=== PATIENT | female | born 1995 | race Caucasian/White ===

== ENCOUNTER 2016-07-03 19:04 | Outpatient (CLI) | payer MEDICAID | END 2016-07-03 21:30 | disposition home or self-care (01) | DX: O99.89 Other specified diseases and conditions complicating pregnancy, childbirth and the puerperium (principal); R32 Unspecified urinary incontinence; Z3A.24 24 weeks gestation of pregnancy ==

== ENCOUNTER 2020-01-29 13:35 | Emergency (ER) | payer MEDICAID ==
--- NOTE | 2020-01-29 13:58 | ED Physician Documentation ---
History of Present Illness - Stated complaint Stated Complaint: VOMITING,DIARRHEA,WEAKNESS - Chief complaint Chief Complaint: Abd Pain - History obtained from History obtained from: Patient - History of Present Illness Timing: How many days ago (5) Pain level max: 6 Pain level now: 4 - Additonal information Additional information: 24 year old female states that she has been sick for the past 5 days. Started with nasal congestion, sore throat, and body aches. Yesterday felt better. Today had nausea, vomiting and diarrhea, now feels weak and dehydrated. No fevers. No covid exposure. No recent travel. No recent antibiotics. She is not , breast-feeding or trying to become . Review of Systems Ten Systems: 10 systems reviewed and negative Constitutional: reports: Myalgias. denies: Fever, Chills Ears: denies: Ear pain Nose: reports: Rhinorrhea / runny nose, Congestion Throat: reports: Sore throat Cardiac: denies: Chest pain / pressure Respiratory: denies: Cough GI: reports: Abdominal Pain (Crampy, diffuse), Nausea, Vomiting, Diarrhea Skin: denies: Rash Musculoskeletal: denies: Neck pain, Back pain Neurologic: denies: Headache PD PAST MEDICAL HISTORY - Past Medical History Past Medical History: Yes GI: Other (IBS) Psych: Depression, Anxiety - Past Surgical History Past Surgical History: No - Present Medications Home Medications: Ambulatory Orders Medication Instructions Recorded Confirmed Omeprazole Magnesium 20 mg PO DAILY 01/29/20 01/29/20 Ondansetron Odt [Zofran] 4 mg TL Q6H PRN #10 tablet 01/29/20 Sertraline HCl 100 mg PO DAILY 01/29/20 01/29/20 - Allergies Allergies/Adverse Reactions: Allergies Allergy/AdvReac Type Severity Reaction Status Date / Time No Known Drug Allergies Allergy Verified 01/29/20 13:44 - Social History Does the pt smoke?: No Smoking Status: Never smoker Does the pt drink ETOH?: No - Immunizations Immunizations are current?: Yes PD ED PE NORMAL - Vitals Vital signs reviewed: Yes - General General: Alert and oriented X 3, No acute distress - HEENT HEENT: Ears normal, Moist mucous membranes, Pharynx benign - Neck Neck: Supple, no meningeal sign, No adenopathy - Cardiac Cardiac: RRR, Strong equal pulses - Respiratory Respiratory: No respiratory distress, Clear bilaterally - Abdomen Abdomen: Normal bowel sounds, Soft, Non tender, Non distended - Back Back: No CVA TTP - Derm Derm: Warm and dry - Extremities Extremities: No edema - Neuro Neuro: Alert and oriented X 3 - Psych Psych: Normal mood, Normal affect Results - Vitals Vitals: Vital Signs - 24 hr 01/29/20 01/29/20 01/29/20 13:41 14:16 15:54 Temperature 37.0 C 37.1 C 37.1 C Heart Rate 100 96 89 Respiratory 16 18 16 Rate Blood Pressure 145/85 H 129/74 141/84 H O2 Saturation 100 100 97 Oxygen O2 Source Room air - Labs Labs: Laboratory Tests 01/29/20 01/29/20 01/29/20 14:10 14:10 15:04 WBC 13.8 H RBC 5.07 Hgb 14.3 Hct 42.9 MCV 84.6 MCH 28.2 MCHC 33.3 RDW 12.7 Plt Count 326 MPV 10.6 Neut # (Auto) 10.9 H Lymph # (Auto) 2.2 [place] # (Auto) 0.6 Eos # (Auto) 0.0 Baso # (Auto) 0.1 Absolute Nucleated RBC 0.00 Nucleated RBC % 0.0 Sodium 138 Potassium 4.1 Chloride 102 Carbon Dioxide 26 Anion Gap 10.0 BUN 9 Creatinine 0.7 Estimated GFR (MDRD) 104 Glucose 106 H Calcium 9.2 Total Bilirubin 0.6 AST 17 ALT 20 Alkaline Phosphatase 73 Total Protein 7.7 Albumin 3.9 Globulin 3.8 Albumin/Globulin Ratio 1.0 Lipase 21 L Urine Color YELLOW Urine Clarity CLEAR Urine pH 6.0 Ur Specific [place] 1.020 Urine Protein NEGATIVE Urine Glucose (UA) NEGATIVE Urine Ketones NEGATIVE Urine Occult Blood NEGATIVE Urine Nitrite NEGATIVE Urine Bilirubin NEGATIVE Urine Urobilinogen 0.2 (NORMAL) Ur Leukocyte Esterase SMALL H Urine RBC 0-5 Urine WBC 4-5 Ur Squamous Epith Cells MOD Squamous H Urine Bacteria None Seen Ur Microscopic Review INDICATED Urine Culture Comments NOT INDICATED Urine HCG, Qual NEGATIVE PD MEDICAL DECISION MAKING - ED course Complexity details: reviewed results, re-evaluated patient, considered differential, d/w patient ED course: Patient is well-appearing, nontoxic. Afebrile. No significant lab abnormalities. Urinalysis appears contaminated and she does not have UTI symptoms. Tolerating p.o. without difficulty. Feels better after IV fluids. We will continue supportive care. Abdomen is soft, nontender nondistended on serial exam. Patient counseled regarding signs and symptoms for which I believe and urgent re-evaluation would be necessary. Patient with good understanding of and agreement to plan and is comfortable going home at this time This document was made in part using voice recognition software. While efforts are made to proofread this document, sound alike and grammatical errors may occur. Departure - Departure Disposition: 01 Home, Self Care Clinical Impression: Viral syndrome Condition: Good Instructions: ED Viral Syndrome Follow-Up: your,doctor in 1 week [Other] Prescriptions: Ondansetron Odt [Zofran] 4 mg TL Q6H PRN #10 tablet PRN Reason: Nausea / Vomiting Comments: Drink plenty of fluids. Return if you worsen. Discharge Date/Time: 01/29/20 15:54
[2020-01-29] MEDS: SODIUM CHLORIDE 0.9% 1,000 ML IV STA (14:13)
[2020-01-29] MEDS: ONDANSETRON 4 MG/2 ML VIAL IVP STA (14:14)
[2020-01-29 14:29] LABS: BASOPHILS # (AUTO) 0.1 10^3/uL (0.0-0.1); BASOPHILS % (AUTO) 0.4 %; EOSINOPHILS % (AUTO) 0.3 %; HGB - HEMOGLOBIN 14.3 g/dL (12.0-16.0); LYMPHOCYTES # (AUTO) 2.2 10^3/uL (1.5-3.5); LYMPHOCYTES % (AUTO) 15.9 %; MEAN CORPUSCULAR HEMOGLOBIN 28.2 pg (27.0-31.0); MEAN CORPUSCULAR HGB CONC 33.3 g/dL (32.0-36.0); MEAN CORPUSCULAR VOLUME 84.6 fL (81.0-99.0); MEAN PLATELET VOLUME 10.6 fL (7.9-10.8); MONOCYTES # (AUTO) 0.6 10^3/uL (0.0-1.0); MONOCYTES % (AUTO) 4.3 %; NEUTROPHILS # (AUTO) 10.9 10^3/uL (1.5-6.6); NEUTROPHILS % (AUTO) 78.4 %; PLT - PLATELET COUNT 326 10^3/uL (130-450); RED BLOOD COUNT 5.07 10^6/uL (4.20-5.40); RED CELL DISTRIBUTION WIDTH 12.7 % (12.0-15.0); WHITE BLOOD COUNT 13.8 x10^3/uL (4.8-10.8)
[2020-01-29 14:39] LABS: ALBUMIN 3.9 g/dL (3.2-5.5); BILIRUBIN,TOTAL 0.6 mg/dL (0.2-1.0); CALCIUM 9.2 mg/dL (8.5-10.3); CREATININE 0.7 mg/dL (0.4-1.0); TOTAL PROTEIN 7.7 g/dL (6.7-8.2)
[2020-01-29 15:21] LABS: BILIRUBIN,URINE NEGATIVE (NEGATIVE); GLUCOSE, URINE (UA) NEGATIVE (NEGATIVE); KETONES,URINE (UA) NEGATIVE (NEGATIVE); LEUKOCYTE ESTERASE, URINE SMALL (NEGATIVE); NITRITE,URINE NEGATIVE (NEGATIVE); OCCULT BLOOD,URINE NEGATIVE (NEGATIVE); PROTEIN,URINE NEGATIVE (NEGATIVE); UROBILINOGEN,URINE 0.2 (NORMAL) E.U./dL (NORMAL)
[2020-01-29 15:25] LABS: CLARITY,URINE CLEAR (CLEAR); HCG UR QUAL NEGATIVE
[2020-01-29 15:36] LABS: BACTERIA,URINE None Seen /HPF (None Seen); RBC,URINE 0-5 /HPF (0-5); SQUAMOUS EPITHELIAL CELL,UR MOD Squamous (<= Few)
[2020-01-29 15:55] VITALS: BP 141/84
== END 2020-01-29 15:54 | disposition home or self-care (01) ==
LOC: ED 13:35
DX: B34.9 Viral infection, unspecified (principal); Z20.828 Contact with and (suspected) exposure to other viral communicable diseases
CPT/HCPCS: 36415; 80053; 81001; 81003; 81025; 83690; 85025; 87086; 96361; 96374; 99283

== ENCOUNTER 2020-11-26 14:07 | Outpatient (CLI) | payer MEDICAID | END 2020-11-26 14:08 | disposition home or self-care (01) | LOC: COV 14:07 | PROVIDERS: ATTEND Family Medicine | DX: U07.1 COVID-19 (principal) ==

== ENCOUNTER 2021-02-19 16:56 | Outpatient (CLI) | payer MEDICAID | END 2021-02-19 16:57 | disposition critical access hospital (66) | LOC: EMS 16:56 | DX: Z04.3 Encounter for examination and observation following other accident (principal); M53.3 Sacrococcygeal disorders, not elsewhere classified | CPT/HCPCS: A0425; A0427; A0999 ==

== ENCOUNTER 2021-02-19 17:18 | Emergency (ER) | payer MEDICAID ==
--- NOTE | 2021-02-19 19:04 | XRAY Report ---
PROCEDURE: Sacrum/Coccyx INDICATIONS: fall buttocks pain TECHNIQUE: 3 views of the sacrum and coccyx acquired. COMPARISON: None. FINDINGS: Bones: No fractures or dislocations. No suspicious bony lesions. Soft tissues: Visualized bowel gas pattern is normal. No suspicious soft tissue densities. IMPRESSION: No fractures. If clinical symptoms persist, a follow-up examination in 7-10 days or advanced imaging such as CT or MRI is suggested. Reviewed by: Zacarias Chappell MD on 02/19/2021 7:03 PM PST Approved by: Zacarias Chappell MD on 02/19/2021 7:03 PM PST Station ID: [id number]
--- NOTE | 2021-02-19 19:20 | ED Physician Documentation ---
PD HPI BACK PAIN - Stated complaint Stated Complaint: GLF - Chief complaint Chief Complaint: Trauma Ch/Bk - History obtained from History obtained from: Patient, EMS - History of Present Illness Timing - onset: Enter time (16:00), Today Timing - details: Abrupt onset Pain level max: 10 (with movement) Pain level now: 8 Location: Lower Quality: Pain, Spasm Associated symptoms: No: Weakness, Numbness, Incontinent of urine, Unable to urinate, Hematuria, Incontinent of stool Improves with: Rest Worsened by: Movement Recently seen: Not recently seen - Additional information Additional information: BIBA. Patient c/o midline coccygeal pain sudden onset when she slipped on stairs at home and fell, landed on my tailbone (per patient). She fell at approximately 4 PM today. Pain has steadily worsened although remains limited to the coccygeal area. Pain is sharply exacerbated with movement involving lower back. Denies weakness, denies numbness. She did not sustain any other injury and denies head injury/LOC Review of Systems GI: reports: Reviewed and negative : denies: Unable to Void, Incontinent Musculoskeletal: reports: Back pain (limited to coccygeal area). 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: section HEENT: Tonsil/Adenoidectomy - Present Medications Home Medications: Ambulatory Orders Medication Instructions Recorded Confirmed Omeprazole Magnesium 20 mg PO DAILY 01/29/20 01/29/20 Ondansetron Odt [Zofran] 4 mg TL Q6H PRN #10 tablet 01/29/20 Sertraline HCl 100 mg PO DAILY 01/29/20 01/29/20 Cyclobenzaprine [Flexeril] 10 mg PO TID PRN #20 tablet 02/19/21 Oxycodone HCl/Acetaminophen 1 - 2 each PO Q6H PRN #14 tablet 02/19/21 [Percocet 5-325 mg Tablet] - Allergies Allergies/Adverse Reactions: Allergies Allergy/AdvReac Type Severity Reaction Status Date / Time No Known Drug Allergies Allergy Verified 02/19/21 17:23 - Social History Does the pt smoke?: No Smoking Status: Never smoker Does the pt drink ETOH?: No Does the pt have substance abuse?: Yes - Immunizations Immunizations are current?: Yes - POLST Patient has POLST: No PD ED PE NORMAL - Vitals Vital signs reviewed: Yes - General General: Alert and oriented X 3, No acute distress (at rest but obvious painful distress with movement involving lower back (including simply turning to either side)) - HEENT HEENT: Atraumatic - Neck Neck: No bony TTP - Abdomen Abdomen: Soft, Non tender - Back Back: No spinal TTP - Extremities Extremities: No tenderness to palpate - Neuro Neuro: Alert and oriented X 3, No motor deficit (5/5 bilateral dorsi/plantarflexion), No sensory deficit (LTS intact BLE) Results - Vitals Vitals: Oxygen O2 Source Room air - Rads (name of study) sacrum/coccyx xrays Radiology: Prelim report reviewed, See rad report PD MEDICAL DECISION MAKING - ED course Complexity details: reviewed results, re-evaluated patient, considered differential, d/w patient ED course: presents after fall at home, pain c/o is isolated to coccygeal area which is tender to palpation on exam but otherwise no concerning findings on exam (nontender C/T/L spine, and tenderness of sacrum is limited to coccygeal area; NVI BLE), and xrays of sacrum/coccyx do not demonstrate evidence of acute injury (no fractures). She reports adequate relief of pain with oxycodone and flexeril. Results of xrays d/w patient, return precautions discussed (emphasizing return for worsening pain, pain uncontrolled with prescribed medications, development of weakness or numbness, development of bowel or bladder incontinence), follow up with primary care provider for reevaluation encouraged. Departure - Departure Disposition: 01 Home, Self Care Clinical Impression: Coccyx contusion Condition: Good Instructions: ED Contusion Sacrum Coccyx Follow-Up: Mani Mustafa ARNP [Primary Care Provider] - (3-4 days ) Prescriptions: Cyclobenzaprine [Flexeril] 10 mg PO TID PRN #20 tablet PRN Reason: Spasms Oxycodone HCl/Acetaminophen [Percocet 5-325 mg Tablet] 1 - 2 each PO Q6H PRN #14 tablet PRN Reason: pain Comments: Prescriptions for cyclobenzaprine (muscle relaxant) and oxycodone/acetaminophen (strong pain medication) have been electronically submitted to [facility] pharmacy in [place] I am prescribing a short course of narcotic pain medication for you. These are potentially dangerous and addictive medications that should be used carefully. These medications may constipate you. Take an lsnz-sxu-tewhapp stool softener (docusate) twice daily with plenty of water while taking these medications. If you go 24 hours without a bowel movement, take [id number] miralax, per package instructions. Do not drink or drive while taking these medications. If you received narcotic or sedating medications while in the emergency department, do not drive for 24 hours. Store this medication in a safe, secure place and out of reach of children. It is a violation of federal law to give or sell this medication to another person or to use in a manner other than prescribed. The ED will not refill narcotic prescriptions, including prescriptions lost or stolen. To dispose of unwanted medications: 1. [facility] at [address] in [place] has a medication drop box. They accept prescription medications (in pill form) Thursday through Thursday 9:00 a.m. to 5:00 p.m. 2. The [facility] [employer] accepts prescription medications (in pill form only) for disposal year round. Call for more information. 3. Contact the [facility] for the next [facility] sponsored prescription drug collection event. , [phone], or [phone]; Discharge Date/Time: 02/19/21 20:25
[2021-02-19] MEDS: oxyCODONE 5 MG TABLET PO STA (19:44)
[2021-02-19] MEDS: CYCLOBENZAPRINE 10 MG TABLET PO STA (19:44)
[2021-02-19] MEDS: oxyCODONE/ACET 5/325 Prepack 4 PO STA (19:45)
[2021-02-19] MEDS: CYCLOBENZAPRINE 10 MG Prepack 2 PO STA (19:46)
[2021-02-19 20:26] VITALS: BP 138/84
== END 2021-02-19 20:25 | disposition home or self-care (01) ==
LOC: ED 17:18
DX: S30.0XXA Contusion of lower back and pelvis, initial encounter (principal); W10.9XXA Fall (on) (from) unspecified stairs and steps, initial encounter; Y92.009 Unspecified place in unspecified non-institutional (private) residence as the place of occurrence of the external cause
CPT/HCPCS: 72220; 99283; A9270

== ENCOUNTER 2021-05-02 11:38 | Emergency (ER) | payer MEDICAID ==
[2021-05-02 11:55] VITALS: BP 151/100
--- NOTE | 2021-05-02 15:10 | ED Physician Documentation ---
PD HPI URI - Stated complaint Stated Complaint: SWOLLEN EYES, SORE THROATM CHEST PX - Chief complaint Chief Complaint: Heent - History obtained from History obtained from: Patient - History of Present Illness Timing - onset: How many weeks ago (1) Timing duration: Weeks (1) Timing details: Gradual onset, Still present Associated symptoms: Rhinorrhea, Sinus pain, Sore throat, Dry cough, Dyspnea. 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 HEENT: None Psych: Depression, Anxiety Musculoskeletal: None Derm: None - Past Surgical History Past Surgical History: No /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 HEENT: Tonsil/Adenoidectomy - Present Medications Home Medications: Ambulatory Orders Medication Instructions Recorded Confirmed Omeprazole Magnesium 20 mg PO DAILY 01/29/20 01/29/20 Ondansetron Odt [Zofran] 4 mg TL Q6H PRN #10 tablet 01/29/20 Sertraline HCl 100 mg PO DAILY 01/29/20 01/29/20 Cyclobenzaprine [Flexeril] 10 mg PO TID PRN #20 tablet 02/19/21 Oxycodone HCl/Acetaminophen 1 each PO Q6H PRN #14 tablet 02/21/21 [Percocet 5-325 mg Tablet] Benzonatate [Tessalon] 100 mg PO TID PRN #20 cap 05/02/21 Cetirizine [ZyrTEC] 10 mg PO BID #15 tablet 05/02/21 Doxycycline Hyclate 100 mg PO BID 7 Days #14 cap 05/02/21 Polymyxin B/Trimeth Ophth Drop 2 drops EACHEYE QID 5 Days #10 ml 05/02/21 [Polytrim Ophth Drops] dexAMETHasone [Decadron] 4 mg PO DAILY #5 tablet 05/02/21 - Allergies Allergies/Adverse Reactions: Allergies Allergy/AdvReac Type Severity Reaction Status Date / Time No Known Drug Allergies Allergy Verified 05/02/21 11:54 - Social History Does the pt smoke?: No Smoking Status: Never smoker Does the pt drink ETOH?: No Does the pt have substance abuse?: Yes - Immunizations Immunizations are current?: Yes - POLST Patient has POLST: No PD ED PE NORMAL - Vitals Vital signs reviewed: Yes - General General: Alert and oriented X 3, No acute distress, Well developed/nourished - HEENT HEENT: Ears normal, Pharynx benign - Neck Neck: Supple, no meningeal sign, No adenopathy - Cardiac Cardiac: RRR, No murmur - Respiratory Respiratory: No: Clear bilaterally (scattered wheezing and frequent cough) - Abdomen Abdomen: Soft, Non tender - Derm Derm: Normal color, Warm and dry - Extremities Extremities: Normal ROM s pain, No edema, No calf tenderness / cord - Neuro Neuro: Alert and oriented X 3, No motor deficit, Normal speech Results - Vitals Vitals: Vital Signs - 24 hr 05/02/21 05/02/21 11:48 16:00 Temperature 36.6 C Heart Rate 98 78 Respiratory 18 20 Rate Blood Pressure 151/100 H O2 Saturation 99 Oxygen O2 Source Room air - Labs Labs: Laboratory Tests 05/02/21 15:10 Coronavirus (PCR) NEGATIVE PD MEDICAL DECISION MAKING - ED course Complexity details: considered differential, d/w patient Departure - Departure Disposition: 01 Home, Self Care Clinical Impression: Sinusitis Qualifiers: Sinusitis location: unspecified location Chronicity: acute Recurrence: non- recurrent Qualified Code(s): J01.90 - Acute sinusitis, unspecified URI (upper respiratory infection) Qualifiers: URI type: unspecified URI Qualified Code(s): J06.9 - Acute upper respiratory infection, unspecified Exacerbation of asthma Qualifiers: Asthma severity: mild Asthma persistence: intermittent Qualified Code(s): J45.21 - Mild intermittent asthma with (acute) exacerbation Condition: Stable Record reviewed to determine appropriate education?: Yes Prescriptions: dexAMETHasone [Decadron] 4 mg PO DAILY #5 tablet Doxycycline Hyclate 100 mg PO BID 7 Days #14 cap Polymyxin B/Trimeth Ophth Drop [Polytrim Ophth Drops] 2 drops EACHEYE QID 5 Days #10 ml Benzonatate [Tessalon] 100 mg PO TID PRN #20 cap PRN Reason: Cough Cetirizine [ZyrTEC] 10 mg PO BID #15 tablet Comments: Stay well-hydrated. You can use moisturizing eyedrops for both eyes for discomfort and crustiness. Add polymyxin antibiotic eyedrops to both eyes for possibility of bacterial coinfection. Your general symptoms sound likely to have originated is viral. Whether there can be a bacterial component in the sinuses for example at this point is possible. We can treat it with antihistamine cetirizine twice daily for a week as well as Decadron steroid daily for 5 more days. Add doxycycline antibiotic as well for possible bacterial component. Use your albuterol inhaler with the spacer provided 2 to 3 puffs 4 times a day regularly for the next several days to week and extra times as needed. Add Tessalon if needed for cough and bronchial irritation. I would anticipate improvement over the next 2 to 3 days and hopefully resolved by 3 to 5 days. Recheck if worsening. I transmitted your prescriptions to [facility] pharmacy. Discharge Date/Time: 05/02/21 16:37
[2021-05-02] MEDS ORDERED: ALBUTEROL 1 PUFF INH STA (15:41)
[2021-05-02] MEDS ORDERED: CHERRY SYRUP 10 ML UDC PO ONE (15:42)
[2021-05-02] MEDS ORDERED: DOXYCYCLINE 100 MG TABLET PO STA (15:42)
[2021-05-02] MEDS ORDERED: CETIRIZINE 10 MG TABLET PO STA (15:42)
[2021-05-02] MEDS ORDERED: DEXAMETHASONE 10 MG/ML VIAL PO STA (15:42)
--- NOTE | 2021-05-02 16:04 | XRAY Report ---
PROCEDURE: Chest 1 View X-Ray INDICATIONS: cough/dyspnea TECHNIQUE: One view of the chest was acquired. COMPARISON: None. FINDINGS: Surgical changes and devices: None. Lungs and pleura: No pleural effusions or pneumothorax. Lungs are clear. Mediastinum: Mediastinal contours appear normal. Heart size is normal. Bones and chest wall: No suspicious bony lesions. Overlying soft tissues appear unremarkable. IMPRESSION: No acute cardiopulmonary abnormality. Reviewed by: Gene Lane MD on 05/02/2021 4:03 PM [facility] Approved by: Gene Lane MD on 05/02/2021 4:03 PM [facility] Station ID: [id number]
== END 2021-05-02 16:37 | disposition home or self-care (01) ==
LOC: ED 11:38
DX: J01.90 Acute sinusitis, unspecified (principal); J06.9 Acute upper respiratory infection, unspecified; J45.21 Mild intermittent asthma with (acute) exacerbation; Z20.822 Contact with and (suspected) exposure to COVID-19
CPT/HCPCS: 71045; 87635; 94640; 94664; 99284; A9270

== ENCOUNTER 2022-02-11 20:56 | Emergency (ER) | payer MEDICAID ==
[2022-02-11 21:08] VITALS: BP 165/110
--- NOTE | 2022-02-11 23:29 | ED Physician Documentation ---
History of Present Illness - Stated complaint Stated Complaint: BLOOD IN EARS, MIGRAINE - Chief complaint Chief Complaint: General - History obtained from History obtained from: Patient - History of Present Illness Timing: Other (multiple concerns over various time frames (see narrative below)) Pain level now: 7 (headache) - Additonal information Additional information: patient says she was diagnosed with "double ear infection" (per patient) a few weeks ago, prescribed amoxicillin and completed course of this antibiotic. (prescribed 01/21, completed one week course). Presents at this time with multiple concerns. She feels fullness of left ear and he friend used an "ear camera" and patient thinks this showed blood in her left ear. She also c/o generalized headache which she says is consistent with her migraine headaches although they invariably respond to rizatryptan (and this headache is not). Patient also noted painless "lump" behind her right ear few days ago. She has an appointment with ENT soon to discuss some of these issues. Review of Systems Constitutional: denies: Fever, Chills, Sweats Ears: reports: Drainage/discharge (possible blood in left ear canal). 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: section HEENT: Tonsil/Adenoidectomy - Present Medications Home Medications: Ambulatory Orders Medication Instructions Recorded Confirmed Omeprazole Magnesium 20 mg PO DAILY 01/29/20 01/29/20 Ondansetron Odt [Zofran] 4 mg TL Q6H PRN #10 tablet 01/29/20 Sertraline HCl 100 mg PO DAILY 01/29/20 01/29/20 Cyclobenzaprine [Flexeril] 10 mg PO TID PRN #20 tablet 02/19/21 Oxycodone HCl/Acetaminophen 1 each PO Q6H PRN #14 tablet 02/21/21 [Percocet 5-325 mg Tablet] Benzonatate [Tessalon] 100 mg PO TID PRN #20 cap 02/24/22 Cetirizine [ZyrTEC] 10 mg PO BID #15 tablet 05/02/21 Doxycycline Hyclate 100 mg PO BID 7 Days #14 cap 05/02/21 Polymyxin B/Trimeth Ophth Drop 2 drops EACHEYE QID 5 Days #10 ml 05/02/21 [Polytrim Ophth Drops] dexAMETHasone [Decadron] 4 mg PO DAILY #5 tablet 05/02/21 - Allergies Allergies/Adverse Reactions: Allergies Allergy/AdvReac Type Severity Reaction Status Date / Time No Known Drug Allergies Allergy Verified 02/11/22 21:08 - Social History Does the pt smoke?: No Smoking Status: Never smoker Does the pt drink ETOH?: No Does the pt have substance abuse?: Yes - Immunizations Immunizations are current?: Yes - POLST Patient has POLST: No PD ED PE NORMAL - Vitals Vital signs reviewed: Yes - General General: Alert and oriented X 3, No acute distress, Well developed/nourished - Neck Neck: Supple, no meningeal sign - Neuro Neuro: Alert and oriented X 3, 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 right post-auricular solitary minimally enlarge lymphnode without erythema, TTP, abnormal warmth to touch) Results - Vitals Vitals: Oxygen O2 Source Room air PD MEDICAL DECISION MAKING - ED course Complexity details: considered differential, d/w patient ED course: patient shows me the video of her left ext aud canal on her phone, and it clearly correlates with what is certainly dark cerumen and not blood. I explained this to her and she is relieved by this. I offered to remove some of the cerumen to show her, as it is easy for me to access (using otoscopy and plastic curette), but she declines this. The TMs are normal bilaterally. She has a minimally enlarged lymph node postauricular on right without evidence of lymphangitis (such as erythema, TTP, hot to touch). She declines medication for her headache. Departure - Departure Disposition: 01 Home, Self Care Clinical Impression: Cerumen in auditory canal on examination Headache Qualifiers: Headache type: unspecified Headache chronicity pattern: unspecified pattern Intractability: not intractable Qualified Code(s): R51.9 - Headache, unspecified Condition: Good Instructions: ED Cephalgia Unspecified, ED Hypertension Poss Comments: Both ears are normal in appearance on exam. There is a small amount of cerumen (ear wax) in both ears; it is neither an excessive/abnormal amount, and the earwax is not blocking the canal (which would lead to decreased hearing and possibly cause pain and infection). The left ear canal has dark ear wax which is what you were mistaking for blood. I see no evidence of any discharge or pus from either ear. The eardrums are both clear and intact. Your blood pressure was high today. As we discussed, you should follow up with your primary care provider for reevaluation of the high blood pressure. At some point you might need to be prescribed a medication to control the blood pressure. Discharge Date/Time: 02/12/22 00:04
== END 2022-02-12 00:04 | disposition home or self-care (01) ==
LOC: ED 20:56
DX: R51.9 Headache, unspecified (principal)
CPT/HCPCS: 99281; 99282

== ENCOUNTER 2022-07-20 17:02 | Emergency (ER) | payer MEDICAID ==
[2022-07-20 17:11] VITALS: BP 164/106
--- OUTSIDE RECORDS SUMMARY | 2022-07-20 17:22 | EXTERNAL MEDICAL SUMMARY RPT | Continuity of Care Document ---
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 Name Role Phone Unavailable Unavailable Unavailable Mani Mustafa Unavailable Unavailable Allergies and Intolerances date description facility type (no date) No Known Drug Allergies [facility] ( unknown) Medications date description facility 2022-04-25 00:00 Ondansetron [facility] 2022-04-22 00:00 Ondansetron [facility] 2022-04-23 00:00 Clindamycin [facility] 2022-06-04 00:00 Pantoprazole [facility] 2022-06-23 00:00 Promethazine [facility] Problems date description facility 2022-04-22 00:00 Morbid obesity [facility] 2022-04-22 00[facility]01 Nausea with vomiting, [facility] 2022-04-22 16:01 Encounter for screening for mariam betes mellitus [facility] 2022-04-22 16:01 Encounter for screening for lip oid disorders [facility] 2022-04-28 09:17 [facility]00 Steatosis [facility] liver [facility] 2022-05-23 09:44 [facility], [facility] 11:29 Upper abdominal pain, [facility] 2022-06-20 10:21 Right upper quadrant pain [facility] 2022-06-20 10:21 Epigastric pain [facility] 2022-06-20 10:21 Nausea with vomiting, [facility] 2022-06-20 10:21 Adverse effect of an tifungal antibiotics, systemically used, [facility] 2022-06-20 13:52 Right upper quadrant pain [facility] 2022-06-20 13:52 Epigastric pain [facility] 2022-06-20 13:52 Nausea with vomiting, unspecifi ed [facility] 2022-06-20 13:52 Adverse effect of an tifungal antibiotics, systemically used, [facility] 2022-06-23 00:00 Abdominal pain [facility] 2022-07-13 15:27 Acute pharyngitis, unspecified [facility] 2022-07-13 23:50 Acute pharyngitis, unspecified [facility] Procedures date description facility 2022-04-22 00:00 [facility] 2022-04-23 00:00 [facility] 2022-05-06 00:00 [facility] 2022-05-23 00:00 NM scan hepatobiliar y ducts including gallbladder w [facility] 2022-06-20 00:00 CT abdomen pelvis w [facility] 2022-04-28 00:00 [facility] 2022-06-23 00:00 US Abdomen [facility] Results/Labs test date author facility value unit interpretation Result panel 1 (unknown) (no date) (unknown) [facility] (no value) (units unknown) (unknown) Result panel 2 (unknown) (no date) (unknown) [facility] (no value) (units unknown) (unknown) Result panel 3 (unknown) (no date) (unknown) [facility] (no value) (units unknown) (unknown) Result panel 4 (unknown) (no date) (unknown) [facility] (no value) (units unknown) (unknown) Result panel 5 (unknown) (no date) (unknown) [facility] (no value) (units unknown) (unknown) Result panel 6 (unknown) (no date) (unknown) [facility] (no value) (units unknown) (unknown) Result panel 7 (unknown) (no date) (unknown) [facility] (no value) (units unknown) (unknown) Result panel 8 (unknown) (no date) (unknown) [facility] (no value) (units unknown) (unknown) Result panel 9 (unknown) (no date) (unknown) [facility] (no value) (units unknown) (unknown) Result panel 10 (unknown) (no date) (unknown) [facility] (no value) (units unknown) (unknown) Result panel 11 (unknown) (no date) (unknown) [facility] (no value) (units unknown) (unknown) Result panel 12 (unknown) (no date) (unknown) [facility] (no value) (units unknown) (unknown) Result panel 13 (unknown) (no date) (unknown) [facility] (no value) (units unknown) (unknown) Result panel 14 (unknown) (no date) (unknown) [facility] (no value) (units unknown) (unknown) Result panel 15 (unknown) (no date) (unknown) [facility] (no value) (units unknown) (unknown) Result panel 16 (unknown) (no date) (unknown) [facility] (no value) (units unknown) (unknown) Result panel 17 (unknown) (no date) (unknown) [facility] (no value) (units unknown) (unknown) Result panel 18 (unknown) (no date) (unknown) [facility] (no value) (units unknown) (unknown) Result panel 19 (unknown) (no date) (unknown) [facility] (no value) (units unknown) (unknown) Result panel 20 (unknown) (no date) (unknown) [facility] (no value) (units unknown) (unknown) Result panel 21 (unknown) (no date) (unknown) [facility] (no value) (units unknown) (unknown) Result panel 22 (unknown) (no date) (unknown) [facility] (no value) (units unknown) (unknown) Result panel 23 (unknown) (no date) (unknown) [facility] (no value) (units unknown) (unknown) Result panel 24 (unknown) (no date) (unknown) [facility] (no value) (units unknown) (unknown) Result panel 25 (unknown) (no date) (unknown) [facility] (no value) (units unknown) (unknown) Result panel 26 (unknown) (no date) (unknown) [facility] (no value) (units unknown) (unknown) Result panel 27 (unknown) (no date) (unknown) [facility] (no value) (units unknown) (unknown) Result panel 28 (unknown) (no date) (unknown) [facility] (no value) (units unknown) (unknown) Result panel 29 (unknown) (no date) (unknown) [facility] (no value) (units unknown) (unknown) Result panel 30 (unknown) (no date) (unknown) [facility] (no value) (units unknown) (unknown) Result panel 31 (unknown) (no date) (unknown) [facility] (no value) (units unknown) (unknown) Result panel 32 (unknown) (no date) (unknown) [facility] (no value) (units unknown) (unknown) Result panel 33 (unknown) (no date) (unknown) [facility] (no value) (units unknown) (unknown) Result panel 34 (unknown) (no date) (unknown) [facility] (no value) (units unknown) (unknown) Result panel 35 (unknown) (no date) (unknown) [facility] (no value) (units unknown) (unknown) Result panel 36 (unknown) (no date) (unknown) [facility] (no value) (units unknown) (unknown) Result panel 37 (unknown) (no date) (unknown) [facility] (no value) (units unknown) (unknown) Result panel 38 (unknown) (no date) (unknown) [facility] (no value) (units unknown) (unknown) Result panel 39 (unknown) (no date) (unknown) [facility] (no value) (units unknown) (unknown) Result panel 40 (unknown) (no date) (unknown) [facility] (no value) (units unknown) (unknown) Result panel 41 (unknown) (no date) (unknown) [facility] (no value) (units unknown) (unknown) Result panel 42 (unknown) (no date) (unknown) [facility] (no value) (units unknown) (unknown) Result panel 43 (unknown) (no date) (unknown) [facility] (no value) (units unknown) (unknown) Result panel 44 (unknown) (no date) (unknown) [facility] (no value) (units unknown) (unknown) Result panel 45 (unknown) (no date) (unknown) [facility] (no value) (units unknown) (unknown) Result panel 46 (unknown) (no date) (unknown) [facility] (no value) (units unknown) (unknown) Result panel 47 (unknown) (no date) (unknown) [facility] (no value) (units unknown) (unknown) Result panel 48 (unknown) (no date) (unknown) [facility] (no value) (units unknown) (unknown) Result panel 49 (unknown) (no date) (unknown) [facility] (no value) (units unknown) (unknown) Result panel 50 (unknown) (no date) (unknown) [facility]units unknown) (unknown) Result panel 51 (unknown) (no date) (unknown) [facility] ([facility] value[facility] (units unknown) (unknown) Result panel 52 (unknown) (no date) (unknown) [facility] (no value) (units unknown) (unknown) Result panel 53 (unknown) (no date) (unknown) [facility] (no value) (units unknown) (unknown) Result panel 54 (unknown) (no date) (unknown) [facility] (no value) (units unknown) (unknown) Result panel 55 (unknown) (no date) (unknown) [facility] (no value) (units unknown) (unknown) Result panel 56 (unknown) (no date) (unknown) [facility] (no value) (units unknown) (unknown) Result panel 57 (unknown) (no date) (unknown) [facility] (no value) (units unknown) (unknown) Result panel 58 (unknown) (no date) (unknown) [facility] (no value) (units unknown) (unknown) Result panel 59 (unknown) (no date) (unknown) [facility] (no value) (units unknown) (unknown) Result panel 60 (unknown) (no date) (unknown) [facility] (no value) (units unknown) (unknown) Result panel 61 (unknown) (no date) (unknown) [facility] (no value) (units unknown) (unknown) Result panel 62 (unknown) (no date) (unknown) [facility] (no value) (units unknown) (unknown) Result panel 63 (unknown) (no date) (unknown) [facility] (no value) (units unknown) (unknown) Result panel 64 (unknown) (no date) (unknown) [facility] (no value) (units unknown) (unknown) Result panel 65 (unknown) (no date) (unknown) [facility] (no value) (units unknown) (unknown) Result panel 66 (unknown) (no date) (unknown) [facility] (no value) (units unknown) (unknown) Result panel 67 (unknown) (no date) (unknown) [facility] (no value) (units unknown) (unknown) Result panel 68 (unknown) (no date) (unknown) [facility] (no value) (units unknown) (unknown) Result panel 69 (unknown) (no date) (unknown) [facility] (no value) (units unknown) (unknown) Result panel 70 (unknown) (no date) (unknown) [facility] (no value) (units unknown) (unknown) Result panel 71 (unknown) (no date) (unknown) [facility] (no value) (units unknown) (unknown) Result panel 72 (unknown) (no date) (unknown) [facility] (no value) (units unknown) (unknown) Result panel 73 (unknown) (no date) (unknown) [facility] (no value) (units unknown) (unknown) Result panel 74 (unknown) (no date) (unknown) [facility] (no value) (units unknown) (unknown) Result panel 75 (unknown) (no date) (unknown) [facility] (no value) (units unknown) (unknown) Result panel 76 (unknown) (no date) (unknown) [facility] (no value) (units unknown) (unknown) Result panel 77 (unknown) (no date) (unknown) [facility] (no value) (units unknown) (unknown) Result panel 78 (unknown) (no date) (unknown) [facility] (no value) (units unknown) (unknown) Result panel 79 (unknown) (no date) (unknown) [facility] (no value) (units unknown) (unknown) Result panel 80 (unknown) (no date) (unknown) [facility] (no value) (units unknown) (unknown) Result panel 81 (unknown) (no date) (unknown) [facility] (no value) (units unknown) (unknown) Result panel 82 (unknown) (no date) (unknown) [facility] (no value) (units unknown) (unknown) Result panel 83 (unknown) (no date) (unknown) [facility] (no value) (units unknown) (unknown) Result panel 84 (unknown) (no date) (unknown) [facility] (no value) (units unknown) (unknown) Result panel 85 (unknown) (no date) (unknown) [facility] (no value) (units unknown) (unknown) Result panel 86 (unknown) (no date) (unknown) [facility] (no value) (units unknown) (unknown) Result panel 87 (unknown) (no date) (unknown) [facility] (no value) (units unknown) (unknown) Result panel 88 (unknown) (no date) (unknown) [facility] (no value) (units unknown) (unknown) Result panel 89 (unknown) (no date) (unknown) [facility] (no value) (units unknown) (unknown) Result panel 90 (unknown) (no date) (unknown) [facility] (no value) (units unknown) (unknown) Result panel 91 (unknown) (no date) (unknown) [facility] (no value) (units unknown) (unknown) Result panel 92 (unknown) (no date) (unknown) [facility] (no value) (units unknown) (unknown) Result panel 93 (unknown) (no date) (unknown) [facility] (no value) (units unknown) (unknown) Result panel 94 (unknown) (no date) (unknown) [facility] (no value) (units unknown) (unknown) Result panel 95 (unknown) (no date) (unknown) [facility] (no value) (units unknown) (unknown) Result panel 96 (unknown) (no date) (unknown) [facility] (no value) (units unknown) (unknown) Result panel 97 (unknown) (no date) (unknown) [facility] (no value) (units unknown) (unknown) Result panel 98 (unknown) (no date) (unknown) [facility] (no value) (units unknown) (unknown) Result panel 99 (unknown) (no date) (unknown) [facility] (no value) (units unknown) (unknown) Result panel 100 (unknown) (no date) (unknown) [facility] (no value) (units unknown) (unknown) Result panel 101 (unknown) (no date) (unknown) [facility] (no value) (units unknown) (unknown) Result panel 102 (unknown) (no date) (unknown) [facility] (no value) (units unknown) (unknown) Result panel 103 (unknown) (no date) (unknown) [facility] (no value) (units unknown) (unknown) Result panel 104 (unknown) (no date) (unknown) [facility] (no value) (units unknown) (unknown) Result panel 105 (unknown) (no date) (unknown) [facility] (no value) (units unknown) (unknown) Result panel 106 (unknown) (no date) (unknown) [facility] (no value) (units unknown) (unknown) Result panel 107 (unknown) (no date) (unknown) [facility] (no value) (units unknown) (unknown) Result panel 108 (unknown) (no date) (unknown) [facility] (no value) (units unknown) (unknown) Result panel 109 (unknown) (no date) (unknown) [facility] (no value) (units unknown) (unknown) Result panel 110 (unknown) (no date) (unknown) [facility] (no value) (units unknown) (unknown) Result panel 111 (unknown) (no date) (unknown) [facility] (no value) (units unknown) (unknown) Result panel 112 (unknown) (no date) (unknown) [facility] (no value) (units unknown) (unknown) Result panel 113 (unknown) (no date) (unknown) [facility] (no value) (units unknown) (unknown) Result panel 114 (unknown) (no date) (unknown) [facility] (no value) (units unknown) (unknown) Result panel 115 (unknown) (no date) (unknown) [facility] (no value) (units unknown) (unknown) Result panel 116 (unknown) (no date) (unknown) [facility] (no value) (units unknown) (unknown) Result panel 117 (unknown) (no date) (unknown) [facility] (no value) (units unknown) (unknown) Result panel 118 (unknown) (no date) (unknown) [facility] (no value) (units unknown) (unknown) Result panel 119 (unknown) (no date) (unknown) [facility] (no value) (units unknown) (unknown) Result panel 120 (unknown) (no date) (unknown) [facility] (no value) (units unknown) (unknown) Result panel 121 (unknown) (no date) (unknown) [facility] (no value) (units unknown) (unknown) Result panel 122 (unknown) (no date) (unknown) [facility] (no value) (units unknown) (unknown) Result panel 123 (unknown) (no date) (unknown) [facility] (no value) (units unknown) (unknown) Result panel 124 (unknown) (no date) (unknown) [facility] (no value) (units unknown) (unknown) Result panel 125 (unknown) (no date) (unknown) [facility] (no value) (units unknown) (unknown) Result panel 126 (unknown) (no date) (unknown) [facility] (no value) (units unknown) (unknown) Result panel 127 (unknown) (no date) (unknown) [facility] (no value) (units unknown) (unknown) Result panel 128 (unknown) (no date) (unknown) [facility] (no value) (units unknown) (unknown) Result panel 129 (unknown) (no date) (unknown) [facility] (no value) (units unknown) (unknown) Result panel 130 (unknown) (no date) (unknown) [facility] (no value) (units unknown) (unknown) Result panel 131 (unknown) (no date) (unknown) [facility] (no value) (units unknown) (unknown) Result panel 132 (unknown) (no date) (unknown) [facility] (no value) (units unknown) (unknown) Result panel 133 (unknown) (no date) (unknown) [facility] (no value) (units unknown) (unknown) Result panel 134 (unknown) (no date) (unknown) [facility] (no value) (units unknown) (unknown) Result panel 135 (unknown) (no date) (unknown) [facility] (no value) (units unknown) (unknown) Result panel 136 (unknown) (no date) (unknown) [facility] (no value) (units unknown) (unknown) Result panel 137 (unknown) (no date) (unknown) [facility] (no value) (units unknown) (unknown) Result panel 138 (unknown) (no date) (unknown) [facility] (no value) (units unknown) (unknown) Result panel 139 (unknown) (no date) (unknown) [facility] (no value) (units unknown) (unknown) Result panel 140 (unknown) (no date) (unknown) [facility] (no value) (units unknown) (unknown) Result panel 141 (unknown) (no date) (unknown) [facility] (no value) (units unknown) (unknown) Result panel 142 (unknown) (no date) (unknown) [facility] (no value) (units unknown) (unknown) Result panel 143 (unknown) (no date) (unknown) [facility] (no value) (units unknown) (unknown) Result panel 144 (unknown) (no date) (unknown) [facility] (no value) (units unknown) (unknown) Result panel 145 (unknown) (no date) (unknown) [facility] (no value) (units unknown) (unknown) Result panel 146 (unknown) (no date) (unknown) [facility] (no value) (units unknown) (unknown) Result panel 147 (unknown) (no date) (unknown) [facility] (no value) (units unknown) (unknown) Result panel 148 (unknown) (no date) (unknown) [facility] (no value) (units unknown) (unknown) Result panel 149 (unknown) (no date) (unknown) [facility] (no value) (units unknown) (unknown) Result panel 150 (unknown) (no date) (unknown) [facility] (no value) (units unknown) (unknown) Result panel 151 (unknown) (no date) (unknown) [facility] (no value) (units unknown) (unknown) Result panel 152 (unknown) (no date) (unknown) [facility] (no value) (units unknown) (unknown) Result panel 153 (unknown) (no date) (unknown) [facility] (no value) (units unknown) (unknown) Result panel 154 (unknown) (no date) (unknown) [facility] (no value) (units unknown) (unknown) Result panel 155 (unknown) (no date) (unknown) [facility] (no value) (units unknown) (unknown) Result panel 156 (unknown) (no date) (unknown) [facility] (no value) (units unknown) (unknown) Result panel 157 (unknown) (no date) (unknown) [facility] (no value) (units unknown) (unknown) Result panel 158 (unknown) (no date) (unknown) [facility] (no value) (units unknown) (unknown) Result panel 159 (unknown) (no date) (unknown) [facility] (no value) (units unknown) (unknown) Result panel 160 (unknown) (no date) (unknown) [facility] (no value) (units unknown) (unknown) Result panel 161 (unknown) (no date) (unknown) [facility] (no value) (units unknown) (unknown) Result panel 162 (unknown) (no date) (unknown) [facility] (no value) (units unknown) (unknown) Result panel 163 (unknown) (no date) (unknown) [facility] (no value) (units unknown) (unknown) Result panel 164 (unknown) (no date) (unknown) [facility] (no value) (units unknown) (unknown) Result panel 165 (unknown) (no date) (unknown) [facility] (no value) (units unknown) (unknown) Result panel 166 (unknown) (no date) (unknown) [facility] (no value) (units unknown) (unknown) Result panel 167 (unknown) (no date) (unknown) [facility] (no value) (units unknown) (unknown) Result panel 168 (unknown) (no date) (unknown) [facility] (no value) (units unknown) (unknown) Result panel 169 (unknown) (no date) (unknown) [facility] (no value) (units unknown) (unknown) Result panel 170 (unknown) (no date) (unknown) [facility] (no value) (units unknown) (unknown) Result panel 171 (unknown) (no date) (unknown) [facility] (no value) (units unknown) (unknown) Result panel 172 (unknown) (no date) (unknown) [facility] (no value) (units unknown) (unknown) Result panel 173 (unknown) (no date) (unknown) [facility] (no value) (units unknown) (unknown) Result panel 174 (unknown) (no date) (unknown) [facility] (no value) (units unknown) (unknown) Result panel 175 (unknown) (no date) (unknown) [facility] (no value) (units unknown) (unknown) Result panel 176 (unknown) (no date) (unknown) [facility] (no value) (units unknown) (unknown) Result panel 177 (unknown) (no date) (unknown) [facility] (no value) (units unknown) (unknown) Result panel 178 (unknown) (no date) (unknown) [facility] (no value) (units unknown) (unknown) Result panel 179 (unknown) (no date) (unknown) [facility] (no value) (units unknown) (unknown) Result panel 180 (unknown) (no date) (unknown) [facility] (no value) (units unknown) (unknown) Result panel 181 (unknown) (no date) (unknown) [facility] (no value) (units unknown) (unknown) Result panel 182 (unknown) (no date) (unknown) [facility] (no value) (units unknown) (unknown) Result panel 183 (unknown) (no date) (unknown) [facility] (no value) (units unknown) (unknown) Result panel 184 (unknown) (no date) (unknown) [facility] (no value) (units unknown) (unknown) Result panel 185 (unknown) (no date) (unknown) [facility] (no value) (units unknown) (unknown) Result panel 186 (unknown) (no date) (unknown) [facility] (no value) (units unknown) (unknown) Result panel 187 (unknown) (no date) (unknown) [facility] (no value) (units unknown) (unknown) Result panel 188 (unknown) (no date) (unknown) [facility] (no value) (units unknown) (unknown) Result panel 189 (unknown) (no date) (unknown) [facility] (no value) (units unknown) (unknown) Result panel 190 (unknown) (no date) (unknown) [facility] (no value) (units unknown) (unknown) Result panel 191 (unknown) (no date) (unknown) [facility] (no value) (units unknown) (unknown) Result panel 192 (unknown) (no date) (unknown) [facility] (no value) (units unknown) (unknown) Result panel 193 (unknown) (no date) (unknown) [facility] (no value) (units unknown) (unknown) Result panel 194 (unknown) (no date) (unknown) [facility] (no value) (units unknown) (unknown) Result panel 195 (unknown) (no date) (unknown) [facility] (no value) (units unknown) (unknown) Result panel 196 (unknown) (no date) (unknown) [facility] (no value) (units unknown) (unknown) Result panel 197 (unknown) (no date) (unknown) [facility] (no value) (units unknown) (unknown) Result panel 198 (unknown) (no date) (unknown) [facility] (no value) (units unknown) (unknown) Result panel 199 (unknown) (no date) (unknown) [facility] (no value) (units unknown) (unknown) Result panel 200 (unknown) (no date) (unknown) [facility] (no value) (units unknown) (unknown) Result panel 201 (unknown) (no date) (unknown) [facility] (no value) (units unknown) (unknown) Result panel 202 (unknown) (no date) (unknown) [facility] (no value) (units unknown) (unknown) Result panel 203 (unknown) (no date) (unknown) [facility] (no value) (units unknown) (unknown) Result panel 204 (unknown) (no date) (unknown) [facility] (no value) (units unknown) (unknown) Result panel 205 (unknown) (no date) (unknown) [facility] (no value) (units unknown) (unknown) Result panel 206 (unknown) (no date) (unknown) [facility] (no value) (units unknown) (unknown) Result panel 207 (unknown) (no date) (unknown) [facility] (no value) (units unknown) (unknown) Result panel 208 (unknown) (no date) (unknown) [facility] [facility] (units unknown) (unknown) Result panel 209 (unknown) (no date) (unknown) [facility] (no value) (units unknown) (unknown) Result panel 210 (unknown) (no date) (unknown) [facility] (no value) (units unknown) (unknown) Result panel 211 (unknown) (no date) (unknown) [facility] (no value) (units unknown) (unknown) Result panel 212 (unknown) (no date) (unknown) [facility] (no value) (units unknown) (unknown) Result panel 213 (unknown) (no date) (unknown) [facility] (no value) (units unknown) (unknown) Result panel 214 (unknown) (no date) (unknown) [facility] (no value) (units unknown) (unknown) Result panel 215 (unknown) (no date) (unknown) [facility] (no value) (units unknown) (unknown) Result panel 216 (unknown) (no date) (unknown) [facility] (no value) (units unknown) (unknown) Result panel 217 (unknown) (no date) (unknown) [facility] (no value) (units unknown) (unknown) Result panel 218 (unknown) (no date) (unknown) [facility] (no value) (units unknown) (unknown) Result panel 219 (unknown) (no date) (unknown) [facility] (no value) (units unknown) (unknown) Result panel 220 (unknown) (no date) (unknown) [facility] (no value) (units unknown) (unknown) Result panel 221 (unknown) (no date) (unknown) [facility] (no value) (units unknown) (unknown) Result panel 222 (unknown) (no date) (unknown) [facility] (no value) (units unknown) (unknown) Result panel 223 (unknown) (no date) (unknown) [facility] (no value) (units unknown) (unknown) Result panel 224 (unknown) (no date) (unknown) [facility] (no value) (units unknown) (unknown) Result panel 225 (unknown) (no date) (unknown) [facility] (no value) (units unknown) (unknown) Result panel 226 (unknown) (no date) (unknown) [facility] (no value) (units unknown) (unknown) Result panel 227 (unknown) (no date) (unknown) [facility] (no value) (units unknown) (unknown) Result panel 228 (unknown) (no date) (unknown) [facility] (no value) (units unknown) (unknown) Result panel 229 (unknown) (no date) (unknown) [facility] (no value) (units unknown) (unknown) Result panel 230 (unknown) (no date) (unknown) [facility] (no value) (units unknown) (unknown) Result panel 231 (unknown) (no date) (unknown) [facility] (no value) (units unknown) (unknown) Result panel 232 (unknown) (no date) (unknown) [facility] (no value) (units unknown) (unknown) Result panel 233 (unknown) (no date) (unknown) [facility] (no value) (units unknown) (unknown) Result panel 234 (unknown) (no date) (unknown) [facility] (no value) (units unknown) (unknown) Result panel 235 (unknown) (no date) (unknown) [facility] (no value) (units unknown) (unknown) Result panel 236 (unknown) (no date) (unknown) [facility] (no value) (units unknown) (unknown) Result panel 237 (unknown) (no date) (unknown) [facility] (no value) (units unknown) (unknown) Result panel 238 (unknown) (no date) (unknown) [facility] (no value) (units unknown) (unknown) Result panel 239 (unknown) (no date) (unknown) [facility] (no value) (units unknown) (unknown) Result panel 240 (unknown) (no date) (unknown) [facility] (no value) (units unknown) (unknown) Result panel 241 (unknown) (no date) (unknown) [facility] (no value) (units unknown) (unknown) Result panel 242 (unknown) (no date) (unknown) [facility] (no value) (units unknown) (unknown) Result panel 243 (unknown) (no date) (unknown) [facility] (no value) (units unknown) (unknown) Result panel 244 (unknown) (no date) (unknown) [facility] (no value) (units unknown) (unknown) Result panel 245 (unknown) (no date) (unknown) [facility] (no value) (units unknown) (unknown) Result panel 246 (unknown) (no date) (unknown) [facility] (no value) (units unknown) (unknown) Result panel 247 (unknown) (no date) (unknown) [facility] (no value) (units unknown) (unknown) Result panel 248 (unknown) (no date) (unknown) [facility] (no value) (units unknown) (unknown) Result panel 249 (unknown) (no date) (unknown) [facility] (no value) (units unknown) (unknown) Result panel 250 (unknown) (no date) (unknown) [facility] (no value) (units unknown) (unknown) Result panel 251 (unknown) (no date) (unknown) [facility] (no value) (units unknown) (unknown) Result panel 252 (unknown) (no date) (unknown) [facility] (no value) (units unknown) (unknown) Result panel 253 (unknown) (no date) (unknown) [facility] (no value) (units unknown) (unknown) Result panel 254 (unknown) (no date) (unknown) [facility] (no value) (units unknown) (unknown) Result panel 255 (unknown) (no date) (unknown) [facility] (no value) (units unknown) (unknown) Result panel 256 (unknown) (no date) (unknown) [facility] (no value) (units unknown) (unknown) Result panel 257 (unknown) (no date) (unknown) [facility] (no value) (units unknown) (unknown) Result panel 258 (unknown) (no date) (unknown) [facility] (no value) (units unknown) (unknown) Result panel 259 (unknown) (no date) (unknown) [facility] (no value) (units unknown) (unknown) Result panel 260 (unknown) (no date) (unknown) [facility] (no value) (units unknown) (unknown) Result panel 261 (unknown) (no date) (unknown) [facility] (no value) (units unknown) (unknown) Result panel 262 (unknown) (no date) (unknown) [facility] (no value) (units unknown) (unknown) Result panel 263 (unknown) (no date) (unknown) [facility] (no value) (units unknown) (unknown) Result panel 264 (unknown) (no date) (unknown) [facility] (no value) (units unknown) (unknown) Result panel 265 (unknown) (no date) (unknown) [facility] (no value) (units unknown) (unknown) Result panel 266 (unknown) (no date) (unknown) [facility] (no value) (units unknown) (unknown) Result panel 267 (unknown) (no date) (unknown) [facility] (no value) (units unknown) (unknown) Result panel 268 (unknown) (no date) (unknown) [facility] (no value) (units unknown) (unknown) Result panel 269 (unknown) (no date) (unknown) [facility] (no value) (units unknown) (unknown) Result panel 270 (unknown) (no date) (unknown) [facility] (no value) (units unknown) (unknown) Result panel 271 (unknown) (no date) (unknown) [facility] (no value) (units unknown) (unknown) Result panel 272 (unknown) (no date) (unknown) [facility] (no value) (units unknown) (unknown) Result panel 273 (unknown) (no date) (unknown) [facility] (no value) (units unknown) (unknown) Result panel 274 (unknown) (no date) (unknown) [facility] (no value) (units unknown) (unknown) Result panel 275 (unknown) (no date) (unknown) [facility] (no value) (units unknown) (unknown) Result panel 276 (unknown) (no date) (unknown) [facility] (no value) (units unknown) (unknown) Result panel 277 (unknown) (no date) (unknown) [facility] (no value) (units unknown) (unknown) Result panel 278 (unknown) (no date) (unknown) [facility] (no value) (units unknown) (unknown) Result panel 279 (unknown) (no date) (unknown) [facility] (no value) (units unknown) (unknown) Result panel 280 (unknown) (no date) (unknown) [facility] (no value) (units unknown) (unknown) Result panel 281 (unknown) (no date) (unknown) [facility] (no value) (units unknown) (unknown) Result panel 282 (unknown) (no date) (unknown) [facility] (no value) (units unknown) (unknown) Result panel 283 (unknown) (no date) (unknown) [facility] (no value) (units unknown) (unknown) Result panel 284 (unknown) (no date) (unknown) [facility] (no value) (units unknown) (unknown) Result panel 285 (unknown) (no date) (unknown) [facility] (no value) (units unknown) (unknown) Result panel 286 (unknown) (no date) (unknown) [facility] (no value) (units unknown) (unknown) Result panel 287 (unknown) (no date) (unknown) [facility] (no value) (units unknown) (unknown) Result panel 288 (unknown) (no date) (unknown) [facility] (no value) (units unknown) (unknown) Result panel 289 (unknown) (no date) (unknown) [facility] (no value) (units unknown) (unknown) Result panel 290 (unknown) (no date) (unknown) [facility] (no value) (units unknown) (unknown) Result panel 291 (unknown) (no date) (unknown) [facility] (no value) (units unknown) (unknown) Result panel 292 (unknown) (no date) (unknown) [facility] (no value) (units unknown) (unknown) Result panel 293 (unknown) (no date) (unknown) [facility] (no value) (units unknown) (unknown) Result panel 294 (unknown) (no date) (unknown) [facility] (no value) (units unknown) (unknown) Result panel 295 (unknown) (no date) (unknown) [facility] (no value) (units unknown) (unknown) Result panel 296 (unknown) (no date) (unknown) [facility] (no value) (units unknown) (unknown) Result panel 297 (unknown) (no date) (unknown) [facility] (no value) (units unknown) (unknown) Result panel 298 (unknown) (no date) (unknown) [facility] (no value) (units unknown) (unknown) Result panel 299 (unknown) (no date) (unknown) [facility] (no value) (units unknown) (unknown) Result panel 300 (unknown) (no date) (unknown) [facility] (no value) (units unknown) (unknown) Result panel 301 (unknown) (no date) (unknown) [facility] (no value) (units unknown) (unknown) Result panel 302 (unknown) (no date) (unknown) [facility] (no value) (units unknown) (unknown) Result panel 303 (unknown) (no date) (unknown) [facility] (no value) (units unknown) (unknown) Result panel 304 (unknown) (no date) (unknown) [facility] (no value) (units unknown) (unknown) Result panel 305 (unknown) (no date) (unknown) [facility] (no value) (units unknown) (unknown) Result panel 306 (unknown) (no date) (unknown) [facility] (no value) (units unknown) (unknown) Result panel 307 (unknown) (no date) (unknown) [facility] (no value) (units unknown) (unknown) Result panel 308 (unknown) (no date) (unknown) [facility] (no value) (units unknown) (unknown) Result panel 309 (unknown) (no date) (unknown) [facility] (no value) (units unknown) (unknown) Result panel 310 (unknown) (no date) (unknown) [facility] (no value) (units unknown) (unknown) Result panel 311 (unknown) (no date) (unknown) [facility] (no value) (units unknown) (unknown) Result panel 312 (unknown) (no date) (unknown) [facility] (no value) (units unknown) (unknown) Result panel 313 (unknown) (no date) (unknown) [facility] (no value) (units unknown) (unknown) Result panel 314 (unknown) (no date) (unknown) [facility] (no value) (units unknown) (unknown) Result panel 315 (unknown) (no date) (unknown) [facility] (no value) (units unknown) (unknown) Result panel 316 (unknown) (no date) (unknown) [facility] (no value) (units unknown) (unknown) Result panel 317 (unknown) (no date) (unknown) [facility] (no value) (units unknown) (unknown) Result panel 318 (unknown) (no date) (unknown) [facility] (no value) (units unknown) (unknown) Result panel 319 (unknown) (no date) (unknown) [facility] (no value) (units unknown) (unknown) Result panel 320 (unknown) (no date) (unknown) [facility] (no value) (units unknown) (unknown) Result panel 321 (unknown) (no date) (unknown) [facility] (no value) (units unknown) (unknown) Result panel 322 (unknown) (no date) (unknown) [facility] (no value) (units unknown) (unknown) Result panel 323 (unknown) (no date) (unknown) [facility] (no value) (units unknown) (unknown) Result panel 324 (unknown) (no date) (unknown) [facility] (no value) (units unknown) (unknown) Result panel 325 (unknown) (no date) (unknown) [facility] (no value) (units unknown) (unknown) Result panel 326 (unknown) (no date) (unknown) [facility] (no value) (units unknown) (unknown) Result panel 327 (unknown) (no date) (unknown) [facility] (no value) (units unknown) (unknown) Result panel 328 (unknown) (no date) (unknown) [facility] (no value) (units unknown) (unknown) Result panel 329 (unknown) (no date) (unknown) [facility] (no value) (units unknown) (unknown) Result panel 330 (unknown) (no date) (unknown) [facility] (no value) (units unknown) (unknown) Result panel 331 (unknown) (no date) (unknown) [facility] (no value) (units unknown) (unknown) Result panel 332 (unknown) (no date) (unknown) [facility] (no value) (units unknown) (unknown) Result panel 333 (unknown) (no date) (unknown) [facility] (no value) (units unknown) (unknown) Result panel 334 (unknown) (no date) (unknown) [facility] (no value) (units unknown) (unknown) Result panel 335 (unknown) (no date) (unknown) [facility] (no value) (units unknown) (unknown) Result panel 336 (unknown) (no date) (unknown) [facility] (no value) (units unknown) (unknown) Result panel 337 (unknown) (no date) (unknown) [facility] (no value) (units unknown) (unknown) Result panel 338 (unknown) (no date) (unknown) [facility] (no value) (units unknown) (unknown) Result panel 339 (unknown) (no date) (unknown) [facility] (no value) (units unknown) (unknown) Result panel 340 (unknown) (no date) (unknown) [facility] (no value) (units unknown) (unknown) Result panel 341 (unknown) (no date) (unknown) [facility] (no value) (units unknown) (unknown) Result panel 342 (unknown) (no date) (unknown) [facility] (no value) (units unknown) (unknown) Result panel 343 (unknown) (no date) (unknown) [facility] (no value) (units unknown) (unknown) Result panel 344 (unknown) (no date) (unknown) [facility] (no value) (units unknown) (unknown) Result panel 345 (unknown) (no date) (unknown) [facility] (no value) (units unknown) (unknown) Result panel 346 (unknown) (no date) (unknown) [facility] (no value) (units unknown) (unknown) Result panel 347 (unknown) (no date) (unknown) [facility] (no value) (units unknown) (unknown) Result panel 348 (unknown) (no date) (unknown) [facility] (no value) (units unknown) (unknown) Result panel 349 (unknown) (no date) (unknown) [facility] (no value) (units unknown) (unknown) Result panel 350 (unknown) (no date) (unknown) [facility] (no value) (units unknown) (unknown) Result panel 351 (unknown) (no date) (unknown) [facility] (no value) (units unknown) (unknown) Result panel 352 (unknown) (no date) (unknown) [facility] (no value) (units unknown) (unknown) Result panel 353 (unknown) (no date) (unknown) [facility] (no value) (units unknown) (unknown) Result panel 354 (unknown) (no date) (unknown) [facility] (no value) (units unknown) (unknown) Result panel 355 (unknown) (no date) (unknown) [facility] (no value) (units unknown) (unknown) Result panel 356 (unknown) (no date) (unknown) [facility] (no value) (units unknown) (unknown) Result panel 357 (unknown) (no date) (unknown) [facility] (no value) (units unknown) (unknown) Result panel 358 (unknown) (no date) (unknown) [facility] (no value) (units unknown) (unknown) Result panel 359 (unknown) (no date) (unknown) [facility] (no value) (units unknown) (unknown) Result panel 360 (unknown) (no date) (unknown) [facility] (no value) (units unknown) (unknown) Result panel 361 (unknown) (no date) (unknown) [facility] (no value) (units unknown) (unknown) Result panel 362 (unknown) (no date) (unknown) [facility] (no value) (units unknown) (unknown) Result panel 363 (unknown) (no date) (unknown) [facility] (no value) (units unknown) (unknown) Result panel 364 (unknown) (no date) (unknown) [facility] (no value) (units unknown) (unknown) Result panel 365 (unknown) (no date) (unknown) [facility] (no value) (units unknown) (unknown) Result panel 366 (unknown) (no date) (unknown) [facility] (no value) (units unknown) (unknown) Result panel 367 (unknown) (no date) (unknown) [facility] (no value) (units unknown) (unknown) Result panel 368 (unknown) (no date) (unknown) [facility] (no value) (units unknown) (unknown) Result panel 369 (unknown) (no date) (unknown) [facility] (no value) (units unknown) (unknown) Result panel 370 (unknown) (no date) (unknown) [facility] (no value) (units unknown) (unknown) Result panel 371 (unknown) (no date) (unknown) [facility] (no value) (units unknown) (unknown) Result panel 372 (unknown) (no date) (unknown) [facility] (no value) (units unknown) (unknown) Result panel 373 (unknown) (no date) (unknown) [facility] (no value) (units unknown) (unknown) Result panel 374 (unknown) (no date) (unknown) [facility] (no value) (units unknown) (unknown) Result panel 375 (unknown) (no date) (unknown) [facility] (no value) (units unknown) (unknown) Result panel 376 (unknown) (no date) (unknown) [facility] (no value) (units unknown) (unknown) Result panel 377 (unknown) (no date) (unknown) [facility] (no value) (units unknown) (unknown) Result panel 378 (unknown) (no date) (unknown) [facility] (no value) (units unknown) (unknown) Result panel 379 (unknown) (no date) (unknown) [facility] (no value) (units unknown) (unknown) Result panel 380 (unknown) (no date) (unknown) [facility] (no value) (units unknown) (unknown) Result panel 381 (unknown) (no date) (unknown) [facility] (no value) (units unknown) (unknown) Result panel 382 (unknown) (no date) (unknown) [facility] (no value) (units unknown) (unknown) Result panel 383 (unknown) (no date) (unknown) [facility] (no value) (units unknown) (unknown) Result panel 384 (unknown) (no date) (unknown) [facility] (no value) (units unknown) (unknown) Result panel 385 (unknown) (no date) (unknown) [facility] (no value) (units unknown) (unknown) Result panel 386 (unknown) (no date) (unknown) [facility] (no value) (units unknown) (unknown) Result panel 387 (unknown) (no date) (unknown) [facility] (no value) (units unknown) (unknown) Result panel 388 (unknown) (no date) (unknown) [facility] (no value) (units unknown) (unknown) Result panel 389 (unknown) (no date) (unknown) [facility] (no value) (units unknown) (unknown) Result panel 390 (unknown) (no date) (unknown) [facility] (no value) (units unknown) (unknown) Result panel 391 (unknown) (no date) (unknown) [facility] (no value) (units unknown) (unknown) Result panel 392 (unknown) (no date) (unknown) [facility] (no value) (units unknown) (unknown) Result panel 393 (unknown) (no date) (unknown) [facility] (no value) (units unknown) (unknown) Result panel 394 (unknown) (no date) (unknown) [facility] (no value) (units unknown) (unknown) Result panel 395 (unknown) (no date) (unknown) [facility] (no value) (units unknown) (unknown) Result panel 396 (unknown) (no date) (unknown) [facility] (no value) (units unknown) (unknown) Result panel 397 (unknown) (no date) (unknown) [facility] (no value) (units unknown) (unknown) Result panel 398 (unknown) (no date) (unknown) [facility] (no value) (units unknown) (unknown) Result panel 399 (unknown) (no date) (unknown) [facility] (no value) (units unknown) (unknown) Result panel 400 (unknown) (no date) (unknown) [facility] (no value) (units unknown) (unknown) Result panel 401 (unknown) (no date) (unknown) [facility] (no value) (units unknown) (unknown) Result panel 402 (unknown) (no date) (unknown) [facility] (no value) (units unknown) (unknown) Result panel 403 (unknown) (no date) (unknown) [facility] (no value) (units unknown) (unknown) Result panel 404 (unknown) (no date) (unknown) [facility] (no value) (units unknown) (unknown) Result panel 405 (unknown) (no date) (unknown) [facility] (no value) (units unknown) (unknown) Result panel 406 (unknown) (no date) (unknown) [facility] (no value) (units unknown) (unknown) Result panel 407 (unknown) (no date) (unknown) [facility] (no value) (units unknown) (unknown) Result panel 408 (unknown) (no date) (unknown) [facility] (no value) (units unknown) (unknown) Result panel 409 (unknown) (no date) (unknown) [facility] (no value) (units unknown) (unknown) Result panel 410 (unknown) (no date) (unknown) [facility] (no value) (units unknown) (unknown) Result panel 411 (unknown) (no date) (unknown) [facility] (no value) (units unknown) (unknown) Result panel 412 (unknown) (no date) (unknown) [facility] (no value) (units unknown) (unknown) Result panel 413 (unknown) (no date) (unknown) [facility] (no value) (units unknown) (unknown) Result panel 414 (unknown) (no date) (unknown) [facility] (no value) (units unknown) (unknown) Result panel 415 (unknown) (no date) (unknown) [facility] (no value) (units unknown) (unknown) Result panel 416 (unknown) (no date) (unknown) [facility] (no value) (units unknown) (unknown) Result panel 417 (unknown) (no date) (unknown) [facility] (no value) (units unknown) (unknown) Result panel 418 (unknown) (no date) (unknown) [facility] (no value) (units unknown) (unknown) Result panel 419 (unknown) (no date) (unknown) [facility] (no value) (units unknown) (unknown) Result panel 420 (unknown) (no date) (unknown) [facility] (no value) (units unknown) (unknown) Result panel 421 (unknown) (no date) (unknown) [facility] (no value) (units unknown) (unknown) Result panel 422 (unknown) (no date) (unknown) [facility] (no value) (units unknown) (unknown) Result panel 423 (unknown) (no date) (unknown) [facility] (no value) (units unknown) (unknown) Result panel 424 (unknown) (no date) (unknown) [facility] (no value) (units unknown) (unknown) Result panel 425 (unknown) (no date) (unknown) [facility] (no value) (units unknown) (unknown) Result panel 426 (unknown) (no date) (unknown) [facility] (no value) (units unknown) (unknown) Result panel 427 (unknown) (no date) (unknown) [facility] (no value) (units unknown) (unknown) Result panel 428 (unknown) (no date) (unknown) [facility] (no value) (units unknown) (unknown) Result panel 429 (unknown) (no date) (unknown) [facility] (no value) (units unknown) (unknown) Result panel 430 (unknown) (no date) (unknown) [facility] (no value) (units unknown) (unknown) Result panel 431 (unknown) (no date) (unknown) [facility] (no value) (units unknown) (unknown) Result panel 432 (unknown) (no date) (unknown) [facility] (no value) (units unknown) (unknown) Result panel 433 (unknown) (no date) (unknown) [facility] (no value) (units unknown) (unknown) Result panel 434 (unknown) (no date) (unknown) [facility] (no value) (units unknown) (unknown) Result panel 435 (unknown) (no date) (unknown) [facility] (no value) (units unknown) (unknown) Result panel 436 (unknown) (no date) (unknown) [facility] (no value) (units unknown) (unknown) Result panel 437 (unknown) (no date) (unknown) [facility] (no value) (units unknown) (unknown) Result panel 438 (unknown) (no date) (unknown) [facility] (no value) (units unknown) (unknown) Result panel 439 (unknown) (no date) (unknown) [facility] (no value) (units unknown) (unknown) Result panel 440 (unknown) (no date) (unknown) [facility] (no value) (units unknown) (unknown) Result panel 441 (unknown) (no date) (unknown) [facility] (no value) (units unknown) (unknown) Result panel 442 (unknown) (no date) (unknown) [facility] (no value) (units unknown) (unknown) Result panel 443 (unknown) (no date) (unknown) [facility] (no value) (units unknown) (unknown) Result panel 444 (unknown) (no date) (unknown) [facility] (no value) (units unknown) (unknown) Result panel 445 (unknown) (no date) (unknown) [facility] (no value) (units unknown) (unknown) Result panel 446 (unknown) (no date) (unknown) [facility] (no value) (units unknown) (unknown) Result panel 447 (unknown) (no date) (unknown) [facility] (no value) (units unknown) (unknown) Result panel 448 (unknown) (no date) (unknown) [facility] (no value) (units unknown) (unknown) Result panel 449 (unknown) (no date) (unknown) [facility] (no value) (units unknown) (unknown) Result panel 450 (unknown) (no date) (unknown) [facility] (no value) (units unknown) (unknown) Result panel 451 (unknown) (no date) (unknown) [facility] (no value) (units unknown) (unknown) Result panel 452 (unknown) (no date) (unknown) [facility] (no value) (units unknown) (unknown) Result panel 453 (unknown) (no date) (unknown) [facility] (no value) (units unknown) (unknown) Result panel 454 (unknown) (no date) (unknown) [facility] (no value) (units unknown) (unknown) Result panel 455 (unknown) (no date) (unknown) [facility] (no value) (units unknown) (unknown) Result panel 456 (unknown) (no date) (unknown) [facility] (no value) (units unknown) (unknown) Result panel 457 (unknown) (no date) (unknown) [facility] (no value) (units unknown) (unknown) Result panel 458 (unknown) (no date) (unknown) [facility] (no value) (units unknown) (unknown) Result panel 459 (unknown) (no date) (unknown) [facility] (no value) (units unknown) (unknown) Result panel 460 (unknown) (no date) (unknown) [facility] (no value) (units unknown) (unknown) Result panel 461 (unknown) (no date) (unknown) [facility] (no value) (units unknown) (unknown) Result panel 462 (unknown) (no date) (unknown) [facility] (no value) (units unknown) (unknown) Result panel 463 (unknown) (no date) (unknown) [facility] (no value) (units unknown) (unknown) Result panel 464 (unknown) (no date) (unknown) [facility] (no value) (units unknown) (unknown) Result panel 465 (unknown) (no date) (unknown) [facility] (no value) (units unknown) (unknown) Result panel 466 (unknown) (no date) (unknown) [facility] (no value) (units unknown) (unknown) Result panel 467 (unknown) (no date) (unknown) [facility] (no value) (units unknown) (unknown) Result panel 468 (unknown) (no date) (unknown) [facility] (no value) (units unknown) (unknown) Result panel 469 (unknown) (no date) (unknown) [facility] (no value) (units unknown) (unknown) Result panel 470 (unknown) (no date) (unknown) [facility] (no value) (units unknown) (unknown) Result panel 471 (unknown) (no date) (unknown) [facility] (no value) (units unknown) (unknown) Result panel 472 (unknown) (no date) (unknown) [facility] (no value) (units unknown) (unknown) Result panel 473 (unknown) (no date) (unknown) [facility] (no value) (units unknown) (unknown) Result panel 474 (unknown) (no date) (unknown) [facility] (no value) (units unknown) (unknown) Result panel 475 (unknown) (no date) (unknown) [facility] (no value) (units unknown) (unknown) Result panel 476 (unknown) (no date) (unknown) [facility] (no value) (units unknown) (unknown) Result panel 477 (unknown) (no date) (unknown) [facility] (no value) (units unknown) (unknown) Result panel 478 (unknown) (no date) (unknown) [facility] (no value) (units unknown) (unknown) Result panel 479 (unknown) (no date) (unknown) [facility] (no value) (units unknown) (unknown) Result panel 480 (unknown) (no date) (unknown) [facility] (no value) (units unknown) (unknown) Result panel 481 (unknown) (no date) (unknown) [facility] (no value) (units unknown) (unknown) Result panel 482 (unknown) (no date) (unknown) [facility] (no value) (units unknown) (unknown) Result panel 483 (unknown) (no date) (unknown) [facility] (no value) (units unknown) (unknown) Result panel 484 (unknown) (no date) (unknown) [facility] (no value) (units unknown) (unknown) Result panel 485 (unknown) (no date) (unknown) [facility] (no value) (units unknown) (unknown) Result panel 486 (unknown) (no date) (unknown) [facility] (no value) (units unknown) (unknown) Result panel 487 (unknown) (no date) (unknown) [facility] (no value) (units unknown) (unknown) Result panel 488 (unknown) (no date) (unknown) [facility] (no value) (units unknown) (unknown) Result panel 489 (unknown) (no date) (unknown) [facility] (no value) (units unknown) (unknown) Result panel 490 (unknown) (no date) (unknown) [facility] (no value) (units unknown) (unknown) Result panel 491 (unknown) (no date) (unknown) [facility] (no value) (units unknown) (unknown) Result panel 492 (unknown) (no date) (unknown) [facility] (no value) (units unknown) (unknown) Result panel 493 (unknown) (no date) (unknown) [facility] (no value) (units unknown) (unknown) Result panel 494 (unknown) (no date) (unknown) [facility] (no value) (units unknown) (unknown) Result panel 495 (unknown) (no date) (unknown) [facility] (no value) (units unknown) (unknown) Result panel 496 (unknown) (no date) (unknown) [facility] (no value) (units unknown) (unknown) Result panel 497 (unknown) (no date) (unknown) [facility] (no value) (units unknown) (unknown) Result panel 498 (unknown) (no date) (unknown) [facility] (no value) (units unknown) (unknown) Result panel 499 (unknown) (no date) (unknown) [facility] (no value) (units unknown) (unknown) Result panel 500 (unknown) (no date) (unknown) [facility] (no value) (units unknown) (unknown) Result panel 501 (unknown) (no date) (unknown) [facility] (no value) (units unknown) (unknown) Result panel 502 (unknown) (no date) (unknown) [facility] (no value) (units unknown) (unknown) Result panel 503 (unknown) (no date) (unknown) [facility] (no value) (units unknown) (unknown) Result panel 504 (unknown) (no date) (unknown) [facility] (no value) (units unknown) (unknown) Result panel 505 (unknown) (no date) (unknown) [facility] (no value) (units unknown) (unknown) Result panel 506 (unknown) (no date) (unknown) [facility] (no value) (units unknown) (unknown) Result panel 507 (unknown) (no date) (unknown) [facility] (no value) (units unknown) (unknown) Result panel 508 (unknown) (no date) (unknown) [facility] (no value) (units unknown) (unknown) Result panel 509 (unknown) (no date) (unknown) [facility] (no value) (units unknown) (unknown) Result panel 510 (unknown) (no date) (unknown) [facility] (no value) (units unknown) (unknown) Result panel 511 (unknown) (no date) (unknown) [facility] (no value) (units unknown) (unknown) Result panel 512 (unknown) (no date) (unknown) [facility] (no value) (units unknown) (unknown) Result panel 513 (unknown) (no date) (unknown) [facility] (no value) (units unknown) (unknown) Result panel 514 (unknown) (no date) (unknown) [facility] (no value) (units unknown) (unknown) Result panel 515 (unknown) (no date) (unknown) [facility] (no value) (units unknown) (unknown) Result panel 516 (unknown) (no date) (unknown) [facility] (no value) (units unknown) (unknown) Result panel 517 (unknown) (no date) (unknown) [facility] (no value) (units unknown) (unknown) Result panel 518 (unknown) (no date) (unknown) [facility] (no value) (units unknown) (unknown) Result panel 519 (unknown) (no date) (unknown) [facility] (no value) (units unknown) (unknown) Result panel 520 (unknown) (no date) (unknown) [facility] (no value) (units unknown) (unknown) Result panel 521 (unknown) (no date) (unknown) [facility] (no value) (units unknown) (unknown) Result panel 522 (unknown) (no date) (unknown) [facility] (no value) (units unknown) (unknown) Result panel 523 (unknown) (no date) (unknown) [facility] (no value) (units unknown) (unknown) Result panel 524 (unknown) (no date) (unknown) [facility] (no value) (units unknown) (unknown) Result panel 525 (unknown) (no date) (unknown) [facility] (no value) (units unknown) (unknown) Result panel 526 (unknown) (no date) (unknown) [facility] (no value) (units unknown) (unknown) Result panel 527 (unknown) (no date) (unknown) [facility] (no value) (units unknown) (unknown) Result panel 528 (unknown) (no date) (unknown) [facility] (no value) (units unknown) (unknown) Result panel 529 (unknown) (no date) (unknown) [facility] (no value) (units unknown) (unknown) Result panel 530 (unknown) (no date) (unknown) [facility] (no value) (units unknown) (unknown) Result panel 531 (unknown) (no date) (unknown) [facility] (no value) (units unknown) (unknown) Result panel 532 (unknown) (no date) (unknown) [facility] (no value) (units unknown) (unknown) Result panel 533 (unknown) (no date) (unknown) [facility] (no value) (units unknown) (unknown) Result panel 534 (unknown) (no date) (unknown) [facility] (no value) (units unknown) (unknown) Result panel 535 (unknown) (no date) (unknown) [facility] (no value) (units unknown) (unknown) Result panel 536 (unknown) (no date) (unknown) [facility] (no value) (units unknown) (unknown) Result panel 537 (unknown) (no date) (unknown) [facility] (no value) (units unknown) (unknown) Result panel 538 (unknown) (no date) (unknown) [facility] (no value) (units unknown) (unknown) Result panel 539 (unknown) (no date) (unknown) [facility] (no value) (units unknown) (unknown) Result panel 540 (unknown) (no date) (unknown) [facility] (no value) (units unknown) (unknown) Result panel 541 (unknown) (no date) (unknown) [facility] (no value) (units unknown) (unknown) Result panel 542 (unknown) (no date) (unknown) [facility] (no value) (units unknown) (unknown) Result panel 543 (unknown) (no date) (unknown) [facility] (no value) (units unknown) (unknown) Result panel 544 (unknown) (no date) (unknown) [facility] (no value) (units unknown) (unknown) Result panel 545 (unknown) (no date) (unknown) [facility] (no value) (units unknown) (unknown) Result panel 546 (unknown) (no date) (unknown) [facility] (no value) (units unknown) (unknown) Result panel 547 (unknown) (no date) (unknown) [facility] (no value) (units unknown) (unknown) Result panel 548 (unknown) (no date) (unknown) [facility] (no value) (units unknown) (unknown) Result panel 549 (unknown) (no date) (unknown) [facility] (no value) (units unknown) (unknown) Result panel 550 (unknown) (no date) (unknown) [facility] (no value) (units unknown) (unknown) Result panel 551 (unknown) (no date) (unknown) [facility] (no value) (units unknown) (unknown) Result panel 552 (unknown) (no date) (unknown) [facility] (no value) (units unknown) (unknown) Result panel 553 (unknown) (no date) (unknown) [facility] (no value) (units unknown) (unknown) Result panel 554 (unknown) (no date) (unknown) [facility] (no value) (units unknown) (unknown) Result panel 555 (unknown) (no date) (unknown) [facility] (no value) (units unknown) (unknown) Result panel 556 (unknown) (no date) (unknown) [facility] (no value) (units unknown) (unknown) Result panel 557 (unknown) (no date) (unknown) [facility] (no value) (units unknown) (unknown) Result panel 558 (unknown) (no date) (unknown) [facility] (no value) (units unknown) (unknown) Result panel 559 (unknown) (no date) (unknown) [facility] (no value) (units unknown) (unknown) Result panel 560 (unknown) (no date) (unknown) [facility] (no value) (units unknown) (unknown) Result panel 561 (unknown) (no date) (unknown) [facility] (no value) (units unknown) (unknown) Result panel 562 (unknown) (no date) (unknown) [facility] (no value) (units unknown) (unknown) Result panel 563 (unknown) (no date) (unknown) [facility] (no value) (units unknown) (unknown) Result panel 564 (unknown) (no date) (unknown) [facility] (no value) (units unknown) (unknown) Result panel 565 (unknown) (no date) (unknown) [facility] (no value) (units unknown) (unknown) Result panel 566 (unknown) (no date) (unknown) [facility] (no value) (units unknown) (unknown) Result panel 567 (unknown) (no date) (unknown) [facility] (no value) (units unknown) (unknown) Result panel 568 (unknown) (no date) (unknown) [facility] (no value) (units unknown) (unknown) Result panel 569 (unknown) (no date) (unknown) [facility] (no value) (units unknown) (unknown) Result panel 570 (unknown) (no date) (unknown) [facility] (no value) (units unknown) (unknown) Result panel 571 (unknown) (no date) (unknown) [facility] (no value) (units unknown) (unknown) Result panel 572 (unknown) (no date) (unknown) [facility] (no value) (units unknown) (unknown) Result panel 573 (unknown) (no date) (unknown) [facility] (no value) (units unknown) (unknown) Result panel 574 (unknown) (no date) (unknown) [facility] (no value) (units unknown) (unknown) Result panel 575 (unknown) (no date) (unknown) [facility] (no value) (units unknown) (unknown) Result panel 576 (unknown) (no date) (unknown) [facility] (no value) (units unknown) (unknown) Result panel 577 (unknown) (no date) (unknown) [facility] (no value) (units unknown) (unknown) Result panel 578 (unknown) (no date) (unknown) [facility] (no value) (units unknown) (unknown) Result panel 579 (unknown) (no date) (unknown) [facility] (no value) (units unknown) (unknown) Result panel 580 (unknown) (no date) (unknown) [facility] (no value) (units unknown) (unknown) Result panel 581 (unknown) (no date) (unknown) [facility] (no value) (units unknown) (unknown) Result panel 582 (unknown) (no date) (unknown) [facility] (no value) (units unknown) (unknown) Result panel 583 (unknown) (no date) (unknown) [facility] (no value) (units unknown) (unknown) Result panel 584 (unknown) (no date) (unknown) [facility] (no value) (units unknown) (unknown) Result panel 585 (unknown) (no date) (unknown) [facility] (no value) (units unknown) (unknown) Result panel 586 (unknown) (no date) (unknown) [facility] (no value) (units unknown) (unknown) Result panel 587 (unknown) (no date) (unknown) [facility] (no value) (units unknown) (unknown) Result panel 588 (unknown) (no date) (unknown) [facility] (no value) (units unknown) (unknown) Result panel 589 (unknown) (no date) (unknown) [facility] (no value) (units unknown) (unknown) Result panel 590 (unknown) (no date) (unknown) [facility] (no value) (units unknown) (unknown) Result panel 591 (unknown) (no date) (unknown) [facility] (no value) (units unknown) (unknown) Result panel 592 (unknown) (no date) (unknown) [facility] (no value) (units unknown) (unknown) Result panel 593 (unknown) (no date) (unknown) [facility] (no value) (units unknown) (unknown) Result panel 594 (unknown) (no date) (unknown) [facility] (no value) (units unknown) (unknown) Result panel 595 (unknown) (no date) (unknown) [facility] (no value) (units unknown) (unknown) Result panel 596 (unknown) (no date) (unknown) [facility] (no value) (units unknown) (unknown) Result panel 597 (unknown) (no date) (unknown) [facility] (no value) (units unknown) (unknown) Result panel 598 (unknown) (no date) (unknown) [facility] (no value) (units unknown) (unknown) Result panel 599 (unknown) (no date) (unknown) [facility] (no value) (units unknown) (unknown) Result panel 600 (unknown) (no date) (unknown) [facility] (no value) (units unknown) (unknown) Result panel 601 (unknown) (no date) (unknown) [facility] (no value) (units unknown) (unknown) Result panel 602 (unknown) (no date) (unknown) [facility] (no value) (units unknown) (unknown) Result panel 603 (unknown) (no date) (unknown) [facility] (no value) (units unknown) (unknown) Result panel 604 (unknown) (no date) (unknown) [facility] (no value) (units unknown) (unknown) Result panel 605 (unknown) (no date) (unknown) [facility] (no value) (units unknown) (unknown) Result panel 606 (unknown) (no date) (unknown) [facility] (no value) (units unknown) (unknown) Result panel 607 (unknown) (no date) (unknown) [facility] (no value) (units unknown) (unknown) Result panel 608 (unknown) (no date) (unknown) [facility] (no value) (units unknown) (unknown) Result panel 609 (unknown) (no date) (unknown) [facility] (no value) (units unknown) (unknown) Result panel 610 (unknown) (no date) (unknown) [facility] (no value) (units unknown) (unknown) Result panel 611 (unknown) (no date) (unknown) [facility] (no value) (units unknown) (unknown) Result panel 612 (unknown) (no date) (unknown) [facility] (no value) (units unknown) (unknown) Result panel 613 (unknown) (no date) (unknown) [facility] (no value) (units unknown) (unknown) Result panel 614 (unknown) (no date) (unknown) [facility] (no value) (units unknown) (unknown) Result panel 615 (unknown) (no date) (unknown) [facility] (no value) (units unknown) (unknown) Result panel 616 (unknown) (no date) (unknown) [facility] (no value) (units unknown) (unknown) Result panel 617 (unknown) (no date) (unknown) [facility] (no value) (units unknown) (unknown) Result panel 618 (unknown) (no date) (unknown) [facility] (no value) (units unknown) (unknown) Result panel 619 (unknown) (no date) (unknown) [facility] (no value) (units unknown) (unknown) Result panel 620 (unknown) (no date) (unknown) [facility] (no value) (units unknown) (unknown) Result panel 621 (unknown) (no date) (unknown) [facility] (no value) (units unknown) (unknown) Result panel 622 (unknown) (no date) (unknown) [facility] (no value) (units unknown) (unknown) Result panel 623 (unknown) (no date) (unknown) [facility] (no value) (units unknown) (unknown) Result panel 624 (unknown) (no date) (unknown) [facility] (no value) (units unknown) (unknown) Result panel 625 (unknown) (no date) (unknown) [facility] (no value) (units unknown) (unknown) Result panel 626 (unknown) (no date) (unknown) [facility] (no value) (units unknown) (unknown) Result panel 627 (unknown) (no date) (unknown) [facility] (no value) (units unknown) (unknown) Result panel 628 (unknown) (no date) (unknown) [facility] (no value) (units unknown) (unknown) Result panel 629 (unknown) (no date) (unknown) [facility] (no value) (units unknown) (unknown) Result panel 630 (unknown) (no date) (unknown) [facility] (no value) (units unknown) (unknown) Result panel 631 (unknown) (no date) (unknown) [facility] (no value) (units unknown) (unknown) Result panel 632 (unknown) (no date) (unknown) [facility] (no value) (units unknown) (unknown) Result panel 633 (unknown) (no date) (unknown) [facility] (no value) (units unknown) (unknown) Result panel 634 (unknown) (no date) (unknown) [facility] (no value) (units unknown) (unknown) Result panel 635 (unknown) (no date) (unknown) [facility] (no value) (units unknown) (unknown) Result panel 636 (unknown) (no date) (unknown) [facility] (no value) (units unknown) (unknown) Result panel 637 (unknown) (no date) (unknown) [facility] (no value) (units unknown) (unknown) Result panel 638 (unknown) (no date) (unknown) [facility] (no value) (units unknown) (unknown) Result panel 639 (unknown) (no date) (unknown) [facility] (no value) (units unknown) (unknown) Result panel 640 (unknown) (no date) (unknown) [facility] (no value) (units unknown) (unknown) Result panel 641 (unknown) (no date) (unknown) [facility] (no value) (units unknown) (unknown) Result panel 642 (unknown) (no date) (unknown) [facility] (no value) (units unknown) (unknown) Result panel 643 (unknown) (no date) (unknown) [facility] (no value) (units unknown) (unknown) Result panel 644 (unknown) (no date) (unknown) [facility] (no value) (units unknown) (unknown) Result panel 645 (unknown) (no date) (unknown) [facility] (no value) (units unknown) (unknown) Result panel 646 (unknown) (no date) (unknown) [facility] (no value) (units unknown) (unknown) Result panel 647 (unknown) (no date) (unknown) [facility] (no value) (units unknown) (unknown) Result panel 648 (unknown) (no date) (unknown) [facility] (no value) (units unknown) (unknown) Result panel 649 (unknown) (no date) (unknown) [facility] (no value) (units unknown) (unknown) Result panel 650 (unknown) (no date) (unknown) [facility] (no value) (units unknown) (unknown) Result panel 651 (unknown) (no date) (unknown) [facility] (no value) (units unknown) (unknown) Result panel 652 (unknown) (no date) (unknown) [facility] (no value) (units unknown) (unknown) Result panel 653 (unknown) (no date) (unknown) [facility] (no value) (units unknown) (unknown) Result panel 654 (unknown) (no date) (unknown) [facility] (no value) (units unknown) (unknown) Result panel 655 (unknown) (no date) (unknown) [facility] (no value) (units unknown) (unknown) Result panel 656 (unknown) (no date) (unknown) [facility] (no value) (units unknown) (unknown) Result panel 657 (unknown) (no date) (unknown) [facility] (no value) (units unknown) (unknown) Result panel 658 (unknown) (no date) (unknown) [facility] (no value) (units unknown) (unknown) Result panel 659 (unknown) (no date) (unknown) [facility] (no value) (units unknown) (unknown) Result panel 660 (unknown) (no date) (unknown) [facility] (no value) (units unknown) (unknown) Result panel 661 (unknown) (no date) (unknown) [facility] (no value) (units unknown) (unknown) Result panel 662 (unknown) (no date) (unknown) [facility] (no value) (units unknown) (unknown) Result panel 663 (unknown) (no date) (unknown) [facility] (no value) (units unknown) (unknown) Result panel 664 (unknown) (no date) (unknown) [facility] (no value) (units unknown) (unknown) Result panel 665 (unknown) (no date) (unknown) [facility] (no value) (units unknown) (unknown) Result panel 666 (unknown) (no date) (unknown) [facility] (no value) (units unknown) (unknown) Result panel 667 (unknown) (no date) (unknown) [facility] (no value) (units unknown) (unknown) Result panel 668 (unknown) (no date) (unknown) [facility] (no value) (units unknown) (unknown) Result panel 669 (unknown) (no date) (unknown) [facility] (no value) (units unknown) (unknown) Result panel 670 (unknown) (no date) (unknown) [facility] (no value) (units unknown) (unknown) Result panel 671 (unknown) (no date) (unknown) [facility] (no value) (units unknown) (unknown) Result panel 672 (unknown) (no date) (unknown) [facility] (no value) (units unknown) (unknown) Result panel 673 (unknown) (no date) (unknown) [facility] (no value) (units unknown) (unknown) Result panel 674 (unknown) (no date) (unknown) [facility] (no value) (units unknown) (unknown) Result panel 675 (unknown) (no date) (unknown) [facility] (no value) (units unknown) (unknown) Result panel 676 (unknown) (no date) (unknown) [facility] (no value) (units unknown) (unknown) Result panel 677 (unknown) (no date) (unknown) [facility] (no value) (units unknown) (unknown) Result panel 678 (unknown) (no date) (unknown) [facility] (no value) (units unknown) (unknown) Result panel 679 (unknown) (no date) (unknown) [facility] (no value) (units unknown) (unknown) Result panel 680 (unknown) (no date) (unknown) [facility] (no value) (units unknown) (unknown) Result panel 681 (unknown) (no date) (unknown) [facility] (no value) (units unknown) (unknown) Result panel 682 (unknown) (no date) (unknown) [facility] (no value) (units unknown) (unknown) Result panel 683 (unknown) (no date) (unknown) [facility] (no value) (units unknown) (unknown) Result panel 684 (unknown) (no date) (unknown) [facility] (no value) (units unknown) (unknown) Result panel 685 (unknown) (no date) (unknown) [facility] (no value) (units unknown) (unknown) Result panel 686 (unknown) (no date) (unknown) [facility] (no value) (units unknown) (unknown) Result panel 687 (unknown) (no date) (unknown) [facility] (no value) (units unknown) (unknown) Result panel 688 (unknown) (no date) (unknown) [facility] (no value) (units unknown) (unknown) Result panel 689 (unknown) (no date) (unknown) [facility] (no value) (units unknown) (unknown) Result panel 690 (unknown) (no date) (unknown) [facility] (no value) (units unknown) (unknown) Result panel 691 (unknown) (no date) (unknown) [facility] (no value) (units unknown) (unknown) Result panel 692 (unknown) (no date) (unknown) [facility] (no value) (units unknown) (unknown) Result panel 693 (unknown) (no date) (unknown) [facility] (no value) (units unknown) (unknown) Result panel 694 (unknown) (no date) (unknown) [facility] (no value) (units unknown) (unknown) Result panel 695 (unknown) (no date) (unknown) [facility] (no value) (units unknown) (unknown) Result panel 696 (unknown) (no date) (unknown) [facility] (no value) (units unknown) (unknown) Result panel 697 (unknown) (no date) (unknown) [facility] (no value) (units unknown) (unknown) Result panel 698 (unknown) (no date) (unknown) [facility] (no value) (units unknown) (unknown) Result panel 699 (unknown) (no date) (unknown) [facility] (no value) (units unknown) (unknown) Result panel 700 (unknown) (no date) (unknown) [facility] (no value) (units unknown) (unknown) Result panel 701 (unknown) (no date) (unknown) [facility] (no value) (units unknown) (unknown) Result panel 702 (unknown) (no date) (unknown) [facility] (no value) (units unknown) (unknown) Result panel 703 (unknown) (no date) (unknown) [facility] (no value) (units unknown) (unknown) Result panel 704 (unknown) (no date) (unknown) [facility] (no value) (units unknown) (unknown) Result panel 705 (unknown) (no date) (unknown) [facility] (no value) (units unknown) (unknown) Result panel 706 (unknown) (no date) (unknown) [facility] (no value) (units unknown) (unknown) Result panel 707 (unknown) (no date) (unknown) [facility] (no value) (units unknown) (unknown) Result panel 708 (unknown) (no date) (unknown) [facility] (no value) (units unknown) (unknown) Result panel 709 (unknown) (no date) (unknown) [facility] (no value) (units unknown) (unknown) Result panel 710 (unknown) (no date) (unknown) [facility] (no value) (units unknown) (unknown) Result panel 711 (unknown) (no date) (unknown) [facility] (no value) (units unknown) (unknown) Result panel 712 (unknown) (no date) (unknown) [facility] (no value) (units unknown) (unknown) Result panel 713 (unknown) (no date) (unknown) [facility] (no value) (units unknown) (unknown) Result panel 714 (unknown) (no date) (unknown) [facility] (no value) (units unknown) (unknown) Result panel 715 (unknown) (no date) (unknown) [facility] (no value) (units unknown) (unknown) Result panel 716 (unknown) (no date) (unknown) [facility] (no value) (units unknown) (unknown) Result panel 717 (unknown) (no date) (unknown) [facility] (no value) (units unknown) (unknown) Result panel 718 (unknown) (no date) (unknown) [facility] (no value) (units unknown) (unknown) Result panel 719 (unknown) (no date) (unknown) [facility] (no value) (units unknown) (unknown) Result panel 720 (unknown) (no date) (unknown) [facility] (no value) (units unknown) (unknown) Result panel 721 (unknown) (no date) (unknown) [facility] (no value) (units unknown) (unknown) Result panel 722 (unknown) (no date) (unknown) [facility] (no value) (units unknown) (unknown) Result panel 723 (unknown) (no date) (unknown) [facility] (no value) (units unknown) (unknown) Result panel 724 (unknown) (no date) (unknown) [facility] (no value) (units unknown) (unknown) Result panel 725 (unknown) (no date) (unknown) [facility] (no value) (units unknown) (unknown) Result panel 726 (unknown) (no date) (unknown) [facility] (no value) (units unknown) (unknown) Result panel 727 (unknown) (no date) (unknown) [facility] (no value) (units unknown) (unknown) Result panel 728 (unknown) (no date) (unknown) [facility] (no value) (units unknown) (unknown) Result panel 729 (unknown) (no date) (unknown) [facility] (no value) (units unknown) (unknown) Result panel 730 (unknown) (no date) (unknown) [facility] (no value) (units unknown) (unknown) Result panel 731 (unknown) (no date) (unknown) [facility] (no value) (units unknown) (unknown) Result panel 732 (unknown) (no date) (unknown) [facility] (no value) (units unknown) (unknown) Result panel 733 (unknown) (no date) (unknown) [facility] (no value) (units unknown) (unknown) Result panel 734 (unknown) (no date) (unknown) [facility] (no value) (units unknown) (unknown) Result panel 735 (unknown) (no date) (unknown) [facility] (no value) (units unknown) (unknown) Result panel 736 (unknown) (no date) (unknown) [facility] (no value) (units unknown) (unknown) Result panel 737 (unknown) (no date) (unknown) [facility] (no value) (units unknown) (unknown) Result panel 738 (unknown) (no date) (unknown) [facility] (no value) (units unknown) (unknown) Result panel 739 (unknown) (no date) (unknown) [facility] (no value) (units unknown) (unknown) Result panel 740 (unknown) (no date) (unknown) [facility] (no value) (units unknown) (unknown) Result panel 741 (unknown) (no date) (unknown) [facility] (no value) (units unknown) (unknown) Result panel 742 (unknown) (no date) (unknown) [facility] (no value) (units unknown) (unknown) Result panel 743 (unknown) (no date) (unknown) [facility] (no value) (units unknown) (unknown) Result panel 744 (unknown) (no date) (unknown) [facility] (no value) (units unknown) (unknown) Result panel 745 (unknown) (no date) (unknown) [facility] (no value) (units unknown) (unknown) Result panel 746 (unknown) (no date) (unknown) [facility] (no value) (units unknown) (unknown) Result panel 747 (unknown) (no date) (unknown) [facility] (no value) (units unknown) (unknown) Result panel 748 (unknown) (no date) (unknown) [facility] (no value) (units unknown) (unknown) Result panel 749 (unknown) (no date) (unknown) [facility] (no value) (units unknown) (unknown) Result panel 750 (unknown) (no date) (unknown) [facility] (no value) (units unknown) (unknown) Result panel 751 (unknown) (no date) (unknown) [facility] (no value) (units unknown) (unknown) Result panel 752 (unknown) (no date) (unknown) [facility] (no value) (units unknown) (unknown) Result panel 753 (unknown) (no date) (unknown) [facility] (no value) (units unknown) (unknown) Result panel 754 (unknown) (no date) (unknown) [facility] (no value) (units unknown) (unknown) Result panel 755 (unknown) (no date) (unknown) [facility] (no value) (units unknown) (unknown) Result panel 756 (unknown) (no date) (unknown) [facility] (no value) (units unknown) (unknown) Result panel 757 (unknown) (no date) (unknown) [facility] (no value) (units unknown) (unknown) Result panel 758 (unknown) (no date) (unknown) [facility] (no value) (units unknown) (unknown) Result panel 759 (unknown) (no date) (unknown) [facility] (no value) (units unknown) (unknown) Result panel 760 (unknown) (no date) (unknown) [facility] (no value) (units unknown) (unknown) Result panel 761 (unknown) (no date) (unknown) [facility] (no value) (units unknown) (unknown) Result panel 762 (unknown) (no date) (unknown) [facility] (no value) (units unknown) (unknown) Result panel 763 (unknown) (no date) (unknown) [facility] (no value) (units unknown) (unknown) Result panel 764 (unknown) (no date) (unknown) [facility] (no value) (units unknown) (unknown) Result panel 765 (unknown) (no date) (unknown) [facility] (no value) (units unknown) (unknown) Result panel 766 (unknown) (no date) (unknown) [facility] (no value) (units unknown) (unknown) Result panel 767 (unknown) (no date) (unknown) [facility] (no value) (units unknown) (unknown) Result panel 768 (unknown) (no date) (unknown) [facility] (no value) (units unknown) (unknown) Result panel 769 (unknown) (no date) (unknown) [facility] (no value) (units unknown) (unknown) Result panel 770 (unknown) (no date) (unknown) [facility] (no value) (units unknown) (unknown) Result panel 771 (unknown) (no date) (unknown) [facility] (no value) (units unknown) (unknown) Result panel 772 (unknown) (no date) (unknown) [facility] (no value) (units unknown) (unknown) Result panel 773 (unknown) (no date) (unknown) [facility] (no value) (units unknown) (unknown) Result panel 774 (unknown) (no date) (unknown) [facility] (no value) (units unknown) (unknown) Result panel 775 (unknown) (no date) (unknown) [facility] (no value) (units unknown) (unknown) Result panel 776 (unknown) (no date) (unknown) [facility] (no value) (units unknown) (unknown) Result panel 777 (unknown) (no date) (unknown) [facility] (no value) (units unknown) (unknown) Result panel 778 (unknown) (no date) (unknown) [facility] (no value) (units unknown) (unknown) Result panel 779 (unknown) (no date) (unknown) [facility] (no value) (units unknown) (unknown) Result panel 780 (unknown) (no date) (unknown) [facility] (no value) (units unknown) (unknown) Result panel 781 (unknown) (no date) (unknown) [facility] (no value) (units unknown) (unknown) Result panel 782 (unknown) (no date) (unknown) [facility] (no value) (units unknown) (unknown) Result panel 783 (unknown) (no date) (unknown) [facility] (no value) (units unknown) (unknown) Result panel 784 (unknown) (no date) (unknown) [facility] (no value) (units unknown) (unknown) Result panel 785 (unknown) (no date) (unknown) [facility] (no value) (units unknown) (unknown) Result panel 786 (unknown) (no date) (unknown) [facility] (no value) (units unknown) (unknown) Result panel 787 (unknown) (no date) (unknown) [facility] (no value) (units unknown) (unknown) Result panel 788 (unknown) (no date) (unknown) [facility] (no value) (units unknown) (unknown) Result panel 789 (unknown) (no date) (unknown) [facility] (no value) (units unknown) (unknown) Result panel 790 (unknown) (no date) (unknown) [facility] (no value) (units unknown) (unknown) Result panel 791 (unknown) (no date) (unknown) [facility] (no value) (units unknown) (unknown) Result panel 792 (unknown) (no date) (unknown) [facility] (no value) (units unknown) (unknown) Result panel 793 (unknown) (no date) (unknown) [facility] (no value) (units unknown) (unknown) Result panel 794 (unknown) (no date) (unknown) [facility] (no value) (units unknown) (unknown) Result panel 795 (unknown) (no date) (unknown) [facility] (no value) (units unknown) (unknown) Result panel 796 (unknown) (no date) (unknown) [facility] (no value) (units unknown) (unknown) Result panel 797 (unknown) (no date) (unknown) [facility] (no value) (units unknown) (unknown) Result panel 798 (unknown) (no date) (unknown) [facility] (no value) (units unknown) (unknown) Result panel 799 (unknown) (no date) (unknown) [facility] (no value) (units unknown) (unknown) Result panel 800 (unknown) (no date) (unknown) [facility] (no value) (units unknown) (unknown) Result panel 801 (unknown) (no date) (unknown) [facility] (no value) (units unknown) (unknown) Result panel 802 (unknown) (no date) (unknown) [facility] (no value) (units unknown) (unknown) Result panel 803 (unknown) (no date) (unknown) [facility] (no value) (units unknown) (unknown) Result panel 804 (unknown) (no date) (unknown) [facility] (no value) (units unknown) (unknown) Result panel 805 (unknown) (no date) (unknown) [facility] (no value) (units unknown) (unknown) Result panel 806 (unknown) (no date) (unknown) [facility] (no value) (units unknown) (unknown) Result panel 807 (unknown) (no date) (unknown) [facility] (no value) (units unknown) (unknown) Result panel 808 (unknown) (no date) (unknown) [facility] (no value) (units unknown) (unknown) Result panel 809 (unknown) (no date) (unknown) [facility] (no value) (units unknown) (unknown) Result panel 810 (unknown) (no date) (unknown) [facility] (no value) (units unknown) (unknown) Result panel 811 (unknown) (no date) (unknown) [facility] (no value) (units unknown) (unknown) Result panel 812 (unknown) (no date) (unknown) [facility] (no value) (units unknown) (unknown) Result panel 813 (unknown) (no date) (unknown) [facility] (no value) (units unknown) (unknown) Result panel 814 (unknown) (no date) (unknown) [facility] (no value) (units unknown) (unknown) Result panel 815 (unknown) (no date) (unknown) [facility] (no value) (units unknown) (unknown) Result panel 816 (unknown) (no date) (unknown) [facility] (no value) (units unknown) (unknown) Result panel 817 (unknown) (no date) (unknown) [facility] (no value) (units unknown) (unknown) Result panel 818 (unknown) (no date) (unknown) [facility] (no value) (units unknown) (unknown) Result panel 819 (unknown) (no date) (unknown) [facility] (no value) (units unknown) (unknown) Result panel 820 (unknown) (no date) (unknown) [facility] (no value) (units unknown) (unknown) Result panel 821 (unknown) (no date) (unknown) [facility] (no value) (units unknown) (unknown) Result panel 822 (unknown) (no date) (unknown) [facility] (no value) (units unknown) (unknown) Result panel 823 (unknown) (no date) (unknown) [facility] (no value) (units unknown) (unknown) Result panel 824 (unknown) (no date) (unknown) [facility] (no value) (units unknown) (unknown) Result panel 825 (unknown) (no date) (unknown) [facility] (no value) (units unknown) (unknown) Result panel 826 (unknown) (no date) (unknown) [facility] (no value) (units unknown) (unknown) Result panel 827 (unknown) (no date) (unknown) [facility] (no value) (units unknown) (unknown) Result panel 828 (unknown) (no date) (unknown) [facility] (no value) (units unknown) (unknown) Result panel 829 (unknown) (no date) (unknown) [facility] (no value) (units unknown) (unknown) Result panel 830 (unknown) (no date) (unknown) [facility] (no value) (units unknown) (unknown) Result panel 831 (unknown) (no date) (unknown) [facility] (no value) (units unknown) (unknown) Result panel 832 (unknown) (no date) (unknown) [facility] (no value) (units unknown) (unknown) Result panel 833 (unknown) (no date) (unknown) [facility] (no value) (units unknown) (unknown) Result panel 834 (unknown) (no date) (unknown) [facility] (no value) (units unknown) (unknown) Result panel 835 (unknown) (no date) (unknown) [facility] (no value) (units unknown) (unknown) Result panel 836 (unknown) (no date) (unknown) [facility] (no value) (units unknown) (unknown) Result panel 837 (unknown) (no date) (unknown) [facility] (no value) (units unknown) (unknown) Result panel 838 (unknown) (no date) (unknown) [facility] (no value) (units unknown) (unknown) Result panel 839 (unknown) (no date) (unknown) [facility] (no value) (units unknown) (unknown) Result panel 840 (unknown) (no date) (unknown) [facility] (no value) (units unknown) (unknown) Result panel 841 (unknown) (no date) (unknown) [facility] (no value) (units unknown) (unknown) Result panel 842 (unknown) (no date) (unknown) [facility] (no value) (units unknown) (unknown) Result panel 843 (unknown) (no date) (unknown) [facility] (no value) (units unknown) (unknown) Result panel 844 (unknown) (no date) (unknown) [facility] (no value) (units unknown) (unknown) Result panel 845 (unknown) (no date) (unknown) [facility] (no value) (units unknown) (unknown) Result panel 846 (unknown) (no date) (unknown) [facility] (no value) (units unknown) (unknown) Result panel 847 (unknown) (no date) (unknown) [facility] (no value) (units unknown) (unknown) Result panel 848 (unknown) (no date) (unknown) [facility] (no value) (units unknown) (unknown) Result panel 849 (unknown) (no date) (unknown) [facility] (no value) (units unknown) (unknown) Result panel 850 (unknown) (no date) (unknown) [facility] (no value) (units unknown) (unknown) Result panel 851 (unknown) (no date) (unknown) [facility] (no value) (units unknown) (unknown) Result panel 852 (unknown) (no date) (unknown) [facility] (no value) (units unknown) (unknown) Result panel 853 (unknown) (no date) (unknown) [facility] (no value) (units unknown) (unknown) Result panel 854 (unknown) (no date) (unknown) [facility] (no value) (units unknown) (unknown) Result panel 855 (unknown) (no date) (unknown) [facility] (no value) (units unknown) (unknown) Result panel 856 (unknown) (no date) (unknown) [facility] (no value) (units unknown) (unknown) Result panel 857 (unknown) (no date) (unknown) [facility] (no value) (units unknown) (unknown) Result panel 858 (unknown) (no date) (unknown) [facility] (no value) (units unknown) (unknown) Result panel 859 (unknown) (no date) (unknown) [facility] (no value) (units unknown) (unknown) Result panel 860 (unknown) (no date) (unknown) [facility] (no value) (units unknown) (unknown) Result panel 861 (unknown) (no date) (unknown) [facility] (no value) (units unknown) (unknown) Result panel 862 (unknown) (no date) (unknown) [facility] (no value) (units unknown) (unknown) Result panel 863 (unknown) (no date) (unknown) [facility] (no value) (units unknown) (unknown) Result panel 864 (unknown) (no date) (unknown) [facility] (no value) (units unknown) (unknown) Result panel 865 (unknown) (no date) (unknown) [facility] (no value) (units unknown) (unknown) Result panel 866 (unknown) (no date) (unknown) [facility] (no value) (units unknown) (unknown) Result panel 867 (unknown) (no date) (unknown) [facility] (no value) (units unknown) (unknown) Result panel 868 (unknown) (no date) (unknown) [facility] (no value) (units unknown) (unknown) Result panel 869 (unknown) (no date) (unknown) [facility] (no value) (units unknown) (unknown) Result panel 870 (unknown) (no date) (unknown) [facility] (no value) (units unknown) (unknown) Result panel 871 (unknown) (no date) (unknown) [facility] (no value) (units unknown) (unknown) Result panel 872 (unknown) (no date) (unknown) [facility] (no value) (units unknown) (unknown) Result panel 873 (unknown) (no date) (unknown) [facility] (no value) (units unknown) (unknown) Result panel 874 (unknown) (no date) (unknown) [facility] (no value) (units unknown) (unknown) Result panel 875 (unknown) (no date) (unknown) [facility] (no value) (units unknown) (unknown) Result panel 876 (unknown) (no date) (unknown) [facility] (no value) (units unknown) (unknown) Result panel 877 (unknown) (no date) (unknown) [facility] (no value) (units unknown) (unknown) Result panel 878 (unknown) (no date) (unknown) [facility] (no value) (units unknown) (unknown) Result panel 879 (unknown) (no date) (unknown) [facility] (no value) (units unknown) (unknown) Result panel 880 (unknown) (no date) (unknown) [facility] (no value) (units unknown) (unknown) Result panel 881 (unknown) (no date) (unknown) [facility] (no value) (units unknown) (unknown) Result panel 882 (unknown) (no date) (unknown) [facility] (no value) (units unknown) (unknown) Result panel 883 (unknown) (no date) (unknown) [facility] (no value) (units unknown) (unknown) Result panel 884 (unknown) (no date) (unknown) [facility] (no value) (units unknown) (unknown) Result panel 885 (unknown) (no date) (unknown) [facility] (no value) (units unknown) (unknown) Result panel 886 (unknown) (no date) (unknown) [facility] (no value) (units unknown) (unknown) Result panel 887 (unknown) (no date) (unknown) [facility] (no value) (units unknown) (unknown) Result panel 888 (unknown) (no date) (unknown) [facility] (no value) (units unknown) (unknown) Result panel 889 (unknown) (no date) (unknown) [facility] (no value) (units unknown) (unknown) Result panel 890 (unknown) (no date) (unknown) [facility] (no value) (units unknown) (unknown) Result panel 891 (unknown) (no date) (unknown) [facility] (no value) (units unknown) (unknown) Result panel 892 (unknown) (no date) (unknown) [facility] (no value) (units unknown) (unknown) Result panel 893 (unknown) (no date) (unknown) [facility] (no value) (units unknown) (unknown) Result panel 894 (unknown) (no date) (unknown) [facility] (no value) (units unknown) (unknown) Result panel 895 (unknown) (no date) (unknown) [facility] (no value) (units unknown) (unknown) Result panel 896 (unknown) (no date) (unknown) [facility] (no value) (units unknown) (unknown) Result panel 897 (unknown) (no date) (unknown) [facility] (no value) (units unknown) (unknown) Result panel 898 (unknown) (no date) (unknown) [facility] (no value) (units unknown) (unknown) Result panel 899 (unknown) (no date) (unknown) [facility] (no value) (units unknown) (unknown) Result panel 900 (unknown) (no date) (unknown) [facility] (no value) (units unknown) (unknown) Result panel 901 (unknown) (no date) (unknown) [facility] (no value) (units unknown) (unknown) Result panel 902 (unknown) (no date) (unknown) [facility] (no value) (units unknown) (unknown) Result panel 903 (unknown) (no date) (unknown) [facility] (no value) (units unknown) (unknown) Result panel 904 (unknown) (no date) (unknown) [facility] (no value) (units unknown) (unknown) Result panel 905 (unknown) (no date) (unknown) [facility] (no value) (units unknown) (unknown) Result panel 906 (unknown) (no date) (unknown) [facility] (no value) (units unknown) (unknown) Result panel 907 (unknown) (no date) (unknown) [facility] (no value) (units unknown) (unknown) Result panel 908 (unknown) (no date) (unknown) [facility] (no value) (units unknown) (unknown) Result panel 909 (unknown) (no date) (unknown) [facility] (no value) (units unknown) (unknown) Result panel 910 (unknown) (no date) (unknown) [facility] (no value) (units unknown) (unknown) Result panel 911 (unknown) (no date) (unknown) [facility] (no value) (units unknown) (unknown) Result panel 912 (unknown) (no date) (unknown) [facility] (no value) (units unknown) (unknown) Result panel 913 (unknown) (no date) (unknown) [facility] (no value) (units unknown) (unknown) Result panel 914 (unknown) (no date) (unknown) [facility] (no value) (units unknown) (unknown) Result panel 915 (unknown) (no date) (unknown) [facility] (no value) (units unknown) (unknown) Result panel 916 (unknown) (no date) (unknown) [facility] (no value) (units unknown) (unknown) Result panel 917 (unknown) (no date) (unknown) [facility] (no value) (units unknown) (unknown) Result panel 918 (unknown) (no date) (unknown) [facility] (no value) (units unknown) (unknown) Result panel 919 (unknown) (no date) (unknown) [facility] (no value) (units unknown) (unknown) Result panel 920 (unknown) (no date) (unknown) [facility] (no value) (units unknown) (unknown) Result panel 921 (unknown) (no date) (unknown) [facility] (no value) (units unknown) (unknown) Result panel 922 (unknown) (no date) (unknown) [facility] (no value) (units unknown) (unknown) Result panel 923 (unknown) (no date) (unknown) [facility] (no value) (units unknown) (unknown) Result panel 924 (unknown) (no date) (unknown) [facility] (no value) (units unknown) (unknown) Result panel 925 (unknown) (no date) (unknown) [facility] (no value) (units unknown) (unknown) Result panel 926 (unknown) (no date) (unknown) [facility] (no value) (units unknown) (unknown) Result panel 927 (unknown) (no date) (unknown) [facility] (no value) (units unknown) (unknown) Result panel 928 (unknown) (no date) (unknown) [facility] (no value) (units unknown) (unknown) Result panel 929 (unknown) (no date) (unknown) [facility] (no value) (units unknown) (unknown) Result panel 930 (unknown) (no date) (unknown) [facility] (no value) (units unknown) (unknown) Result panel 931 (unknown) (no date) (unknown) [facility] (no value) (units unknown) (unknown) Result panel 932 (unknown) (no date) (unknown) [facility] (no value) (units unknown) (unknown) Result panel 933 (unknown) (no date) (unknown) [facility] (no value) (units unknown) (unknown) Result panel 934 (unknown) (no date) (unknown) [facility] (no value) (units unknown) (unknown) Result panel 935 (unknown) (no date) (unknown) [facility] (no value) (units unknown) (unknown) Result panel 936 (unknown) (no date) (unknown) [facility] (no value) (units unknown) (unknown) Result panel 937 (unknown) (no date) (unknown) [facility] (no value) (units unknown) (unknown) Result panel 938 (unknown) (no date) (unknown) [facility] (no value) (units unknown) (unknown) Result panel 939 (unknown) (no date) (unknown) [facility] (no value) (units unknown) (unknown) Result panel 940 (unknown) (no date) (unknown) [facility] (no value) (units unknown) (unknown) Result panel 941 (unknown) (no date) (unknown) [facility] (no value) (units unknown) (unknown) Result panel 942 (unknown) (no date) (unknown) [facility] (no value) (units unknown) (unknown) Result panel 943 (unknown) (no date) (unknown) [facility] (no value) (units unknown) (unknown) Result panel 944 (unknown) (no date) (unknown) [facility] (no value) (units unknown) (unknown) Result panel 945 (unknown) (no date) (unknown) [facility] (no value) (units unknown) (unknown) Result panel 946 (unknown) (no date) (unknown) [facility] (no value) (units unknown) (unknown) Result panel 947 (unknown) (no date) (unknown) [facility] (no value) (units unknown) (unknown) Result panel 948 (unknown) (no date) (unknown) [facility] (no value) (units unknown) (unknown) Result panel 949 (unknown) (no date) (unknown) [facility] (no value) (units unknown) (unknown) Result panel 950 (unknown) (no date) (unknown) [facility] (no value) (units unknown) (unknown) Result panel 951 (unknown) (no date) (unknown) [facility] (no value) (units unknown) (unknown) Result panel 952 (unknown) (no date) (unknown) [facility] (no value) (units unknown) (unknown) Result panel 953 (unknown) (no date) (unknown) [facility] (no value) (units unknown) (unknown) Result panel 954 (unknown) (no date) (unknown) [facility] (no value) (units unknown) (unknown) Result panel 955 (unknown) (no date) (unknown) [facility] (no value) (units unknown) (unknown) Result panel 956 (unknown) (no date) (unknown) [facility] (no value) (units unknown) (unknown) Result panel 957 (unknown) (no date) (unknown) [facility] (no value) (units unknown) (unknown) Result panel 958 (unknown) (no date) (unknown) [facility] (no value) (units unknown) (unknown) Result panel 959 (unknown) (no date) (unknown) [facility] (no value) (units unknown) (unknown) Result panel 960 (unknown) (no date) (unknown) [facility] (no value) (units unknown) (unknown) Result panel 961 (unknown) (no date) (unknown) [facility] (no value) (units unknown) (unknown) Result panel 962 (unknown) (no date) (unknown) [facility] (no value) (units unknown) (unknown) Result panel 963 (unknown) (no date) (unknown) [facility] (no value) (units unknown) (unknown) Result panel 964 (unknown) (no date) (unknown) [facility] (no value) (units unknown) (unknown) Result panel 965 (unknown) (no date) (unknown) [facility] (no value) (units unknown) (unknown) Result panel 966 (unknown) (no date) (unknown) [facility] (no value) (units unknown) (unknown) Result panel 967 (unknown) (no date) (unknown) [facility] (no value) (units unknown) (unknown) Result panel 968 (unknown) (no date) (unknown) [facility] (no value) (units unknown) (unknown) Result panel 969 (unknown) (no date) (unknown) [facility] (no value) (units unknown) (unknown) Result panel 970 (unknown) (no date) (unknown) [facility] (no value) (units unknown) (unknown) Result panel 971 (unknown) (no date) (unknown) [facility] (no value) (units unknown) (unknown) Result panel 972 (unknown) (no date) (unknown) [facility] (no value) (units unknown) (unknown) Result panel 973 (unknown) (no date) (unknown) [facility] (no value) (units unknown) (unknown) Result panel 974 (unknown) (no date) (unknown) [facility] (no value) (units unknown) (unknown) Result panel 975 (unknown) (no date) (unknown) [facility] (no value) (units unknown) (unknown) Result panel 976 (unknown) (no date) (unknown) [facility] (no value) (units unknown) (unknown) Result panel 977 (unknown) (no date) (unknown) [facility] (no value) (units unknown) (unknown) Result panel 978 (unknown) (no date) (unknown) [facility] (no value) (units unknown) (unknown) Result panel 979 (unknown) (no date) (unknown) [facility] (no value) (units unknown) (unknown) Result panel 980 (unknown) (no date) (unknown) [facility] (no value) (units unknown) (unknown) Result panel 981 (unknown) (no date) (unknown) [facility] (no value) (units unknown) (unknown) Result panel 982 (unknown) (no date) (unknown) [facility] (no value) (units unknown) (unknown) Result panel 983 (unknown) (no date) (unknown) [facility] (no value) (units unknown) (unknown) Result panel 984 (unknown) (no date) (unknown) [facility] (no value) (units unknown) (unknown) Result panel 985 (unknown) (no date) (unknown) [facility] (no value) (units unknown) (unknown) Result panel 986 (unknown) (no date) (unknown) [facility] (no value) (units unknown) (unknown) Result panel 987 (unknown) (no date) (unknown) [facility] (no value) (units unknown) (unknown) Result panel 988 (unknown) (no date) (unknown) [facility] (no value) (units unknown) (unknown) Result panel 989 (unknown) (no date) (unknown) [facility] (no value) (units unknown) (unknown) Result panel 990 (unknown) (no date) (unknown) [facility] (no value) (units unknown) (unknown) Result panel 991 (unknown) (no date) (unknown) [facility] (no value) (units unknown) (unknown) Result panel 992 (unknown) (no date) (unknown) [facility] (no value) (units unknown) (unknown) Result panel 993 (unknown) (no date) (unknown) [facility] (no value) (units unknown) (unknown) Result panel 994 (unknown) (no date) (unknown) [facility] (no value) (units unknown) (unknown) Result panel 995 (unknown) (no date) (unknown) [facility] (no value) (units unknown) (unknown) Result panel 996 (unknown) (no date) (unknown) [facility] (no value) (units unknown) (unknown) Result panel 997 (unknown) (no date) (unknown) [facility] (no value) (units unknown) (unknown) Result panel 998 (unknown) (no date) (unknown) [facility] (no value) (units unknown) (unknown) Result panel 999 (unknown) (no date) (unknown) [facility] (no value) (units unknown) (unknown) Result panel 1000 (unknown) (no date) (unknown) [facility] (no value) (units unknown) (unknown) Result panel 1001 (unknown) (no date) (unknown) [facility] (no value) (units unknown) (unknown) Result panel 1002 (unknown) (no date) (unknown) [facility] (no value) (units unknown) (unknown) Result panel 1003 (unknown) (no date) (unknown) [facility] (no value) (units unknown) (unknown) Result panel 1004 (unknown) (no date) (unknown) [facility] (no value) (units unknown) (unknown) Result panel 1005 (unknown) (no date) (unknown) [facility] (no value) (units unknown) (unknown) Result panel 1006 (unknown) (no date) (unknown) [facility] (no value) (units unknown) (unknown) Result panel 1007 (unknown) (no date) (unknown) [facility] (no value) (units unknown) (unknown) Result panel 1008 (unknown) (no date) (unknown) [facility] (no value) (units unknown) (unknown) Result panel 1009 (unknown) (no date) (unknown) [facility] (no value) (units unknown) (unknown) Result panel 1010 (unknown) (no date) (unknown) [facility] (no value) (units unknown) (unknown) Result panel 1011 (unknown) (no date) (unknown) [facility] (no value) (units unknown) (unknown) Result panel 1012 (unknown) (no date) (unknown) [facility] (no value) (units unknown) (unknown) Result panel 1013 (unknown) (no date) (unknown) [facility] (no value) (units unknown) (unknown) Result panel 1014 (unknown) (no date) (unknown) [facility] (no value) (units unknown) (unknown) Result panel 1015 (unknown) (no date) (unknown) [facility] (no value) (units unknown) (unknown) Result panel 1016 (unknown) (no date) (unknown) [facility] (no value) (units unknown) (unknown) Result panel 1017 (unknown) (no date) (unknown) [facility] (no value) (units unknown) (unknown) Result panel 1018 (unknown) (no date) (unknown) [facility] (no value) (units unknown) (unknown) Result panel 1019 (unknown) (no date) (unknown) [facility] (no value) (units unknown) (unknown) Result panel 1020 (unknown) (no date) (unknown) [facility] (no value) (units unknown) (unknown) Result panel 1021 (unknown) (no date) (unknown) [facility] (no value) (units unknown) (unknown) Result panel 1022 (unknown) (no date) (unknown) [facility] (no value) (units unknown) (unknown) Result panel 1023 (unknown) (no date) (unknown) [facility] (no value) (units unknown) (unknown) Result panel 1024 (unknown) (no date) (unknown) [facility] (no value) (units unknown) (unknown) Result panel 1025 (unknown) (no date) (unknown) [facility] (no value) (units unknown) (unknown) Result panel 1026 (unknown) (no date) (unknown) [facility] (no value) (units unknown) (unknown) Result panel 1027 (unknown) (no date) (unknown) [facility] (no value) (units unknown) (unknown) Result panel 1028 (unknown) (no date) (unknown) [facility] (no value) (units unknown) (unknown) Result panel 1029 (unknown) (no date) (unknown) [facility] (no value) (units unknown) (unknown) Result panel 1030 (unknown) (no date) (unknown) [facility] (no value) (units unknown) (unknown) Result panel 1031 (unknown) (no date) (unknown) [facility] (no value) (units unknown) (unknown) Result panel 1032 (unknown) (no date) (unknown) [facility] (no value) (units unknown) (unknown) Result panel 1033 (unknown) (no date) (unknown) [facility] (no value) (units unknown) (unknown) Result panel 1034 (unknown) (no date) (unknown) [facility] (no value) (units unknown) (unknown) Result panel 1035 (unknown) (no date) (unknown) [facility] (no value) (units unknown) (unknown) Result panel 1036 (unknown) (no date) (unknown) [facility] (no value) (units unknown) (unknown) Result panel 1037 (unknown) (no date) (unknown) [facility] (no value) (units unknown) (unknown) Result panel 1038 (unknown) (no date) (unknown) [facility] (no value) (units unknown) (unknown) Result panel 1039 (unknown) (no date) (unknown) [facility] (no value) (units unknown) (unknown) Result panel 1040 (unknown) (no date) (unknown) [facility] (no value) (units unknown) (unknown) Result panel 1041 (unknown) (no date) (unknown) [facility] (no value) (units unknown) (unknown) Result panel 1042 (unknown) (no date) (unknown) [facility] (no value) (units unknown) (unknown) Result panel 1043 (unknown) (no date) (unknown) [facility] (no value) (units unknown) (unknown) Result panel 1044 (unknown) (no date) (unknown) [facility] (no value) (units unknown) (unknown) Result panel 1045 (unknown) (no date) (unknown) [facility] (no value) (units unknown) (unknown) Result panel 1046 (unknown) (no date) (unknown) [facility] (no value) (units unknown) (unknown) Result panel 1047 (unknown) (no date) (unknown) [facility] (no value) (units unknown) (unknown) Result panel 1048 (unknown) (no date) (unknown) [facility] (no value) (units unknown) (unknown) Result panel 1049 (unknown) (no date) (unknown) [facility] (no value) (units unknown) (unknown) Result panel 1050 (unknown) (no date) (unknown) [facility] (no value) (units unknown) (unknown) Result panel 1051 (unknown) (no date) (unknown) [facility] (no value) (units unknown) (unknown) Result panel 1052 (unknown) (no date) (unknown) [facility] (no value) (units unknown) (unknown) Result panel 1053 (unknown) (no date) (unknown) [facility] (no value) (units unknown) (unknown) Result panel 1054 (unknown) (no date) (unknown) [facility] (no value) (units unknown) (unknown) Result panel 1055 (unknown) (no date) (unknown) [facility] (no value) (units unknown) (unknown) Result panel 1056 (unknown) (no date) (unknown) [facility] (no value) (units unknown) (unknown) Result panel 1057 (unknown) (no date) (unknown) [facility] (no value) (units unknown) (unknown) Result panel 1058 (unknown) (no date) (unknown) [facility] (no value) (units unknown) (unknown) Result panel 1059 (unknown) (no date) (unknown) [facility] (no value) (units unknown) (unknown) Result panel 1060 (unknown) (no date) (unknown) [facility] (no value) (units unknown) (unknown) Result panel 1061 (unknown) (no date) (unknown) [facility] (no value) (units unknown) (unknown) Result panel 1062 (unknown) (no date) (unknown) [facility] (no value) (units unknown) (unknown) Result panel 1063 (unknown) (no date) (unknown) [facility] (no value) (units unknown) (unknown) Result panel 1064 (unknown) (no date) (unknown) [facility] (no value) (units unknown) (unknown) Result panel 1065 (unknown) (no date) (unknown) [facility] (no value) (units unknown) (unknown) Result panel 1066 (unknown) (no date) (unknown) [facility] (no value) (units unknown) (unknown) Result panel 1067 (unknown) (no date) (unknown) [facility] (no value) (units unknown) (unknown) Result panel 1068 (unknown) (no date) (unknown) [facility] (no value) (units unknown) (unknown) Result panel 1069 (unknown) (no date) (unknown) [facility] (no value) (units unknown) (unknown) Result panel 1070 (unknown) (no date) (unknown) [facility] (no value) (units unknown) (unknown) Result panel 1071 (unknown) (no date) (unknown) [facility] (no value) (units unknown) (unknown) Result panel 1072 (unknown) (no date) (unknown) [facility] (no value) (units unknown) (unknown) Result panel 1073 (unknown) (no date) (unknown) [facility] (no value) (units unknown) (unknown) Result panel 1074 (unknown) (no date) (unknown) [facility] (no value) (units unknown) (unknown) Result panel 1075 (unknown) (no date) (unknown) [facility] (no value) (units unknown) (unknown) Result panel 1076 (unknown) (no date) (unknown) [facility] (no value) (units unknown) (unknown) Result panel 1077 (unknown) (no date) (unknown) [facility] (no value) (units unknown) (unknown) Result panel 1078 (unknown) (no date) (unknown) [facility] (no value) (units unknown) (unknown) Result panel 1079 (unknown) (no date) (unknown) [facility] (no value) (units unknown) (unknown) Result panel 1080 (unknown) (no date) (unknown) [facility] (no value) (units unknown) (unknown) Result panel 1081 (unknown) (no date) (unknown) [facility] (no value) (units unknown) (unknown) Result panel 1082 (unknown) (no date) (unknown) [facility] (no value) (units unknown) (unknown) Result panel 1083 (unknown) (no date) (unknown) [facility] (no value) (units unknown) (unknown) Result panel 1084 (unknown) (no date) (unknown) [facility] (no value) (units unknown) (unknown) Result panel 1085 (unknown) (no date) (unknown) [facility] (no value) (units unknown) (unknown) Result panel 1086 (unknown) (no date) (unknown) [facility] (no value) (units unknown) (unknown) Result panel 1087 (unknown) (no date) (unknown) [facility] (no value) (units unknown) (unknown) Result panel 1088 (unknown) (no date) (unknown) [facility] (no value) (units unknown) (unknown) Result panel 1089 (unknown) (no date) (unknown) [facility] (no value) (units unknown) (unknown) Result panel 1090 (unknown) (no date) (unknown) [facility] (no value) (units unknown) (unknown) Result panel 1091 (unknown) (no date) (unknown) [facility] (no value) (units unknown) (unknown) Result panel 1092 (unknown) (no date) (unknown) [facility] (no value) (units unknown) (unknown) Result panel 1093 (unknown) (no date) (unknown) [facility] (no value) (units unknown) (unknown) Result panel 1094 (unknown) (no date) (unknown) [facility] (no value) (units unknown) (unknown) Result panel 1095 (unknown) (no date) (unknown) [facility] (no value) (units unknown) (unknown) Result panel 1096 (unknown) (no date) (unknown) [facility] (no value) (units unknown) (unknown) Result panel 1097 (unknown) (no date) (unknown) [facility] (no value) (units unknown) (unknown) Result panel 1098 (unknown) (no date) (unknown) [facility] (no value) (units unknown) (unknown) Result panel 1099 (unknown) (no date) (unknown) [facility] (no value) (units unknown) (unknown) Result panel 1100 (unknown) (no date) (unknown) [facility] (no value) (units unknown) (unknown) Result panel 1101 (unknown) (no date) (unknown) [facility] (no value) (units unknown) (unknown) Result panel 1102 (unknown) (no date) (unknown) [facility] (no value) (units unknown) (unknown) Result panel 1103 (unknown) (no date) (unknown) [facility] (no value) (units unknown) (unknown) Result panel 1104 (unknown) (no date) (unknown) [facility] (no value) (units unknown) (unknown) Result panel 1105 (unknown) (no date) (unknown) [facility] (no value) (units unknown) (unknown) Result panel 1106 (unknown) (no date) (unknown) [facility] (no value) (units unknown) (unknown) Result panel 1107 (unknown) (no date) (unknown) [facility] (no value) (units unknown) (unknown) Result panel 1108 (unknown) (no date) (unknown) [facility] (no value) (units unknown) (unknown) Result panel 1109 (unknown) (no date) (unknown) [facility] (no value) (units unknown) (unknown) Result panel 1110 (unknown) (no date) (unknown) [facility] (no value) (units unknown) (unknown) Result panel 1111 (unknown) (no date) (unknown) [facility] (no value) (units unknown) (unknown) Result panel 1112 (unknown) (no date) (unknown) [facility] (no value) (units unknown) (unknown) Result panel 1113 (unknown) (no date) (unknown) [facility] (no value) (units unknown) (unknown) Result panel 1114 (unknown) (no date) (unknown) [facility] (no value) (units unknown) (unknown) Result panel 1115 (unknown) (no date) (unknown) [facility] (no value) (units unknown) (unknown) Result panel 1116 (unknown) (no date) (unknown) [facility] (no value) (units unknown) (unknown) Result panel 1117 (unknown) (no date) (unknown) [facility] (no value) (units unknown) (unknown) Result panel 1118 (unknown) (no date) (unknown) [facility] (no value) (units unknown) (unknown) Result panel 1119 (unknown) (no date) (unknown) [facility] (no value) (units unknown) (unknown) Result panel 1120 (unknown) (no date) (unknown) [facility] (no value) (units unknown) (unknown) Result panel 1121 (unknown) (no date) (unknown) [facility] (no value) (units unknown) (unknown) Result panel 1122 (unknown) (no date) (unknown) [facility] (no value) (units unknown) (unknown) Result panel 1123 (unknown) (no date) (unknown) [facility] (no value) (units unknown) (unknown) Result panel 1124 (unknown) (no date) (unknown) [facility] (no value) (units unknown) (unknown) Result panel 1125 (unknown) (no date) (unknown) [facility] (no value) (units unknown) (unknown) Result panel 1126 (unknown) (no date) (unknown) [facility] (no value) (units unknown) (unknown) Result panel 1127 (unknown) (no date) (unknown) [facility] (no value) (units unknown) (unknown) Result panel 1128 (unknown) (no date) (unknown) [facility] (no value) (units unknown) (unknown) Result panel 1129 (unknown) (no date) (unknown) [facility] (no value) (units unknown) (unknown) Result panel 1130 (unknown) (no date) (unknown) [facility] (no value) (units unknown) (unknown) Result panel 1131 (unknown) (no date) (unknown) [facility] (no value) (units unknown) (unknown) Result panel 1132 (unknown) (no date) (unknown) [facility] (no value) (units unknown) (unknown) Result panel 1133 (unknown) (no date) (unknown) [facility] (no value) (units unknown) (unknown) Result panel 1134 (unknown) (no date) (unknown) [facility] (no value) (units unknown) (unknown) Result panel 1135 (unknown) (no date) (unknown) [facility] (no value) (units unknown) (unknown) Result panel 1136 (unknown) (no date) (unknown) [facility] (no value) (units unknown) (unknown) Result panel 1137 (unknown) (no date) (unknown) [facility] (no value) (units unknown) (unknown) Result panel 1138 (unknown) (no date) (unknown) [facility] (no value) (units unknown) (unknown) Result panel 1139 (unknown) (no date) (unknown) [facility] (no value) (units unknown) (unknown) Result panel 1140 (unknown) (no date) (unknown) [facility] (no value) (units unknown) (unknown) Result panel 1141 (unknown) (no date) (unknown) [facility] (no value) (units unknown) (unknown) Result panel 1142 (unknown) (no date) (unknown) [facility] (no value) (units unknown) (unknown) Result panel 1143 (unknown) (no date) (unknown) [facility] (no value) (units unknown) (unknown) Result panel 1144 (unknown) (no date) (unknown) [facility] (no value) (units unknown) (unknown) Result panel 1145 (unknown) (no date) (unknown) [facility] (no value) (units unknown) (unknown) Result panel 1146 (unknown) (no date) (unknown) (unknown) (no value) (units unknown) (unknown) (unknown) (no date) (unknown) (unknown) 04/22/22 (units unknown) (unknown) (unknown) (no date) (unknown) (unknown) 26 year old female presents to [facility] (units unknown) (unknown) (unknown) (no date) (unknown) (unknown) [address] (units unknown) (unknown) (unknown) (no date) (unknown) (unknown) Age/Sex: 26 / F Date of Service: (units unknown) (unknown) (unknown) (no date) (unknown) (unknown) Allergies (units unknown) (unknown) (unknown) (no date) (unknown) (unknown) [place] [address] (units unknown) (unknown) (unknown) (no date) (unknown) (unknown) Anxiety (units unknown) (unknown) (unknown) (no date) (unknown) (unknown) Attending Dr: Bessie Christie DStefanieOStefanie (units unknown) (unknown) (unknown) (no date) (unknown) (unknown) Blood pressure elevated without history of HTN (units unknown) (unknown) (unknown) (no date) (unknown) (unknown) Common migraine (units unknown) (unknown) (unknown) (no date) (unknown) (unknown) : 1995 Acct:[id number] (units unknown) (unknown) (unknown) (no date) (unknown) (unknown) Depression (2013) (units unknown) (unknown) (unknown) (no date) (unknown) (unknown) Dept at . (units unknown) (unknown) (unknown) (no date) (unknown) (unknown) Documented By: Bessie Rojas i 04/22/22 1443 (units unknown) (unknown) (unknown) (no date) (unknown) (unknown) Draft (units unknown) (unknown) (unknown) (no date) (unknown) (unknown) Family Practice Offi ce Visit (units unknown) (unknown) (unknown) (no date) (unknown) (unknown) [facility] (units unknown) (unknown) (unknown) (no date) (unknown) (unknown) Gastroesophageal reflux disease (units unknown) (unknown) (unknown) (no date) (unknown) (unknown) Headache, chronic daily (units unknown) (unknown) (unknown) (no date) (unknown) (unknown) Health Management reviewed with patient: Yes (units unknown) (unknown) (unknown) (no date) (unknown) (unknown) Health Management (units unknown) (unknown) (unknown) (no date) (unknown) (unknown) IBS (irritable bowel syndrome) (units unknown) (unknown) (unknown) (no date) (unknown) (unknown) Intake Note: (units unknown) (unknown) (unknown) (no date) (unknown) (unknown) Intake performed by: Marion Caputo (units unknown) (unknown) (unknown) (no date) (unknown) (unknown) Intake (units unknown) (unknown) (unknown) (no date) (unknown) (unknown) Intake- Clincial Staff (units unknown) (unknown) (unknown) (no date) (unknown) (unknown) Last Menstural Cycle + Details (units unknown) (unknown) (unknown) (no date) (unknown) (unknown) Loc: [facility] (units unknown) (unknown) (unknown) (no date) (unknown) (unknown) Medical History (units unknown) (unknown) (unknown) (no date) (unknown) (unknown) Muscle tightness (units unknown) (unknown) (unknown) (no date) (unknown) (unknown) No Known Drug Allergies Allergy (Verified 03/25/22 13:58) (units unknown) (unknown) (unknown) (no date) (unknown) (unknown) Other Menstrual Period: Uncertain (units unknown) (unknown) (unknown) (no date) (unknown) (unknown) PFSH (units unknown) (unknown) (unknown) (no date) (unknown) (unknown) Patient: Sue Gurrola MR#: [id number] (units unknown) (unknown) (unknown) (no date) (unknown) (unknown) Reason For Visit (units unknown) (unknown) (unknown) (no date) (unknown) (unknown) Right anterior knee pain (units unknown) (unknown) (unknown) (no date) (unknown) (unknown) Screening for STD (sexually transmitted disease) (units unknown) (unknown) (unknown) (no date) (unknown) (unknown) Signed By: (units unknown) (unknown) (unknown) (no date) (unknown) (unknown) Smoking Status: Mario carey smoker (units unknown) (unknown) (unknown) (no date) (unknown) (unknown) Social History (units unknown) (unknown) (unknown) (no date) (unknown) (unknown) Status post delivery (10/28/16) (units unknown) (unknown) (unknown) (no date) (unknown) (unknown) Surgical History (units unknown) (unknown) (unknown) (no date) (unknown) (unknown) This note may have been all or partially generated using voice recognition (units unknown) (unknown) (unknown) (no date) (unknown) (unknown) Tobacco + Substance Use (units unknown) (unknown) (unknown) (no date) (unknown) (unknown) Tobacco Status (units unknown) (unknown) (unknown) (no date) (unknown) (unknown) Visit Reasons: Cullen kenyon *saji (units unknown) (unknown) (unknown) (no date) (unknown) (unknown) alcohol intake: current (units unknown) (unknown) (unknown) (no date) (unknown) (unknown) have occurred. If there are any questions, please contact the Medical Records (units unknown) (unknown) (unknown) (no date) (unknown) (unknown) household members: children (units unknown) (unknown) (unknown) (no date) (unknown) (unknown) may occur. Occasiona l wrong-word or 'sound-alike' substitutions may have (units unknown) (unknown) (unknown) (no date) (unknown) (unknown) occurred due to the inherent limitations of voice recognition software. Please (units unknown) (unknown) (unknown) (no date) (unknown) (unknown) read the note carefully and recognize, using context, where these substitutions (units unknown) (unknown) (unknown) (no date) (unknown) (unknown) software. Although every effort is made to edit content, dye stand loader errors (units unknown) (unknown) Result panel 1147 (unknown) (no date) (unknown) (unknown) (no value) (units unknown) (unknown) (unknown) (no date) (unknown) (unknown) 04/22/22 (units unknown) (unknown) (unknown) (no date) (unknown) (unknown) 04/22/22] (units unknown) (unknown) (unknown) (no date) (unknown) (unknown) 26 year old female presents to clinic for nausea x 1 month. (units unknown) (unknown) (unknown) (no date) (unknown) (unknown) [id number] (units unknown) (unknown) (unknown) (no date) (unknown) (unknown) 3 day period of vomiting. stomach was empty but dark brown liquid was coming (units unknown) (unknown) (unknown) (no date) (unknown) (unknown) Age/Sex: 26 / F Date of Service: (units unknown) (unknown) (unknown) (no date) (unknown) (unknown) Allergies (units unknown) (unknown) (unknown) (no date) (unknown) (unknown) [place] [address] (units unknown) (unknown) (unknown) (no date) (unknown) (unknown) Anxiety (units unknown) (unknown) (unknown) (no date) (unknown) (unknown) Attending Dr: Bessie Christie D.O. (units unknown) (unknown) (unknown) (no date) (unknown) (unknown) Blood pressure elevated without history of HTN (units unknown) (unknown) (unknown) (no date) (unknown) (unknown) Common migraine (units unknown) (unknown) (unknown) (no date) (unknown) (unknown) Confirmed 04/22/22] (units unknown) (unknown) (unknown) (no date) (unknown) (unknown) : 1995 Acct:[id number] (units unknown) (unknown) (unknown) (no date) (unknown) (unknown) Depression (2013) (units unknown) (unknown) (unknown) (no date) (unknown) (unknown) Dept at . (units unknown) (unknown) (unknown) (no date) (unknown) (unknown) Documented By: Bessie Rojas i 04/22/22 1443 (units unknown) (unknown) (unknown) (no date) (unknown) (unknown) Draft (units unknown) (unknown) (unknown) (no date) (unknown) (unknown) Family Practice Offi ce Visit (units unknown) (unknown) (unknown) (no date) (unknown) (unknown) [facility] (units unknown) (unknown) (unknown) (no date) (unknown) (unknown) Gastroesophageal reflux disease (units unknown) (unknown) (unknown) (no date) (unknown) (unknown) Headache, chronic daily (units unknown) (unknown) (unknown) (no date) (unknown) (unknown) Health Management reviewed with patient: Yes (units unknown) (unknown) (unknown) (no date) (unknown) (unknown) Health Management (units unknown) (unknown) (unknown) (no date) (unknown) (unknown) IBS (irritable bowel syndrome) (units unknown) (unknown) (unknown) (no date) (unknown) (unknown) Intake Note: (units unknown) (unknown) (unknown) (no date) (unknown) (unknown) Intake performed by: Marion Caputo (units unknown) (unknown) (unknown) (no date) (unknown) (unknown) Intake (units unknown) (unknown) (unknown) (no date) (unknown) (unknown) Intake- Clincial Staff (units unknown) (unknown) (unknown) (no date) (unknown) (unknown) Last Menstural Cycle + Details (units unknown) (unknown) (unknown) (no date) (unknown) (unknown) Loc: [facility] (units unknown) (unknown) (unknown) (no date) (unknown) (unknown) Medical History (units unknown) (unknown) (unknown) (no date) (unknown) (unknown) Medications (units unknown) (unknown) (unknown) (no date) (unknown) (unknown) Muscle tightness (units unknown) (unknown) (unknown) (no date) (unknown) (unknown) No Known Drug Allergies Allergy (Verified 04/22/22 14:47) (units unknown) (unknown) (unknown) (no date) (unknown) (unknown) Other Menstrual Period: Uncertain (units unknown) (unknown) (unknown) (no date) (unknown) (unknown) PFSH (units unknown) (unknown) (unknown) (no date) (unknown) (unknown) Patient: Sue Gurrola MR#: [id number] (units unknown) (unknown) (unknown) (no date) (unknown) (unknown) Reason For Visit (units unknown) (unknown) (unknown) (no date) (unknown) (unknown) Relief) 2 spray intranasal DAILY PRN 03/25/22 [History Confirmed 04/22/22] (units unknown) (unknown) (unknown) (no date) (unknown) (unknown) Right anterior knee pain (units unknown) (unknown) (unknown) (no date) (unknown) (unknown) Screening for STD (sexually transmitted disease) (units unknown) (unknown) (unknown) (no date) (unknown) (unknown) Signed By: (units unknown) (unknown) (unknown) (no date) (unknown) (unknown) Smoking Status: Mario carey smoker (units unknown) (unknown) (unknown) (no date) (unknown) (unknown) Social History (units unknown) (unknown) (unknown) (no date) (unknown) (unknown) Status post delivery (10/28/16) (units unknown) (unknown) (unknown) (no date) (unknown) (unknown) Surgical History (units unknown) (unknown) (unknown) (no date) (unknown) (unknown) This note may have been all or partially generated using voice recognition (units unknown) (unknown) (unknown) (no date) (unknown) (unknown) Tobacco + Substance Use (units unknown) (unknown) (unknown) (no date) (unknown) (unknown) Tobacco Status (units unknown) (unknown) (unknown) (no date) (unknown) (unknown) Visit Reasons: Cullen iqbal (units unknown) (unknown) (unknown) (no date) (unknown) (unknown) albuterol sulfate 2. 5 mg/3 mL (0.083 %) solution for nebulization 2.5 mg (3 mL) (units unknown) (unknown) (unknown) (no date) (unknown) (unknown) albuterol sulfate 90 mcg/actuation aerosol inhaler (Ventolin HFA) 2 puff (units unknown) (unknown) (unknown) (no date) (unknown) (unknown) alcohol intake: current (units unknown) (unknown) (unknown) (no date) (unknown) (unknown) always lingering. throughout the day it spikes. (units unknown) (unknown) (unknown) (no date) (unknown) (unknown) fluticasone propiona te 50 mcg/actuation nasal spray,suspension (Flonase Allergy (units unknown) (unknown) (unknown) (no date) (unknown) (unknown) have occurred. If there are any questions, please contact the Medical Records (units unknown) (unknown) (unknown) (no date) (unknown) (unknown) household members: children (units unknown) (unknown) (unknown) (no date) (unknown) (unknown) inhalation Q4-6H PRN shortness of breath or wheezing #90 mL 05/15/21 [Rx (units unknown) (unknown) (unknown) (no date) (unknown) (unknown) inhalation Q4HP PRN shortness of breath or wheezing 03/25/22 [History Confirmed (units unknown) (unknown) (unknown) (no date) (unknown) (unknown) may occur. Occasiona l wrong-word or 'sound-alike' substitutions may have (units unknown) (unknown) (unknown) (no date) (unknown) (unknown) nebulizers #1 ea 05/15/21 [Rx Confirmed 04/22/22] (units unknown) (unknown) (unknown) (no date) (unknown) (unknown) occurred due to the inherent limitations of voice recognition software. Please (units unknown) (unknown) (unknown) (no date) (unknown) (unknown) out. (units unknown) (unknown) (unknown) (no date) (unknown) (unknown) pantoprazole 40 mg tablet,delayed release 40 mg PO DAILY 01/21/22 [History (units unknown) (unknown) (unknown) (no date) (unknown) (unknown) read the note carefully and recognize, using context, where these substitutions (units unknown) (unknown) (unknown) (no date) (unknown) (unknown) rizatriptan 5 mg tablet See Rx Instructions PO .COMPLEX #30 tabs 02/24/22 [Rx (units unknown) (unknown) (unknown) (no date) (unknown) (unknown) sertraline PO [History Confirmed 04/22/22] (units unknown) (unknown) (unknown) (no date) (unknown) (unknown) software. Although every effort is made to edit content, dye stand loader errors (units unknown) (unknown) Result panel 1148 (unknown) (no date) (unknown) (unknown) (no value) (units unknown) (unknown) (unknown) (no date) (unknown) (unknown) 04/22/22 (units unknown) (unknown) (unknown) (no date) (unknown) (unknown) 04/22/22] (units unknown) (unknown) (unknown) (no date) (unknown) (unknown) 14:49 (units unknown) (unknown) (unknown) (no date) (unknown) (unknown) 26 year old female presents to clinic for nausea x 1 month. (units unknown) (unknown) (unknown) (no date) (unknown) (unknown) [id number] (units unknown) (unknown) (unknown) (no date) (unknown) (unknown) 3 day period of vomiting. stomach was empty but dark brown liquid was coming (units unknown) (unknown) (unknown) (no date) (unknown) (unknown) Age/Sex: 26 / F Date of Service: (units unknown) (unknown) (unknown) (no date) (unknown) (unknown) Allergies (units unknown) (unknown) (unknown) (no date) (unknown) (unknown) [place] [address] (units unknown) (unknown) (unknown) (no date) (unknown) (unknown) Anxiety (units unknown) (unknown) (unknown) (no date) (unknown) (unknown) Attending Dr: Bessie Christie D.O. (units unknown) (unknown) (unknown) (no date) (unknown) (unknown) BMI 54.3 (units unknown) (unknown) (unknown) (no date) (unknown) (unknown) BP 146/86 H (units unknown) (unknown) (unknown) (no date) (unknown) (unknown) Blood Pressure Location Lt brachial (units unknown) (unknown) (unknown) (no date) (unknown) (unknown) Blood pressure elevated without history of HTN (units unknown) (unknown) (unknown) (no date) (unknown) (unknown) Common migraine (units unknown) (unknown) (unknown) (no date) (unknown) (unknown) Confirmed 04/22/22] (units unknown) (unknown) (unknown) (no date) (unknown) (unknown) : 1995 Acct:[id number] (units unknown) (unknown) (unknown) (no date) (unknown) (unknown) Depression (2013) (units unknown) (unknown) (unknown) (no date) (unknown) (unknown) Dept at . (units unknown) (unknown) (unknown) (no date) (unknown) (unknown) Documented By: Bessie Rojas i 04/22/22 1443 (units unknown) (unknown) (unknown) (no date) (unknown) (unknown) Draft (units unknown) (unknown) (unknown) (no date) (unknown) (unknown) Family Practice Offi ce Visit (units unknown) (unknown) (unknown) (no date) (unknown) (unknown) [facility] (units unknown) (unknown) (unknown) (no date) (unknown) (unknown) Gastroesophageal reflux disease (units unknown) (unknown) (unknown) (no date) (unknown) (unknown) Headache, chronic daily (units unknown) (unknown) (unknown) (no date) (unknown) (unknown) Health Management reviewed with patient: Yes (units unknown) (unknown) (unknown) (no date) (unknown) (unknown) Health Management (units unknown) (unknown) (unknown) (no date) (unknown) (unknown) Height 5 ft 4 in (units unknown) (unknown) (unknown) (no date) (unknown) (unknown) IBS (irritable bowel syndrome) (units unknown) (unknown) (unknown) (no date) (unknown) (unknown) Intake Note: (units unknown) (unknown) (unknown) (no date) (unknown) (unknown) Intake performed by: Marion Caputo (units unknown) (unknown) (unknown) (no date) (unknown) (unknown) Intake (units unknown) (unknown) (unknown) (no date) (unknown) (unknown) Intake- Clincial Staff (units unknown) (unknown) (unknown) (no date) (unknown) (unknown) Last Menstural Cycle + Details (units unknown) (unknown) (unknown) (no date) (unknown) (unknown) Loc: [facility] (units unknown) (unknown) (unknown) (no date) (unknown) (unknown) Medical History (units unknown) (unknown) (unknown) (no date) (unknown) (unknown) Medications (units unknown) (unknown) (unknown) (no date) (unknown) (unknown) Muscle tightness (units unknown) (unknown) (unknown) (no date) (unknown) (unknown) No Known Drug Allergies Allergy (Verified 04/22/22 14:47) (units unknown) (unknown) (unknown) (no date) (unknown) (unknown) Other Menstrual Period: Uncertain (units unknown) (unknown) (unknown) (no date) (unknown) (unknown) Oxygen Delivery Meth od room air (units unknown) (unknown) (unknown) (no date) (unknown) (unknown) PFSH (units unknown) (unknown) (unknown) (no date) (unknown) (unknown) Patient: Sue Gurrola MR#: [id number] (units unknown) (unknown) (unknown) (no date) (unknown) (unknown) Position Sitting (units unknown) (unknown) (unknown) (no date) (unknown) (unknown) Pulse 111 H (units unknown) (unknown) (unknown) (no date) (unknown) (unknown) Pulse Oximetry (%) 99 (units unknown) (unknown) (unknown) (no date) (unknown) (unknown) Pulse Source Monitor (units unknown) (unknown) (unknown) (no date) (unknown) (unknown) Reason For Visit (units unknown) (unknown) (unknown) (no date) (unknown) (unknown) Relief) 2 spray intranasal DAILY PRN 03/25/22 [History Confirmed 04/22/22] (units unknown) (unknown) (unknown) (no date) (unknown) (unknown) Right anterior knee pain (units unknown) (unknown) (unknown) (no date) (unknown) (unknown) Screening for STD (sexually transmitted disease) (units unknown) (unknown) (unknown) (no date) (unknown) (unknown) Signed By: (units unknown) (unknown) (unknown) (no date) (unknown) (unknown) Smoking Status: Mario carey smoker (units unknown) (unknown) (unknown) (no date) (unknown) (unknown) Social History (units unknown) (unknown) (unknown) (no date) (unknown) (unknown) Status post delivery (10/28/16) (units unknown) (unknown) (unknown) (no date) (unknown) (unknown) Surgical History (units unknown) (unknown) (unknown) (no date) (unknown) (unknown) Temp 97.6 F (units unknown) (unknown) (unknown) (no date) (unknown) (unknown) Temp Source Temporal Artery Scan (units unknown) (unknown) (unknown) (no date) (unknown) (unknown) This note may have been all or partially generated using voice recognition (units unknown) (unknown) (unknown) (no date) (unknown) (unknown) Tobacco + Substance Use (units unknown) (unknown) (unknown) (no date) (unknown) (unknown) Tobacco Status (units unknown) (unknown) (unknown) (no date) (unknown) (unknown) Visit Reasons: Nause a *saji (units unknown) (unknown) (unknown) (no date) (unknown) (unknown) Vitals (units unknown) (unknown) (unknown) (no date) (unknown) (unknown) Weight 317 lb (units unknown) (unknown) (unknown) (no date) (unknown) (unknown) albuterol sulfate 2. 5 mg/3 mL (0.083 %) solution for nebulization 2.5 mg (3 mL) (units unknown) (unknown) (unknown) (no date) (unknown) (unknown) albuterol sulfate 90 mcg/actuation aerosol inhaler (Ventolin HFA) 2 puff (units unknown) (unknown) (unknown) (no date) (unknown) (unknown) alcohol intake: current (units unknown) (unknown) (unknown) (no date) (unknown) (unknown) always lingering. throughout the day it spikes. (units unknown) (unknown) (unknown) (no date) (unknown) (unknown) fluticasone propiona te 50 mcg/actuation nasal spray,suspension (Flonase Allergy (units unknown) (unknown) (unknown) (no date) (unknown) (unknown) have occurred. If there are any questions, please contact the Medical Records (units unknown) (unknown) (unknown) (no date) (unknown) (unknown) household members: children (units unknown) (unknown) (unknown) (no date) (unknown) (unknown) inhalation Q4-6H PRN shortness of breath or wheezing #90 mL 05/15/21 [Rx (units unknown) (unknown) (unknown) (no date) (unknown) (unknown) inhalation Q4HP PRN shortness of breath or wheezing 03/25/22 [History Confirmed (units unknown) (unknown) (unknown) (no date) (unknown) (unknown) may occur. Occasiona l wrong-word or 'sound-alike' substitutions may have (units unknown) (unknown) (unknown) (no date) (unknown) (unknown) nebulizers #1 ea 05/15/21 [Rx Confirmed 04/22/22] (units unknown) (unknown) (unknown) (no date) (unknown) (unknown) notified provider of high blood pressure and high pulse (units unknown) (unknown) (unknown) (no date) (unknown) (unknown) occurred due to the inherent limitations of voice recognition software. Please (units unknown) (unknown) (unknown) (no date) (unknown) (unknown) out. (units unknown) (unknown) (unknown) (no date) (unknown) (unknown) pantoprazole 40 mg tablet,delayed release 40 mg PO DAILY 01/21/22 [History (units unknown) (unknown) (unknown) (no date) (unknown) (unknown) read the note carefully and recognize, using context, where these substitutions (units unknown) (unknown) (unknown) (no date) (unknown) (unknown) rizatriptan 5 mg tablet See Rx Instructions PO .COMPLEX #30 tabs 02/24/22 [Rx (units unknown) (unknown) (unknown) (no date) (unknown) (unknown) sertraline PO [History Confirmed 04/22/22] (units unknown) (unknown) (unknown) (no date) (unknown) (unknown) software. Although every effort is made to edit content, dye stand loader errors (units unknown) (unknown) Result panel 1149 (unknown) (no date) (unknown) (unknown) (no value) (units unknown) (unknown) (unknown) (no date) (unknown) (unknown) 04/22/22 (units unknown) (unknown) (unknown) (no date) (unknown) (unknown) 04/22/22] (units unknown) (unknown) (unknown) (no date) (unknown) (unknown) 14:49 (units unknown) (unknown) (unknown) (no date) (unknown) (unknown) 15:01 (units unknown) (unknown) (unknown) (no date) (unknown) (unknown) 26 year old female presents to clinic for nausea x 1 month. (units unknown) (unknown) (unknown) (no date) (unknown) (unknown) [id number] (units unknown) (unknown) (unknown) (no date) (unknown) (unknown) 3 day period of vomiting. stomach was empty but dark brown liquid was coming (units unknown) (unknown) (unknown) (no date) (unknown) (unknown) Age/Sex: 26 / F Date of Service: (units unknown) (unknown) (unknown) (no date) (unknown) (unknown) Allergies (units unknown) (unknown) (unknown) (no date) (unknown) (unknown) [place] [address] (units unknown) (unknown) (unknown) (no date) (unknown) (unknown) Anxiety (units unknown) (unknown) (unknown) (no date) (unknown) (unknown) Assessment + Plan (units unknown) (unknown) (unknown) (no date) (unknown) (unknown) Attending Dr: Bessie Christie D.O. (units unknown) (unknown) (unknown) (no date) (unknown) (unknown) BMI 54.3 (units unknown) (unknown) (unknown) (no date) (unknown) (unknown) BP 146/86 H (units unknown) (unknown) (unknown) (no date) (unknown) (unknown) Blood Pressure Location Lt brachial (units unknown) (unknown) (unknown) (no date) (unknown) (unknown) Blood pressure elevated without history of HTN (units unknown) (unknown) (unknown) (no date) (unknown) (unknown) Common migraine (units unknown) (unknown) (unknown) (no date) (unknown) (unknown) Confirmed 04/22/22] (units unknown) (unknown) (unknown) (no date) (unknown) (unknown) : 1995 Acct:[id number] (units unknown) (unknown) (unknown) (no date) (unknown) (unknown) Depression (2013) (units unknown) (unknown) (unknown) (no date) (unknown) (unknown) Dept at . (units unknown) (unknown) (unknown) (no date) (unknown) (unknown) Documented By: Bessie Rojas i 04/22/22 1443 (units unknown) (unknown) (unknown) (no date) (unknown) (unknown) Draft (units unknown) (unknown) (unknown) (no date) (unknown) (unknown) Family Practice Offi ce Visit (units unknown) (unknown) (unknown) (no date) (unknown) (unknown) [facility] (units unknown) (unknown) (unknown) (no date) (unknown) (unknown) Gastroesophageal reflux disease (units unknown) (unknown) (unknown) (no date) (unknown) (unknown) Headache, chronic daily (units unknown) (unknown) (unknown) (no date) (unknown) (unknown) Health Management reviewed with patient: Yes (units unknown) (unknown) (unknown) (no date) (unknown) (unknown) Health Management (units unknown) (unknown) (unknown) (no date) (unknown) (unknown) Height 5 ft 4 in (units unknown) (unknown) (unknown) (no date) (unknown) (unknown) IBS (irritable bowel syndrome) (units unknown) (unknown) (unknown) (no date) (unknown) (unknown) Intake Note: (units unknown) (unknown) (unknown) (no date) (unknown) (unknown) Intake performed by: Marion Caputo (units unknown) (unknown) (unknown) (no date) (unknown) (unknown) Intake (units unknown) (unknown) (unknown) (no date) (unknown) (unknown) Intake- Clincial Staff (units unknown) (unknown) (unknown) (no date) (unknown) (unknown) Last Menstural Cycle + Details (units unknown) (unknown) (unknown) (no date) (unknown) (unknown) Loc: [facility] (units unknown) (unknown) (unknown) (no date) (unknown) (unknown) Medical History (units unknown) (unknown) (unknown) (no date) (unknown) (unknown) Medications (units unknown) (unknown) (unknown) (no date) (unknown) (unknown) Muscle tightness (units unknown) (unknown) (unknown) (no date) (unknown) (unknown) No Known Drug Allergies Allergy (Verified 04/22/22 14:47) (units unknown) (unknown) (unknown) (no date) (unknown) (unknown) Orders (units unknown) (unknown) (unknown) (no date) (unknown) (unknown) Orders: (units unknown) (unknown) (unknown) (no date) (unknown) (unknown) Other Menstrual Period: Uncertain (units unknown) (unknown) (unknown) (no date) (unknown) (unknown) Oxygen Delivery Meth od room air (units unknown) (unknown) (unknown) (no date) (unknown) (unknown) PFSH (units unknown) (unknown) (unknown) (no date) (unknown) (unknown) POC PREG (units unknown) (unknown) (unknown) (no date) (unknown) (unknown) POC Preg Test Negati ve Last Edit by Marion Caputo MA on 04/22/22 15:03 (units unknown) (unknown) (unknown) (no date) (unknown) (unknown) POC Urine Dip Today R11.0 - Nausea (units unknown) (unknown) (unknown) (no date) (unknown) (unknown) POC Urine Test Today R11.0 - Nausea (units unknown) (unknown) (unknown) (no date) (unknown) (unknown) Patient: Kvng Gurrolan [place] MR#: [id number] (units unknown) (unknown) (unknown) (no date) (unknown) (unknown) Position Sitting (units unknown) (unknown) (unknown) (no date) (unknown) (unknown) Preg Expiration 03/08/2023 Last Edit by Marion Caputo MA on 04/22/22 15:03 (units unknown) (unknown) (unknown) (no date) (unknown) (unknown) Preg Lot # [id number] Last Edit by Marion Caputo MA on 04/22/22 15:03 (units unknown) (unknown) (unknown) (no date) (unknown) (unknown) Preg QC Acceptable? Yes Last Edit by Marion Caputo MA on 04/22/22 15:03 (units unknown) (unknown) (unknown) (no date) (unknown) (unknown) Pulse 111 H (units unknown) (unknown) (unknown) (no date) (unknown) (unknown) Pulse Oximetry (%) 99 (units unknown) (unknown) (unknown) (no date) (unknown) (unknown) Pulse Source Monitor (units unknown) (unknown) (unknown) (no date) (unknown) (unknown) Reason For Visit (units unknown) (unknown) (unknown) (no date) (unknown) (unknown) Relief) 2 spray intranasal DAILY PRN 03/25/22 [History Confirmed 04/22/22] (units unknown) (unknown) (unknown) (no date) (unknown) (unknown) Results (units unknown) (unknown) (unknown) (no date) (unknown) (unknown) Right anterior knee pain (units unknown) (unknown) (unknown) (no date) (unknown) (unknown) Screening for STD (sexually transmitted disease) (units unknown) (unknown) (unknown) (no date) (unknown) (unknown) Signed By: (units unknown) (unknown) (unknown) (no date) (unknown) (unknown) Smoking Status: Mario r smoker (units unknown) (unknown) (unknown) (no date) (unknown) (unknown) Social History (units unknown) (unknown) (unknown) (no date) (unknown) (unknown) Status post delivery (10/28/16) (units unknown) (unknown) (unknown) (no date) (unknown) (unknown) Surgical History (units unknown) (unknown) (unknown) (no date) (unknown) (unknown) Temp 97.6 F (units unknown) (unknown) (unknown) (no date) (unknown) (unknown) Temp Source Temporal Artery Scan (units unknown) (unknown) (unknown) (no date) (unknown) (unknown) This note may have been all or partially generated using voice recognition (units unknown) (unknown) (unknown) (no date) (unknown) (unknown) Tobacco + Substance Use (units unknown) (unknown) (unknown) (no date) (unknown) (unknown) Tobacco Status (units unknown) (unknown) (unknown) (no date) (unknown) (unknown) Urine Appearance Cloudy Last Edit by Marion Caputo MA on 04/22/22 15:01 (units unknown) (unknown) (unknown) (no date) (unknown) (unknown) Urine Bilirubin Negative Last Edit by Marion Caputo MA on 04/22/22 15:01 (units unknown) (unknown) (unknown) (no date) (unknown) (unknown) Urine Blood Negative Last Edit by Marion Caputo MA on 04/22/22 15:01 (units unknown) (unknown) (unknown) (no date) (unknown) (unknown) Urine Color [place] Last Edit by Marion Caputo MA on 04/22/22 15:01 (units unknown) (unknown) (unknown) (no date) (unknown) (unknown) Urine Dipstick (units unknown) (unknown) (unknown) (no date) (unknown) (unknown) Urine Glucose Negati ve mg/dL Last Edit by Marion Caputo MA on 04/22/22 15:01 (units unknown) (unknown) (unknown) (no date) (unknown) (unknown) Urine Ketones Negati ve Last Edit by Marion Caputo MA on 04/22/22 15:01 (units unknown) (unknown) (unknown) (no date) (unknown) (unknown) Urine Leukocyte Esterase Negative Last Edit by Marion Caputo MA on 04/22/22 (units unknown) (unknown) (unknown) (no date) (unknown) (unknown) Urine Nitrate Negati ve Last Edit by Marion Caputo MA on 04/22/22 15:01 (units unknown) (unknown) (unknown) (no date) (unknown) (unknown) Urine Protein Negati ve Last Edit by Marion ERVIN Caputo on 04/22/22 15:01 (units unknown) (unknown) (unknown) (no date) (unknown) (unknown) Urine Specific Gravi ty 1.015 Last Edit by Marion ERVIN Caputo on 04/22/22 15:01 (units unknown) (unknown) (unknown) (no date) (unknown) (unknown) Urine Urobilinogen - 0.2 mg/dL Last Edit by Marion ERVIN Caputo on 04/22/22 (units unknown) (unknown) (unknown) (no date) (unknown) (unknown) Urine pH 7.0 Last Ed it by Marion ERVIN Caputo on 04/22/22 15:01 (units unknown) (unknown) (unknown) (no date) (unknown) (unknown) Visit Reasons: Nause a *saji (units unknown) (unknown) (unknown) (no date) (unknown) (unknown) Vitals (units unknown) (unknown) (unknown) (no date) (unknown) (unknown) Weight 317 lb (units unknown) (unknown) (unknown) (no date) (unknown) (unknown) albuterol sulfate 2. 5 mg/3 mL (0.083 %) solution for nebulization 2.5 mg (3 mL) (units unknown) (unknown) (unknown) (no date) (unknown) (unknown) albuterol sulfate 90 mcg/actuation aerosol inhaler (Ventolin HFA) 2 puff (units unknown) (unknown) (unknown) (no date) (unknown) (unknown) alcohol intake: current (units unknown) (unknown) (unknown) (no date) (unknown) (unknown) always lingering. throughout the day it spikes. (units unknown) (unknown) (unknown) (no date) (unknown) (unknown) fluticasone propiona te 50 mcg/actuation nasal spray,suspension (Flonase Allergy (units unknown) (unknown) (unknown) (no date) (unknown) (unknown) have occurred. If there are any questions, please contact the Medical Records (units unknown) (unknown) (unknown) (no date) (unknown) (unknown) household members: children (units unknown) (unknown) (unknown) (no date) (unknown) (unknown) inhalation Q4-6H PRN shortness of breath or wheezing #90 mL 05/15/21 [Rx (units unknown) (unknown) (unknown) (no date) (unknown) (unknown) inhalation Q4HP PRN shortness of breath or wheezing 03/25/22 [History Confirmed (units unknown) (unknown) (unknown) (no date) (unknown) (unknown) may occur. Occasiona l wrong-word or 'sound-alike' substitutions may have (units unknown) (unknown) (unknown) (no date) (unknown) (unknown) nebulizers #1 ea 05/15/21 [Rx Confirmed 04/22/22] (units unknown) (unknown) (unknown) (no date) (unknown) (unknown) notified provider of high blood pressure and high pulse (units unknown) (unknown) (unknown) (no date) (unknown) (unknown) occurred due to the inherent limitations of voice recognition software. Please (units unknown) (unknown) (unknown) (no date) (unknown) (unknown) out. (units unknown) (unknown) (unknown) (no date) (unknown) (unknown) pantoprazole 40 mg tablet,delayed release 40 mg PO DAILY 01/21/22 [History (units unknown) (unknown) (unknown) (no date) (unknown) (unknown) read the note carefully and recognize, using context, where these substitutions (units unknown) (unknown) (unknown) (no date) (unknown) (unknown) rizatriptan 5 mg tablet See Rx Instructions PO .COMPLEX #30 tabs 02/24/22 [Rx (units unknown) (unknown) (unknown) (no date) (unknown) (unknown) sertraline PO [History Confirmed 04/22/22] (units unknown) (unknown) (unknown) (no date) (unknown) (unknown) software. Although every effort is made to edit content, dye stand loader errors (units unknown) (unknown) Result panel 1150 (unknown) (no date) (unknown) (unknown) (no value) (units unknown) (unknown) (unknown) (no date) (unknown) (unknown) 04/22/22 (units unknown) (unknown) (unknown) (no date) (unknown) (unknown) 04/22/22] (units unknown) (unknown) (unknown) (no date) (unknown) (unknown) 14:49 (units unknown) (unknown) (unknown) (no date) (unknown) (unknown) 15:01 (units unknown) (unknown) (unknown) (no date) (unknown) (unknown) 26 year old female presents to clinic for nausea x 1 month. (units unknown) (unknown) (unknown) (no date) (unknown) (unknown) [id number] (units unknown) (unknown) (unknown) (no date) (unknown) (unknown) 3 day period of vomiting. stomach was empty but dark brown liquid was coming (units unknown) (unknown) (unknown) (no date) (unknown) (unknown) Age/Sex: 26 / F Date of Service: (units unknown) (unknown) (unknown) (no date) (unknown) (unknown) Allergies (units unknown) (unknown) (unknown) (no date) (unknown) (unknown) [place] [id number] (units unknown) (unknown) (unknown) (no date) (unknown) (unknown) Anxiety (units unknown) (unknown) (unknown) (no date) (unknown) (unknown) Assessment + Plan (units unknown) (unknown) (unknown) (no date) (unknown) (unknown) Attending Dr: Bessie BrittOStefanie (units unknown) (unknown) (unknown) (no date) (unknown) (unknown) BMI 54.3 (units unknown) (unknown) (unknown) (no date) (unknown) (unknown) BP 146/86 H (units unknown) (unknown) (unknown) (no date) (unknown) (unknown) Blood Pressure Location Lt brachial (units unknown) (unknown) (unknown) (no date) (unknown) (unknown) Blood pressure elevated without history of HTN (units unknown) (unknown) (unknown) (no date) (unknown) (unknown) Common migraine (units unknown) (unknown) (unknown) (no date) (unknown) (unknown) Confirmed 04/22/22] (units unknown) (unknown) (unknown) (no date) (unknown) (unknown) : 1995 Acct:[id number] (units unknown) (unknown) (unknown) (no date) (unknown) (unknown) Depression (2013) (units unknown) (unknown) (unknown) (no date) (unknown) (unknown) Dept at . (units unknown) (unknown) (unknown) (no date) (unknown) (unknown) Documented By: Bessie Rojas i 04/22/22 1443 (units unknown) (unknown) (unknown) (no date) (unknown) (unknown) Draft (units unknown) (unknown) (unknown) (no date) (unknown) (unknown) Family Practice Offi ce Visit (units unknown) (unknown) (unknown) (no date) (unknown) (unknown) [facility] (units unknown) (unknown) (unknown) (no date) (unknown) (unknown) Gastroesophageal reflux disease (units unknown) (unknown) (unknown) (no date) (unknown) (unknown) Headache, chronic daily (units unknown) (unknown) (unknown) (no date) (unknown) (unknown) Health Management reviewed with patient: Yes (units unknown) (unknown) (unknown) (no date) (unknown) (unknown) Health Management (units unknown) (unknown) (unknown) (no date) (unknown) (unknown) Height 5 ft 4 in (units unknown) (unknown) (unknown) (no date) (unknown) (unknown) IBS (irritable bowel syndrome) (units unknown) (unknown) (unknown) (no date) (unknown) (unknown) Intake Note: (units unknown) (unknown) (unknown) (no date) (unknown) (unknown) Intake performed by: Marion Caputo (units unknown) (unknown) (unknown) (no date) (unknown) (unknown) Intake (units unknown) (unknown) (unknown) (no date) (unknown) (unknown) Intake- Clincial Staff (units unknown) (unknown) (unknown) (no date) (unknown) (unknown) Last Menstural Cycle + Details (units unknown) (unknown) (unknown) (no date) (unknown) (unknown) [facility]: [facility] (units unknown) (unknown) (unknown) (no date) (unknown) (unknown) Medical History (units unknown) (unknown) (unknown) (no date) (unknown) (unknown) Medications (units unknown) (unknown) (unknown) (no date) (unknown) (unknown) Muscle tightness (units unknown) (unknown) (unknown) (no date) (unknown) (unknown) No Known Drug Allergies Allergy (Verified 04/22/22 14:47) (units unknown) (unknown) (unknown) (no date) (unknown) (unknown) Orders (units unknown) (unknown) (unknown) (no date) (unknown) (unknown) Orders: (units unknown) (unknown) (unknown) (no date) (unknown) (unknown) Other Menstrual Period: Uncertain (units unknown) (unknown) (unknown) (no date) (unknown) (unknown) Oxygen Delivery Meth od room air (units unknown) (unknown) (unknown) (no date) (unknown) (unknown) PFSH (units unknown) (unknown) (unknown) (no date) (unknown) (unknown) POC PREG (units unknown) (unknown) (unknown) (no date) (unknown) (unknown) POC Preg Test Negati ve Last Edit by Marion Caputo MA on 04/22/22 15:03 (units unknown) (unknown) (unknown) (no date) (unknown) (unknown) POC Urine Dip Today R11.0 - Nausea (units unknown) (unknown) (unknown) (no date) (unknown) (unknown) POC Urine Test Today R11.0 - Nausea (units unknown) (unknown) (unknown) (no date) (unknown) (unknown) Patient: Sue Gurrola MR#: [id number] (units unknown) (unknown) (unknown) (no date) (unknown) (unknown) Position Sitting (units unknown) (unknown) (unknown) (no date) (unknown) (unknown) Preg Expiration 03/08/2023 Last Edit by Marion Caputo MA on 04/22/22 15:03 (units unknown) (unknown) (unknown) (no date) (unknown) (unknown) Preg Lot # [id number] Last Edit by Marion Caputo MA on 04/22/22 15:03 (units unknown) (unknown) (unknown) (no date) (unknown) (unknown) Preg QC Acceptable? Yes Last Edit by Marion Caputo MA on 04/22/22 15:03 (units unknown) (unknown) (unknown) (no date) (unknown) (unknown) Pulse 111 H (units unknown) (unknown) (unknown) (no date) (unknown) (unknown) Pulse Oximetry (%) 99 (units unknown) (unknown) (unknown) (no date) (unknown) (unknown) Pulse Source Monitor (units unknown) (unknown) (unknown) (no date) (unknown) (unknown) Reason For Visit (units unknown) (unknown) (unknown) (no date) (unknown) (unknown) Relief) 2 spray intranasal DAILY PRN 03/25/22 [History Confirmed 04/22/22] (units unknown) (unknown) (unknown) (no date) (unknown) (unknown) Results (units unknown) (unknown) (unknown) (no date) (unknown) (unknown) Right anterior knee pain (units unknown) (unknown) (unknown) (no date) (unknown) (unknown) Screening for STD (sexually transmitted disease) (units unknown) (unknown) (unknown) (no date) (unknown) (unknown) Signed By: (units unknown) (unknown) (unknown) (no date) (unknown) (unknown) Smoking Status: Mario carey smoker (units unknown) (unknown) (unknown) (no date) (unknown) (unknown) Social History (units unknown) (unknown) (unknown) (no date) (unknown) (unknown) Status post delivery (10/28/16) (units unknown) (unknown) (unknown) (no date) (unknown) (unknown) Surgical History (units unknown) (unknown) (unknown) (no date) (unknown) (unknown) Temp 97.6 F (units unknown) (unknown) (unknown) (no date) (unknown) (unknown) Temp Source Temporal Artery Scan (units unknown) (unknown) (unknown) (no date) (unknown) (unknown) This note may have been all or partially generated using voice recognition (units unknown) (unknown) (unknown) (no date) (unknown) (unknown) Tobacco + Substance Use (units unknown) (unknown) (unknown) (no date) (unknown) (unknown) Tobacco Status (units unknown) (unknown) (unknown) (no date) (unknown) (unknown) Urine Appearance Cloudy Last Edit by Marion Caputo MA on 04/22/22 15:01 (units unknown) (unknown) (unknown) (no date) (unknown) (unknown) Urine Bilirubin Negative Last Edit by Marion Caputo MA on 04/22/22 15:01 (units unknown) (unknown) (unknown) (no date) (unknown) (unknown) Urine Blood Negative Last Edit by Marion Caputo MA on 04/22/22 15:01 (units unknown) (unknown) (unknown) (no date) (unknown) (unknown) Urine Color [place] Last Edit by Marion Caputo MA on 04/22/22 15:01 (units unknown) (unknown) (unknown) (no date) (unknown) (unknown) Urine Dipstick (units unknown) (unknown) (unknown) (no date) (unknown) (unknown) Urine Glucose Negati ve mg/dL Last Edit by Marion Caputo MA on 04/22/22 15:01 (units unknown) (unknown) (unknown) (no date) (unknown) (unknown) Urine Ketones Negati ve Last Edit by Marion Caputo MA on 04/22/22 15:01 (units unknown) (unknown) (unknown) (no date) (unknown) (unknown) Urine Leukocyte Esterase Negative Last Edit by Marion Caputo MA on 04/22/22 (units unknown) (unknown) (unknown) (no date) (unknown) (unknown) Urine Nitrate Negati ve Last Edit by Marion Caputo MA on 04/22/22 15:01 (units unknown) (unknown) (unknown) (no date) (unknown) (unknown) Urine Protein Negati ve Last Edit by Marion Caputo MA on 04/22/22 15:01 (units unknown) (unknown) (unknown) (no date) (unknown) (unknown) Urine Specific Gravi ty 1.015 Last Edit by Marion Caputo MA on 04/22/22 15:01 (units unknown) (unknown) (unknown) (no date) (unknown) (unknown) Urine Urobilinogen - 0.2 mg/dL Last Edit by Marion Caputo MA on 04/22/22 (units unknown) (unknown) (unknown) (no date) (unknown) (unknown) Urine pH 7.0 Last Ed it by Marion Caputo MA on 04/22/22 15:01 (units unknown) (unknown) (unknown) (no date) (unknown) (unknown) Visit Reasons: Nause a *saji (units unknown) (unknown) (unknown) (no date) (unknown) (unknown) Vitals (units unknown) (unknown) (unknown) (no date) (unknown) (unknown) Weight 317 lb (units unknown) (unknown) (unknown) (no date) (unknown) (unknown) albuterol sulfate 2. 5 mg/3 mL (0.083 %) solution for nebulization 2.5 mg (3 mL) (units unknown) (unknown) (unknown) (no date) (unknown) (unknown) albuterol sulfate 90 mcg/actuation aerosol inhaler (Ventolin HFA) 2 puff (units unknown) (unknown) (unknown) (no date) (unknown) (unknown) alcohol intake: current (units unknown) (unknown) (unknown) (no date) (unknown) (unknown) always lingering. throughout the day it spikes. (units unknown) (unknown) (unknown) (no date) (unknown) (unknown) fluticasone propiona te 50 mcg/actuation nasal spray,suspension (Flonase Allergy (units unknown) (unknown) (unknown) (no date) (unknown) (unknown) have occurred. If there are any questions, please contact the Medical Records (units unknown) (unknown) (unknown) (no date) (unknown) (unknown) household members: children (units unknown) (unknown) (unknown) (no date) (unknown) (unknown) inhalation Q4-6H PRN shortness of breath or wheezing #90 mL 05/15/21 [Rx (units unknown) (unknown) (unknown) (no date) (unknown) (unknown) inhalation Q4HP PRN shortness of breath or wheezing 03/25/22 [History Confirmed (units unknown) (unknown) (unknown) (no date) (unknown) (unknown) may occur. Occasiona l wrong-word or 'sound-alike' substitutions may have (units unknown) (unknown) (unknown) (no date) (unknown) (unknown) nebulizers #1 ea 05/15/21 [Rx Confirmed 04/22/22] (units unknown) (unknown) (unknown) (no date) (unknown) (unknown) notified provider of high blood pressure and high pulse (units unknown) (unknown) (unknown) (no date) (unknown) (unknown) occurred due to the inherent limitations of voice recognition software. Please (units unknown) (unknown) (unknown) (no date) (unknown) (unknown) out. (units unknown) (unknown) (unknown) (no date) (unknown) (unknown) pantoprazole 40 mg tablet,delayed release 40 mg PO DAILY 01/21/22 [History (units unknown) (unknown) (unknown) (no date) (unknown) (unknown) read the note carefully and recognize, using context, where these substitutions (units unknown) (unknown) (unknown) (no date) (unknown) (unknown) rizatriptan 5 mg tablet See Rx Instructions PO .COMPLEX #30 tabs 02/24/22 [Rx (units unknown) (unknown) (unknown) (no date) (unknown) (unknown) sertraline PO [History Confirmed 04/22/22] (units unknown) (unknown) (unknown) (no date) (unknown) (unknown) software. Although every effort is made to edit content, dye stand loader errors (units unknown) (unknown) Result panel 1151 (unknown) (no date) (unknown) (unknown) (no value) (units unknown) (unknown) (unknown) (no date) (unknown) (unknown) (1) Nausea + vomiting: (units unknown) (unknown) (unknown) (no date) (unknown) (unknown) (2) Diabetes mellitu s screening: (units unknown) (unknown) (unknown) (no date) (unknown) (unknown) (3) Upper abdominal pain: (units unknown) (unknown) (unknown) (no date) (unknown) (unknown) (4) Screening for lipid disorders: (units unknown) (unknown) (unknown) (no date) (unknown) (unknown) (5) Morbid obesity: (units unknown) (unknown) (unknown) (no date) (unknown) (unknown) (6) Vaginal discharge: (units unknown) (unknown) (unknown) (no date) (unknown) (unknown) - Upper abdominal pain, unspecified, R11.2 - Nausea with vomiting, unspecified, (units unknown) (unknown) (unknown) (no date) (unknown) (unknown) -can use Zofran as needed for symptom control (units unknown) (unknown) (unknown) (no date) (unknown) (unknown) -continue PPI (units unknown) (unknown) (unknown) (no date) (unknown) (unknown) -discussed possible control. She declined. (units unknown) (unknown) (unknown) (no date) (unknown) (unknown) -follow up after workup. (units unknown) (unknown) (unknown) (no date) (unknown) (unknown) -labs pending (units unknown) (unknown) (unknown) (no date) (unknown) (unknown) -monitor diet for triggers (units unknown) (unknown) (unknown) (no date) (unknown) (unknown) -to the ER for worsening symptoms, any other concerns (units unknown) (unknown) (unknown) (no date) (unknown) (unknown) -ultrasound pending. May need a HIDA scan if ultrasound is normal. (units unknown) (unknown) (unknown) (no date) (unknown) (unknown) 04/22/22 [Rx Confirm ed 04/22/22] (units unknown) (unknown) (unknown) (no date) (unknown) (unknown) 04/22/22 (units unknown) (unknown) (unknown) (no date) (unknown) (unknown) 04/22/22] (units unknown) (unknown) (unknown) (no date) (unknown) (unknown) 03/10///5. Long differential diagnosis including gallbladder disease, (units unknown) (unknown) (unknown) (no date) (unknown) (unknown) 14:49 (units unknown) (unknown) (unknown) (no date) (unknown) (unknown) 15:01 (units unknown) (unknown) (unknown) (no date) (unknown) (unknown) 26 year old female presents to clinic for nausea x 1 month. (units unknown) (unknown) (unknown) (no date) (unknown) (unknown) [id number] (units unknown) (unknown) (unknown) (no date) (unknown) (unknown) 3 day period of vomiting. stomach was empty but dark brown liquid was coming (units unknown) (unknown) (unknown) (no date) (unknown) (unknown) 6. She was treated f or BV previously but symptoms never resolved fully. She (units unknown) (unknown) (unknown) (no date) (unknown) (unknown) ABDOMEN: (+) BS.? Tender right upper quadrant, epigastric area. Negative (units unknown) (unknown) (unknown) (no date) (unknown) (unknown) Age/Sex: 26 / F Date of Service: (units unknown) (unknown) (unknown) (no date) (unknown) (unknown) Allergies (units unknown) (unknown) (unknown) (no date) (unknown) (unknown) Allergies: Reviewed (units unknown) (unknown) (unknown) (no date) (unknown) (unknown) [place] [address] (units unknown) (unknown) (unknown) (no date) (unknown) (unknown) Anxiety (units unknown) (unknown) (unknown) (no date) (unknown) (unknown) Assessment + Plan (units unknown) (unknown) (unknown) (no date) (unknown) (unknown) Attending Dr: Bessie Christie D.O. (units unknown) (unknown) (unknown) (no date) (unknown) (unknown) BMI 54.3 (units unknown) (unknown) (unknown) (no date) (unknown) (unknown) BP 146/86 H (units unknown) (unknown) (unknown) (no date) (unknown) (unknown) Blood Pressure Location Lt brachial (units unknown) (unknown) (unknown) (no date) (unknown) (unknown) Blood pressure elevated without history of HTN (units unknown) (unknown) (unknown) (no date) (unknown) (unknown) CARDIAC: Regular rat e and rhythm. S1, S2 normal, no murmur.? No edema. (units unknown) (unknown) (unknown) (no date) (unknown) (unknown) CHEST: Normal respiratory effort (units unknown) (unknown) (unknown) (no date) (unknown) (unknown) Cardiovascular: Negative.? (units unknown) (unknown) (unknown) (no date) (unknown) (unknown) Chief Complaint: nausea (units unknown) (unknown) (unknown) (no date) (unknown) (unknown) Common migraine (units unknown) (unknown) (unknown) (no date) (unknown) (unknown) Complete Blood Count AUTO DIFF Today N89.8 - Other specified noninflammatory (units unknown) (unknown) (unknown) (no date) (unknown) (unknown) Comprehensive Metabolic Panel Today N89.8 - Other specified noninflammatory (units unknown) (unknown) (unknown) (no date) (unknown) (unknown) Confirmed 04/22/22] (units unknown) (unknown) (unknown) (no date) (unknown) (unknown) Constitutional: Negative.? (units unknown) (unknown) (unknown) (no date) (unknown) (unknown) : 1995 Acct:[id number] (units unknown) (unknown) (unknown) (no date) (unknown) (unknown) Depression (2013) (units unknown) (unknown) (unknown) (no date) (unknown) (unknown) Dept at . (units unknown) (unknown) (unknown) (no date) (unknown) (unknown) Documented By: Bessie Rojas i 04/22/22 1443 (units unknown) (unknown) (unknown) (no date) (unknown) (unknown) Draft (units unknown) (unknown) (unknown) (no date) (unknown) (unknown) EYES: PERRL, EOMI an d nonicteric (units unknown) (unknown) (unknown) (no date) (unknown) (unknown) Encounter for screening for lipoid disorders (units unknown) (unknown) (unknown) (no date) (unknown) (unknown) Endocrine: Negative.? (units unknown) (unknown) (unknown) (no date) (unknown) (unknown) Family Practice Offi ce Visit (units unknown) (unknown) (unknown) (no date) (unknown) (unknown) [facility] (units unknown) (unknown) (unknown) (no date) (unknown) (unknown) GENERAL: Well developed, well nourished.? Cooperative with exam.? Patient is in (units unknown) (unknown) (unknown) (no date) (unknown) (unknown) Gastroesophageal reflux disease (units unknown) (unknown) (unknown) (no date) (unknown) (unknown) Genitourinary: Negative.? (units unknown) (unknown) (unknown) (no date) (unknown) (unknown) HEAD: Atraumatic, Normocephalic (units unknown) (unknown) (unknown) (no date) (unknown) (unknown) Headache, chronic daily (units unknown) (unknown) (unknown) (no date) (unknown) (unknown) Health Management reviewed with patient: Yes (units unknown) (unknown) (unknown) (no date) (unknown) (unknown) Health Management (units unknown) (unknown) (unknown) (no date) (unknown) (unknown) Height 5 ft 4 in (units unknown) (unknown) (unknown) (no date) (unknown) (unknown) Hemoglobin A1C% w Es t Avg Glu Today N89.8 - Other specified noninflammatory (units unknown) (unknown) (unknown) (no date) (unknown) (unknown) I reviewed the patient's Past Medical History, Problem List, Medications and (units unknown) (unknown) (unknown) (no date) (unknown) (unknown) IBS (irritable bowel syndrome) (units unknown) (unknown) (unknown) (no date) (unknown) (unknown) Intake Note: (units unknown) (unknown) (unknown) (no date) (unknown) (unknown) Intake performed by: Marion Caputo (units unknown) (unknown) (unknown) (no date) (unknown) (unknown) Intake (units unknown) (unknown) (unknown) (no date) (unknown) (unknown) Intake- Clincial Staff (units unknown) (unknown) (unknown) (no date) (unknown) (unknown) LUNGS: Clear all christa g padilla, Bilaterally (units unknown) (unknown) (unknown) (no date) (unknown) (unknown) Last Menstural Cycle + Details (units unknown) (unknown) (unknown) (no date) (unknown) (unknown) Lipase Today N89.8 - Other specified noninflammatory disorders of vagina, R10.10 (units unknown) (unknown) (unknown) (no date) (unknown) (unknown) Lipid Panel Today N89.8 - Other specified noninflammatory disorders of vagina, (units unknown) (unknown) (unknown) (no date) (unknown) (unknown) Loc: [facility] (units unknown) (unknown) (unknown) (no date) (unknown) (unknown) MUSKULOSKELETAL: Normal gait. (units unknown) (unknown) (unknown) (no date) (unknown) (unknown) Medical History (Updated 04/22/22 @ 15:17 by Bessie Christie DO) (units unknown) (unknown) (unknown) (no date) (unknown) (unknown) Medications (units unknown) (unknown) (unknown) (no date) (unknown) (unknown) Medications: Reconciled (units unknown) (unknown) (unknown) (no date) (unknown) (unknown) Medications: (units unknown) (unknown) (unknown) (no date) (unknown) (unknown) Morbid obesity (units unknown) (unknown) (unknown) (no date) (unknown) (unknown) Roy's. No rebound guarding rigidity. (units unknown) (unknown) (unknown) (no date) (unknown) (unknown) Muscle tightness (units unknown) (unknown) (unknown) (no date) (unknown) (unknown) NECK: Full range of motion, lymphadenopathy absent, supple (units unknown) (unknown) (unknown) (no date) (unknown) (unknown) NEURO EXAM: Alert an d oriented x 3.? (units unknown) (unknown) (unknown) (no date) (unknown) (unknown) Nausea with vomiting , unspecified (units unknown) (unknown) (unknown) (no date) (unknown) (unknown) Neurological: Negative.? (units unknown) (unknown) (unknown) (no date) (unknown) (unknown) New (units unknown) (unknown) (unknown) (no date) (unknown) (unknown) No Known Drug Allergies Allergy (Verified 04/22/22 14:47) (units unknown) (unknown) (unknown) (no date) (unknown) (unknown) Note (units unknown) (unknown) (unknown) (no date) (unknown) (unknown) Note: (units unknown) (unknown) (unknown) (no date) (unknown) (unknown) Notes (units unknown) (unknown) (unknown) (no date) (unknown) (unknown) Objective: (units unknown) (unknown) (unknown) (no date) (unknown) (unknown) Orders (units unknown) (unknown) (unknown) (no date) (unknown) (unknown) Orders: (units unknown) (unknown) (unknown) (no date) (unknown) (unknown) Other Menstrual Period: Uncertain (units unknown) (unknown) (unknown) (no date) (unknown) (unknown) Oxygen Delivery Meth od room air (units unknown) (unknown) (unknown) (no date) (unknown) (unknown) PFSH (units unknown) (unknown) (unknown) (no date) (unknown) (unknown) POC PREG (units unknown) (unknown) (unknown) (no date) (unknown) (unknown) POC Preg Test Negati ve Last Edit by Marion Caputo MA on 04/22/22 15:03 (units unknown) (unknown) (unknown) (no date) (unknown) (unknown) POC Urine Dip Today R11.0 - Nausea (units unknown) (unknown) (unknown) (no date) (unknown) (unknown) POC Urine Test Today R11.0 - Nausea (units unknown) (unknown) (unknown) (no date) (unknown) (unknown) PSYCH: judgement normal, orientation normal, affect/mood normal and memory (units unknown) (unknown) (unknown) (no date) (unknown) (unknown) Patient states that for the past month she is had persistent nausea. She states (units unknown) (unknown) (unknown) (no date) (unknown) (unknown) Patient: Sue Gurrola MR#: [id number] (units unknown) (unknown) (unknown) (no date) (unknown) (unknown) Plan (units unknown) (unknown) (unknown) (no date) (unknown) (unknown) Position Sitting (units unknown) (unknown) (unknown) (no date) (unknown) (unknown) Preg Expiration 03/08/2023 Last Edit by Marion Caputo MA on 04/22/22 15:03 (units unknown) (unknown) (unknown) (no date) (unknown) (unknown) Preg Lot # [id number] Last Edit by Marion Caputo MA on 04/22/22 15:03 (units unknown) (unknown) (unknown) (no date) (unknown) (unknown) Preg QC Acceptable? Yes Last Edit by Marion Caputo MA on 04/22/22 15:03 (units unknown) (unknown) (unknown) (no date) (unknown) (unknown) Pulse 111 H (units unknown) (unknown) (unknown) (no date) (unknown) (unknown) Pulse Oximetry (%) 99 (units unknown) (unknown) (unknown) (no date) (unknown) (unknown) Pulse Source Monitor (units unknown) (unknown) (unknown) (no date) (unknown) (unknown) Qualifiers: (units unknown) (unknown) (unknown) (no date) (unknown) (unknown) R10.10 - Upper abdominal pain, unspecified, R11.2 - Nausea with vomiting, (units unknown) (unknown) (unknown) (no date) (unknown) (unknown) Reason For Visit (units unknown) (unknown) (unknown) (no date) (unknown) (unknown) Relief) 2 spray intranasal DAILY PRN 03/25/22 [History Confirmed 04/22/22] (units unknown) (unknown) (unknown) (no date) (unknown) (unknown) Respiratory: Negative.? (units unknown) (unknown) (unknown) (no date) (unknown) (unknown) Results (units unknown) (unknown) (unknown) (no date) (unknown) (unknown) Review of Systems: (units unknown) (unknown) (unknown) (no date) (unknown) (unknown) Right anterior knee pain (units unknown) (unknown) (unknown) (no date) (unknown) (unknown) SKIN:? No rashes on face or arms. (units unknown) (unknown) (unknown) (no date) (unknown) (unknown) Screening for STD (sexually transmitted disease) (units unknown) (unknown) (unknown) (no date) (unknown) (unknown) She denies any heartburn or reflux. (units unknown) (unknown) (unknown) (no date) (unknown) (unknown) She states that 3 months ago she did miss her. And had a positive (units unknown) (unknown) (unknown) (no date) (unknown) (unknown) She was treated for BV last month. But she continues to have some discharge and (units unknown) (unknown) (unknown) (no date) (unknown) (unknown) Signed By: (units unknown) (unknown) (unknown) (no date) (unknown) (unknown) Smoking Status: Mario carey smoker (units unknown) (unknown) (unknown) (no date) (unknown) (unknown) Social History (including tobacco use status). (units unknown) (unknown) (unknown) (no date) (unknown) (unknown) Social History (units unknown) (unknown) (unknown) (no date) (unknown) (unknown) Status post delivery (10/28/16) (units unknown) (unknown) (unknown) (no date) (unknown) (unknown) Status: Acute (units unknown) (unknown) (unknown) (no date) (unknown) (unknown) Subjective: (units unknown) (unknown) (unknown) (no date) (unknown) (unknown) Surgical History (units unknown) (unknown) (unknown) (no date) (unknown) (unknown) Temp 97.6 F (units unknown) (unknown) (unknown) (no date) (unknown) (unknown) Temp Source Temporal Artery Scan (units unknown) (unknown) (unknown) (no date) (unknown) (unknown) This note may have been all or partially generated using voice recognition (units unknown) (unknown) (unknown) (no date) (unknown) (unknown) Tobacco + Substance Use (units unknown) (unknown) (unknown) (no date) (unknown) (unknown) Tobacco Status (units unknown) (unknown) (unknown) (no date) (unknown) (unknown) US abdomen complete Today R10.10 - Upper abdominal pain, unspecified, R11.2 (units unknown) (unknown) (unknown) (no date) (unknown) (unknown) Urine Appearance Cloudy Last Edit by Marion Caputo MA on 04/22/22 15:01 (units unknown) (unknown) (unknown) (no date) (unknown) (unknown) Urine Bilirubin Negative Last Edit by Marion Caputo MA on 04/22/22 15:01 (units unknown) (unknown) (unknown) (no date) (unknown) (unknown) Urine Blood Negative Last Edit by Marion Caputo MA on 04/22/22 15:01 (units unknown) (unknown) (unknown) (no date) (unknown) (unknown) Urine Color [place] Last Edit by Marion Caputo MA on 04/22/22 15:01 (units unknown) (unknown) (unknown) (no date) (unknown) (unknown) Urine Dipstick (units unknown) (unknown) (unknown) (no date) (unknown) (unknown) Urine Glucose Negati ve mg/dL Last Edit by Marion Caputo MA on 04/22/22 15:01 (units unknown) (unknown) (unknown) (no date) (unknown) (unknown) Urine Ketones Negati ve Last Edit by Marion Caputo MA on 04/22/22 15:01 (units unknown) (unknown) (unknown) (no date) (unknown) (unknown) Urine Leukocyte Esterase Negative Last Edit by Marion Caputo MA on 04/22/22 (units unknown) (unknown) (unknown) (no date) (unknown) (unknown) Urine Nitrate Negati ve Last Edit by Marion Caputo MA on 04/22/22 15:01 (units unknown) (unknown) (unknown) (no date) (unknown) (unknown) Urine Protein Negati ve Last Edit by Marion Caputo MA on 04/22/22 15:01 (units unknown) (unknown) (unknown) (no date) (unknown) (unknown) Urine Specific Gravi ty 1.015 Last Edit by Marion Caputo MA on 04/22/22 15:01 (units unknown) (unknown) (unknown) (no date) (unknown) (unknown) Urine Urobilinogen - 0.2 mg/dL Last Edit by Marion Caputo MA on 04/22/22 (units unknown) (unknown) (unknown) (no date) (unknown) (unknown) Urine pH 7.0 Last Ed it by Marion Caputo MA on 04/22/22 15:01 (units unknown) (unknown) (unknown) (no date) (unknown) (unknown) Vaginal discharge (units unknown) (unknown) (unknown) (no date) (unknown) (unknown) Visit Reasons: Nause a *saji (units unknown) (unknown) (unknown) (no date) (unknown) (unknown) Vital Signs: Reviewed (units unknown) (unknown) (unknown) (no date) (unknown) (unknown) Vitals (units unknown) (unknown) (unknown) (no date) (unknown) (unknown) Voice recognition software was used in the creation of this note. There may be (units unknown) (unknown) (unknown) (no date) (unknown) (unknown) Vomiting type: unspecified Qualified Code(s): R11.2 - Nausea with (units unknown) (unknown) (unknown) (no date) (unknown) (unknown) Weight 317 lb (units unknown) (unknown) (unknown) (no date) (unknown) (unknown) Wet Prep Tric BV [place] Today N89.8 - Other specified noninflammatory disorders (units unknown) (unknown) (unknown) (no date) (unknown) (unknown) Z13.1 - Encounter fo r screening for diabetes mellitus, Z13.220 - Encounter for (units unknown) (unknown) (unknown) (no date) (unknown) (unknown) abdominal pains. She does not drink alcohol. She does not smoke tobacco. She (units unknown) (unknown) (unknown) (no date) (unknown) (unknown) albuterol sulfate 2. 5 mg/3 mL (0.083 %) solution for nebulization 2.5 mg (3 mL) (units unknown) (unknown) (unknown) (no date) (unknown) (unknown) albuterol sulfate 90 mcg/actuation aerosol inhaler (Ventolin HFA) 2 puff (units unknown) (unknown) (unknown) (no date) (unknown) (unknown) alcohol intake: current (units unknown) (unknown) (unknown) (no date) (unknown) (unknown) always lingering. throughout the day it spikes. (units unknown) (unknown) (unknown) (no date) (unknown) (unknown) constipation. She states that she does feel warm but has not measured any (units unknown) (unknown) (unknown) (no date) (unknown) (unknown) disorders of vagina, R10.10 - Upper abdominal pain, unspecified, R11.2 - Nausea (units unknown) (unknown) (unknown) (no date) (unknown) (unknown) does use marijuana intermittently. She is taking her pantoprazole regularly. (units unknown) (unknown) (unknown) (no date) (unknown) (unknown) fevers. She states that if she eats anything besides a bland diet the symptoms (units unknown) (unknown) (unknown) (no date) (unknown) (unknown) fluticasone propiona te 50 mcg/actuation nasal spray,suspension (Flonase Allergy (units unknown) (unknown) (unknown) (no date) (unknown) (unknown) have occurred. If there are any questions, please contact the Medical Records (units unknown) (unknown) (unknown) (no date) (unknown) (unknown) household members: children (units unknown) (unknown) (unknown) (no date) (unknown) (unknown) inhalation Q4-6H PRN shortness of breath or wheezing #90 mL 05/15/21 [Rx (units unknown) (unknown) (unknown) (no date) (unknown) (unknown) inhalation Q4HP PRN shortness of breath or wheezing 03/25/22 [History Confirmed (units unknown) (unknown) (unknown) (no date) (unknown) (unknown) itching. She denies any dysuria. (units unknown) (unknown) (unknown) (no date) (unknown) (unknown) may occur. Occasiona l wrong-word or 'sound-alike' substitutions may have (units unknown) (unknown) (unknown) (no date) (unknown) (unknown) mellitus, Z13.220 - Encounter for screening for lipoid disorders (units unknown) (unknown) (unknown) (no date) (unknown) (unknown) nebulizers #1 ea 05/15/21 [Rx Confirmed 04/22/22] (units unknown) (unknown) (unknown) (no date) (unknown) (unknown) no apparent distress. (units unknown) (unknown) (unknown) (no date) (unknown) (unknown) normal (units unknown) (unknown) (unknown) (no date) (unknown) (unknown) notified provider of high blood pressure and high pulse (units unknown) (unknown) (unknown) (no date) (unknown) (unknown) occurred due to the inherent limitations of voice recognition software. Please (units unknown) (unknown) (unknown) (no date) (unknown) (unknown) of vagina (units unknown) (unknown) (unknown) (no date) (unknown) (unknown) ondansetron HCl 4 mg PO Q6-8H PRN 30 tabs 3RF nausea and vomiting (units unknown) (unknown) (unknown) (no date) (unknown) (unknown) ondansetron HCl 4 mg tablet 4 mg PO Q6-8H PRN nausea and vomiting #30 tabs (units unknown) (unknown) (unknown) (no date) (unknown) (unknown) out. (units unknown) (unknown) (unknown) (no date) (unknown) (unknown) pancreatitis. Her hC G was negative in clinic. UA was unremarkable. She states (units unknown) (unknown) (unknown) (no date) (unknown) (unknown) pantoprazole 40 mg tablet,delayed release 40 mg PO DAILY 01/21/22 [History (units unknown) (unknown) (unknown) (no date) (unknown) (unknown) read the note carefully and recognize, using context, where these substitutions (units unknown) (unknown) (unknown) (no date) (unknown) (unknown) rizatriptan 5 mg tablet See Rx Instructions PO .COMPLEX #30 tabs 02/24/22 [Rx (units unknown) (unknown) (unknown) (no date) (unknown) (unknown) screening for lipoid disorders (units unknown) (unknown) (unknown) (no date) (unknown) (unknown) seem to worsen. She does have some associated epigastric and upper quadrant (units unknown) (unknown) (unknown) (no date) (unknown) (unknown) sertraline PO [History Confirmed 04/22/22] (units unknown) (unknown) (unknown) (no date) (unknown) (unknown) she has associated vomiting multiple times per day. She denies any diarrhea or (units unknown) (unknown) (unknown) (no date) (unknown) (unknown) since. She does not use control. She is sexually active with 1 partner. (units unknown) (unknown) (unknown) (no date) (unknown) (unknown) software. Although every effort is made to edit content, dye stand loader errors (units unknown) (unknown) (unknown) (no date) (unknown) (unknown) test. Then she had a n episode of bleeding. test have been negative (units unknown) (unknown) (unknown) (no date) (unknown) (unknown) that she had a colonoscopy and an endoscopy recently which was overall (units unknown) (unknown) (unknown) (no date) (unknown) (unknown) that the intensity varies throughout the day. There are periods of time where (units unknown) (unknown) (unknown) (no date) (unknown) (unknown) typographical errors as a result. (units unknown) (unknown) (unknown) (no date) (unknown) (unknown) unremarkable. (units unknown) (unknown) (unknown) (no date) (unknown) (unknown) unspecified, Z13.1 - Encounter for screening for diabetes mellitus, Z13.220 (units unknown) (unknown) (unknown) (no date) (unknown) (unknown) vomiting, unspecified (units unknown) (unknown) (unknown) (no date) (unknown) (unknown) will self swab today and we will treat appropriately after. (units unknown) (unknown) (unknown) (no date) (unknown) (unknown) with vomiting, unspecified, Z13.1 - Encounter for screening for diabetes (units unknown) (unknown) Result panel 1152 (unknown) (no date) (unknown) (unknown) (no value) (units unknown) (unknown) (unknown) (no date) (unknown) (unknown) (1) Nausea + vomiting: (units unknown) (unknown) (unknown) (no date) (unknown) (unknown) (2) Diabetes mellitu s screening: (units unknown) (unknown) (unknown) (no date) (unknown) (unknown) (3) Upper abdominal pain: (units unknown) (unknown) (unknown) (no date) (unknown) (unknown) (4) Screening for lipid disorders: (units unknown) (unknown) (unknown) (no date) (unknown) (unknown) (5) Morbid obesity: (units unknown) (unknown) (unknown) (no date) (unknown) (unknown) (6) Vaginal discharge: (units unknown) (unknown) (unknown) (no date) (unknown) (unknown) - Upper abdominal pain, unspecified, R11.2 - Nausea with vomiting, unspecified, (units unknown) (unknown) (unknown) (no date) (unknown) (unknown) -can use Zofran as needed for symptom control (units unknown) (unknown) (unknown) (no date) (unknown) (unknown) -continue PPI (units unknown) (unknown) (unknown) (no date) (unknown) (unknown) -discussed possible control. She declined. (units unknown) (unknown) (unknown) (no date) (unknown) (unknown) -follow up after workup. (units unknown) (unknown) (unknown) (no date) (unknown) (unknown) -labs pending (units unknown) (unknown) (unknown) (no date) (unknown) (unknown) -monitor diet for triggers (units unknown) (unknown) (unknown) (no date) (unknown) (unknown) -to the ER for worsening symptoms, any other concerns (units unknown) (unknown) (unknown) (no date) (unknown) (unknown) -ultrasound pending. May need a HIDA scan if ultrasound is normal. (units unknown) (unknown) (unknown) (no date) (unknown) (unknown) 04/22/22 [Rx Confirm ed 04/22/22] (units unknown) (unknown) (unknown) (no date) (unknown) (unknown) 04/22/22 (units unknown) (unknown) (unknown) (no date) (unknown) (unknown) 04/22/22] (units unknown) (unknown) (unknown) (no date) (unknown) (unknown) 03/10//06/11. Long differential diagnosis including gallbladder disease, (units unknown) (unknown) (unknown) (no date) (unknown) (unknown) 14:49 (units unknown) (unknown) (unknown) (no date) (unknown) (unknown) 15:01 (units unknown) (unknown) (unknown) (no date) (unknown) (unknown) 26 year old female presents to clinic for nausea x 1 month. (units unknown) (unknown) (unknown) (no date) (unknown) (unknown) [id number] (units unknown) (unknown) (unknown) (no date) (unknown) (unknown) 3 day period of vomiting. stomach was empty but dark brown liquid was coming (units unknown) (unknown) (unknown) (no date) (unknown) (unknown) 6. She was treated f or BV previously but symptoms never resolved fully. She (units unknown) (unknown) (unknown) (no date) (unknown) (unknown) ABDOMEN: (+) BS.? Tender right upper quadrant, epigastric area. Negative (units unknown) (unknown) (unknown) (no date) (unknown) (unknown) Age/Sex: 26 / F Date of Service: (units unknown) (unknown) (unknown) (no date) (unknown) (unknown) Allergies (units unknown) (unknown) (unknown) (no date) (unknown) (unknown) Allergies: Reviewed (units unknown) (unknown) (unknown) (no date) (unknown) (unknown) [place] [id number] (units unknown) (unknown) (unknown) (no date) (unknown) (unknown) Anxiety (units unknown) (unknown) (unknown) (no date) (unknown) (unknown) Assessment + Plan (units unknown) (unknown) (unknown) (no date) (unknown) (unknown) Attending Dr: Bessie BrittOStefanie (units unknown) (unknown) (unknown) (no date) (unknown) (unknown) BMI 54.3 (units unknown) (unknown) (unknown) (no date) (unknown) (unknown) BP 146/86 H (units unknown) (unknown) (unknown) (no date) (unknown) (unknown) Blood Pressure Location Lt brachial (units unknown) (unknown) (unknown) (no date) (unknown) (unknown) Blood pressure elevated without history of HTN (units unknown) (unknown) (unknown) (no date) (unknown) (unknown) CARDIAC: Regular rat e and rhythm. S1, S2 normal, no murmur.? No edema. (units unknown) (unknown) (unknown) (no date) (unknown) (unknown) CHEST: Normal respiratory effort (units unknown) (unknown) (unknown) (no date) (unknown) (unknown) Cardiovascular: Negative.? (units unknown) (unknown) (unknown) (no date) (unknown) (unknown) Chief Complaint: nausea (units unknown) (unknown) (unknown) (no date) (unknown) (unknown) Common migraine (units unknown) (unknown) (unknown) (no date) (unknown) (unknown) Complete Blood Count AUTO DIFF Today N89.8 - Other specified noninflammatory (units unknown) (unknown) (unknown) (no date) (unknown) (unknown) Comprehensive Metabolic Panel Today N89.8 - Other specified noninflammatory (units unknown) (unknown) (unknown) (no date) (unknown) (unknown) Confirmed 04/22/22] (units unknown) (unknown) (unknown) (no date) (unknown) (unknown) Constitutional: Negative.? (units unknown) (unknown) (unknown) (no date) (unknown) (unknown) : 1995 Acct:[id number] (units unknown) (unknown) (unknown) (no date) (unknown) (unknown) Depression (2014) (units unknown) (unknown) (unknown) (no date) (unknown) (unknown) Dept at . (units unknown) (unknown) (unknown) (no date) (unknown) (unknown) Documented By: Bessie Rojas i 04/22/22 1443 (units unknown) (unknown) (unknown) (no date) (unknown) (unknown) Draft (units unknown) (unknown) (unknown) (no date) (unknown) (unknown) EYES: PERRL, EOMI an d nonicteric (units unknown) (unknown) (unknown) (no date) (unknown) (unknown) Encounter for screening for lipoid disorders (units unknown) (unknown) (unknown) (no date) (unknown) (unknown) Endocrine: Negative.? (units unknown) (unknown) (unknown) (no date) (unknown) (unknown) Family Practice Offi ce Visit (units unknown) (unknown) (unknown) (no date) (unknown) (unknown) [facility] (units unknown) (unknown) (unknown) (no date) (unknown) (unknown) GENERAL: Well developed, well nourished.? Cooperative with exam.? Patient is in (units unknown) (unknown) (unknown) (no date) (unknown) (unknown) Gastroesophageal reflux disease (units unknown) (unknown) (unknown) (no date) (unknown) (unknown) Genitourinary: Negative.? (units unknown) (unknown) (unknown) (no date) (unknown) (unknown) HEAD: Atraumatic, Normocephalic (units unknown) (unknown) (unknown) (no date) (unknown) (unknown) Headache, chronic daily (units unknown) (unknown) (unknown) (no date) (unknown) (unknown) Health Management reviewed with patient: Yes (units unknown) (unknown) (unknown) (no date) (unknown) (unknown) Health Management (units unknown) (unknown) (unknown) (no date) (unknown) (unknown) Height 5 ft 4 in (units unknown) (unknown) (unknown) (no date) (unknown) (unknown) Hemoglobin A1C% w Es t Avg Glu Today N89.8 - Other specified noninflammatory (units unknown) (unknown) (unknown) (no date) (unknown) (unknown) I reviewed the patient's Past Medical History, Problem List, Medications and (units unknown) (unknown) (unknown) (no date) (unknown) (unknown) IBS (irritable bowel syndrome) (units unknown) (unknown) (unknown) (no date) (unknown) (unknown) Intake Note: (units unknown) (unknown) (unknown) (no date) (unknown) (unknown) Intake performed by: Marion Caputo (units unknown) (unknown) (unknown) (no date) (unknown) (unknown) Intake (units unknown) (unknown) (unknown) (no date) (unknown) (unknown) Intake- Clincial Staff (units unknown) (unknown) (unknown) (no date) (unknown) (unknown) LUNGS: Clear all christa g padilla, Bilaterally (units unknown) (unknown) (unknown) (no date) (unknown) (unknown) Last Menstural Cycle + Details (units unknown) (unknown) (unknown) (no date) (unknown) (unknown) Lipase Today N89.8 - Other specified noninflammatory disorders of vagina, R10.10 (units unknown) (unknown) (unknown) (no date) (unknown) (unknown) Lipid Panel Today N89.8 - Other specified noninflammatory disorders of vagina, (units unknown) (unknown) (unknown) (no date) (unknown) (unknown) Loc: [facility] (units unknown) (unknown) (unknown) (no date) (unknown) (unknown) MUSKULOSKELETAL: Normal gait. (units unknown) (unknown) (unknown) (no date) (unknown) (unknown) Medical History (units unknown) (unknown) (unknown) (no date) (unknown) (unknown) Medications (units unknown) (unknown) (unknown) (no date) (unknown) (unknown) Medications: Reconciled (units unknown) (unknown) (unknown) (no date) (unknown) (unknown) Medications: (units unknown) (unknown) (unknown) (no date) (unknown) (unknown) Roy's. No rebound guarding rigidity. (units unknown) (unknown) (unknown) (no date) (unknown) (unknown) Muscle tightness (units unknown) (unknown) (unknown) (no date) (unknown) (unknown) NECK: Full range of motion, lymphadenopathy absent, supple (units unknown) (unknown) (unknown) (no date) (unknown) (unknown) NEURO EXAM: Alert an d oriented x 3.? (units unknown) (unknown) (unknown) (no date) (unknown) (unknown) Nausea with vomiting , unspecified (units unknown) (unknown) (unknown) (no date) (unknown) (unknown) Neurological: Negative.? (units unknown) (unknown) (unknown) (no date) (unknown) (unknown) New (units unknown) (unknown) (unknown) (no date) (unknown) (unknown) No Known Drug Allergies Allergy (Verified 04/22/22 14:47) (units unknown) (unknown) (unknown) (no date) (unknown) (unknown) Note (units unknown) (unknown) (unknown) (no date) (unknown) (unknown) Note: (units unknown) (unknown) (unknown) (no date) (unknown) (unknown) Notes (units unknown) (unknown) (unknown) (no date) (unknown) (unknown) Objective: (units unknown) (unknown) (unknown) (no date) (unknown) (unknown) Orders (units unknown) (unknown) (unknown) (no date) (unknown) (unknown) Orders: (units unknown) (unknown) (unknown) (no date) (unknown) (unknown) Other Menstrual Period: Uncertain (units unknown) (unknown) (unknown) (no date) (unknown) (unknown) Oxygen Delivery Meth od room air (units unknown) (unknown) (unknown) (no date) (unknown) (unknown) PFSH (units unknown) (unknown) (unknown) (no date) (unknown) (unknown) POC PREG (units unknown) (unknown) (unknown) (no date) (unknown) (unknown) POC Preg Test Negati ve Last Edit by Marion Caputo MA on 04/22/22 15:03 (units unknown) (unknown) (unknown) (no date) (unknown) (unknown) POC Urine Dip Today R11.0 - Nausea (units unknown) (unknown) (unknown) (no date) (unknown) (unknown) POC Urine Test Today R11.0 - Nausea (units unknown) (unknown) (unknown) (no date) (unknown) (unknown) PSYCH: judgement normal, orientation normal, affect/mood normal and memory (units unknown) (unknown) (unknown) (no date) (unknown) (unknown) Patient states that for the past month she is had persistent nausea. She states (units unknown) (unknown) (unknown) (no date) (unknown) (unknown) Patient: Sue Gurrola MR#: [id number] (units unknown) (unknown) (unknown) (no date) (unknown) (unknown) Plan (units unknown) (unknown) (unknown) (no date) (unknown) (unknown) Position Sitting (units unknown) (unknown) (unknown) (no date) (unknown) (unknown) Preg Expiration 03/08/2023 Last Edit by Marion Caputo MA on 04/22/22 15:03 (units unknown) (unknown) (unknown) (no date) (unknown) (unknown) Preg Lot # [id number] Last Edit by Marion Caputo MA on 04/22/22 15:03 (units unknown) (unknown) (unknown) (no date) (unknown) (unknown) Preg QC Acceptable? Yes Last Edit by Marion Caputo MA on 04/22/22 15:03 (units unknown) (unknown) (unknown) (no date) (unknown) (unknown) Pulse 111 H (units unknown) (unknown) (unknown) (no date) (unknown) (unknown) Pulse Oximetry (%) 99 (units unknown) (unknown) (unknown) (no date) (unknown) (unknown) Pulse Source Monitor (units unknown) (unknown) (unknown) (no date) (unknown) (unknown) Qualifiers: (units unknown) (unknown) (unknown) (no date) (unknown) (unknown) R10.10 - Upper abdominal pain, unspecified, R11.2 - Nausea with vomiting, (units unknown) (unknown) (unknown) (no date) (unknown) (unknown) Reason For Visit (units unknown) (unknown) (unknown) (no date) (unknown) (unknown) Relief) 2 spray intranasal DAILY PRN 03/25/22 [History Confirmed 04/22/22] (units unknown) (unknown) (unknown) (no date) (unknown) (unknown) Respiratory: Negative.? (units unknown) (unknown) (unknown) (no date) (unknown) (unknown) Results (units unknown) (unknown) (unknown) (no date) (unknown) (unknown) Review of Systems: (units unknown) (unknown) (unknown) (no date) (unknown) (unknown) Right anterior knee pain (units unknown) (unknown) (unknown) (no date) (unknown) (unknown) SKIN:? No rashes on face or arms. (units unknown) (unknown) (unknown) (no date) (unknown) (unknown) Screening for STD (sexually transmitted disease) (units unknown) (unknown) (unknown) (no date) (unknown) (unknown) She denies any heartburn or reflux. (units unknown) (unknown) (unknown) (no date) (unknown) (unknown) She states that 3 months ago she did miss her. And had a positive (units unknown) (unknown) (unknown) (no date) (unknown) (unknown) She was treated for BV last month. But she continues to have some discharge and (units unknown) (unknown) (unknown) (no date) (unknown) (unknown) Signed By: (units unknown) (unknown) (unknown) (no date) (unknown) (unknown) Smoking Status: Mario carey smoker (units unknown) (unknown) (unknown) (no date) (unknown) (unknown) Social History (including tobacco use status). (units unknown) (unknown) (unknown) (no date) (unknown) (unknown) Social History (units unknown) (unknown) (unknown) (no date) (unknown) (unknown) Status post delivery (10/28/16) (units unknown) (unknown) (unknown) (no date) (unknown) (unknown) Status: Acute (units unknown) (unknown) (unknown) (no date) (unknown) (unknown) Subjective: (units unknown) (unknown) (unknown) (no date) (unknown) (unknown) Surgical History (units unknown) (unknown) (unknown) (no date) (unknown) (unknown) Temp 97.6 F (units unknown) (unknown) (unknown) (no date) (unknown) (unknown) Temp Source Temporal Artery Scan (units unknown) (unknown) (unknown) (no date) (unknown) (unknown) This note may have been all or partially generated using voice recognition (units unknown) (unknown) (unknown) (no date) (unknown) (unknown) Tobacco + Substance Use (units unknown) (unknown) (unknown) (no date) (unknown) (unknown) Tobacco Status (units unknown) (unknown) (unknown) (no date) (unknown) (unknown) US abdomen complete Today R10.10 - Upper abdominal pain, unspecified, R11.2 (units unknown) (unknown) (unknown) (no date) (unknown) (unknown) Urine Appearance Cloudy Last Edit by Marion Caputo MA on 04/22/22 15:01 (units unknown) (unknown) (unknown) (no date) (unknown) (unknown) Urine Bilirubin Negative Last Edit by Marion Caputo MA on 04/22/22 15:01 (units unknown) (unknown) (unknown) (no date) (unknown) (unknown) Urine Blood Negative Last Edit by Marion Caputo MA on 04/22/22 15:01 (units unknown) (unknown) (unknown) (no date) (unknown) (unknown) Urine Color [place] Last Edit by Marion Caputo MA on 04/22/22 15:01 (units unknown) (unknown) (unknown) (no date) (unknown) (unknown) Urine Dipstick (units unknown) (unknown) (unknown) (no date) (unknown) (unknown) Urine Glucose Negati ve mg/dL Last Edit by Marion Caputo MA on 04/22/22 15:01 (units unknown) (unknown) (unknown) (no date) (unknown) (unknown) Urine Ketones Negati ve Last Edit by Marion Caputo MA on 04/22/22 15:01 (units unknown) (unknown) (unknown) (no date) (unknown) (unknown) Urine Leukocyte Esterase Negative Last Edit by Marion Caputo MA on 04/22/22 (units unknown) (unknown) (unknown) (no date) (unknown) (unknown) Urine Nitrate Negati ve Last Edit by Marion Caputo MA on 04/22/22 15:01 (units unknown) (unknown) (unknown) (no date) (unknown) (unknown) Urine Protein Negati ve Last Edit by Marion Caputo MA on 04/22/22 15:01 (units unknown) (unknown) (unknown) (no date) (unknown) (unknown) Urine Specific Gravi ty 1.015 Last Edit by Marion Caputo MA on 04/22/22 15:01 (units unknown) (unknown) (unknown) (no date) (unknown) (unknown) Urine Urobilinogen - 0.2 mg/dL Last Edit by Marion Caputo MA on 04/22/22 (units unknown) (unknown) (unknown) (no date) (unknown) (unknown) Urine pH 7.0 Last Ed it by Marion Caputo MA on 04/22/22 15:01 (units unknown) (unknown) (unknown) (no date) (unknown) (unknown) Visit Reasons: Nause a *saji (units unknown) (unknown) (unknown) (no date) (unknown) (unknown) Vital Signs: Reviewed (units unknown) (unknown) (unknown) (no date) (unknown) (unknown) Vitals (units unknown) (unknown) (unknown) (no date) (unknown) (unknown) Voice recognition software was used in the creation of this note. There may be (units unknown) (unknown) (unknown) (no date) (unknown) (unknown) Vomiting type: unspecified Qualified Code(s): R11.2 - Nausea with (units unknown) (unknown) (unknown) (no date) (unknown) (unknown) Weight 317 lb (units unknown) (unknown) (unknown) (no date) (unknown) (unknown) Wet Prep Tric BV [place] Today N89.8 - Other specified noninflammatory disorders (units unknown) (unknown) (unknown) (no date) (unknown) (unknown) Z13.1 - Encounter fo r screening for diabetes mellitus, Z13.220 - Encounter for (units unknown) (unknown) (unknown) (no date) (unknown) (unknown) abdominal pains. She does not drink alcohol. She does not smoke tobacco. She (units unknown) (unknown) (unknown) (no date) (unknown) (unknown) albuterol sulfate 2. 5 mg/3 mL (0.083 %) solution for nebulization 2.5 mg (3 mL) (units unknown) (unknown) (unknown) (no date) (unknown) (unknown) albuterol sulfate 90 mcg/actuation aerosol inhaler (Ventolin HFA) 2 puff (units unknown) (unknown) (unknown) (no date) (unknown) (unknown) alcohol intake: current (units unknown) (unknown) (unknown) (no date) (unknown) (unknown) always lingering. throughout the day it spikes. (units unknown) (unknown) (unknown) (no date) (unknown) (unknown) constipation. She states that she does feel warm but has not measured any (units unknown) (unknown) (unknown) (no date) (unknown) (unknown) disorders of vagina, R10.10 - Upper abdominal pain, unspecified, R11.2 - Nausea (units unknown) (unknown) (unknown) (no date) (unknown) (unknown) does use marijuana intermittently. She is taking her pantoprazole regularly. (units unknown) (unknown) (unknown) (no date) (unknown) (unknown) fevers. She states that if she eats anything besides a bland diet the symptoms (units unknown) (unknown) (unknown) (no date) (unknown) (unknown) fluticasone propiona te 50 mcg/actuation nasal spray,suspension (Flonase Allergy (units unknown) (unknown) (unknown) (no date) (unknown) (unknown) have occurred. If there are any questions, please contact the Medical Records (units unknown) (unknown) (unknown) (no date) (unknown) (unknown) household members: children (units unknown) (unknown) (unknown) (no date) (unknown) (unknown) inhalation Q4-6H PRN shortness of breath or wheezing #90 mL 05/15/21 [Rx (units unknown) (unknown) (unknown) (no date) (unknown) (unknown) inhalation Q4HP PRN shortness of breath or wheezing 03/25/22 [History Confirmed (units unknown) (unknown) (unknown) (no date) (unknown) (unknown) itching. She denies any dysuria. (units unknown) (unknown) (unknown) (no date) (unknown) (unknown) may occur. Occasiona l wrong-word or 'sound-alike' substitutions may have (units unknown) (unknown) (unknown) (no date) (unknown) (unknown) mellitus, Z13.220 - Encounter for screening for lipoid disorders (units unknown) (unknown) (unknown) (no date) (unknown) (unknown) nebulizers #1 ea 05/15/21 [Rx Confirmed 04/22/22] (units unknown) (unknown) (unknown) (no date) (unknown) (unknown) no apparent distress. (units unknown) (unknown) (unknown) (no date) (unknown) (unknown) normal (units unknown) (unknown) (unknown) (no date) (unknown) (unknown) notified provider of high blood pressure and high pulse (units unknown) (unknown) (unknown) (no date) (unknown) (unknown) occurred due to the inherent limitations of voice recognition software. Please (units unknown) (unknown) (unknown) (no date) (unknown) (unknown) of vagina (units unknown) (unknown) (unknown) (no date) (unknown) (unknown) ondansetron HCl 4 mg PO Q6-8H PRN 30 tabs 3RF nausea and vomiting (units unknown) (unknown) (unknown) (no date) (unknown) (unknown) ondansetron HCl 4 mg tablet 4 mg PO Q6-8H PRN nausea and vomiting #30 tabs (units unknown) (unknown) (unknown) (no date) (unknown) (unknown) out. (units unknown) (unknown) (unknown) (no date) (unknown) (unknown) pancreatitis. Her hC G was negative in clinic. UA was unremarkable. She states (units unknown) (unknown) (unknown) (no date) (unknown) (unknown) pantoprazole 40 mg tablet,delayed release 40 mg PO DAILY 01/21/22 [History (units unknown) (unknown) (unknown) (no date) (unknown) (unknown) read the note carefully and recognize, using context, where these substitutions (units unknown) (unknown) (unknown) (no date) (unknown) (unknown) rizatriptan 5 mg tablet See Rx Instructions PO .COMPLEX #30 tabs 02/24/22 [Rx (units unknown) (unknown) (unknown) (no date) (unknown) (unknown) screening for lipoid disorders (units unknown) (unknown) (unknown) (no date) (unknown) (unknown) seem to worsen. She does have some associated epigastric and upper quadrant (units unknown) (unknown) (unknown) (no date) (unknown) (unknown) sertraline PO [History Confirmed 04/22/22] (units unknown) (unknown) (unknown) (no date) (unknown) (unknown) she has associated vomiting multiple times per day. She denies any diarrhea or (units unknown) (unknown) (unknown) (no date) (unknown) (unknown) since. She does not use control. She is sexually active with 1 partner. (units unknown) (unknown) (unknown) (no date) (unknown) (unknown) software. Although every effort is made to edit content, dye stand loader errors (units unknown) (unknown) (unknown) (no date) (unknown) (unknown) test. Then she had a n episode of bleeding. test have been negative (units unknown) (unknown) (unknown) (no date) (unknown) (unknown) that she had a colonoscopy and an endoscopy recently which was overall (units unknown) (unknown) (unknown) (no date) (unknown) (unknown) that the intensity varies throughout the day. There are periods of time where (units unknown) (unknown) (unknown) (no date) (unknown) (unknown) typographical errors as a result. (units unknown) (unknown) (unknown) (no date) (unknown) (unknown) unremarkable. (units unknown) (unknown) (unknown) (no date) (unknown) (unknown) unspecified, Z13.1 - Encounter for screening for diabetes mellitus, Z13.220 (units unknown) (unknown) (unknown) (no date) (unknown) (unknown) vomiting, unspecified (units unknown) (unknown) (unknown) (no date) (unknown) (unknown) will self swab today and we will treat appropriately after. (units unknown) (unknown) (unknown) (no date) (unknown) (unknown) with vomiting, unspecified, Z13.1 - Encounter for screening for diabetes (units unknown) (unknown) Result panel 1153 (unknown) (no date) (unknown) (unknown) (no value) (units unknown) (unknown) (unknown) (no date) (unknown) (unknown) Few WBCs (units unknown) (unknown) (unknown) (no date) (unknown) (unknown) Few (units unknown) (unknown) (unknown) (no date) (unknown) (unknown) None seen (units unknown) (unknown) Result panel 1154 (unknown) (no date) (unknown) (unknown) 5.2 % (unknown) (unknown) (no date) (unknown) (unknown) 5.2 % (unknown) Result panel 1155 (unknown) (no date) (unknown) (unknown) 0 /ul (unknown) (unknown) (no date) (unknown) (unknown) 0.4 % (unknown) (unknown) (no date) (unknown) (unknown) 1.0 % (unknown) (unknown) (no date) (unknown) (unknown) 10.3 x10 3/ul (unknown) (unknown) (no date) (unknown) (unknown) 100 /ul (unknown) (unknown) (no date) (unknown) (unknown) 12.9 % (unknown) (unknown) (no date) (unknown) (unknown) 13.3 g/dl (unknown) (unknown) (no date) (unknown) (unknown) 21.0 % (unknown) (unknown) (no date) (unknown) (unknown) 2200 /ul (unknown) (unknown) (no date) (unknown) (unknown) 28.2 pg (unknown) (unknown) (no date) (unknown) (unknown) 324 x10 3/ul (unknown) (unknown) (no date) (unknown) (unknown) 34.1 % (unknown) (unknown) (no date) (unknown) (unknown) 38.9 % (unknown) (unknown) (no date) (unknown) (unknown) 4.72 x10 6/ul (unknown) (unknown) (no date) (unknown) (unknown) 6.6 % (unknown) (unknown) (no date) (unknown) (unknown) 700 /ul (unknown) (unknown) (no date) (unknown) (unknown) 71.0 % (unknown) (unknown) (no date) (unknown) (unknown) 7300 /ul (unknown) (unknown) (no date) (unknown) (unknown) 82.6 fl (unknown) Result panel 1156 (unknown) (no date) (unknown) (unknown) > 60 ml/min (unknown) (unknown) (no date) (unknown) (unknown) > 60 ml/min (unknown) (unknown) (no date) (unknown) (unknown) 0.4 mg/dl (unknown) (unknown) (no date) (unknown) (unknown) 0.66 mg/dl (unknown) (unknown) (no date) (unknown) (unknown) 1.3 (units unknown) (unknown) (unknown) (no date) (unknown) (unknown) 100 mmol/l (unknown) (unknown) (no date) (unknown) (unknown) 11 mg/dl (unknown) (unknown) (no date) (unknown) (unknown) 112 mg/dl (unknown) (unknown) (no date) (unknown) (unknown) 112 mg/dl (unknown) (unknown) (no date) (unknown) (unknown) 133 mg/dl (unknown) (unknown) (no date) (unknown) (unknown) 133 mg/dl (unknown) (unknown) (no date) (unknown) (unknown) 137 mmol/l (unknown) (unknown) (no date) (unknown) (unknown) 16.7 (units unknown) (unknown) (unknown) (no date) (unknown) (unknown) 198 mg/dl (unknown) (unknown) (no date) (unknown) (unknown) 198 mg/dl (unknown) (unknown) (no date) (unknown) (unknown) 24 iu/l (unknown) (unknown) (no date) (unknown) (unknown) 27 iu/l (unknown) (unknown) (no date) (unknown) (unknown) 27 mmol/l (unknown) (unknown) (no date) (unknown) (unknown) 3.2 g/dl (unknown) (unknown) (no date) (unknown) (unknown) 4.1 g/dl (unknown) (unknown) (no date) (unknown) (unknown) 4.2 mmol/l (unknown) (unknown) (no date) (unknown) (unknown) 42 u/l (unknown) (unknown) (no date) (unknown) (unknown) 59 mg/dl (unknown) (unknown) (no date) (unknown) (unknown) 59 mg/dl (unknown) (unknown) (no date) (unknown) (unknown) 7.3 g/dl (unknown) (unknown) (no date) (unknown) (unknown) 8.9 mg/dl (unknown) (unknown) (no date) (unknown) (unknown) 83 u/l (unknown) (unknown) (no date) (unknown) (unknown) 99 mg/dl (unknown) (unknown) (no date) (unknown) (unknown) 99 mg/dl (unknown) Result panel 1157 (unknown) (no date) (unknown) (unknown) (no value) (units unknown) (unknown) (unknown) (no date) (unknown) (unknown) (1) Nausea + vomiting: (units unknown) (unknown) (unknown) (no date) (unknown) (unknown) (2) Diabetes mellitu s screening: (units unknown) (unknown) (unknown) (no date) (unknown) (unknown) (3) Upper abdominal pain: (units unknown) (unknown) (unknown) (no date) (unknown) (unknown) (4) Screening for lipid disorders: (units unknown) (unknown) (unknown) (no date) (unknown) (unknown) (5) Morbid obesity: (units unknown) (unknown) (unknown) (no date) (unknown) (unknown) (6) Vaginal discharge: (units unknown) (unknown) (unknown) (no date) (unknown) (unknown) -can use Zofran as needed for symptom control (units unknown) (unknown) (unknown) (no date) (unknown) (unknown) -continue PPI (units unknown) (unknown) (unknown) (no date) (unknown) (unknown) -discussed possible control. She declined. (units unknown) (unknown) (unknown) (no date) (unknown) (unknown) -follow up after workup. (units unknown) (unknown) (unknown) (no date) (unknown) (unknown) -labs pending (units unknown) (unknown) (unknown) (no date) (unknown) (unknown) -monitor diet for triggers (units unknown) (unknown) (unknown) (no date) (unknown) (unknown) -to the ER for worsening symptoms, any other concerns (units unknown) (unknown) (unknown) (no date) (unknown) (unknown) -ultrasound pending. May need a HIDA scan if ultrasound is normal. (units unknown) (unknown) (unknown) (no date) (unknown) (unknown) 04/22/22 (units unknown) (unknown) (unknown) (no date) (unknown) (unknown) 04/22/22] (units unknown) (unknown) (unknown) (no date) (unknown) (unknown) 04/26/22 1429 (units unknown) (unknown) (unknown) (no date) (unknown) (unknown) 03/10//06/11. Long differential diagnosis including gallbladder disease, (units unknown) (unknown) (unknown) (no date) (unknown) (unknown) 14:49 (units unknown) (unknown) (unknown) (no date) (unknown) (unknown) 15:01 (units unknown) (unknown) (unknown) (no date) (unknown) (unknown) 26 year old female presents to clinic for nausea x 1 month. (units unknown) (unknown) (unknown) (no date) (unknown) (unknown) [id number] (units unknown) (unknown) (unknown) (no date) (unknown) (unknown) 3 day period of vomiting. stomach was empty but dark brown liquid was coming (units unknown) (unknown) (unknown) (no date) (unknown) (unknown) 6. She was treated f or BV previously but symptoms never resolved fully. She (units unknown) (unknown) (unknown) (no date) (unknown) (unknown) ABDOMEN: (+) BS.? Tender right upper quadrant, epigastric area. Negative (units unknown) (unknown) (unknown) (no date) (unknown) (unknown) Age/Sex: 26 / F Date of Service: (units unknown) (unknown) (unknown) (no date) (unknown) (unknown) Allergies (units unknown) (unknown) (unknown) (no date) (unknown) (unknown) Allergies: Reviewed (units unknown) (unknown) (unknown) (no date) (unknown) (unknown) [place] [id number] (units unknown) (unknown) (unknown) (no date) (unknown) (unknown) Anxiety (units unknown) (unknown) (unknown) (no date) (unknown) (unknown) Assessment + Plan (units unknown) (unknown) (unknown) (no date) (unknown) (unknown) Attending Dr: Bessie Christie D.O. (units unknown) (unknown) (unknown) (no date) (unknown) (unknown) BMI 54.3 (units unknown) (unknown) (unknown) (no date) (unknown) (unknown) BP 146/86 H (units unknown) (unknown) (unknown) (no date) (unknown) (unknown) Blood Pressure Location Lt brachial (units unknown) (unknown) (unknown) (no date) (unknown) (unknown) Blood pressure elevated without history of HTN (units unknown) (unknown) (unknown) (no date) (unknown) (unknown) CARDIAC: Regular rat e and rhythm. S1, S2 normal, no murmur.? No edema. (units unknown) (unknown) (unknown) (no date) (unknown) (unknown) CHEST: Normal respiratory effort (units unknown) (unknown) (unknown) (no date) (unknown) (unknown) Cardiovascular: Negative.? (units unknown) (unknown) (unknown) (no date) (unknown) (unknown) Chief Complaint: nausea (units unknown) (unknown) (unknown) (no date) (unknown) (unknown) Common migraine (units unknown) (unknown) (unknown) (no date) (unknown) (unknown) Complete Blood Count AUTO DIFF 04/22/22 N89.8 - Other specified noninflammatory (units unknown) (unknown) (unknown) (no date) (unknown) (unknown) Comprehensive Metabolic Panel 04/22/22 N89.8 - Other specified noninflammatory (units unknown) (unknown) (unknown) (no date) (unknown) (unknown) Confirmed 04/22/22] (units unknown) (unknown) (unknown) (no date) (unknown) (unknown) Constitutional: Negative.? (units unknown) (unknown) (unknown) (no date) (unknown) (unknown) : 1995 Acct:[id number] (units unknown) (unknown) (unknown) (no date) (unknown) (unknown) Depression (2013) (units unknown) (unknown) (unknown) (no date) (unknown) (unknown) Dept at . (units unknown) (unknown) (unknown) (no date) (unknown) (unknown) Documented By: Bessie Rojas i 04/22/22 1443 (units unknown) (unknown) (unknown) (no date) (unknown) (unknown) EYES: PERRL, EOMI an d nonicteric (units unknown) (unknown) (unknown) (no date) (unknown) (unknown) Encounter for screening for lipoid disorders (units unknown) (unknown) (unknown) (no date) (unknown) (unknown) Endocrine: Negative.? (units unknown) (unknown) (unknown) (no date) (unknown) (unknown) Family Practice Offi ce Visit (units unknown) (unknown) (unknown) (no date) (unknown) (unknown) [facility] (units unknown) (unknown) (unknown) (no date) (unknown) (unknown) GENERAL: Well developed, well nourished.? Cooperative with exam.? Patient is in (units unknown) (unknown) (unknown) (no date) (unknown) (unknown) Gastroesophageal reflux disease (units unknown) (unknown) (unknown) (no date) (unknown) (unknown) Genitourinary: Negative.? (units unknown) (unknown) (unknown) (no date) (unknown) (unknown) HEAD: Atraumatic, Normocephalic (units unknown) (unknown) (unknown) (no date) (unknown) (unknown) Headache, chronic daily (units unknown) (unknown) (unknown) (no date) (unknown) (unknown) Health Management reviewed with patient: Yes (units unknown) (unknown) (unknown) (no date) (unknown) (unknown) Health Management (units unknown) (unknown) (unknown) (no date) (unknown) (unknown) Height 5 ft 4 in (units unknown) (unknown) (unknown) (no date) (unknown) (unknown) Hemoglobin A1C% w Es t Avg Glu 04/22/22 N89.8 - Other specified noninflammatory (units unknown) (unknown) (unknown) (no date) (unknown) (unknown) I reviewed the patient's Past Medical History, Problem List, Medications and (units unknown) (unknown) (unknown) (no date) (unknown) (unknown) IBS (irritable bowel syndrome) (units unknown) (unknown) (unknown) (no date) (unknown) (unknown) Intake Note: (units unknown) (unknown) (unknown) (no date) (unknown) (unknown) Intake performed by: Marion Caputo (units unknown) (unknown) (unknown) (no date) (unknown) (unknown) Intake (units unknown) (unknown) (unknown) (no date) (unknown) (unknown) Intake- Clincial Staff (units unknown) (unknown) (unknown) (no date) (unknown) (unknown) LUNGS: Clear all christa g padilla, Bilaterally (units unknown) (unknown) (unknown) (no date) (unknown) (unknown) Last Menstural Cycle + Details (units unknown) (unknown) (unknown) (no date) (unknown) (unknown) Lipase 04/22/22 N89. 8 - Other specified noninflammatory disorders of vagina, (units unknown) (unknown) (unknown) (no date) (unknown) (unknown) Lipid Panel 04/22/22 N89.8 - Other specified noninflammatory disorders of (units unknown) (unknown) (unknown) (no date) (unknown) (unknown) Loc: [facility] (units unknown) (unknown) (unknown) (no date) (unknown) (unknown) MUSKULOSKELETAL: Normal gait. (units unknown) (unknown) (unknown) (no date) (unknown) (unknown) Medical History (Updated 04/22/22 @ 15:17 by Bessie Christie DO) (units unknown) (unknown) (unknown) (no date) (unknown) (unknown) Medications (units unknown) (unknown) (unknown) (no date) (unknown) (unknown) Medications: Reconciled (units unknown) (unknown) (unknown) (no date) (unknown) (unknown) Medications: (units unknown) (unknown) (unknown) (no date) (unknown) (unknown) Morbid obesity (units unknown) (unknown) (unknown) (no date) (unknown) (unknown) Roy's. No rebound guarding rigidity. (units unknown) (unknown) (unknown) (no date) (unknown) (unknown) Muscle tightness (units unknown) (unknown) (unknown) (no date) (unknown) (unknown) NECK: Full range of motion, lymphadenopathy absent, supple (units unknown) (unknown) (unknown) (no date) (unknown) (unknown) NEURO EXAM: Alert an d oriented x 3.? (units unknown) (unknown) (unknown) (no date) (unknown) (unknown) Nausea with vomiting , unspecified (units unknown) (unknown) (unknown) (no date) (unknown) (unknown) Neurological: Negative.? (units unknown) (unknown) (unknown) (no date) (unknown) (unknown) New (units unknown) (unknown) (unknown) (no date) (unknown) (unknown) No Known Drug Allergies Allergy (Verified 04/22/22 14:47) (units unknown) (unknown) (unknown) (no date) (unknown) (unknown) Note (units unknown) (unknown) (unknown) (no date) (unknown) (unknown) Note: (units unknown) (unknown) (unknown) (no date) (unknown) (unknown) Notes (units unknown) (unknown) (unknown) (no date) (unknown) (unknown) Objective: (units unknown) (unknown) (unknown) (no date) (unknown) (unknown) Orders (units unknown) (unknown) (unknown) (no date) (unknown) (unknown) Orders: (units unknown) (unknown) (unknown) (no date) (unknown) (unknown) Other Menstrual Period: Uncertain (units unknown) (unknown) (unknown) (no date) (unknown) (unknown) Oxygen Delivery Meth od room air (units unknown) (unknown) (unknown) (no date) (unknown) (unknown) PFSH (units unknown) (unknown) (unknown) (no date) (unknown) (unknown) POC PREG (units unknown) (unknown) (unknown) (no date) (unknown) (unknown) POC Preg Test Negati ve Last Edit by Marion Caputo MA on 04/22/22 15:03 (units unknown) (unknown) (unknown) (no date) (unknown) (unknown) POC Urine Dip R11.0 - Nausea (units unknown) (unknown) (unknown) (no date) (unknown) (unknown) POC Urine Test 04/22/22 R11.0 - Nausea (units unknown) (unknown) (unknown) (no date) (unknown) (unknown) PSYCH: judgement normal, orientation normal, affect/mood normal and memory (units unknown) (unknown) (unknown) (no date) (unknown) (unknown) Patient states that for the past month she is had persistent nausea. She states (units unknown) (unknown) (unknown) (no date) (unknown) (unknown) Patient: Sue Gurrola MR#: [id number] (units unknown) (unknown) (unknown) (no date) (unknown) (unknown) Plan (units unknown) (unknown) (unknown) (no date) (unknown) (unknown) Position Sitting (units unknown) (unknown) (unknown) (no date) (unknown) (unknown) Preg Expiration 03/08/2023 Last Edit by Marion Caputo MA on 04/22/22 15:03 (units unknown) (unknown) (unknown) (no date) (unknown) (unknown) Preg Lot # [id number] Last Edit by Marion Caputo MA on 04/22/22 15:03 (units unknown) (unknown) (unknown) (no date) (unknown) (unknown) Preg QC Acceptable? Yes Last Edit by Marion Caputo MA on 04/22/22 15:03 (units unknown) (unknown) (unknown) (no date) (unknown) (unknown) Pulse 111 H (units unknown) (unknown) (unknown) (no date) (unknown) (unknown) Pulse Oximetry (%) 99 (units unknown) (unknown) (unknown) (no date) (unknown) (unknown) Pulse Source Monitor (units unknown) (unknown) (unknown) (no date) (unknown) (unknown) Qualifiers: (units unknown) (unknown) (unknown) (no date) (unknown) (unknown) R10.10 - Upper abdominal pain, unspecified, R11.2 - Nausea with vomiting, (units unknown) (unknown) (unknown) (no date) (unknown) (unknown) Reason For Visit (units unknown) (unknown) (unknown) (no date) (unknown) (unknown) Relief) 2 spray intranasal DAILY PRN 03/25/22 [History Confirmed 04/22/22] (units unknown) (unknown) (unknown) (no date) (unknown) (unknown) Respiratory: Negative.? (units unknown) (unknown) (unknown) (no date) (unknown) (unknown) Results (units unknown) (unknown) (unknown) (no date) (unknown) (unknown) Review of Systems: (units unknown) (unknown) (unknown) (no date) (unknown) (unknown) Right anterior knee pain (units unknown) (unknown) (unknown) (no date) (unknown) (unknown) SKIN:? No rashes on face or arms. (units unknown) (unknown) (unknown) (no date) (unknown) (unknown) Screening for STD (sexually transmitted disease) (units unknown) (unknown) (unknown) (no date) (unknown) (unknown) She denies any heartburn or reflux. (units unknown) (unknown) (unknown) (no date) (unknown) (unknown) She states that 3 months ago she did miss her. And had a positive (units unknown) (unknown) (unknown) (no date) (unknown) (unknown) She was treated for BV last month. But she continues to have some discharge (units unknown) (unknown) (unknown) (no date) (unknown) (unknown) Signed By: <Electronically signed by Bessie Christie> (units unknown) (unknown) (unknown) (no date) (unknown) (unknown) Signed (units unknown) (unknown) (unknown) (no date) (unknown) (unknown) Smoking Status: Lucerojayden r smoker (units unknown) (unknown) (unknown) (no date) (unknown) (unknown) Social History (including tobacco use status). (units unknown) (unknown) (unknown) (no date) (unknown) (unknown) Social History (units unknown) (unknown) (unknown) (no date) (unknown) (unknown) Status post delivery (10/28/16) (units unknown) (unknown) (unknown) (no date) (unknown) (unknown) Status: Acute (units unknown) (unknown) (unknown) (no date) (unknown) (unknown) Subjective: (units unknown) (unknown) (unknown) (no date) (unknown) (unknown) Surgical History (units unknown) (unknown) (unknown) (no date) (unknown) (unknown) Temp 97.6 F (units unknown) (unknown) (unknown) (no date) (unknown) (unknown) Temp Source Temporal Artery Scan (units unknown) (unknown) (unknown) (no date) (unknown) (unknown) This note may have been all or partially generated using voice recognition (units unknown) (unknown) (unknown) (no date) (unknown) (unknown) Tobacco + Substance Use (units unknown) (unknown) (unknown) (no date) (unknown) (unknown) Tobacco Status (units unknown) (unknown) (unknown) (no date) (unknown) (unknown) US abdomen complete 04/22/22 R10.10 - Upper abdominal pain, unspecified, R11.2 (units unknown) (unknown) (unknown) (no date) (unknown) (unknown) Urine Appearance Cloudy Last Edit by Marion Caputo MA on 04/22/22 15:01 (units unknown) (unknown) (unknown) (no date) (unknown) (unknown) Urine Bilirubin Negative Last Edit by Marion Caputo MA on 04/22/22 15:01 (units unknown) (unknown) (unknown) (no date) (unknown) (unknown) Urine Blood Negative Last Edit by Marion Caputo MA on 04/22/22 15:01 (units unknown) (unknown) (unknown) (no date) (unknown) (unknown) Urine Color [place] Last Edit by Marion Caputo MA on 04/22/22 15:01 (units unknown) (unknown) (unknown) (no date) (unknown) (unknown) Urine Dipstick (units unknown) (unknown) (unknown) (no date) (unknown) (unknown) Urine Glucose Negati ve mg/dL Last Edit by Marion Caputo MA on 04/22/22 15:01 (units unknown) (unknown) (unknown) (no date) (unknown) (unknown) Urine Ketones Negati ve Last Edit by Marion Caputo MA on 04/22/22 15:01 (units unknown) (unknown) (unknown) (no date) (unknown) (unknown) Urine Leukocyte Esterase Negative Last Edit by Marion Caputo MA on 04/22/22 (units unknown) (unknown) (unknown) (no date) (unknown) (unknown) Urine Nitrate Negati ve Last Edit by Marion Caputo MA on 04/22/22 15:01 (units unknown) (unknown) (unknown) (no date) (unknown) (unknown) Urine Protein Negati ve Last Edit by Marion Caputo MA on 04/22/22 15:01 (units unknown) (unknown) (unknown) (no date) (unknown) (unknown) Urine Specific Gravi ty 1.015 Last Edit by Marion Caputo MA on 04/22/22 15:01 (units unknown) (unknown) (unknown) (no date) (unknown) (unknown) Urine Urobilinogen - 0.2 mg/dL Last Edit by Marion Caputo MA on 04/22/22 (units unknown) (unknown) (unknown) (no date) (unknown) (unknown) Urine pH 7.0 Last Ed it by Marion Caputo MA on 04/22/22 15:01 (units unknown) (unknown) (unknown) (no date) (unknown) (unknown) Vaginal discharge (units unknown) (unknown) (unknown) (no date) (unknown) (unknown) Visit Reasons: Nause a *saji (units unknown) (unknown) (unknown) (no date) (unknown) (unknown) Vital Signs: Reviewed (units unknown) (unknown) (unknown) (no date) (unknown) (unknown) Vitals (units unknown) (unknown) (unknown) (no date) (unknown) (unknown) Voice recognition software was used in the creation of this note. There may be (units unknown) (unknown) (unknown) (no date) (unknown) (unknown) Vomiting type: unspecified Qualified Code(s): R11.2 - Nausea with (units unknown) (unknown) (unknown) (no date) (unknown) (unknown) Weight 317 lb (units unknown) (unknown) (unknown) (no date) (unknown) (unknown) Wet Prep Tric BV [place] 04/22/22 N89.8 - Other specified noninflammatory (units unknown) (unknown) (unknown) (no date) (unknown) (unknown) Z13.220 - Encounter for screening for lipoid disorders (units unknown) (unknown) (unknown) (no date) (unknown) (unknown) abdominal pains. She does not drink alcohol. She does not smoke tobacco. She (units unknown) (unknown) (unknown) (no date) (unknown) (unknown) albuterol sulfate 2. 5 mg/3 mL (0.083 %) solution for nebulization 2.5 mg (3 mL) (units unknown) (unknown) (unknown) (no date) (unknown) (unknown) albuterol sulfate 90 mcg/actuation aerosol inhaler (Ventolin HFA) 2 puff (units unknown) (unknown) (unknown) (no date) (unknown) (unknown) alcohol intake: current (units unknown) (unknown) (unknown) (no date) (unknown) (unknown) always lingering. throughout the day it spikes. (units unknown) (unknown) (unknown) (no date) (unknown) (unknown) and itching. She denies any dysuria. (units unknown) (unknown) (unknown) (no date) (unknown) (unknown) clindamycin HCl 300 mg capsule 300 mg PO BID 7 days #14 caps 04/23/22 [Rx] (units unknown) (unknown) (unknown) (no date) (unknown) (unknown) constipation. She states that she does feel warm but has not measured any (units unknown) (unknown) (unknown) (no date) (unknown) (unknown) disorders of vagina (units unknown) (unknown) (unknown) (no date) (unknown) (unknown) disorders of vagina, R10.10 - Upper abdominal pain, unspecified, R11.2 - Nausea (units unknown) (unknown) (unknown) (no date) (unknown) (unknown) does use marijuana intermittently. She is taking her pantoprazole regularly. (units unknown) (unknown) (unknown) (no date) (unknown) (unknown) fevers. She states that if she eats anything besides a bland diet the symptoms (units unknown) (unknown) (unknown) (no date) (unknown) (unknown) fluticasone propiona te 50 mcg/actuation nasal spray,suspension (Flonase Allergy (units unknown) (unknown) (unknown) (no date) (unknown) (unknown) have occurred. If there are any questions, please contact the Medical Records (units unknown) (unknown) (unknown) (no date) (unknown) (unknown) household members: children (units unknown) (unknown) (unknown) (no date) (unknown) (unknown) inhalation Q4-6H PRN shortness of breath or wheezing #90 mL 05/15/21 [Rx (units unknown) (unknown) (unknown) (no date) (unknown) (unknown) inhalation Q4HP PRN shortness of breath or wheezing 03/25/22 [History Confirmed (units unknown) (unknown) (unknown) (no date) (unknown) (unknown) may occur. Occasiona l wrong-word or 'sound-alike' substitutions may have (units unknown) (unknown) (unknown) (no date) (unknown) (unknown) mellitus, Z13.220 - Encounter for screening for lipoid disorders (units unknown) (unknown) (unknown) (no date) (unknown) (unknown) nebulizers #1 ea 05/15/21 [Rx Confirmed 04/22/22] (units unknown) (unknown) (unknown) (no date) (unknown) (unknown) no apparent distress. (units unknown) (unknown) (unknown) (no date) (unknown) (unknown) normal (units unknown) (unknown) (unknown) (no date) (unknown) (unknown) notified provider of high blood pressure and high pulse (units unknown) (unknown) (unknown) (no date) (unknown) (unknown) occurred due to the inherent limitations of voice recognition software. Please (units unknown) (unknown) (unknown) (no date) (unknown) (unknown) ondansetron 4 mg disintegrating tablet 4 mg PO Q6-8H PRN nausea and vomiting #30 (units unknown) (unknown) (unknown) (no date) (unknown) (unknown) ondansetron HCl 4 mg PO Q6-8H PRN 30 tabs 3RF nausea and vomiting (units unknown) (unknown) (unknown) (no date) (unknown) (unknown) out. (units unknown) (unknown) (unknown) (no date) (unknown) (unknown) pancreatitis. Her hC G was negative in clinic. UA was unremarkable. She states (units unknown) (unknown) (unknown) (no date) (unknown) (unknown) pantoprazole 40 mg tablet,delayed release 40 mg PO DAILY 01/21/22 [History (units unknown) (unknown) (unknown) (no date) (unknown) (unknown) read the note carefully and recognize, using context, where these substitutions (units unknown) (unknown) (unknown) (no date) (unknown) (unknown) rizatriptan 5 mg tablet See Rx Instructions PO .COMPLEX #30 tabs 02/24/22 [Rx (units unknown) (unknown) (unknown) (no date) (unknown) (unknown) seem to worsen. She does have some associated epigastric and upper quadrant (units unknown) (unknown) (unknown) (no date) (unknown) (unknown) sertraline PO [History Confirmed 04/22/22] (units unknown) (unknown) (unknown) (no date) (unknown) (unknown) she has associated vomiting multiple times per day. She denies any diarrhea or (units unknown) (unknown) (unknown) (no date) (unknown) (unknown) since. She does not use control. She is sexually active with 1 partner. (units unknown) (unknown) (unknown) (no date) (unknown) (unknown) software. Although every effort is made to edit content, dye stand loader errors (units unknown) (unknown) (unknown) (no date) (unknown) (unknown) tabs 04/25/22 [Rx] (units unknown) (unknown) (unknown) (no date) (unknown) (unknown) test. Then she had a n episode of bleeding. test have been negative (units unknown) (unknown) (unknown) (no date) (unknown) (unknown) that she had a colonoscopy and an endoscopy recently which was overall (units unknown) (unknown) (unknown) (no date) (unknown) (unknown) that the intensity varies throughout the day. There are periods of time where (units unknown) (unknown) (unknown) (no date) (unknown) (unknown) typographical errors as a result. (units unknown) (unknown) (unknown) (no date) (unknown) (unknown) unremarkable. (units unknown) (unknown) (unknown) (no date) (unknown) (unknown) unspecified, Z13.1 - Encounter for screening for diabetes mellitus, Z13.220 (units unknown) (unknown) (unknown) (no date) (unknown) (unknown) vagina, R10.10 - Upp er abdominal pain, unspecified, R11.2 - Nausea with (units unknown) (unknown) (unknown) (no date) (unknown) (unknown) vomiting, unspecified (units unknown) (unknown) (unknown) (no date) (unknown) (unknown) vomiting, unspecifie d, Z13.1 - Encounter for screening for diabetes mellitus, (units unknown) (unknown) (unknown) (no date) (unknown) (unknown) will self swab today and we will treat appropriately after. (units unknown) (unknown) (unknown) (no date) (unknown) (unknown) with vomiting, unspecified, Z13.1 - Encounter for screening for diabetes (units unknown) (unknown) Result panel 1158 (unknown) (no date) (unknown) (unknown) (no value) (units unknown) (unknown) (unknown) (no date) (unknown) (unknown) 04/28/22 (units unknown) (unknown) (unknown) (no date) (unknown) (unknown) [address] [place] [address] (units unknown) (unknown) (unknown) (no date) (unknown) (unknown) [id number] (units unknown) (unknown) (unknown) (no date) (unknown) (unknown) Accession Number: [id number] (units unknown) (unknown) (unknown) (no date) (unknown) (unknown) Age/Sex: 26 / F Date of Service: (units unknown) (unknown) (unknown) (no date) (unknown) (unknown) [place] [address] (units unknown) (unknown) (unknown) (no date) (unknown) (unknown) Approved by: Sadi Mcclelland M.D. on 04/28/2022 at 10:37 (units unknown) (unknown) (unknown) (no date) (unknown) (unknown) Biliary ducts: Intrahepatic bile ducts are non-dilated. Extrahepatic bile (units unknown) (unknown) (unknown) (no date) (unknown) (unknown) COMPARISON: [facility], ABDOMEN LIMITED, 10/09/2021, 17:24. (units unknown) (unknown) (unknown) (no date) (unknown) (unknown) : 1995 Acct:[id number] (units unknown) (unknown) (unknown) (no date) (unknown) (unknown) Dictated by: Sadi Mcclelland M.D. on 04/28/2022 at 10:36 (units unknown) (unknown) (unknown) (no date) (unknown) (unknown) FINDINGS: (units unknown) (unknown) (unknown) (no date) (unknown) (unknown) Gallbladder: Unremarkable. (units unknown) (unknown) (unknown) (no date) (unknown) (unknown) IMPRESSION: Ljfvyqhc-sp-vzrewm hepatic steatosis. (units unknown) (unknown) (unknown) (no date) (unknown) (unknown) INDICATIONS: N/V; RU Q PAIN (units unknown) (unknown) (unknown) (no date) (unknown) (unknown) [facility] (units unknown) (unknown) (unknown) (no date) (unknown) (unknown) Liver: Increased den er echogenicity with posterior attenuation, most (units unknown) (unknown) (unknown) (no date) (unknown) (unknown) Loc: [place] (units unknown) (unknown) (unknown) (no date) (unknown) (unknown) Ordering Provider: Bessie Christie (units unknown) (unknown) (unknown) (no date) (unknown) (unknown) PROCEDURE: US ABDOME N LIMITED (units unknown) (unknown) (unknown) (no date) (unknown) (unknown) Pancreas: Visualized portions of the pancreas are sonographically normal. (units unknown) (unknown) (unknown) (no date) (unknown) (unknown) Patient: Sue Gurrola MR#: [id number] (units unknown) (unknown) (unknown) (no date) (unknown) (unknown) Procedure: US abdome n limited (units unknown) (unknown) (unknown) (no date) (unknown) (unknown) Real-time scanning w as performed of the abdominal and retroperitoneal organs, (units unknown) (unknown) (unknown) (no date) (unknown) (unknown) Signed (units unknown) (unknown) (unknown) (no date) (unknown) (unknown) TECHNIQUE: (units unknown) (unknown) (unknown) (no date) (unknown) (unknown) Ultrasound Report (units unknown) (unknown) (unknown) (no date) (unknown) (unknown) consistent with (units unknown) (unknown) (unknown) (no date) (unknown) (unknown) documentation. (units unknown) (unknown) (unknown) (no date) (unknown) (unknown) duct caliber (units unknown) (unknown) (unknown) (no date) (unknown) (unknown) measures 5 mm. Priyanka l is 6-7 mm or less in diameter, or 10 mm or less (units unknown) (unknown) (unknown) (no date) (unknown) (unknown) moderate to severe steatosis. (units unknown) (unknown) (unknown) (no date) (unknown) (unknown) post-cholecystectomy. (units unknown) (unknown) (unknown) (no date) (unknown) (unknown) with image (units unknown) (unknown) Result panel 1159 (unknown) (no date) (unknown) (unknown) (no value) (units unknown) (unknown) (unknown) (no date) (unknown) (unknown) (1) Upper abdominal pain: (units unknown) (unknown) (unknown) (no date) (unknown) (unknown) (2) Morbid obesity: (units unknown) (unknown) (unknown) (no date) (unknown) (unknown) (3) Nausea: (units unknown) (unknown) (unknown) (no date) (unknown) (unknown) (4) Hepatic steatosis: (units unknown) (unknown) (unknown) (no date) (unknown) (unknown) -HIDA scan pending (units unknown) (unknown) (unknown) (no date) (unknown) (unknown) -advised we can discuss weight loss options once she feels better. (units unknown) (unknown) (unknown) (no date) (unknown) (unknown) -continue supportive care with Zofran. (units unknown) (unknown) (unknown) (no date) (unknown) (unknown) -follow up as needed for any concerns (units unknown) (unknown) (unknown) (no date) (unknown) (unknown) -monitor diet for triggers (units unknown) (unknown) (unknown) (no date) (unknown) (unknown) -to the ER for worsening pain, other concerns (units unknown) (unknown) (unknown) (no date) (unknown) (unknown) -will put a referral into Gastroenterology for further evaluation if the HIDA (units unknown) (unknown) (unknown) (no date) (unknown) (unknown) 05/06/22 (units unknown) (unknown) (unknown) (no date) (unknown) (unknown) 1. Patient continues to have upper abdominal pain with nausea. Recent endoscopy (units unknown) (unknown) (unknown) (no date) (unknown) (unknown) 2/4. Long discussion about the difficulty in long-term weight loss. The (units unknown) (unknown) (unknown) (no date) (unknown) (unknown) [id number] (units unknown) (unknown) (unknown) (no date) (unknown) (unknown) A video visit is conducted (units unknown) (unknown) (unknown) (no date) (unknown) (unknown) Age/Sex: 27 / F Date of Service: (units unknown) (unknown) (unknown) (no date) (unknown) (unknown) All participants + their roles: provider, patient (units unknown) (unknown) (unknown) (no date) (unknown) (unknown) Allergies (units unknown) (unknown) (unknown) (no date) (unknown) (unknown) Allergies: Reviewed (units unknown) (unknown) (unknown) (no date) (unknown) (unknown) [place] [id number] (units unknown) (unknown) (unknown) (no date) (unknown) (unknown) Anxiety (units unknown) (unknown) (unknown) (no date) (unknown) (unknown) Assessment + Plan (units unknown) (unknown) (unknown) (no date) (unknown) (unknown) Attending Dr: Bessie Christie D.O. (units unknown) (unknown) (unknown) (no date) (unknown) (unknown) CHEST: Normal respiratory effort (units unknown) (unknown) (unknown) (no date) (unknown) (unknown) Cardiovascular: Negative.? (units unknown) (unknown) (unknown) (no date) (unknown) (unknown) Cervicitis (units unknown) (unknown) (unknown) (no date) (unknown) (unknown) Chief Complaint: f/u on abd pain, US results (units unknown) (unknown) (unknown) (no date) (unknown) (unknown) Common migraine (units unknown) (unknown) (unknown) (no date) (unknown) (unknown) Constitutional: Negative.? (units unknown) (unknown) (unknown) (no date) (unknown) (unknown) : 1995 Acct:[id number] (units unknown) (unknown) (unknown) (no date) (unknown) (unknown) Depression (2013) (units unknown) (unknown) (unknown) (no date) (unknown) (unknown) Dept at . (units unknown) (unknown) (unknown) (no date) (unknown) (unknown) Documented By: Bessie Rojas i 05/06/22 0822 (units unknown) (unknown) (unknown) (no date) (unknown) (unknown) Draft (units unknown) (unknown) (unknown) (no date) (unknown) (unknown) EYES: nonicteric (units unknown) (unknown) (unknown) (no date) (unknown) (unknown) Endocrine: Negative.? (units unknown) (unknown) (unknown) (no date) (unknown) (unknown) Family Practice Offi ce Visit (units unknown) (unknown) (unknown) (no date) (unknown) (unknown) [facility] (units unknown) (unknown) (unknown) (no date) (unknown) (unknown) GENERAL: Well developed, well nourished.? Cooperative with exam.? Patient is in (units unknown) (unknown) (unknown) (no date) (unknown) (unknown) Gastroesophageal reflux disease (units unknown) (unknown) (unknown) (no date) (unknown) (unknown) Genitourinary: Negative.? (units unknown) (unknown) (unknown) (no date) (unknown) (unknown) HEAD: Atraumatic, Normocephalic (units unknown) (unknown) (unknown) (no date) (unknown) (unknown) JAYCEE olivas is schedul ed in May. She has had a recent endoscopy and colonoscopy (units unknown) (unknown) (unknown) (no date) (unknown) (unknown) Headache, chronic daily (units unknown) (unknown) (unknown) (no date) (unknown) (unknown) Hepatic steatosis (units unknown) (unknown) (unknown) (no date) (unknown) (unknown) History of appendectomy (units unknown) (unknown) (unknown) (no date) (unknown) (unknown) I reviewed the patient's Past Medical History, Problem List, Medications and (units unknown) (unknown) (unknown) (no date) (unknown) (unknown) IBS (irritable bowel syndrome) (units unknown) (unknown) (unknown) (no date) (unknown) (unknown) Intake (units unknown) (unknown) (unknown) (no date) (unknown) (unknown) Last Menstural Cycle + Details (units unknown) (unknown) (unknown) (no date) (unknown) (unknown) Loc: [facility] (units unknown) (unknown) (unknown) (no date) (unknown) (unknown) Location of provider : Clinic (units unknown) (unknown) (unknown) (no date) (unknown) (unknown) Location of pt: home (units unknown) (unknown) (unknown) (no date) (unknown) (unknown) Medical History (Updated 05/06/22 @ 08:28 by Bessie Christie DO) (units unknown) (unknown) (unknown) (no date) (unknown) (unknown) Medications: Reconciled (units unknown) (unknown) (unknown) (no date) (unknown) (unknown) Morbid obesity (units unknown) (unknown) (unknown) (no date) (unknown) (unknown) NECK: Full range of motion, (units unknown) (unknown) (unknown) (no date) (unknown) (unknown) NEURO EXAM: Alert an d oriented x 3.? (units unknown) (unknown) (unknown) (no date) (unknown) (unknown) Neurological: Negative.? (units unknown) (unknown) (unknown) (no date) (unknown) (unknown) No Known Drug Allergies Allergy (Verified 04/22/22 14:47) (units unknown) (unknown) (unknown) (no date) (unknown) (unknown) Note (units unknown) (unknown) (unknown) (no date) (unknown) (unknown) Note: (units unknown) (unknown) (unknown) (no date) (unknown) (unknown) Notes (units unknown) (unknown) (unknown) (no date) (unknown) (unknown) Objective: (units unknown) (unknown) (unknown) (no date) (unknown) (unknown) Other Menstrual Period: Uncertain (units unknown) (unknown) (unknown) (no date) (unknown) (unknown) PFSH (units unknown) (unknown) (unknown) (no date) (unknown) (unknown) PSYCH: judgement normal, orientation normal, affect/mood normal and memory (units unknown) (unknown) (unknown) (no date) (unknown) (unknown) Patient is here to follow up on her ultrasound results. She states that she (units unknown) (unknown) (unknown) (no date) (unknown) (unknown) Patient: [place] MR#: [id number] (units unknown) (unknown) (unknown) (no date) (unknown) (unknown) Plan (units unknown) (unknown) (unknown) (no date) (unknown) (unknown) Pt consented to receive services via telehealth?: Yes (units unknown) (unknown) (unknown) (no date) (unknown) (unknown) Real-time, synchrono us services were performed via: audio + video (units unknown) (unknown) (unknown) (no date) (unknown) (unknown) Reason For Visit (units unknown) (unknown) (unknown) (no date) (unknown) (unknown) Respiratory: Negative.? (units unknown) (unknown) (unknown) (no date) (unknown) (unknown) Review of Systems: (units unknown) (unknown) (unknown) (no date) (unknown) (unknown) SKIN:? No rashes on face (units unknown) (unknown) (unknown) (no date) (unknown) (unknown) She is also frustrat ed since she does not feel that she eats very much she had (units unknown) (unknown) (unknown) (no date) (unknown) (unknown) Signed By: (units unknown) (unknown) (unknown) (no date) (unknown) (unknown) Smoking Status: Neve r smoker (units unknown) (unknown) (unknown) (no date) (unknown) (unknown) Social History (including tobacco use status). (units unknown) (unknown) (unknown) (no date) (unknown) (unknown) Social History (units unknown) (unknown) (unknown) (no date) (unknown) (unknown) Status post delivery (10/28/16) (units unknown) (unknown) (unknown) (no date) (unknown) (unknown) Status: Acute (units unknown) (unknown) (unknown) (no date) (unknown) (unknown) Subjective: (units unknown) (unknown) (unknown) (no date) (unknown) (unknown) Surgical History (Updated 05/06/22 @ 08:28 by Bessie Christie DO) (units unknown) (unknown) (unknown) (no date) (unknown) (unknown) This note may have been all or partially generated using voice recognition (units unknown) (unknown) (unknown) (no date) (unknown) (unknown) Time Spent on telephone call only: 30 min (units unknown) (unknown) (unknown) (no date) (unknown) (unknown) Tobacco + Substance Use (units unknown) (unknown) (unknown) (no date) (unknown) (unknown) Tobacco Status (units unknown) (unknown) (unknown) (no date) (unknown) (unknown) Visit Reasons: v-see TH appt results 02 (units unknown) (unknown) (unknown) (no date) (unknown) (unknown) Vital Signs: Reviewed (units unknown) (unknown) (unknown) (no date) (unknown) (unknown) Voice recognition software was used in the creation of this note. There may be (units unknown) (unknown) (unknown) (no date) (unknown) (unknown) Were services performed via telephone only?: No (units unknown) (unknown) (unknown) (no date) (unknown) (unknown) about 18 lb over a 2 year. She likely is getting a few more calories than she (units unknown) (unknown) (unknown) (no date) (unknown) (unknown) alcohol intake: current (units unknown) (unknown) (unknown) (no date) (unknown) (unknown) and colonoscopy were unremarkable. Ultrasound did not show any evidence of (units unknown) (unknown) (unknown) (no date) (unknown) (unknown) continues to have episodes of upper quadrant abdominal pains under her ribs g (units unknown) (unknown) (unknown) (no date) (unknown) (unknown) diagnosis and treatment goals of hepatic steatosis. Advised that she must (units unknown) (unknown) (unknown) (no date) (unknown) (unknown) gallbladder disease. Her labs are essentially normal. She is awaiting a HIDA (units unknown) (unknown) (unknown) (no date) (unknown) (unknown) have occurred. If there are any questions, please contact the Medical Records (units unknown) (unknown) (unknown) (no date) (unknown) (unknown) household members: children (units unknown) (unknown) (unknown) (no date) (unknown) (unknown) improved. Now that s he is off the metronidazole her nausea is much worse. Her (units unknown) (unknown) (unknown) (no date) (unknown) (unknown) maintain a negative calorie count long-term to lose weight. She has gained (units unknown) (unknown) (unknown) (no date) (unknown) (unknown) may occur. Occasiona l wrong-word or 'sound-alike' substitutions may have (units unknown) (unknown) (unknown) (no date) (unknown) (unknown) nausea actuall improved. The metronidazole did cause some bloating but that has (units unknown) (unknown) (unknown) (no date) (unknown) (unknown) no apparent distress. (units unknown) (unknown) (unknown) (no date) (unknown) (unknown) normal (units unknown) (unknown) (unknown) (no date) (unknown) (unknown) occurred due to the inherent limitations of voice recognition software. Please (units unknown) (unknown) (unknown) (no date) (unknown) (unknown) oing through to her back. She has nausea with eating and drinking. No (units unknown) (unknown) (unknown) (no date) (unknown) (unknown) read the note carefully and recognize, using context, where these substitutions (units unknown) (unknown) (unknown) (no date) (unknown) (unknown) realizes. (units unknown) (unknown) (unknown) (no date) (unknown) (unknown) scan is negative. 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 She will call (units unknown) (unknown) (unknown) (no date) (unknown) (unknown) scan. She has not be en able to identify any food triggers. (units unknown) (unknown) (unknown) (no date) (unknown) (unknown) she has gained weigh t slowly over time. (units unknown) (unknown) (unknown) (no date) (unknown) (unknown) software. Although every effort is made to edit content, dye stand loader errors (units unknown) (unknown) (unknown) (no date) (unknown) (unknown) to make the appointment (units unknown) (unknown) (unknown) (no date) (unknown) (unknown) typographical errors as a result. (units unknown) (unknown) (unknown) (no date) (unknown) (unknown) vomiting. No fevers, chills. She states that when we treated her for BV her (units unknown) (unknown) (unknown) (no date) (unknown) (unknown) which were unremarkable. (units unknown) (unknown) Result panel [id number] (unknown) (no date) (unknown) (unknown) (no value) (units unknown) (unknown) (unknown) (no date) (unknown) (unknown) (1) Upper abdominal pain: (units unknown) (unknown) (unknown) (no date) (unknown) (unknown) (2) Morbid obesity: (units unknown) (unknown) (unknown) (no date) (unknown) (unknown) (3) Nausea: (units unknown) (unknown) (unknown) (no date) (unknown) (unknown) (4) Hepatic steatosis: (units unknown) (unknown) (unknown) (no date) (unknown) (unknown) -HIDA scan pending (units unknown) (unknown) (unknown) (no date) (unknown) (unknown) -advised we can discuss weight loss options once she feels better. (units unknown) (unknown) (unknown) (no date) (unknown) (unknown) -continue supportive care with Zofran. (units unknown) (unknown) (unknown) (no date) (unknown) (unknown) -follow up as needed for any concerns (units unknown) (unknown) (unknown) (no date) (unknown) (unknown) -monitor diet for triggers (units unknown) (unknown) (unknown) (no date) (unknown) (unknown) -to the ER for worsening pain, other concerns (units unknown) (unknown) (unknown) (no date) (unknown) (unknown) -will put a referral into Gastroenterology for further evaluation if the HIDA (units unknown) (unknown) (unknown) (no date) (unknown) (unknown) 05/06/22 0834 (units unknown) (unknown) (unknown) (no date) (unknown) (unknown) 05/06/22 (units unknown) (unknown) (unknown) (no date) (unknown) (unknown) 1. Patient continues to have upper abdominal pain with nausea. Recent endoscopy (units unknown) (unknown) (unknown) (no date) (unknown) (unknown) 2/4. Long discussion about the difficulty in long-term weight loss. The (units unknown) (unknown) (unknown) (no date) (unknown) (unknown) [address] (units unknown) (unknown) (unknown) (no date) (unknown) (unknown) A video visit is conducted (units unknown) (unknown) (unknown) (no date) (unknown) (unknown) Age/Sex: 27 / F Date of Service: (units unknown) (unknown) (unknown) (no date) (unknown) (unknown) All participants + their roles: provider, patient (units unknown) (unknown) (unknown) (no date) (unknown) (unknown) Allergies (units unknown) (unknown) (unknown) (no date) (unknown) (unknown) Allergies: Reviewed (units unknown) (unknown) (unknown) (no date) (unknown) (unknown) [place] [id number] (units unknown) (unknown) (unknown) (no date) (unknown) (unknown) Anxiety (units unknown) (unknown) (unknown) (no date) (unknown) (unknown) Assessment + Plan (units unknown) (unknown) (unknown) (no date) (unknown) (unknown) Attending Dr: Bessie Christie D.O. (units unknown) (unknown) (unknown) (no date) (unknown) (unknown) CHEST: Normal respiratory effort (units unknown) (unknown) (unknown) (no date) (unknown) (unknown) Cardiovascular: Negative.? (units unknown) (unknown) (unknown) (no date) (unknown) (unknown) Cervicitis (units unknown) (unknown) (unknown) (no date) (unknown) (unknown) Chief Complaint: f/u on abd pain, US results (units unknown) (unknown) (unknown) (no date) (unknown) (unknown) Common migraine (units unknown) (unknown) (unknown) (no date) (unknown) (unknown) Constitutional: Negative.? (units unknown) (unknown) (unknown) (no date) (unknown) (unknown) : 1995 Acct:[id number] (units unknown) (unknown) (unknown) (no date) (unknown) (unknown) Depression (2013) (units unknown) (unknown) (unknown) (no date) (unknown) (unknown) Dept at . (units unknown) (unknown) (unknown) (no date) (unknown) (unknown) Documented By: Bessie Rojas i 05/06/22 0822 (units unknown) (unknown) (unknown) (no date) (unknown) (unknown) EYES: nonicteric (units unknown) (unknown) (unknown) (no date) (unknown) (unknown) Endocrine: Negative.? (units unknown) (unknown) (unknown) (no date) (unknown) (unknown) Family Practice Offi ce Visit (units unknown) (unknown) (unknown) (no date) (unknown) (unknown) [facility] (units unknown) (unknown) (unknown) (no date) (unknown) (unknown) GENERAL: Well developed, well nourished.? Cooperative with exam.? Patient is in (units unknown) (unknown) (unknown) (no date) (unknown) (unknown) Gastroesophageal reflux disease (units unknown) (unknown) (unknown) (no date) (unknown) (unknown) Genitourinary: Negative.? (units unknown) (unknown) (unknown) (no date) (unknown) (unknown) HEAD: Atraumatic, Normocephalic (units unknown) (unknown) (unknown) (no date) (unknown) (unknown) JAYCEE scan is schedul ed in May. She has had a recent endoscopy and colonoscopy (units unknown) (unknown) (unknown) (no date) (unknown) (unknown) Headache, chronic daily (units unknown) (unknown) (unknown) (no date) (unknown) (unknown) Hepatic steatosis (units unknown) (unknown) (unknown) (no date) (unknown) (unknown) History of appendectomy (units unknown) (unknown) (unknown) (no date) (unknown) (unknown) I reviewed the patient's Past Medical History, Problem List, Medications and (units unknown) (unknown) (unknown) (no date) (unknown) (unknown) IBS (irritable bowel syndrome) (units unknown) (unknown) (unknown) (no date) (unknown) (unknown) Intake (units unknown) (unknown) (unknown) (no date) (unknown) (unknown) Last Menstural Cycle + Details (units unknown) (unknown) (unknown) (no date) (unknown) (unknown) Loc: [facility] (units unknown) (unknown) (unknown) (no date) (unknown) (unknown) Location of provider : Clinic (units unknown) (unknown) (unknown) (no date) (unknown) (unknown) Location of pt: home (units unknown) (unknown) (unknown) (no date) (unknown) (unknown) Medical History (Updated 05/06/22 @ 08:28 by Bessie Christie DO) (units unknown) (unknown) (unknown) (no date) (unknown) (unknown) Medications: Reconciled (units unknown) (unknown) (unknown) (no date) (unknown) (unknown) Morbid obesity (units unknown) (unknown) (unknown) (no date) (unknown) (unknown) NECK: Full range of motion, (units unknown) (unknown) (unknown) (no date) (unknown) (unknown) NEURO EXAM: Alert an d oriented x 3.? (units unknown) (unknown) (unknown) (no date) (unknown) (unknown) Neurological: Negative.? (units unknown) (unknown) (unknown) (no date) (unknown) (unknown) No Known Drug Allergies Allergy (Verified 04/22/22 14:47) (units unknown) (unknown) (unknown) (no date) (unknown) (unknown) Note (units unknown) (unknown) (unknown) (no date) (unknown) (unknown) Note: (units unknown) (unknown) (unknown) (no date) (unknown) (unknown) Notes (units unknown) (unknown) (unknown) (no date) (unknown) (unknown) Objective: (units unknown) (unknown) (unknown) (no date) (unknown) (unknown) Orders: (units unknown) (unknown) (unknown) (no date) (unknown) (unknown) Other Menstrual Period: Uncertain (units unknown) (unknown) (unknown) (no date) (unknown) (unknown) PFSH (units unknown) (unknown) (unknown) (no date) (unknown) (unknown) PSYCH: judgement normal, orientation normal, affect/mood normal and memory (units unknown) (unknown) (unknown) (no date) (unknown) (unknown) Patient is here to follow up on her ultrasound results. She states that she (units unknown) (unknown) (unknown) (no date) (unknown) (unknown) Patient: Sue Gurrola MR#: [id number] (units unknown) (unknown) (unknown) (no date) (unknown) (unknown) Plan (units unknown) (unknown) (unknown) (no date) (unknown) (unknown) Pt consented to receive services via telehealth?: Yes (units unknown) (unknown) (unknown) (no date) (unknown) (unknown) Real-time, synchrono us services were performed via: audio + video (units unknown) (unknown) (unknown) (no date) (unknown) (unknown) Reason For Visit (units unknown) (unknown) (unknown) (no date) (unknown) (unknown) Referral Gastroenterology K76.0 - Fatty (change of) liver, not elsewhere (units unknown) (unknown) (unknown) (no date) (unknown) (unknown) Referrals (units unknown) (unknown) (unknown) (no date) (unknown) (unknown) Respiratory: Negative.? (units unknown) (unknown) (unknown) (no date) (unknown) (unknown) Review of Systems: (units unknown) (unknown) (unknown) (no date) (unknown) (unknown) SKIN:? No rashes on face (units unknown) (unknown) (unknown) (no date) (unknown) (unknown) She is also frustrat ed since she does not feel that she eats very much she had (units unknown) (unknown) (unknown) (no date) (unknown) (unknown) Signed By: <Electronically signed by Bessie Christie> (units unknown) (unknown) (unknown) (no date) (unknown) (unknown) Signed (units unknown) (unknown) (unknown) (no date) (unknown) (unknown) Smoking Status: Neve r smoker (units unknown) (unknown) (unknown) (no date) (unknown) (unknown) Social History (including tobacco use status). (units unknown) (unknown) (unknown) (no date) (unknown) (unknown) Social History (units unknown) (unknown) (unknown) (no date) (unknown) (unknown) Status post delivery (10/28/16) (units unknown) (unknown) (unknown) (no date) (unknown) (unknown) Status: Acute (units unknown) (unknown) (unknown) (no date) (unknown) (unknown) Subjective: (units unknown) (unknown) (unknown) (no date) (unknown) (unknown) Surgical History (Updated 05/06/22 @ 08:28 by Bessie Christie DO) (units unknown) (unknown) (unknown) (no date) (unknown) (unknown) This note may have been all or partially generated using voice recognition (units unknown) (unknown) (unknown) (no date) (unknown) (unknown) Time Spent on telephone call only: 30 min (units unknown) (unknown) (unknown) (no date) (unknown) (unknown) Tobacco + Substance Use (units unknown) (unknown) (unknown) (no date) (unknown) (unknown) Tobacco Status (units unknown) (unknown) (unknown) (no date) (unknown) (unknown) Visit Reasons: v-see TH appt results 02 (units unknown) (unknown) (unknown) (no date) (unknown) (unknown) Vital Signs: Reviewed (units unknown) (unknown) (unknown) (no date) (unknown) (unknown) Voice recognition software was used in the creation of this note. There may be (units unknown) (unknown) (unknown) (no date) (unknown) (unknown) Were services performed via telephone only?: No (units unknown) (unknown) (unknown) (no date) (unknown) (unknown) about 18 lb over a 2 year. She likely is getting a few more calories than she (units unknown) (unknown) (unknown) (no date) (unknown) (unknown) alcohol intake: current (units unknown) (unknown) (unknown) (no date) (unknown) (unknown) and colonoscopy were unremarkable. Ultrasound did not show any evidence of (units unknown) (unknown) (unknown) (no date) (unknown) (unknown) classified, R10.10 - Upper abdominal pain, unspecified, R11.0 - Nausea (units unknown) (unknown) (unknown) (no date) (unknown) (unknown) continues to have episodes of upper quadrant abdominal pains under her ribs g (units unknown) (unknown) (unknown) (no date) (unknown) (unknown) diagnosis and treatment goals of hepatic steatosis. Advised that she must (units unknown) (unknown) (unknown) (no date) (unknown) (unknown) gallbladder disease. Her labs are essentially normal. She is awaiting a HIDA (units unknown) (unknown) (unknown) (no date) (unknown) (unknown) have occurred. If there are any questions, please contact the Medical Records (units unknown) (unknown) (unknown) (no date) (unknown) (unknown) household members: children (units unknown) (unknown) (unknown) (no date) (unknown) (unknown) improved. Now that s he is off the metronidazole her nausea is much worse. Her (units unknown) (unknown) (unknown) (no date) (unknown) (unknown) maintain a negative calorie count long-term to lose weight. She has gained (units unknown) (unknown) (unknown) (no date) (unknown) (unknown) may occur. Occasiona l wrong-word or 'sound-alike' substitutions may have (units unknown) (unknown) (unknown) (no date) (unknown) (unknown) nausea actuall improved. The metronidazole did cause some bloating but that has (units unknown) (unknown) (unknown) (no date) (unknown) (unknown) no apparent distress. (units unknown) (unknown) (unknown) (no date) (unknown) (unknown) normal (units unknown) (unknown) (unknown) (no date) (unknown) (unknown) occurred due to the inherent limitations of voice recognition software. Please (units unknown) (unknown) (unknown) (no date) (unknown) (unknown) oing through to her back. She has nausea with eating and drinking. No (units unknown) (unknown) (unknown) (no date) (unknown) (unknown) read the note carefully and recognize, using context, where these substitutions (units unknown) (unknown) (unknown) (no date) (unknown) (unknown) realizes. (units unknown) (unknown) (unknown) (no date) (unknown) (unknown) scan is negative. 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 She will call (units unknown) (unknown) (unknown) (no date) (unknown) (unknown) scan. She has not be en able to identify any food triggers. (units unknown) (unknown) (unknown) (no date) (unknown) (unknown) she has gained weigh t slowly over time. (units unknown) (unknown) (unknown) (no date) (unknown) (unknown) software. Although every effort is made to edit content, dye stand loader errors (units unknown) (unknown) (unknown) (no date) (unknown) (unknown) to make the appointment (units unknown) (unknown) (unknown) (no date) (unknown) (unknown) typographical errors as a result. (units unknown) (unknown) (unknown) (no date) (unknown) (unknown) vomiting. No fevers, chills. She states that when we treated her for BV her (units unknown) (unknown) (unknown) (no date) (unknown) (unknown) which were unremarkable. (units unknown) (unknown) Result panel [id number] (unknown) (no date) (unknown) (unknown) (no value) (units unknown) (unknown) (unknown) (no date) (unknown) (unknown) (Clinical (units unknown) (unknown) (unknown) (no date) (unknown) (unknown) 05/23/22 (units unknown) (unknown) (unknown) (no date) (unknown) (unknown) [address] [place], [place] [id number] (units unknown) (unknown) (unknown) (no date) (unknown) (unknown) [id number] (units unknown) (unknown) (unknown) (no date) (unknown) (unknown) 35%. (units unknown) (unknown) (unknown) (no date) (unknown) (unknown) Accession Number: [id number] (units unknown) (unknown) (unknown) (no date) (unknown) (unknown) Age/Sex: 27 / F Date of Service: (units unknown) (unknown) (unknown) (no date) (unknown) (unknown) [place] [address] (units unknown) (unknown) (unknown) (no date) (unknown) (unknown) Approved by: Deb Valdovinos M.D. on 05/23/2022 at 16:23 (units unknown) (unknown) (unknown) (no date) (unknown) (unknown) Biliary scan: There is normal tracer uptake and excretion by the liver. There (units unknown) (unknown) (unknown) (no date) (unknown) (unknown) CCK infusion. Gallbladder ejection fraction was calculated. (units unknown) (unknown) (unknown) (no date) (unknown) (unknown) CCK stimulation: The re is appropriate contractile response of the gallbladder (units unknown) (unknown) (unknown) (no date) (unknown) (unknown) COMPARISON: None. (units unknown) (unknown) (unknown) (no date) (unknown) (unknown) Caution: Report not yet finalized and possibly incomplete! (units unknown) (unknown) (unknown) (no date) (unknown) (unknown) : 1995 Acct:[id number] (units unknown) (unknown) (unknown) (no date) (unknown) (unknown) Dictated by: Deb Valdovinos M.D. on 05/23/2022 at 13:34 (units unknown) (unknown) (unknown) (no date) (unknown) (unknown) Draft (units unknown) (unknown) (unknown) (no date) (unknown) (unknown) FINDINGS: (units unknown) (unknown) (unknown) (no date) (unknown) (unknown) Following intravenou s administration of Tc-99m mebrofenin, sequential anterior (units unknown) (unknown) (unknown) (no date) (unknown) (unknown) IMPRESSION: No evidence of cholecystitis. (units unknown) (unknown) (unknown) (no date) (unknown) (unknown) INDICATIONS: upper quad abd pain. nausea after eating. normal US (units unknown) (unknown) (unknown) (no date) (unknown) (unknown) [facility] (units unknown) (unknown) (unknown) (no date) (unknown) (unknown) It has been shown th at any patient abdominal pain after CCK administration is (units unknown) (unknown) (unknown) (no date) (unknown) (unknown) Loc: [facility] (units unknown) (unknown) (unknown) (no date) (unknown) (unknown) Nuclear Medicine 201 2; 37: 63-70. Journal of Nuclear Medicine 2014; 55: 1-9). (units unknown) (unknown) (unknown) (no date) (unknown) (unknown) Nuclear Medicine Report (units unknown) (unknown) (unknown) (no date) (unknown) (unknown) Ordering Provider: Bessie Christie (units unknown) (unknown) (unknown) (no date) (unknown) (unknown) PHARMACEUTICAL: 5.3 mCi Tc-99m mebrofenin IV; 2.7 mcg CCK IV. (units unknown) (unknown) (unknown) (no date) (unknown) (unknown) PROCEDURE: NM HIDA WITH CCK (units unknown) (unknown) (unknown) (no date) (unknown) (unknown) Patient: Sue Gurrola MR#: [id number] (units unknown) (unknown) (unknown) (no date) (unknown) (unknown) Procedure: NM HIDA with cck (units unknown) (unknown) (unknown) (no date) (unknown) (unknown) Signed (units unknown) (unknown) (unknown) (no date) (unknown) (unknown) TECHNIQUE: (units unknown) (unknown) (unknown) (no date) (unknown) (unknown) There is (units unknown) (unknown) (unknown) (no date) (unknown) (unknown) Transcribed by: RONA I on 05/23/2022 at 13:35 (units unknown) (unknown) (unknown) (no date) (unknown) (unknown) abdominal (units unknown) (unknown) (unknown) (no date) (unknown) (unknown) are above (units unknown) (unknown) (unknown) (no date) (unknown) (unknown) images were obtained . To evaluate the contractile response of the gallbladder (units unknown) (unknown) (unknown) (no date) (unknown) (unknown) in (units unknown) (unknown) (unknown) (no date) (unknown) (unknown) infusion. The calculated gallbladder ejection fraction is 95% ; normal values (units unknown) (unknown) (unknown) (no date) (unknown) (unknown) intravenous infusion approximately 60 minutes after the administration of the (units unknown) (unknown) (unknown) (no date) (unknown) (unknown) is normal (units unknown) (unknown) (unknown) (no date) (unknown) (unknown) normal tracer transi t into the duodenum. (units unknown) (unknown) (unknown) (no date) (unknown) (unknown) radiopharmaceutical. Sequential imaging was continued for 30 minutes after the (units unknown) (unknown) (unknown) (no date) (unknown) (unknown) related to (units unknown) (unknown) (unknown) (no date) (unknown) (unknown) response to Cholecystokinin (CCK), sincalide (0.02 ?g/kg) was administered by (units unknown) (unknown) (unknown) (no date) (unknown) (unknown) slow (units unknown) (unknown) (unknown) (no date) (unknown) (unknown) start of (units unknown) (unknown) (unknown) (no date) (unknown) (unknown) the rate of CCK injection, rather than to any underlying gallbladder disease (units unknown) (unknown) (unknown) (no date) (unknown) (unknown) to CCK (units unknown) (unknown) (unknown) (no date) (unknown) (unknown) visualization of the intrahepatic ducts, common bile duct, and gallbladder. (units unknown) (unknown) Result panel 1162 (unknown) (no date) (unknown) (unknown) (no value) (units unknown) (unknown) (unknown) (no date) (unknown) (unknown) 06/16/22 (units unknown) (unknown) (unknown) (no date) (unknown) (unknown) 06/16/22] (units unknown) (unknown) (unknown) (no date) (unknown) (unknown) 08:04 (units unknown) (unknown) (unknown) (no date) (unknown) (unknown) [id number] (units unknown) (unknown) (unknown) (no date) (unknown) (unknown) 27-year-old female presents for a visit to follow-up on results of ultrasound (units unknown) (unknown) (unknown) (no date) (unknown) (unknown) Age/Sex: 27 / F Date of Service: (units unknown) (unknown) (unknown) (no date) (unknown) (unknown) Allergies (units unknown) (unknown) (unknown) (no date) (unknown) (unknown) [place] [address] (units unknown) (unknown) (unknown) (no date) (unknown) (unknown) Anxiety (units unknown) (unknown) (unknown) (no date) (unknown) (unknown) Attending Dr: Mani SAUCEDO (units unknown) (unknown) (unknown) (no date) (unknown) (unknown) BP 128/90 (units unknown) (unknown) (unknown) (no date) (unknown) (unknown) Blood Pressure Location Lt brachial (units unknown) (unknown) (unknown) (no date) (unknown) (unknown) Cervicitis (units unknown) (unknown) (unknown) (no date) (unknown) (unknown) Chief Complaint (units unknown) (unknown) (unknown) (no date) (unknown) (unknown) Chief Complaint: Follow-up HIDA scan/abdominal pain (units unknown) (unknown) (unknown) (no date) (unknown) (unknown) Common migraine (units unknown) (unknown) (unknown) (no date) (unknown) (unknown) Confirmed 06/16/22] (units unknown) (unknown) (unknown) (no date) (unknown) (unknown) : 1995 Acct:[id number] (units unknown) (unknown) (unknown) (no date) (unknown) (unknown) Depression (2013) (units unknown) (unknown) (unknown) (no date) (unknown) (unknown) Dept at . (units unknown) (unknown) (unknown) (no date) (unknown) (unknown) Details: (units unknown) (unknown) (unknown) (no date) (unknown) (unknown) Documented By: Mani Mustafa 06/16/22 0800 (units unknown) (unknown) (unknown) (no date) (unknown) (unknown) Draft (units unknown) (unknown) (unknown) (no date) (unknown) (unknown) Family Practice Offi ce Visit (units unknown) (unknown) (unknown) (no date) (unknown) (unknown) [facility] (units unknown) (unknown) (unknown) (no date) (unknown) (unknown) Gastroesophageal reflux disease (units unknown) (unknown) (unknown) (no date) (unknown) (unknown) JAYCEE olivas is schedul ed in May.? She has had a recent endoscopy and colonoscopy (units unknown) (unknown) (unknown) (no date) (unknown) (unknown) HPI (units unknown) (unknown) (unknown) (no date) (unknown) (unknown) Headache, chronic daily (units unknown) (unknown) (unknown) (no date) (unknown) (unknown) Hepatic steatosis (units unknown) (unknown) (unknown) (no date) (unknown) (unknown) History of appendectomy (units unknown) (unknown) (unknown) (no date) (unknown) (unknown) IBS (irritable bowel syndrome) (units unknown) (unknown) (unknown) (no date) (unknown) (unknown) Intake performed by: Terrie Fonseca (units unknown) (unknown) (unknown) (no date) (unknown) (unknown) Intake (units unknown) (unknown) (unknown) (no date) (unknown) (unknown) Intake- Clincial Staff (units unknown) (unknown) (unknown) (no date) (unknown) (unknown) Last Menstural Cycle + Details (units unknown) (unknown) (unknown) (no date) (unknown) (unknown) Loc: [facility] (units unknown) (unknown) (unknown) (no date) (unknown) (unknown) Medical History (Updated 05/06/22 @ 08:28 by Bessie Christie DO) (units unknown) (unknown) (unknown) (no date) (unknown) (unknown) Medications (units unknown) (unknown) (unknown) (no date) (unknown) (unknown) Morbid obesity (units unknown) (unknown) (unknown) (no date) (unknown) (unknown) No Known Drug Allergies Allergy (Verified 04/22/22 14:47) (units unknown) (unknown) (unknown) (no date) (unknown) (unknown) Other Menstrual Period: Uncertain (units unknown) (unknown) (unknown) (no date) (unknown) (unknown) Oxygen Delivery Meth od room air (units unknown) (unknown) (unknown) (no date) (unknown) (unknown) PFSH (units unknown) (unknown) (unknown) (no date) (unknown) (unknown) Patient is here to follow up on her ultrasound results.? She states that she (units unknown) (unknown) (unknown) (no date) (unknown) (unknown) Patient saw Dr. Tesha mauricio twice in April (units unknown) (unknown) (unknown) (no date) (unknown) (unknown) Patient: Sue Gurrola MR#: [id number] (units unknown) (unknown) (unknown) (no date) (unknown) (unknown) Position Sitting (units unknown) (unknown) (unknown) (no date) (unknown) (unknown) Pulse 110 H (units unknown) (unknown) (unknown) (no date) (unknown) (unknown) Pulse Oximetry (%) 98 (units unknown) (unknown) (unknown) (no date) (unknown) (unknown) Pulse Source Monitor (units unknown) (unknown) (unknown) (no date) (unknown) (unknown) Reason For Visit (units unknown) (unknown) (unknown) (no date) (unknown) (unknown) Relief) 2 spray intranasal DAILY PRN 03/25/22 [History Confirmed 06/16/22] (units unknown) (unknown) (unknown) (no date) (unknown) (unknown) She is also frustrat ed since she does not feel that she eats very much she had (units unknown) (unknown) (unknown) (no date) (unknown) (unknown) Signed By: (units unknown) (unknown) (unknown) (no date) (unknown) (unknown) Smoking Status: Mario carey smoker (units unknown) (unknown) (unknown) (no date) (unknown) (unknown) Social History (units unknown) (unknown) (unknown) (no date) (unknown) (unknown) Status post delivery (10/28/16) (units unknown) (unknown) (unknown) (no date) (unknown) (unknown) Surgical History (Updated 05/06/22 @ 08:28 by Bessie Christie DO) (units unknown) (unknown) (unknown) (no date) (unknown) (unknown) This note may have been all or partially generated using voice recognition (units unknown) (unknown) (unknown) (no date) (unknown) (unknown) Tobacco + Substance Use (units unknown) (unknown) (unknown) (no date) (unknown) (unknown) Tobacco Status (units unknown) (unknown) (unknown) (no date) (unknown) (unknown) Visit Reasons: discu ss HIDA scan results/next steps 04 (units unknown) (unknown) (unknown) (no date) (unknown) (unknown) Vitals (units unknown) (unknown) (unknown) (no date) (unknown) (unknown) albuterol sulfate 2. 5 mg/3 mL (0.083 %) solution for nebulization 2.5 mg (3 mL) (units unknown) (unknown) (unknown) (no date) (unknown) (unknown) albuterol sulfate 90 mcg/actuation aerosol inhaler (Ventolin HFA) 2 puff (units unknown) (unknown) (unknown) (no date) (unknown) (unknown) alcohol intake: current (units unknown) (unknown) (unknown) (no date) (unknown) (unknown) and HIDA scans. (units unknown) (unknown) (unknown) (no date) (unknown) (unknown) continues to have episodes of upper quadrant abdominal pains under her ribs (units unknown) (unknown) (unknown) (no date) (unknown) (unknown) fluticasone propiona te 50 mcg/actuation nasal spray,suspension (Flonase Allergy (units unknown) (unknown) (unknown) (no date) (unknown) (unknown) going through to her back.? She has nausea with eating and drinking.? No (units unknown) (unknown) (unknown) (no date) (unknown) (unknown) have occurred. If there are any questions, please contact the Medical Records (units unknown) (unknown) (unknown) (no date) (unknown) (unknown) household members: children (units unknown) (unknown) (unknown) (no date) (unknown) (unknown) improved.? Now that she is off the metronidazole her nausea is much worse.? Her (units unknown) (unknown) (unknown) (no date) (unknown) (unknown) inhalation Q4-6H PRN shortness of breath or wheezing #90 mL 05/15/21 [Rx (units unknown) (unknown) (unknown) (no date) (unknown) (unknown) inhalation Q4HP PRN shortness of breath or wheezing 03/25/22 [History Confirmed (units unknown) (unknown) (unknown) (no date) (unknown) (unknown) may occur. Occasiona l wrong-word or 'sound-alike' substitutions may have (units unknown) (unknown) (unknown) (no date) (unknown) (unknown) metronidazole 0.75 % (37.5 mg/5 gram) vaginal gel g vaginal 06/16/22 [History (units unknown) (unknown) (unknown) (no date) (unknown) (unknown) nausea actuall improved.? The metronidazole did cause some bloating but that has (units unknown) (unknown) (unknown) (no date) (unknown) (unknown) nebulizers #1 ea 05/15/21 [Rx Confirmed 06/16/22] (units unknown) (unknown) (unknown) (no date) (unknown) (unknown) occurred due to the inherent limitations of voice recognition software. Please (units unknown) (unknown) (unknown) (no date) (unknown) (unknown) ondansetron 4 mg disintegrating tablet 4 mg PO Q6-8H PRN nausea and vomiting #30 (units unknown) (unknown) (unknown) (no date) (unknown) (unknown) pantoprazole 40 mg tablet,delayed release 40 mg PO DAILY #30 tabs 06/04/22 [Rx (units unknown) (unknown) (unknown) (no date) (unknown) (unknown) read the note carefully and recognize, using context, where these substitutions (units unknown) (unknown) (unknown) (no date) (unknown) (unknown) rizatriptan 5 mg tablet See Rx Instructions PO .COMPLEX #30 tabs 02/24/22 [Rx (units unknown) (unknown) (unknown) (no date) (unknown) (unknown) sertraline PO [History Confirmed 06/16/22] (units unknown) (unknown) (unknown) (no date) (unknown) (unknown) she has gained weigh t slowly over time. (units unknown) (unknown) (unknown) (no date) (unknown) (unknown) software. Although every effort is made to edit content, dye stand loader errors (units unknown) (unknown) (unknown) (no date) (unknown) (unknown) tabs 04/25/22 [Rx Confirmed 06/16/22] (units unknown) (unknown) (unknown) (no date) (unknown) (unknown) vomiting.? No fevers , chills.? She states that when we treated her for BV her (units unknown) (unknown) (unknown) (no date) (unknown) (unknown) which were unremarkable. (units unknown) (unknown) Result panel 1163 (unknown) (no date) (unknown) (unknown) (no value) (units unknown) (unknown) (unknown) (no date) (unknown) (unknown) 06/16/22 (units unknown) (unknown) (unknown) (no date) (unknown) (unknown) 06/16/22] (units unknown) (unknown) (unknown) (no date) (unknown) (unknown) 08:04 (units unknown) (unknown) (unknown) (no date) (unknown) (unknown) 2-3 months ago N/V. (units unknown) (unknown) (unknown) (no date) (unknown) (unknown) [id number] (units unknown) (unknown) (unknown) (no date) (unknown) (unknown) 27-year-old female presents for a visit to follow-up on results of ultrasound (units unknown) (unknown) (unknown) (no date) (unknown) (unknown) Age/Sex: 27 / F Date of Service: (units unknown) (unknown) (unknown) (no date) (unknown) (unknown) Allergies (units unknown) (unknown) (unknown) (no date) (unknown) (unknown) [place] [address] (units unknown) (unknown) (unknown) (no date) (unknown) (unknown) Anxiety (units unknown) (unknown) (unknown) (no date) (unknown) (unknown) Attending Dr: Mani SAUCEDO (units unknown) (unknown) (unknown) (no date) (unknown) (unknown) BMI 52.4 (units unknown) (unknown) (unknown) (no date) (unknown) (unknown) BP 128/90 (units unknown) (unknown) (unknown) (no date) (unknown) (unknown) Blood Pressure Location Lt brachial (units unknown) (unknown) (unknown) (no date) (unknown) (unknown) Cervicitis (units unknown) (unknown) (unknown) (no date) (unknown) (unknown) Chief Complaint (units unknown) (unknown) (unknown) (no date) (unknown) (unknown) Chief Complaint: Follow-up HIDA scan/abdominal pain (units unknown) (unknown) (unknown) (no date) (unknown) (unknown) Common migraine (units unknown) (unknown) (unknown) (no date) (unknown) (unknown) Confirmed 06/16/22] (units unknown) (unknown) (unknown) (no date) (unknown) (unknown) : 1995 Acct:[id number] (units unknown) (unknown) (unknown) (no date) (unknown) (unknown) Depression (2013) (units unknown) (unknown) (unknown) (no date) (unknown) (unknown) Dept at . (units unknown) (unknown) (unknown) (no date) (unknown) (unknown) Details: (units unknown) (unknown) (unknown) (no date) (unknown) (unknown) Documented By: Mani Mustafa 06/16/22 0800 (units unknown) (unknown) (unknown) (no date) (unknown) (unknown) Draft (units unknown) (unknown) (unknown) (no date) (unknown) (unknown) Family Practice Offi ce Visit (units unknown) (unknown) (unknown) (no date) (unknown) (unknown) [facility] (units unknown) (unknown) (unknown) (no date) (unknown) (unknown) Gastroesophageal reflux disease (units unknown) (unknown) (unknown) (no date) (unknown) (unknown) HIDA scan is schedul ed in May.? She has had a recent endoscopy and colonoscopy (units unknown) (unknown) (unknown) (no date) (unknown) (unknown) HPI (units unknown) (unknown) (unknown) (no date) (unknown) (unknown) Headache, chronic daily (units unknown) (unknown) (unknown) (no date) (unknown) (unknown) Height 162.56 cm (units unknown) (unknown) (unknown) (no date) (unknown) (unknown) Hepatic steatosis (units unknown) (unknown) (unknown) (no date) (unknown) (unknown) History of appendectomy (units unknown) (unknown) (unknown) (no date) (unknown) (unknown) IBS (irritable bowel syndrome) (units unknown) (unknown) (unknown) (no date) (unknown) (unknown) Intake performed by: Terrie Fonseca (units unknown) (unknown) (unknown) (no date) (unknown) (unknown) Intake (units unknown) (unknown) (unknown) (no date) (unknown) (unknown) Intake- Clincial Staff (units unknown) (unknown) (unknown) (no date) (unknown) (unknown) Last Menstural Cycle + Details (units unknown) (unknown) (unknown) (no date) (unknown) (unknown) Loc: [facility] (units unknown) (unknown) (unknown) (no date) (unknown) (unknown) Medical History (Updated 05/06/22 @ 08:28 by Bessie Christie DO) (units unknown) (unknown) (unknown) (no date) (unknown) (unknown) Medications (units unknown) (unknown) (unknown) (no date) (unknown) (unknown) Morbid obesity (units unknown) (unknown) (unknown) (no date) (unknown) (unknown) No Known Drug Allergies Allergy (Verified 04/22/22 14:47) (units unknown) (unknown) (unknown) (no date) (unknown) (unknown) Other Menstrual Period: Uncertain (units unknown) (unknown) (unknown) (no date) (unknown) (unknown) Oxygen Delivery Meth od room air (units unknown) (unknown) (unknown) (no date) (unknown) (unknown) PFSH (units unknown) (unknown) (unknown) (no date) (unknown) (unknown) Patient is here to follow up on her ultrasound results.? She states that she (units unknown) (unknown) (unknown) (no date) (unknown) (unknown) Patient saw Dr. Cassandra mauricio twice in April (units unknown) (unknown) (unknown) (no date) (unknown) (unknown) Patient: Sue Gurrola MR#: [id number] (units unknown) (unknown) (unknown) (no date) (unknown) (unknown) Position Sitting (units unknown) (unknown) (unknown) (no date) (unknown) (unknown) Pulse 110 H (units unknown) (unknown) (unknown) (no date) (unknown) (unknown) Pulse Oximetry (%) 98 (units unknown) (unknown) (unknown) (no date) (unknown) (unknown) Pulse Source Monitor (units unknown) (unknown) (unknown) (no date) (unknown) (unknown) Reason For Visit (units unknown) (unknown) (unknown) (no date) (unknown) (unknown) Relief) 2 spray intranasal DAILY PRN 03/25/22 [History Confirmed 06/16/22] (units unknown) (unknown) (unknown) (no date) (unknown) (unknown) She is also frustrat ed since she does not feel that she eats very much she had (units unknown) (unknown) (unknown) (no date) (unknown) (unknown) Signed By: (units unknown) (unknown) (unknown) (no date) (unknown) (unknown) Smoking Status: Mario carey smoker (units unknown) (unknown) (unknown) (no date) (unknown) (unknown) Social History (units unknown) (unknown) (unknown) (no date) (unknown) (unknown) Status post delivery (10/28/16) (units unknown) (unknown) (unknown) (no date) (unknown) (unknown) Surgical History (Updated 05/06/22 @ 08:28 by Bessie Christie DO) (units unknown) (unknown) (unknown) (no date) (unknown) (unknown) This note may have been all or partially generated using voice recognition (units unknown) (unknown) (unknown) (no date) (unknown) (unknown) Tobacco + Substance Use (units unknown) (unknown) (unknown) (no date) (unknown) (unknown) Tobacco Status (units unknown) (unknown) (unknown) (no date) (unknown) (unknown) Visit Reasons: discu ss HIDA scan results/next steps 04 (units unknown) (unknown) (unknown) (no date) (unknown) (unknown) Vitals (units unknown) (unknown) (unknown) (no date) (unknown) (unknown) Weight 138.459 kg (units unknown) (unknown) (unknown) (no date) (unknown) (unknown) albuterol sulfate 2. 5 mg/3 mL (0.083 %) solution for nebulization 2.5 mg (3 mL) (units unknown) (unknown) (unknown) (no date) (unknown) (unknown) albuterol sulfate 90 mcg/actuation aerosol inhaler (Ventolin HFA) 2 puff (units unknown) (unknown) (unknown) (no date) (unknown) (unknown) alcohol intake: current (units unknown) (unknown) (unknown) (no date) (unknown) (unknown) and HIDA scans. (units unknown) (unknown) (unknown) (no date) (unknown) (unknown) cannot eat. has not been able to eat a meal in 1 week. (units unknown) (unknown) (unknown) (no date) (unknown) (unknown) continues to have episodes of upper quadrant abdominal pains under her ribs (units unknown) (unknown) (unknown) (no date) (unknown) (unknown) fluticasone propiona te 50 mcg/actuation nasal spray,suspension (Flonase Allergy (units unknown) (unknown) (unknown) (no date) (unknown) (unknown) going through to her back.? She has nausea with eating and drinking.? No (units unknown) (unknown) (unknown) (no date) (unknown) (unknown) have occurred. If there are any questions, please contact the Medical Records (units unknown) (unknown) (unknown) (no date) (unknown) (unknown) household members: children (units unknown) (unknown) (unknown) (no date) (unknown) (unknown) improved.? Now that she is off the metronidazole her nausea is much worse.? Her (units unknown) (unknown) (unknown) (no date) (unknown) (unknown) inhalation Q4-6H PRN shortness of breath or wheezing #90 mL 05/15/21 [Rx (units unknown) (unknown) (unknown) (no date) (unknown) (unknown) inhalation Q4HP PRN shortness of breath or wheezing 03/25/22 [History Confirmed (units unknown) (unknown) (unknown) (no date) (unknown) (unknown) may occur. Occasiona l wrong-word or 'sound-alike' substitutions may have (units unknown) (unknown) (unknown) (no date) (unknown) (unknown) metronidazole 0.75 % (37.5 mg/5 gram) vaginal gel g vaginal 06/16/22 [History (units unknown) (unknown) (unknown) (no date) (unknown) (unknown) nausea actuall improved.? The metronidazole did cause some bloating but that has (units unknown) (unknown) (unknown) (no date) (unknown) (unknown) nebulizers #1 ea 05/15/21 [Rx Confirmed 06/16/22] (units unknown) (unknown) (unknown) (no date) (unknown) (unknown) occurred due to the inherent limitations of voice recognition software. Please (units unknown) (unknown) (unknown) (no date) (unknown) (unknown) ondansetron 4 mg disintegrating tablet 4 mg PO Q6-8H PRN nausea and vomiting #30 (units unknown) (unknown) (unknown) (no date) (unknown) (unknown) pantoprazole 40 mg tablet,delayed release 40 mg PO DAILY #30 tabs 06/04/22 [Rx (units unknown) (unknown) (unknown) (no date) (unknown) (unknown) read the note carefully and recognize, using context, where these substitutions (units unknown) (unknown) (unknown) (no date) (unknown) (unknown) rizatriptan 5 mg tablet See Rx Instructions PO .COMPLEX #30 tabs 12/19/22 [Rx (units unknown) (unknown) (unknown) (no date) (unknown) (unknown) sertraline PO [History Confirmed 06/16/22] (units unknown) (unknown) (unknown) (no date) (unknown) (unknown) she has gained weigh t slowly over time. (units unknown) (unknown) (unknown) (no date) (unknown) (unknown) software. Although every effort is made to edit content, dye stand loader errors (units unknown) (unknown) (unknown) (no date) (unknown) (unknown) tabs 04/25/22 [Rx Confirmed 06/16/22] (units unknown) (unknown) (unknown) (no date) (unknown) (unknown) vomiting.? No fevers , chills.? She states that when we treated her for BV her (units unknown) (unknown) (unknown) (no date) (unknown) (unknown) which were unremarkable. (units unknown) (unknown) (unknown) (no date) (unknown) (unknown) yellow greasy diarrhea. (units unknown) (unknown) Result panel [id number] (unknown) (no date) (unknown) (unknown) (no value) (units unknown) (unknown) (unknown) (no date) (unknown) (unknown) 06/16/22 (units unknown) (unknown) (unknown) (no date) (unknown) (unknown) 06/16/22] (units unknown) (unknown) (unknown) (no date) (unknown) (unknown) 08:04 (units unknown) (unknown) (unknown) (no date) (unknown) (unknown) 2-3 months ago N/V. (units unknown) (unknown) (unknown) (no date) (unknown) (unknown) [id number] (units unknown) (unknown) (unknown) (no date) (unknown) (unknown) 27-year-old female presents for a visit to follow-up on results of ultrasound (units unknown) (unknown) (unknown) (no date) (unknown) (unknown) Age/Sex: 27 / F Date of Service: (units unknown) (unknown) (unknown) (no date) (unknown) (unknown) Allergies (units unknown) (unknown) (unknown) (no date) (unknown) (unknown) [place] [id number] (units unknown) (unknown) (unknown) (no date) (unknown) (unknown) Anxiety (units unknown) (unknown) (unknown) (no date) (unknown) (unknown) Attending Dr: Mani SAUCEDO (units unknown) (unknown) (unknown) (no date) (unknown) (unknown) BMI 52.4 (units unknown) (unknown) (unknown) (no date) (unknown) (unknown) BP 128/90 (units unknown) (unknown) (unknown) (no date) (unknown) (unknown) Blood Pressure Location Lt brachial (units unknown) (unknown) (unknown) (no date) (unknown) (unknown) Cervicitis (units unknown) (unknown) (unknown) (no date) (unknown) (unknown) Chief Complaint (units unknown) (unknown) (unknown) (no date) (unknown) (unknown) Chief Complaint: Follow-up HIDA scan/abdominal pain (units unknown) (unknown) (unknown) (no date) (unknown) (unknown) Common migraine (units unknown) (unknown) (unknown) (no date) (unknown) (unknown) Confirmed 06/16/22] (units unknown) (unknown) (unknown) (no date) (unknown) (unknown) : 1995 Acct:[id number] (units unknown) (unknown) (unknown) (no date) (unknown) (unknown) Depression (2013) (units unknown) (unknown) (unknown) (no date) (unknown) (unknown) Dept at . (units unknown) (unknown) (unknown) (no date) (unknown) (unknown) Details: (units unknown) (unknown) (unknown) (no date) (unknown) (unknown) Documented By: Mani Mustafa 06/16/22 0800 (units unknown) (unknown) (unknown) (no date) (unknown) (unknown) Draft (units unknown) (unknown) (unknown) (no date) (unknown) (unknown) Family Practice Offi ce Visit (units unknown) (unknown) (unknown) (no date) (unknown) (unknown) [facility] (units unknown) (unknown) (unknown) (no date) (unknown) (unknown) Gastroesophageal reflux disease (units unknown) (unknown) (unknown) (no date) (unknown) (unknown) HIDA scan is schedul ed in May.? She has had a recent endoscopy and colonoscopy (units unknown) (unknown) (unknown) (no date) (unknown) (unknown) HPI (units unknown) (unknown) (unknown) (no date) (unknown) (unknown) Headache, chronic daily (units unknown) (unknown) (unknown) (no date) (unknown) (unknown) Height 162.56 cm (units unknown) (unknown) (unknown) (no date) (unknown) (unknown) Hepatic steatosis (units unknown) (unknown) (unknown) (no date) (unknown) (unknown) History of appendectomy (units unknown) (unknown) (unknown) (no date) (unknown) (unknown) IBS (irritable bowel syndrome) (units unknown) (unknown) (unknown) (no date) (unknown) (unknown) Intake performed by: Terrie Fonseca (units unknown) (unknown) (unknown) (no date) (unknown) (unknown) Intake (units unknown) (unknown) (unknown) (no date) (unknown) (unknown) Intake- Clincial Staff (units unknown) (unknown) (unknown) (no date) (unknown) (unknown) Last Menstural Cycle + Details (units unknown) (unknown) (unknown) (no date) (unknown) (unknown) Loc: [facility] (units unknown) (unknown) (unknown) (no date) (unknown) (unknown) Medical History (Updated 05/06/22 @ 08:28 by Bessie Christie DO) (units unknown) (unknown) (unknown) (no date) (unknown) (unknown) Medications (units unknown) (unknown) (unknown) (no date) (unknown) (unknown) Morbid obesity (units unknown) (unknown) (unknown) (no date) (unknown) (unknown) No Known Drug Allergies Allergy (Verified 04/22/22 14:47) (units unknown) (unknown) (unknown) (no date) (unknown) (unknown) Other Menstrual Period: Uncertain (units unknown) (unknown) (unknown) (no date) (unknown) (unknown) Oxygen Delivery Meth od room air (units unknown) (unknown) (unknown) (no date) (unknown) (unknown) PFSH (units unknown) (unknown) (unknown) (no date) (unknown) (unknown) Patient is here to follow up on her ultrasound results.? She states that she (units unknown) (unknown) (unknown) (no date) (unknown) (unknown) Patient saw Dr. Cassandra mauricio twice in April (units unknown) (unknown) (unknown) (no date) (unknown) (unknown) Patient: Sue uGrrola MR#: [id number] (units unknown) (unknown) (unknown) (no date) (unknown) (unknown) Position Sitting (units unknown) (unknown) (unknown) (no date) (unknown) (unknown) Pulse 110 H (units unknown) (unknown) (unknown) (no date) (unknown) (unknown) Pulse Oximetry (%) 98 (units unknown) (unknown) (unknown) (no date) (unknown) (unknown) Pulse Source Monitor (units unknown) (unknown) (unknown) (no date) (unknown) (unknown) Reason For Visit (units unknown) (unknown) (unknown) (no date) (unknown) (unknown) Relief) 2 spray intranasal DAILY PRN 03/25/22 [History Confirmed 06/16/22] (units unknown) (unknown) (unknown) (no date) (unknown) (unknown) She is also frustrat ed since she does not feel that she eats very much she had (units unknown) (unknown) (unknown) (no date) (unknown) (unknown) Signed By: (units unknown) (unknown) (unknown) (no date) (unknown) (unknown) Smoking Status: Mario carey smoker (units unknown) (unknown) (unknown) (no date) (unknown) (unknown) Social History (units unknown) (unknown) (unknown) (no date) (unknown) (unknown) Status post delivery (10/28/16) (units unknown) (unknown) (unknown) (no date) (unknown) (unknown) Surgical History (Updated 05/06/22 @ 08:28 by Bessie Christie DO) (units unknown) (unknown) (unknown) (no date) (unknown) (unknown) This note may have been all or partially generated using voice recognition (units unknown) (unknown) (unknown) (no date) (unknown) (unknown) Tobacco + Substance Use (units unknown) (unknown) (unknown) (no date) (unknown) (unknown) Tobacco Status (units unknown) (unknown) (unknown) (no date) (unknown) (unknown) Visit Reasons: discu ss HIDA scan results/next steps 04 (units unknown) (unknown) (unknown) (no date) (unknown) (unknown) Vitals (units unknown) (unknown) (unknown) (no date) (unknown) (unknown) Weight 138.459 kg (units unknown) (unknown) (unknown) (no date) (unknown) (unknown) albuterol sulfate 2. 5 mg/3 mL (0.083 %) solution for nebulization 2.5 mg (3 mL) (units unknown) (unknown) (unknown) (no date) (unknown) (unknown) albuterol sulfate 90 mcg/actuation aerosol inhaler (Ventolin HFA) 2 puff (units unknown) (unknown) (unknown) (no date) (unknown) (unknown) alcohol intake: current (units unknown) (unknown) (unknown) (no date) (unknown) (unknown) and HIDA scans. (units unknown) (unknown) (unknown) (no date) (unknown) (unknown) cannot eat. has not been able to eat a meal in 1 week. (units unknown) (unknown) (unknown) (no date) (unknown) (unknown) continues to have episodes of upper quadrant abdominal pains under her ribs (units unknown) (unknown) (unknown) (no date) (unknown) (unknown) fluticasone propiona te 50 mcg/actuation nasal spray,suspension (Flonase Allergy (units unknown) (unknown) (unknown) (no date) (unknown) (unknown) going through to her back.? She has nausea with eating and drinking.? No (units unknown) (unknown) (unknown) (no date) (unknown) (unknown) hard to eat for weeks. (units unknown) (unknown) (unknown) (no date) (unknown) (unknown) has had yellow liqui d diarrhea yesterday, about 4 BMs in past week. (units unknown) (unknown) (unknown) (no date) (unknown) (unknown) have occurred. If there are any questions, please contact the Medical Records (units unknown) (unknown) (unknown) (no date) (unknown) (unknown) household members: children (units unknown) (unknown) (unknown) (no date) (unknown) (unknown) improved.? Now that she is off the metronidazole her nausea is much worse.? Her (units unknown) (unknown) (unknown) (no date) (unknown) (unknown) inhalation Q4-6H PRN shortness of breath or wheezing #90 mL 05/15/21 [Rx (units unknown) (unknown) (unknown) (no date) (unknown) (unknown) inhalation Q4HP PRN shortness of breath or wheezing 03/25/22 [History Confirmed (units unknown) (unknown) (unknown) (no date) (unknown) (unknown) may occur. Occasiona l wrong-word or 'sound-alike' substitutions may have (units unknown) (unknown) (unknown) (no date) (unknown) (unknown) metronidazole 0.75 % (37.5 mg/5 gram) vaginal gel g vaginal 06/16/22 [History (units unknown) (unknown) (unknown) (no date) (unknown) (unknown) nausea actuall improved.? The metronidazole did cause some bloating but that has (units unknown) (unknown) (unknown) (no date) (unknown) (unknown) nebulizers #1 ea 05/15/21 [Rx Confirmed 06/16/22] (units unknown) (unknown) (unknown) (no date) (unknown) (unknown) occurred due to the inherent limitations of voice recognition software. Please (units unknown) (unknown) (unknown) (no date) (unknown) (unknown) ondansetron 4 mg disintegrating tablet 4 mg PO Q6-8H PRN nausea and vomiting #30 (units unknown) (unknown) (unknown) (no date) (unknown) (unknown) pantoprazole 40 mg tablet,delayed release 40 mg PO DAILY #30 tabs 06/04/22 [Rx (units unknown) (unknown) (unknown) (no date) (unknown) (unknown) read the note carefully and recognize, using context, where these substitutions (units unknown) (unknown) (unknown) (no date) (unknown) (unknown) rizatriptan 5 mg tablet See Rx Instructions PO .COMPLEX #30 tabs 02/24/22 [Rx (units unknown) (unknown) (unknown) (no date) (unknown) (unknown) sertraline PO [History Confirmed 06/16/22] (units unknown) (unknown) (unknown) (no date) (unknown) (unknown) severe nausea, zofra n and tums past week. (units unknown) (unknown) (unknown) (no date) (unknown) (unknown) she has gained weigh t slowly over time. (units unknown) (unknown) (unknown) (no date) (unknown) (unknown) software. Although every effort is made to edit content, dye stand loader errors (units unknown) (unknown) (unknown) (no date) (unknown) (unknown) tabs 04/25/22 [Rx Confirmed 06/16/22] (units unknown) (unknown) (unknown) (no date) (unknown) (unknown) vomiting.? No fevers , chills.? She states that when we treated her for BV her (units unknown) (unknown) (unknown) (no date) (unknown) (unknown) which were unremarkable. (units unknown) (unknown) (unknown) (no date) (unknown) (unknown) yellow greasy diarrhea. (units unknown) (unknown) Result panel [id number] (unknown) (no date) (unknown) (unknown) (no value) (units unknown) (unknown) (unknown) (no date) (unknown) (unknown) 06/16/22 (units unknown) (unknown) (unknown) (no date) (unknown) (unknown) 06/16/22] (units unknown) (unknown) (unknown) (no date) (unknown) (unknown) 08:04 (units unknown) (unknown) (unknown) (no date) (unknown) (unknown) 2-3 months ago N/V. (units unknown) (unknown) (unknown) (no date) (unknown) (unknown) [id number] (units unknown) (unknown) (unknown) (no date) (unknown) (unknown) 27 Y/O Female presen t today to follow up after having a HIDA scan. She states (units unknown) (unknown) (unknown) (no date) (unknown) (unknown) 27-year-old female presents for a visit to follow-up on results of ultrasound (units unknown) (unknown) (unknown) (no date) (unknown) (unknown) Age/Sex: 27 / F Date of Service: (units unknown) (unknown) (unknown) (no date) (unknown) (unknown) Allergies (units unknown) (unknown) (unknown) (no date) (unknown) (unknown) [place] [id number] (units unknown) (unknown) (unknown) (no date) (unknown) (unknown) Anxiety (units unknown) (unknown) (unknown) (no date) (unknown) (unknown) Attending Dr: Mani SAUCEDO (units unknown) (unknown) (unknown) (no date) (unknown) (unknown) BMI 52.4 (units unknown) (unknown) (unknown) (no date) (unknown) (unknown) BP 128/90 (units unknown) (unknown) (unknown) (no date) (unknown) (unknown) Blood Pressure Location Lt brachial (units unknown) (unknown) (unknown) (no date) (unknown) (unknown) Cervicitis (units unknown) (unknown) (unknown) (no date) (unknown) (unknown) Chief Complaint (units unknown) (unknown) (unknown) (no date) (unknown) (unknown) Chief Complaint: Follow-up HIDA scan/abdominal pain (units unknown) (unknown) (unknown) (no date) (unknown) (unknown) Common migraine (units unknown) (unknown) (unknown) (no date) (unknown) (unknown) Confirmed 06/16/22] (units unknown) (unknown) (unknown) (no date) (unknown) (unknown) : 1995 Acct:[id number] (units unknown) (unknown) (unknown) (no date) (unknown) (unknown) Depression (2013) (units unknown) (unknown) (unknown) (no date) (unknown) (unknown) Dept at . (units unknown) (unknown) (unknown) (no date) (unknown) (unknown) Details: (units unknown) (unknown) (unknown) (no date) (unknown) (unknown) Documented By: Mani Mustafa 06/16/22 0800 (units unknown) (unknown) (unknown) (no date) (unknown) (unknown) Draft (units unknown) (unknown) (unknown) (no date) (unknown) (unknown) Family Practice Offi ce Visit (units unknown) (unknown) (unknown) (no date) (unknown) (unknown) [facility] (units unknown) (unknown) (unknown) (no date) (unknown) (unknown) Gastroesophageal reflux disease (units unknown) (unknown) (unknown) (no date) (unknown) (unknown) JAYCEE olivas is schedul ed in May.? She has had a recent endoscopy and colonoscopy (units unknown) (unknown) (unknown) (no date) (unknown) (unknown) HPI (units unknown) (unknown) (unknown) (no date) (unknown) (unknown) Headache, chronic daily (units unknown) (unknown) (unknown) (no date) (unknown) (unknown) Height 5 ft 4 in (units unknown) (unknown) (unknown) (no date) (unknown) (unknown) Hepatic steatosis (units unknown) (unknown) (unknown) (no date) (unknown) (unknown) History of appendectomy (units unknown) (unknown) (unknown) (no date) (unknown) (unknown) IBS (irritable bowel syndrome) (units unknown) (unknown) (unknown) (no date) (unknown) (unknown) Intake Note: (units unknown) (unknown) (unknown) (no date) (unknown) (unknown) Intake performed by: Terrie Fonseca (units unknown) (unknown) (unknown) (no date) (unknown) (unknown) Intake (units unknown) (unknown) (unknown) (no date) (unknown) (unknown) Intake- Clincial Staff (units unknown) (unknown) (unknown) (no date) (unknown) (unknown) Last Menstural Cycle + Details (units unknown) (unknown) (unknown) (no date) (unknown) (unknown) Loc: [facility] (units unknown) (unknown) (unknown) (no date) (unknown) (unknown) Medical History (Updated 05/06/22 @ 08:28 by Bessie Christie DO) (units unknown) (unknown) (unknown) (no date) (unknown) (unknown) Medications (units unknown) (unknown) (unknown) (no date) (unknown) (unknown) Morbid obesity (units unknown) (unknown) (unknown) (no date) (unknown) (unknown) No Known Drug Allergies Allergy (Verified 06/16/22 08:24) (units unknown) (unknown) (unknown) (no date) (unknown) (unknown) No fevers, chills.? She states that when we treated her for BV her nausea (units unknown) (unknown) (unknown) (no date) (unknown) (unknown) Other Menstrual Period: Uncertain (units unknown) (unknown) (unknown) (no date) (unknown) (unknown) Oxygen Delivery Meth od room air (units unknown) (unknown) (unknown) (no date) (unknown) (unknown) PFSH (units unknown) (unknown) (unknown) (no date) (unknown) (unknown) Patient is here to follow up on her ultrasound results.? She states that she (units unknown) (unknown) (unknown) (no date) (unknown) (unknown) Patient saw Dr. Cassandra mauricio twice in April (units unknown) (unknown) (unknown) (no date) (unknown) (unknown) Patient: Sue Gurrola MR#: [id number] (units unknown) (unknown) (unknown) (no date) (unknown) (unknown) Position Sitting (units unknown) (unknown) (unknown) (no date) (unknown) (unknown) Pulse 110 H (units unknown) (unknown) (unknown) (no date) (unknown) (unknown) Pulse Oximetry (%) 98 (units unknown) (unknown) (unknown) (no date) (unknown) (unknown) Pulse Source Monitor (units unknown) (unknown) (unknown) (no date) (unknown) (unknown) Reason For Visit (units unknown) (unknown) (unknown) (no date) (unknown) (unknown) Relief) 2 spray intranasal DAILY PRN 03/25/22 [History Confirmed 06/16/22] (units unknown) (unknown) (unknown) (no date) (unknown) (unknown) She is also frustrat ed since she does not feel that she eats very much she had (units unknown) (unknown) (unknown) (no date) (unknown) (unknown) Signed By: (units unknown) (unknown) (unknown) (no date) (unknown) (unknown) Smoking Status: Mario carey smoker (units unknown) (unknown) (unknown) (no date) (unknown) (unknown) Social History (units unknown) (unknown) (unknown) (no date) (unknown) (unknown) Status post delivery (10/28/16) (units unknown) (unknown) (unknown) (no date) (unknown) (unknown) Surgical History (Updated 05/06/22 @ 08:28 by Bessie Christie DO) (units unknown) (unknown) (unknown) (no date) (unknown) (unknown) This note may have been all or partially generated using voice recognition (units unknown) (unknown) (unknown) (no date) (unknown) (unknown) Tobacco + Substance Use (units unknown) (unknown) (unknown) (no date) (unknown) (unknown) Tobacco Status (units unknown) (unknown) (unknown) (no date) (unknown) (unknown) Visit Reasons: discu ss HIDA scan results/next steps 04 (units unknown) (unknown) (unknown) (no date) (unknown) (unknown) Vitals (units unknown) (unknown) (unknown) (no date) (unknown) (unknown) Weight 305 lb 4 oz (units unknown) (unknown) (unknown) (no date) (unknown) (unknown) actuall improved.? T he metronidazole did cause some bloating but that has (units unknown) (unknown) (unknown) (no date) (unknown) (unknown) albuterol sulfate 2. 5 mg/3 mL (0.083 %) solution for nebulization 2.5 mg (3 mL) (units unknown) (unknown) (unknown) (no date) (unknown) (unknown) albuterol sulfate 90 mcg/actuation aerosol inhaler (Ventolin HFA) 2 puff (units unknown) (unknown) (unknown) (no date) (unknown) (unknown) alcohol intake: current (units unknown) (unknown) (unknown) (no date) (unknown) (unknown) and HIDA scans. (units unknown) (unknown) (unknown) (no date) (unknown) (unknown) cannot eat. has not been able to eat a meal in 1 week. (units unknown) (unknown) (unknown) (no date) (unknown) (unknown) continues to have episodes of upper quadrant abdominal pains under her ribs goi (units unknown) (unknown) (unknown) (no date) (unknown) (unknown) fluticasone propiona te 50 mcg/actuation nasal spray,suspension (Flonase Allergy (units unknown) (unknown) (unknown) (no date) (unknown) (unknown) hard to eat for weeks. (units unknown) (unknown) (unknown) (no date) (unknown) (unknown) has had yellow liqui d diarrhea yesterday, about 4 BMs in past week. (units unknown) (unknown) (unknown) (no date) (unknown) (unknown) have occurred. If there are any questions, please contact the Medical Records (units unknown) (unknown) (unknown) (no date) (unknown) (unknown) household members: children (units unknown) (unknown) (unknown) (no date) (unknown) (unknown) improved.? Now that she is off the metronidazole her nausea is much worse.? Her (units unknown) (unknown) (unknown) (no date) (unknown) (unknown) inhalation Q4-6H PRN shortness of breath or wheezing #90 mL 05/15/21 [Rx (units unknown) (unknown) (unknown) (no date) (unknown) (unknown) inhalation Q4HP PRN shortness of breath or wheezing 03/25/22 [History Confirmed (units unknown) (unknown) (unknown) (no date) (unknown) (unknown) may occur. Occasiona l wrong-word or 'sound-alike' substitutions may have (units unknown) (unknown) (unknown) (no date) (unknown) (unknown) metronidazole 0.75 % (37.5 mg/5 gram) vaginal gel g vaginal 06/16/22 [History (units unknown) (unknown) (unknown) (no date) (unknown) (unknown) nebulizers #1 ea 05/15/21 [Rx Confirmed 06/16/22] (units unknown) (unknown) (unknown) (no date) (unknown) (unknown) ng through to her back.? She has nausea with eating and drinking.? No vomiting.? (units unknown) (unknown) (unknown) (no date) (unknown) (unknown) occurred due to the inherent limitations of voice recognition software. Please (units unknown) (unknown) (unknown) (no date) (unknown) (unknown) ondansetron 4 mg disintegrating tablet 4 mg PO Q6-8H PRN nausea and vomiting #30 (units unknown) (unknown) (unknown) (no date) (unknown) (unknown) pantoprazole 40 mg tablet,delayed release 40 mg PO DAILY #30 tabs 06/04/22 [Rx (units unknown) (unknown) (unknown) (no date) (unknown) (unknown) read the note carefully and recognize, using context, where these substitutions (units unknown) (unknown) (unknown) (no date) (unknown) (unknown) rizatriptan 5 mg tablet See Rx Instructions PO .COMPLEX #30 tabs 02/24/22 [Rx (units unknown) (unknown) (unknown) (no date) (unknown) (unknown) sertraline PO [History Confirmed 06/16/22] (units unknown) (unknown) (unknown) (no date) (unknown) (unknown) severe nausea, zofra n and tums past week. (units unknown) (unknown) (unknown) (no date) (unknown) (unknown) she has gained weigh t slowly over time. (units unknown) (unknown) (unknown) (no date) (unknown) (unknown) she is still not feeling well and has not been able to eat for a week. (units unknown) (unknown) (unknown) (no date) (unknown) (unknown) software. Although every effort is made to edit content, dye stand loader errors (units unknown) (unknown) (unknown) (no date) (unknown) (unknown) tabs 04/25/22 [Rx Confirmed 06/16/22] (units unknown) (unknown) (unknown) (no date) (unknown) (unknown) which were unremarkable. (units unknown) (unknown) (unknown) (no date) (unknown) (unknown) yellow greasy diarrhea. (units unknown) (unknown) Result panel [id number] (unknown) (no date) (unknown) (unknown) (no value) (units unknown) (unknown) (unknown) (no date) (unknown) (unknown) 06/16/22 (units unknown) (unknown) (unknown) (no date) (unknown) (unknown) 06/16/22] (units unknown) (unknown) (unknown) (no date) (unknown) (unknown) 08:04 (units unknown) (unknown) (unknown) (no date) (unknown) (unknown) 2-3 months ago N/V. (units unknown) (unknown) (unknown) (no date) (unknown) (unknown) [id number] (units unknown) (unknown) (unknown) (no date) (unknown) (unknown) 27 Y/O Female presen t today to follow up after having a HIDA scan. She states (units unknown) (unknown) (unknown) (no date) (unknown) (unknown) 27-year-old female presents for a visit to follow-up on results of ultrasound (units unknown) (unknown) (unknown) (no date) (unknown) (unknown) Age/Sex: 27 / F Date of Service: (units unknown) (unknown) (unknown) (no date) (unknown) (unknown) Allergies (units unknown) (unknown) (unknown) (no date) (unknown) (unknown) [place], [place] [id number] (units unknown) (unknown) (unknown) (no date) (unknown) (unknown) Anxiety (units unknown) (unknown) (unknown) (no date) (unknown) (unknown) Attending Dr: Mani SAUCEDO (units unknown) (unknown) (unknown) (no date) (unknown) (unknown) BMI 52.4 (units unknown) (unknown) (unknown) (no date) (unknown) (unknown) BP 128/90 (units unknown) (unknown) (unknown) (no date) (unknown) (unknown) Blood Pressure Location Lt brachial (units unknown) (unknown) (unknown) (no date) (unknown) (unknown) Cervicitis (units unknown) (unknown) (unknown) (no date) (unknown) (unknown) Chief Complaint (units unknown) (unknown) (unknown) (no date) (unknown) (unknown) Chief Complaint: Follow-up HIDA scan/abdominal pain (units unknown) (unknown) (unknown) (no date) (unknown) (unknown) Common migraine (units unknown) (unknown) (unknown) (no date) (unknown) (unknown) Confirmed 06/16/22] (units unknown) (unknown) (unknown) (no date) (unknown) (unknown) : 1995 Acct:[id number] (units unknown) (unknown) (unknown) (no date) (unknown) (unknown) Depression (2013) (units unknown) (unknown) (unknown) (no date) (unknown) (unknown) Dept at . (units unknown) (unknown) (unknown) (no date) (unknown) (unknown) Details: (units unknown) (unknown) (unknown) (no date) (unknown) (unknown) Documented By: Mani Mustafa 06/16/22 0800 (units unknown) (unknown) (unknown) (no date) (unknown) (unknown) Draft (units unknown) (unknown) (unknown) (no date) (unknown) (unknown) Family Practice Offi ce Visit (units unknown) (unknown) (unknown) (no date) (unknown) (unknown) [facility] (units unknown) (unknown) (unknown) (no date) (unknown) (unknown) Gastroesophageal reflux disease (units unknown) (unknown) (unknown) (no date) (unknown) (unknown) RUBIOA scan is schedul ed in May.? She has had a recent endoscopy and colonoscopy (units unknown) (unknown) (unknown) (no date) (unknown) (unknown) HPI (units unknown) (unknown) (unknown) (no date) (unknown) (unknown) Headache, chronic daily (units unknown) (unknown) (unknown) (no date) (unknown) (unknown) Height 162.56 cm (units unknown) (unknown) (unknown) (no date) (unknown) (unknown) Hepatic steatosis (units unknown) (unknown) (unknown) (no date) (unknown) (unknown) History of appendectomy (units unknown) (unknown) (unknown) (no date) (unknown) (unknown) IBS (irritable bowel syndrome) (units unknown) (unknown) (unknown) (no date) (unknown) (unknown) Intake Note: (units unknown) (unknown) (unknown) (no date) (unknown) (unknown) Intake performed by: Terrie Fonseca (units unknown) (unknown) (unknown) (no date) (unknown) (unknown) Intake (units unknown) (unknown) (unknown) (no date) (unknown) (unknown) Intake- Clincial Staff (units unknown) (unknown) (unknown) (no date) (unknown) (unknown) Last Menstural Cycle + Details (units unknown) (unknown) (unknown) (no date) (unknown) (unknown) Loc: [facility] (units unknown) (unknown) (unknown) (no date) (unknown) (unknown) Medical History (Updated 05/06/22 @ 08:28 by Bessie Christie DO) (units unknown) (unknown) (unknown) (no date) (unknown) (unknown) Medications (units unknown) (unknown) (unknown) (no date) (unknown) (unknown) Morbid obesity (units unknown) (unknown) (unknown) (no date) (unknown) (unknown) No Known Drug Allergies Allergy (Verified 06/16/22 08:24) (units unknown) (unknown) (unknown) (no date) (unknown) (unknown) Other Menstrual Period: Uncertain (units unknown) (unknown) (unknown) (no date) (unknown) (unknown) Oxygen Delivery Meth od room air (units unknown) (unknown) (unknown) (no date) (unknown) (unknown) PFSH (units unknown) (unknown) (unknown) (no date) (unknown) (unknown) Patient is here to follow up on her ultrasound results.? She states that she (units unknown) (unknown) (unknown) (no date) (unknown) (unknown) Patient saw Dr. Cassandra mauricio twice in April (units unknown) (unknown) (unknown) (no date) (unknown) (unknown) Patient: Sue Gurrola MR#: [id number] (units unknown) (unknown) (unknown) (no date) (unknown) (unknown) Position Sitting (units unknown) (unknown) (unknown) (no date) (unknown) (unknown) Pulse 110 H (units unknown) (unknown) (unknown) (no date) (unknown) (unknown) Pulse Oximetry (%) 98 (units unknown) (unknown) (unknown) (no date) (unknown) (unknown) Pulse Source Monitor (units unknown) (unknown) (unknown) (no date) (unknown) (unknown) Reason For Visit (units unknown) (unknown) (unknown) (no date) (unknown) (unknown) Relief) 2 spray intranasal DAILY PRN 03/25/22 [History Confirmed 06/16/22] (units unknown) (unknown) (unknown) (no date) (unknown) (unknown) She is also frustrat ed since she does not feel that she eats very much she had (units unknown) (unknown) (unknown) (no date) (unknown) (unknown) Signed By: (units unknown) (unknown) (unknown) (no date) (unknown) (unknown) Smoking Status: Mario carey smoker (units unknown) (unknown) (unknown) (no date) (unknown) (unknown) Social History (units unknown) (unknown) (unknown) (no date) (unknown) (unknown) Status post delivery (10/28/16) (units unknown) (unknown) (unknown) (no date) (unknown) (unknown) Surgical History (Updated 05/06/22 @ 08:28 by Bessie Christie DO) (units unknown) (unknown) (unknown) (no date) (unknown) (unknown) This note may have been all or partially generated using voice recognition (units unknown) (unknown) (unknown) (no date) (unknown) (unknown) Tobacco + Substance Use (units unknown) (unknown) (unknown) (no date) (unknown) (unknown) Tobacco Status (units unknown) (unknown) (unknown) (no date) (unknown) (unknown) Visit Reasons: discu ss HIDA scan results/next steps 04 (units unknown) (unknown) (unknown) (no date) (unknown) (unknown) Vitals (units unknown) (unknown) (unknown) (no date) (unknown) (unknown) Weight 138.459 kg (units unknown) (unknown) (unknown) (no date) (unknown) (unknown) albuterol sulfate 2. 5 mg/3 mL (0.083 %) solution for nebulization 2.5 mg (3 mL) (units unknown) (unknown) (unknown) (no date) (unknown) (unknown) albuterol sulfate 90 mcg/actuation aerosol inhaler (Ventolin HFA) 2 puff (units unknown) (unknown) (unknown) (no date) (unknown) (unknown) alcohol intake: current (units unknown) (unknown) (unknown) (no date) (unknown) (unknown) and HIDA scans. (units unknown) (unknown) (unknown) (no date) (unknown) (unknown) cannot eat. has not been able to eat a meal in 1 week. (units unknown) (unknown) (unknown) (no date) (unknown) (unknown) continues to have episodes of upper quadrant abdominal pains under her ribs (units unknown) (unknown) (unknown) (no date) (unknown) (unknown) fluticasone propiona te 50 mcg/actuation nasal spray,suspension (Flonase Allergy (units unknown) (unknown) (unknown) (no date) (unknown) (unknown) going through to her back.? She has nausea with eating and drinking.? No (units unknown) (unknown) (unknown) (no date) (unknown) (unknown) hard to eat for weeks. (units unknown) (unknown) (unknown) (no date) (unknown) (unknown) has had yellow liqui d diarrhea yesterday, about 4 BMs in past week. (units unknown) (unknown) (unknown) (no date) (unknown) (unknown) have occurred. If there are any questions, please contact the Medical Records (units unknown) (unknown) (unknown) (no date) (unknown) (unknown) household members: children (units unknown) (unknown) (unknown) (no date) (unknown) (unknown) improved.? Now that she is off the metronidazole her nausea is much worse.? Her (units unknown) (unknown) (unknown) (no date) (unknown) (unknown) inhalation Q4-6H PRN shortness of breath or wheezing #90 mL 05/15/21 [Rx (units unknown) (unknown) (unknown) (no date) (unknown) (unknown) inhalation Q4HP PRN shortness of breath or wheezing 03/25/22 [History Confirmed (units unknown) (unknown) (unknown) (no date) (unknown) (unknown) last week or 2 looks oily. (units unknown) (unknown) (unknown) (no date) (unknown) (unknown) may occur. Occasiona l wrong-word or 'sound-alike' substitutions may have (units unknown) (unknown) (unknown) (no date) (unknown) (unknown) metronidazole 0.75 % (37.5 mg/5 gram) vaginal gel g vaginal 06/16/22 [History (units unknown) (unknown) (unknown) (no date) (unknown) (unknown) nausea actuall improved.? The metronidazole did cause some bloating but that has (units unknown) (unknown) (unknown) (no date) (unknown) (unknown) nebulizers #1 ea 03/09/22 [Rx Confirmed 06/16/22] (units unknown) (unknown) (unknown) (no date) (unknown) (unknown) occurred due to the inherent limitations of voice recognition software. Please (units unknown) (unknown) (unknown) (no date) (unknown) (unknown) ondansetron 4 mg disintegrating tablet 4 mg PO Q6-8H PRN nausea and vomiting #30 (units unknown) (unknown) (unknown) (no date) (unknown) (unknown) pantoprazole 40 mg tablet,delayed release 40 mg PO DAILY #30 tabs 06/04/22 [Rx (units unknown) (unknown) (unknown) (no date) (unknown) (unknown) read the note carefully and recognize, using context, where these substitutions (units unknown) (unknown) (unknown) (no date) (unknown) (unknown) rizatriptan 5 mg tablet See Rx Instructions PO .COMPLEX #30 tabs 02/24/22 [Rx (units unknown) (unknown) (unknown) (no date) (unknown) (unknown) sertraline PO [History Confirmed 06/16/22] (units unknown) (unknown) (unknown) (no date) (unknown) (unknown) severe nausea, zofra n and tums past week. (units unknown) (unknown) (unknown) (no date) (unknown) (unknown) she has gained weigh t slowly over time. (units unknown) (unknown) (unknown) (no date) (unknown) (unknown) she is still not feeling well and has not been able to eat for a week. (units unknown) (unknown) (unknown) (no date) (unknown) (unknown) software. Although every effort is made to edit content, dye stand loader errors (units unknown) (unknown) (unknown) (no date) (unknown) (unknown) tabs 04/25/22 [Rx Confirmed 06/16/22] (units unknown) (unknown) (unknown) (no date) (unknown) (unknown) vomiting.? No fevers , chills.? She states that when we treated her for BV her (units unknown) (unknown) (unknown) (no date) (unknown) (unknown) which were unremarkable. (units unknown) (unknown) (unknown) (no date) (unknown) (unknown) yellow greasy diarrhea. (units unknown) (unknown) Result panel [id number] (unknown) (no date) (unknown) (unknown) (no value) (units unknown) (unknown) (unknown) (no date) (unknown) (unknown) (1) Epigastric pain: (units unknown) (unknown) (unknown) (no date) (unknown) (unknown) (2) RUQ pain: (units unknown) (unknown) (unknown) (no date) (unknown) (unknown) (3) Abnormal biliary HIDA scan: (units unknown) (unknown) (unknown) (no date) (unknown) (unknown) (4) Nausea + vomiting: (units unknown) (unknown) (unknown) (no date) (unknown) (unknown) (5) Hirsutism: (units unknown) (unknown) (unknown) (no date) (unknown) (unknown) (6) Amenorrhea: (units unknown) (unknown) (unknown) (no date) (unknown) (unknown) (7) Hepatic steatosis: (units unknown) (unknown) (unknown) (no date) (unknown) (unknown) - Nausea with vomiting, unspecified, R94.8 - Abnormal results of function (units unknown) (unknown) (unknown) (no date) (unknown) (unknown) 06/16/22 (units unknown) (unknown) (unknown) (no date) (unknown) (unknown) 06/16/22] (units unknown) (unknown) (unknown) (no date) (unknown) (unknown) 08:04 (units unknown) (unknown) (unknown) (no date) (unknown) (unknown) 17-OH Progesterone 1 Day L68.0 - Hirsutism, N91.2 - Amenorrhea, unspecified, (units unknown) (unknown) (unknown) (no date) (unknown) (unknown) 2-3 months ago N/V. (units unknown) (unknown) (unknown) (no date) (unknown) (unknown) [id number] (units unknown) (unknown) (unknown) (no date) (unknown) (unknown) 27 Y/O Female presen t today to follow up after having a HIDA scan. She states (units unknown) (unknown) (unknown) (no date) (unknown) (unknown) 27-year-old female presents for a visit to follow-up on results of ultrasound (units unknown) (unknown) (unknown) (no date) (unknown) (unknown) Age/Sex: 27 / F Date of Service: (units unknown) (unknown) (unknown) (no date) (unknown) (unknown) Allergies (units unknown) (unknown) (unknown) (no date) (unknown) (unknown) Amylase 1 Day L68.0 - Hirsutism, N91.2 - Amenorrhea, unspecified, R10.11 - Right (units unknown) (unknown) (unknown) (no date) (unknown) (unknown) [place] [id number] (units unknown) (unknown) (unknown) (no date) (unknown) (unknown) Anxiety (units unknown) (unknown) (unknown) (no date) (unknown) (unknown) Assessment + Plan (units unknown) (unknown) (unknown) (no date) (unknown) (unknown) Attending Dr: Mani SAUCEDO (units unknown) (unknown) (unknown) (no date) (unknown) (unknown) BMI 52.4 (units unknown) (unknown) (unknown) (no date) (unknown) (unknown) BP 128/90 (units unknown) (unknown) (unknown) (no date) (unknown) (unknown) Blood Pressure Location Lt brachial (units unknown) (unknown) (unknown) (no date) (unknown) (unknown) CT abdomen pelvis wo /w con 1 Day R10.11 - Right upper quadrant pain, R10.13 (units unknown) (unknown) (unknown) (no date) (unknown) (unknown) Cervicitis (units unknown) (unknown) (unknown) (no date) (unknown) (unknown) Chief Complaint (units unknown) (unknown) (unknown) (no date) (unknown) (unknown) Chief Complaint: Follow-up HIDA scan/abdominal pain (units unknown) (unknown) (unknown) (no date) (unknown) (unknown) Common migraine (units unknown) (unknown) (unknown) (no date) (unknown) (unknown) Complete Blood Count AUTO DIFF 1 Day L68.0 - Hirsutism, N91.2 - Amenorrhea, (units unknown) (unknown) (unknown) (no date) (unknown) (unknown) Comprehensive Metabolic Panel 1 Day L68.0 - Hirsutism, N91.2 - Amenorrhea, (units unknown) (unknown) (unknown) (no date) (unknown) (unknown) Confirmed 06/16/22] (units unknown) (unknown) (unknown) (no date) (unknown) (unknown) : 1995 Acct:[id number] (units unknown) (unknown) (unknown) (no date) (unknown) (unknown) Depression (2013) (units unknown) (unknown) (unknown) (no date) (unknown) (unknown) Dept at . (units unknown) (unknown) (unknown) (no date) (unknown) (unknown) Details: (units unknown) (unknown) (unknown) (no date) (unknown) (unknown) Documented By: Mani Mustafa 06/16/22 0800 (units unknown) (unknown) (unknown) (no date) (unknown) (unknown) Draft (units unknown) (unknown) (unknown) (no date) (unknown) (unknown) Epigastric pain, R11 .2 - Nausea with vomiting, unspecified (units unknown) (unknown) (unknown) (no date) (unknown) (unknown) Epigastric pain, R11 .2 - Nausea with vomiting, unspecified, R94.8 - Abnormal (units unknown) (unknown) (unknown) (no date) (unknown) (unknown) Family Practice Offi ce Visit (units unknown) (unknown) (unknown) (no date) (unknown) (unknown) Ferritin 1 Day K76.0 - Fatty (change of) liver, not elsewhere classified (units unknown) (unknown) (unknown) (no date) (unknown) (unknown) [facility] (units unknown) (unknown) (unknown) (no date) (unknown) (unknown) Follicle Stimulating Hormone 1 Day L68.0 - Hirsutism, N91.2 - Amenorrhea, (units unknown) (unknown) (unknown) (no date) (unknown) (unknown) Gastroesophageal reflux disease (units unknown) (unknown) (unknown) (no date) (unknown) (unknown) HCG Quantitative /Be ta subunit 1 Day L68.0 - Hirsutism, N91.2 - Amenorrhea, (units unknown) (unknown) (unknown) (no date) (unknown) (unknown) HIDA scan is schedul ed in May.? She has had a recent endoscopy and colonoscopy (units unknown) (unknown) (unknown) (no date) (unknown) (unknown) HPI (units unknown) (unknown) (unknown) (no date) (unknown) (unknown) Headache, chronic daily (units unknown) (unknown) (unknown) (no date) (unknown) (unknown) Height 162.56 cm (units unknown) (unknown) (unknown) (no date) (unknown) (unknown) Hello--I placed urge nt abdominal CT order--could we please process quickly and (units unknown) (unknown) (unknown) (no date) (unknown) (unknown) Hepatic steatosis (units unknown) (unknown) (unknown) (no date) (unknown) (unknown) History of appendectomy (units unknown) (unknown) (unknown) (no date) (unknown) (unknown) IBS (irritable bowel syndrome) (units unknown) (unknown) (unknown) (no date) (unknown) (unknown) Intake Note: (units unknown) (unknown) (unknown) (no date) (unknown) (unknown) Intake performed by: Terrie Fonseca (units unknown) (unknown) (unknown) (no date) (unknown) (unknown) Intake (units unknown) (unknown) (unknown) (no date) (unknown) (unknown) Intake- Clincial Staff (units unknown) (unknown) (unknown) (no date) (unknown) (unknown) Last Menstural Cycle + Details (units unknown) (unknown) (unknown) (no date) (unknown) (unknown) Lipase 1 Day L68.0 - Hirsutism, N91.2 - Amenorrhea, unspecified, R10.11 - Right (units unknown) (unknown) (unknown) (no date) (unknown) (unknown) Loc: [facility] (units unknown) (unknown) (unknown) (no date) (unknown) (unknown) Medical History (Updated 05/06/22 @ 08:28 by Bessie Christie DO) (units unknown) (unknown) (unknown) (no date) (unknown) (unknown) Medications (units unknown) (unknown) (unknown) (no date) (unknown) (unknown) Morbid obesity (units unknown) (unknown) (unknown) (no date) (unknown) (unknown) No Known Drug Allergies Allergy (Verified 06/16/22 08:24) (units unknown) (unknown) (unknown) (no date) (unknown) (unknown) Orders (units unknown) (unknown) (unknown) (no date) (unknown) (unknown) Orders: (units unknown) (unknown) (unknown) (no date) (unknown) (unknown) Other Menstrual Period: Uncertain (units unknown) (unknown) (unknown) (no date) (unknown) (unknown) Oxygen Delivery Meth od room air (units unknown) (unknown) (unknown) (no date) (unknown) (unknown) PFSH (units unknown) (unknown) (unknown) (no date) (unknown) (unknown) Patient is here to follow up on her ultrasound results.? She states that she (units unknown) (unknown) (unknown) (no date) (unknown) (unknown) Patient saw Dr. Cassandra mauricio twice in April (units unknown) (unknown) (unknown) (no date) (unknown) (unknown) Patient: Sue Gurrola MR#: [id number] (units unknown) (unknown) (unknown) (no date) (unknown) (unknown) Position Sitting (units unknown) (unknown) (unknown) (no date) (unknown) (unknown) Prolactin 1 Day L68. 0 - Hirsutism, N91.2 - Amenorrhea, unspecified, R10.11 (units unknown) (unknown) (unknown) (no date) (unknown) (unknown) Pulse 110 H (units unknown) (unknown) (unknown) (no date) (unknown) (unknown) Pulse Oximetry (%) 98 (units unknown) (unknown) (unknown) (no date) (unknown) (unknown) Pulse Source Monitor (units unknown) (unknown) (unknown) (no date) (unknown) (unknown) R10.11 - Right upper quadrant pain, R10.13 - Epigastric pain, R11.2 - Nausea (units unknown) (unknown) (unknown) (no date) (unknown) (unknown) Reason For Visit (units unknown) (unknown) (unknown) (no date) (unknown) (unknown) Referral General Surgery R10.11 - Right upper quadrant pain, R10.13 (units unknown) (unknown) (unknown) (no date) (unknown) (unknown) Referrals (units unknown) (unknown) (unknown) (no date) (unknown) (unknown) Relief) 2 spray intranasal DAILY PRN 03/25/22 [History Confirmed 06/16/22] (units unknown) (unknown) (unknown) (no date) (unknown) (unknown) Right upper quadrant pain, R10.13 - Epigastric pain, R11.2 - Nausea with (units unknown) (unknown) (unknown) (no date) (unknown) (unknown) She is also frustrat ed since she does not feel that she eats very much she had (units unknown) (unknown) (unknown) (no date) (unknown) (unknown) Signed By: (units unknown) (unknown) (unknown) (no date) (unknown) (unknown) Smoking Status: Mario carey smoker (units unknown) (unknown) (unknown) (no date) (unknown) (unknown) Social History (units unknown) (unknown) (unknown) (no date) (unknown) (unknown) Status post delivery (10/28/16) (units unknown) (unknown) (unknown) (no date) (unknown) (unknown) Status: Acute (units unknown) (unknown) (unknown) (no date) (unknown) (unknown) Surgical History (Updated 05/06/22 @ 08:28 by Bessie Christie DO) (units unknown) (unknown) (unknown) (no date) (unknown) (unknown) TSH w/ Reflex to FT4 1 Day L68.0 - Hirsutism, N91.2 - Amenorrhea, unspecified, (units unknown) (unknown) (unknown) (no date) (unknown) (unknown) Testosterone 1 Day L68.0 - Hirsutism, N91.2 - Amenorrhea, unspecified, R10.11 (units unknown) (unknown) (unknown) (no date) (unknown) (unknown) This note may have been all or partially generated using voice recognition (units unknown) (unknown) (unknown) (no date) (unknown) (unknown) Tobacco + Substance Use (units unknown) (unknown) (unknown) (no date) (unknown) (unknown) Tobacco Status (units unknown) (unknown) (unknown) (no date) (unknown) (unknown) Visit Reasons: discu ss HIDA scan results/next steps 04 (units unknown) (unknown) (unknown) (no date) (unknown) (unknown) Vitals (units unknown) (unknown) (unknown) (no date) (unknown) (unknown) Weight 138.459 kg (units unknown) (unknown) (unknown) (no date) (unknown) (unknown) albuterol sulfate 2. 5 mg/3 mL (0.083 %) solution for nebulization 2.5 mg (3 mL) (units unknown) (unknown) (unknown) (no date) (unknown) (unknown) albuterol sulfate 90 mcg/actuation aerosol inhaler (Ventolin HFA) 2 puff (units unknown) (unknown) (unknown) (no date) (unknown) (unknown) alcohol intake: current (units unknown) (unknown) (unknown) (no date) (unknown) (unknown) and HIDA scans. (units unknown) (unknown) (unknown) (no date) (unknown) (unknown) cannot eat. has not been able to eat a meal in 1 week. (units unknown) (unknown) (unknown) (no date) (unknown) (unknown) continues to have episodes of upper quadrant abdominal pains under her ribs (units unknown) (unknown) (unknown) (no date) (unknown) (unknown) diffuse ttp epigastric, murphys positive. referred surg, new labs, CT. (units unknown) (unknown) (unknown) (no date) (unknown) (unknown) fluticasone propiona te 50 mcg/actuation nasal spray,suspension (Flonase Allergy (units unknown) (unknown) (unknown) (no date) (unknown) (unknown) going through to her back.? She has nausea with eating and drinking.? No (units unknown) (unknown) (unknown) (no date) (unknown) (unknown) hard to eat for weeks. (units unknown) (unknown) (unknown) (no date) (unknown) (unknown) has had yellow liqui d diarrhea yesterday, about 4 BMs in past week. (units unknown) (unknown) (unknown) (no date) (unknown) (unknown) have occurred. If there are any questions, please contact the Medical Records (units unknown) (unknown) (unknown) (no date) (unknown) (unknown) household members: children (units unknown) (unknown) (unknown) (no date) (unknown) (unknown) improved.? Now that she is off the metronidazole her nausea is much worse.? Her (units unknown) (unknown) (unknown) (no date) (unknown) (unknown) inhalation Q4-6H PRN shortness of breath or wheezing #90 mL 05/15/21 [Rx (units unknown) (unknown) (unknown) (no date) (unknown) (unknown) inhalation Q4HP PRN shortness of breath or wheezing 03/25/22 [History Confirmed (units unknown) (unknown) (unknown) (no date) (unknown) (unknown) last week or 2 looks oily. (units unknown) (unknown) (unknown) (no date) (unknown) (unknown) may occur. Occasiona l wrong-word or 'sound-alike' substitutions may have (units unknown) (unknown) (unknown) (no date) (unknown) (unknown) menses 2 weeks late x 3 cycles. dark hair abdomen and moustache. (units unknown) (unknown) (unknown) (no date) (unknown) (unknown) metronidazole 0.75 % (37.5 mg/5 gram) vaginal gel g vaginal 06/16/22 [History (units unknown) (unknown) (unknown) (no date) (unknown) (unknown) nausea actuall improved.? The metronidazole did cause some bloating but that has (units unknown) (unknown) (unknown) (no date) (unknown) (unknown) nebulizers #1 ea 05/15/21 [Rx Confirmed 06/16/22] (units unknown) (unknown) (unknown) (no date) (unknown) (unknown) occurred due to the inherent limitations of voice recognition software. Please (units unknown) (unknown) (unknown) (no date) (unknown) (unknown) ondansetron 4 mg disintegrating tablet 4 mg PO Q6-8H PRN nausea and vomiting #30 (units unknown) (unknown) (unknown) (no date) (unknown) (unknown) organs and systems (units unknown) (unknown) (unknown) (no date) (unknown) (unknown) other organs and systems (units unknown) (unknown) (unknown) (no date) (unknown) (unknown) pantoprazole 40 mg tablet,delayed release 40 mg PO DAILY #30 tabs 06/04/22 [Rx (units unknown) (unknown) (unknown) (no date) (unknown) (unknown) read the note carefully and recognize, using context, where these substitutions (units unknown) (unknown) (unknown) (no date) (unknown) (unknown) results of function studies of other organs and systems (units unknown) (unknown) (unknown) (no date) (unknown) (unknown) rizatriptan 5 mg tablet See Rx Instructions PO .COMPLEX #30 tabs 02/24/22 [Rx (units unknown) (unknown) (unknown) (no date) (unknown) (unknown) sertraline PO [History Confirmed 06/16/22] (units unknown) (unknown) (unknown) (no date) (unknown) (unknown) severe nausea, zofra n and tums past week. (units unknown) (unknown) (unknown) (no date) (unknown) (unknown) she has gained weigh t slowly over time. (units unknown) (unknown) (unknown) (no date) (unknown) (unknown) she is still not feeling well and has not been able to eat for a week. (units unknown) (unknown) (unknown) (no date) (unknown) (unknown) software. Although every effort is made to edit content, dye stand loader errors (units unknown) (unknown) (unknown) (no date) (unknown) (unknown) studies of other organs and systems (units unknown) (unknown) (unknown) (no date) (unknown) (unknown) systems (units unknown) (unknown) (unknown) (no date) (unknown) (unknown) tabs 04/25/22 [Rx Confirmed 06/16/22] (units unknown) (unknown) (unknown) (no date) (unknown) (unknown) then let pt know onc e approved so she may schedule it? She understands this (units unknown) (unknown) (unknown) (no date) (unknown) (unknown) unspecified, R10.11 - Right upper quadrant pain, R10.13 - Epigastric pain, R11.2 (units unknown) (unknown) (unknown) (no date) (unknown) (unknown) unspecified, R94.8 - Abnormal results of function studies of other organs and (units unknown) (unknown) (unknown) (no date) (unknown) (unknown) upper quadrant pain, R10.13 - Epigastric pain, R11.2 - Nausea with vomiting, (units unknown) (unknown) (unknown) (no date) (unknown) (unknown) vomiting, unspecifie d, R94.8 - Abnormal results of function studies of other (units unknown) (unknown) (unknown) (no date) (unknown) (unknown) vomiting.? No fevers , chills.? She states that when we treated her for BV her (units unknown) (unknown) (unknown) (no date) (unknown) (unknown) which were unremarkable. (units unknown) (unknown) (unknown) (no date) (unknown) (unknown) will likely take >24 hours. thanks! (units unknown) (unknown) (unknown) (no date) (unknown) (unknown) with vomiting, unspecified, R94.8 - Abnormal results of function studies of (units unknown) (unknown) (unknown) (no date) (unknown) (unknown) yellow greasy diarrhea. (units unknown) (unknown) Result panel 1168 (unknown) (no date) (unknown) (unknown) 41 ng/dl 1668-3 (unknown) (no date) (unknown) (unknown) 41 ng/dl (unknown) Result panel 1169 (unknown) (no date) (unknown) (unknown) 0 /ul (unknown) (unknown) (no date) (unknown) (unknown) 0.5 % (unknown) (unknown) (no date) (unknown) (unknown) 1.9 % (unknown) (unknown) (no date) (unknown) (unknown) 100 /ul (unknown) (unknown) (no date) (unknown) (unknown) 13.3 % (unknown) (unknown) (no date) (unknown) (unknown) 14.2 g/dl (unknown) (unknown) (no date) (unknown) (unknown) 28.1 pg (unknown) (unknown) (no date) (unknown) (unknown) 2800 /ul (unknown) (unknown) (no date) (unknown) (unknown) 33.8 % (unknown) (unknown) (no date) (unknown) (unknown) 336 x10 3/ul (unknown) (unknown) (no date) (unknown) (unknown) 38.0 % (unknown) (unknown) (no date) (unknown) (unknown) 3900 /ul (unknown) (unknown) (no date) (unknown) (unknown) 42.1 % (unknown) (unknown) (no date) (unknown) (unknown) 5.07 x10 6/ul (unknown) (unknown) (no date) (unknown) (unknown) 500 /ul (unknown) (unknown) (no date) (unknown) (unknown) 52.3 % (unknown) (unknown) (no date) (unknown) (unknown) 7.3 % (unknown) (unknown) (no date) (unknown) (unknown) 7.5 x10 3/ul (unknown) (unknown) (no date) (unknown) (unknown) 83.1 fl (unknown) Result panel 1170 (unknown) (no date) (unknown) (unknown) > 60 ml/min (unknown) (unknown) (no date) (unknown) (unknown) > 60 ml/min (unknown) (unknown) (no date) (unknown) (unknown) 0.3 mg/dl (unknown) (unknown) (no date) (unknown) (unknown) 0.77 mg/dl (unknown) (unknown) (no date) (unknown) (unknown) 1.2 (units unknown) (unknown) (unknown) (no date) (unknown) (unknown) 11 mg/dl (unknown) (unknown) (no date) (unknown) (unknown) 138 mmol/l (unknown) (unknown) (no date) (unknown) (unknown) 14.3 (units unknown) (unknown) (unknown) (no date) (unknown) (unknown) 25 iu/l (unknown) (unknown) (no date) (unknown) (unknown) 27 iu/l (unknown) (unknown) (no date) (unknown) (unknown) 3.4 g/dl (unknown) (unknown) (no date) (unknown) (unknown) 31 mmol/l (unknown) (unknown) (no date) (unknown) (unknown) 4.1 g/dl (unknown) (unknown) (no date) (unknown) (unknown) 4.3 mmol/l (unknown) (unknown) (no date) (unknown) (unknown) 48 u/l (unknown) (unknown) (no date) (unknown) (unknown) 53 u/l (unknown) (unknown) (no date) (unknown) (unknown) 7.5 g/dl (unknown) (unknown) (no date) (unknown) (unknown) 83 u/l (unknown) (unknown) (no date) (unknown) (unknown) 9.3 mg/dl (unknown) (unknown) (no date) (unknown) (unknown) 99 mg/dl (unknown) (unknown) (no date) (unknown) (unknown) 99 mg/dl (unknown) (unknown) (no date) (unknown) (unknown) 99 mmol/l (unknown) Result panel 1171 (unknown) (no date) (unknown) (unknown) > 60 ml/min (unknown) (unknown) (no date) (unknown) (unknown) > 60 ml/min (unknown) (unknown) (no date) (unknown) (unknown) < 2.4 miu/ml (unknown) (unknown) (no date) (unknown) (unknown) < 2.4 miu/ml (unknown) (unknown) (no date) (unknown) (unknown) 0.3 mg/dl (unknown) (unknown) (no date) (unknown) (unknown) 0.77 mg/dl (unknown) (unknown) (no date) (unknown) (unknown) 1.2 (units unknown) (unknown) (unknown) (no date) (unknown) (unknown) 11 mg/dl (unknown) (unknown) (no date) (unknown) (unknown) 138 mmol/l (unknown) (unknown) (no date) (unknown) (unknown) 14.3 (units unknown) (unknown) (unknown) (no date) (unknown) (unknown) 14.8 ng/ml (unknown) (unknown) (no date) (unknown) (unknown) 25 iu/l (unknown) (unknown) (no date) (unknown) (unknown) 27 iu/l (unknown) (unknown) (no date) (unknown) (unknown) 3.4 g/dl (unknown) (unknown) (no date) (unknown) (unknown) 31 mmol/l (unknown) (unknown) (no date) (unknown) (unknown) 4.1 g/dl (unknown) (unknown) (no date) (unknown) (unknown) 4.3 mmol/l (unknown) (unknown) (no date) (unknown) (unknown) 48 u/l (unknown) (unknown) (no date) (unknown) (unknown) 53 u/l (unknown) (unknown) (no date) (unknown) (unknown) 7.5 g/dl (unknown) (unknown) (no date) (unknown) (unknown) 83 u/l (unknown) (unknown) (no date) (unknown) (unknown) 9.3 mg/dl (unknown) (unknown) (no date) (unknown) (unknown) 99 mg/dl (unknown) (unknown) (no date) (unknown) (unknown) 99 mg/dl (unknown) (unknown) (no date) (unknown) (unknown) 99 mmol/l (unknown) Result panel 1172 (unknown) (no date) (unknown) (unknown) 1.86 uiu/ml (unknown) (unknown) (no date) (unknown) (unknown) 4.45 miu/ml (unknown) (unknown) (no date) (unknown) (unknown) 4.45 miu/ml (unknown) Result panel 1173 (unknown) (no date) (unknown) (unknown) > 60 ml/min (unknown) (unknown) (no date) (unknown) (unknown) > 60 ml/min (unknown) (unknown) (no date) (unknown) (unknown) < 2.4 miu/ml (unknown) (unknown) (no date) (unknown) (unknown) < 2.4 miu/ml (unknown) (unknown) (no date) (unknown) (unknown) 0.3 mg/dl (unknown) (unknown) (no date) (unknown) (unknown) 0.77 mg/dl (unknown) (unknown) (no date) (unknown) (unknown) 1.2 (units unknown) (unknown) (unknown) (no date) (unknown) (unknown) 11 mg/dl (unknown) (unknown) (no date) (unknown) (unknown) 138 mmol/l (unknown) (unknown) (no date) (unknown) (unknown) 14.3 (units unknown) (unknown) (unknown) (no date) (unknown) (unknown) 14.8 ng/ml (unknown) (unknown) (no date) (unknown) (unknown) 19 ng/ml (unknown) (unknown) (no date) (unknown) (unknown) 22.4 ng/dl (unknown) (unknown) (no date) (unknown) (unknown) 25 iu/l (unknown) (unknown) (no date) (unknown) (unknown) 27 iu/l (unknown) (unknown) (no date) (unknown) (unknown) 3.4 g/dl (unknown) (unknown) (no date) (unknown) (unknown) 31 mmol/l (unknown) (unknown) (no date) (unknown) (unknown) 4.1 g/dl (unknown) (unknown) (no date) (unknown) (unknown) 4.3 mmol/l (unknown) (unknown) (no date) (unknown) (unknown) 48 u/l (unknown) (unknown) (no date) (unknown) (unknown) 53 u/l (unknown) (unknown) (no date) (unknown) (unknown) 7.5 g/dl (unknown) (unknown) (no date) (unknown) (unknown) 83 u/l (unknown) (unknown) (no date) (unknown) (unknown) 9.3 mg/dl (unknown) (unknown) (no date) (unknown) (unknown) 99 mg/dl (unknown) (unknown) (no date) (unknown) (unknown) 99 mg/dl (unknown) (unknown) (no date) (unknown) (unknown) 99 mmol/l (unknown) Result panel 1174 (unknown) (no date) (unknown) (unknown) (no value) (units unknown) (unknown) (unknown) (no date) (unknown) (unknown) (1) Epigastric pain: (units unknown) (unknown) (unknown) (no date) (unknown) (unknown) (2) RUQ pain: (units unknown) (unknown) (unknown) (no date) (unknown) (unknown) (3) Abnormal biliary HIDA scan: (units unknown) (unknown) (unknown) (no date) (unknown) (unknown) (4) Nausea + vomiting: (units unknown) (unknown) (unknown) (no date) (unknown) (unknown) (5) Hirsutism: (units unknown) (unknown) (unknown) (no date) (unknown) (unknown) (6) Amenorrhea: (units unknown) (unknown) (unknown) (no date) (unknown) (unknown) (7) Hepatic steatosis: (units unknown) (unknown) (unknown) (no date) (unknown) (unknown) - Nausea with vomiting, unspecified, R94.8 - Abnormal results of function (units unknown) (unknown) (unknown) (no date) (unknown) (unknown) 06/16/22 (units unknown) (unknown) (unknown) (no date) (unknown) (unknown) 06/16/22] (units unknown) (unknown) (unknown) (no date) (unknown) (unknown) 08:04 (units unknown) (unknown) (unknown) (no date) (unknown) (unknown) 17-OH Progesterone Today L68.0 - Hirsutism, N91.2 - Amenorrhea, unspecified, (units unknown) (unknown) (unknown) (no date) (unknown) (unknown) 2-3 months ago N/V. (units unknown) (unknown) (unknown) (no date) (unknown) (unknown) [address] (units unknown) (unknown) (unknown) (no date) (unknown) (unknown) 27 Y/O Female presen t today to follow up after having a HIDA scan. She states (units unknown) (unknown) (unknown) (no date) (unknown) (unknown) 27-year-old female presents for a visit to follow-up on results of ultrasound (units unknown) (unknown) (unknown) (no date) (unknown) (unknown) 4 bowel movements in the past week, each of these appearing yellow and liquid (units unknown) (unknown) (unknown) (no date) (unknown) (unknown) Affect: normal affect (units unknown) (unknown) (unknown) (no date) (unknown) (unknown) Age/Sex: 27 / F Date of Service: (units unknown) (unknown) (unknown) (no date) (unknown) (unknown) All systems reviewed + are unremarkable except as noted in HPI and below (units unknown) (unknown) (unknown) (no date) (unknown) (unknown) Allergies (units unknown) (unknown) (unknown) (no date) (unknown) (unknown) Amylase Today L68.0 - Hirsutism, N91.2 - Amenorrhea, unspecified, R10.11 - Right (units unknown) (unknown) (unknown) (no date) (unknown) (unknown) [place] [address] (units unknown) (unknown) (unknown) (no date) (unknown) (unknown) Anxiety (units unknown) (unknown) (unknown) (no date) (unknown) (unknown) Appearance: grossly normal (units unknown) (unknown) (unknown) (no date) (unknown) (unknown) Assessment + Plan (units unknown) (unknown) (unknown) (no date) (unknown) (unknown) Attending Dr: Mani SAUCEDO (units unknown) (unknown) (unknown) (no date) (unknown) (unknown) Attitude: cooperative (units unknown) (unknown) (unknown) (no date) (unknown) (unknown) Auscultation: clear to auscultation bilaterally (units unknown) (unknown) (unknown) (no date) (unknown) (unknown) Auscultation: normal bowel sounds (units unknown) (unknown) (unknown) (no date) (unknown) (unknown) BMI 52.4 (units unknown) (unknown) (unknown) (no date) (unknown) (unknown) BP 128/90 (units unknown) (unknown) (unknown) (no date) (unknown) (unknown) Blood Pressure Location Lt brachial (units unknown) (unknown) (unknown) (no date) (unknown) (unknown) CT abdomen pelvis wo /w con 1 Day R10.11 - Right upper quadrant pain, R10.13 (units unknown) (unknown) (unknown) (no date) (unknown) (unknown) Cardio (units unknown) (unknown) (unknown) (no date) (unknown) (unknown) Cervicitis (units unknown) (unknown) (unknown) (no date) (unknown) (unknown) Chief Complaint (units unknown) (unknown) (unknown) (no date) (unknown) (unknown) Chief Complaint: Follow-up HIDA scan/abdominal pain (units unknown) (unknown) (unknown) (no date) (unknown) (unknown) Cognition: normal cognition (units unknown) (unknown) (unknown) (no date) (unknown) (unknown) Common migraine (units unknown) (unknown) (unknown) (no date) (unknown) (unknown) Complete Blood Count AUTO DIFF Today L68.0 - Hirsutism, N91.2 - Amenorrhea, (units unknown) (unknown) (unknown) (no date) (unknown) (unknown) Comprehensive Metabolic Panel Today L68.0 - Hirsutism, N91.2 - Amenorrhea, (units unknown) (unknown) (unknown) (no date) (unknown) (unknown) Confirmed 06/16/22] (units unknown) (unknown) (unknown) (no date) (unknown) (unknown) Const (units unknown) (unknown) (unknown) (no date) (unknown) (unknown) : 1995 Acct:[id number] (units unknown) (unknown) (unknown) (no date) (unknown) (unknown) Depression (2013) (units unknown) (unknown) (unknown) (no date) (unknown) (unknown) Dept at . (units unknown) (unknown) (unknown) (no date) (unknown) (unknown) Details: (units unknown) (unknown) (unknown) (no date) (unknown) (unknown) Documented By: Mani Mustafa 06/16/22 0800 (units unknown) (unknown) (unknown) (no date) (unknown) (unknown) Draft (units unknown) (unknown) (unknown) (no date) (unknown) (unknown) Effort + Inspection: normal respiratory effort (units unknown) (unknown) (unknown) (no date) (unknown) (unknown) Epigastric pain, R11 .2 - Nausea with vomiting, unspecified (units unknown) (unknown) (unknown) (no date) (unknown) (unknown) Epigastric pain, R11 .2 - Nausea with vomiting, unspecified, R94.8 - Abnormal (units unknown) (unknown) (unknown) (no date) (unknown) (unknown) Exam (units unknown) (unknown) (unknown) (no date) (unknown) (unknown) Extrem (units unknown) (unknown) (unknown) (no date) (unknown) (unknown) Eyes (units unknown) (unknown) (unknown) (no date) (unknown) (unknown) [facility] Offi ce Visit (units unknown) (unknown) (unknown) (no date) (unknown) (unknown) Ferritin Today K76.0 - Fatty (change of) liver, not elsewhere classified (units unknown) (unknown) (unknown) (no date) (unknown) (unknown) [facility] (units unknown) (unknown) (unknown) (no date) (unknown) (unknown) Follicle Stimulating Hormone Today L68.0 - Hirsutism, N91.2 - Amenorrhea, (units unknown) (unknown) (unknown) (no date) (unknown) (unknown) GI (units unknown) (unknown) (unknown) (no date) (unknown) (unknown) Gait: normal gait (units unknown) (unknown) (unknown) (no date) (unknown) (unknown) Gastroesophageal reflux disease (units unknown) (unknown) (unknown) (no date) (unknown) (unknown) General: appearance normal, both eyes and all related structures (units unknown) (unknown) (unknown) (no date) (unknown) (unknown) General: cooperative , healthy appearing and no acute distress (units unknown) (unknown) (unknown) (no date) (unknown) (unknown) General: no rashes o r lesions noted (units unknown) (unknown) (unknown) (no date) (unknown) (unknown) General: normal to inspection and no edema (units unknown) (unknown) (unknown) (no date) (unknown) (unknown) General: patient alert, patient awake and patient oriented x3 (units unknown) (unknown) (unknown) (no date) (unknown) (unknown) HCG Quantitative /Be ta subunit Today L68.0 - Hirsutism, N91.2 - Amenorrhea, (units unknown) (unknown) (unknown) (no date) (unknown) (unknown) HENMT (units unknown) (unknown) (unknown) (no date) (unknown) (unknown) HPI (units unknown) (unknown) (unknown) (no date) (unknown) (unknown) Head: normal to inspection (units unknown) (unknown) (unknown) (no date) (unknown) (unknown) Headache, chronic daily (units unknown) (unknown) (unknown) (no date) (unknown) (unknown) Heart Sounds: S1 normal, S2 normal, normal S1 and S2 and no murmurs (units unknown) (unknown) (unknown) (no date) (unknown) (unknown) Height 162.56 cm (units unknown) (unknown) (unknown) (no date) (unknown) (unknown) Hello--I placed urge nt abdominal CT order--could we please process quickly and (units unknown) (unknown) (unknown) (no date) (unknown) (unknown) Hepatic steatosis (units unknown) (unknown) (unknown) (no date) (unknown) (unknown) History of appendectomy (units unknown) (unknown) (unknown) (no date) (unknown) (unknown) IBS (irritable bowel syndrome) (units unknown) (unknown) (unknown) (no date) (unknown) (unknown) Inspection: normal t o inspection (units unknown) (unknown) (unknown) (no date) (unknown) (unknown) Intake Note: (units unknown) (unknown) (unknown) (no date) (unknown) (unknown) Intake performed by: Terrie Fonseca (units unknown) (unknown) (unknown) (no date) (unknown) (unknown) Intake (units unknown) (unknown) (unknown) (no date) (unknown) (unknown) Intake- Clincial Staff (units unknown) (unknown) (unknown) (no date) (unknown) (unknown) Judgment: judgment good (units unknown) (unknown) (unknown) (no date) (unknown) (unknown) Last Menstural Cycle + Details (units unknown) (unknown) (unknown) (no date) (unknown) (unknown) Lipase Today L68.0 - Hirsutism, N91.2 - Amenorrhea, unspecified, R10.11 - Right (units unknown) (unknown) (unknown) (no date) (unknown) (unknown) Loc: [facility] (units unknown) (unknown) (unknown) (no date) (unknown) (unknown) Medical History (units unknown) (unknown) (unknown) (no date) (unknown) (unknown) Medications (units unknown) (unknown) (unknown) (no date) (unknown) (unknown) Mental Status: menta l status grossly normal (units unknown) (unknown) (unknown) (no date) (unknown) (unknown) Mood: congruent mood (units unknown) (unknown) (unknown) (no date) (unknown) (unknown) Morbid obesity (units unknown) (unknown) (unknown) (no date) (unknown) (unknown) Neuro (units unknown) (unknown) (unknown) (no date) (unknown) (unknown) No Known Drug Allergies Allergy (Verified 06/16/22 08:24) (units unknown) (unknown) (unknown) (no date) (unknown) (unknown) Orders (units unknown) (unknown) (unknown) (no date) (unknown) (unknown) Orders: (units unknown) (unknown) (unknown) (no date) (unknown) (unknown) Other Menstrual Period: Uncertain (units unknown) (unknown) (unknown) (no date) (unknown) (unknown) Oxygen Delivery Meth od room air (units unknown) (unknown) (unknown) (no date) (unknown) (unknown) PFSH (units unknown) (unknown) (unknown) (no date) (unknown) (unknown) Pain radiates to her back. She states that over the past few weeks it has been (units unknown) (unknown) (unknown) (no date) (unknown) (unknown) Palpation: soft, no hepatosplenomegaly, no guarding, no hernias, no masses and (units unknown) (unknown) (unknown) (no date) (unknown) (unknown) Patient also request s that I include hormonal testing with the labs we are going (units unknown) (unknown) (unknown) (no date) (unknown) (unknown) Patient had right upper quadrant ultrasound which showed moderate to severe (units unknown) (unknown) (unknown) (no date) (unknown) (unknown) Patient reports that her GI symptoms began about 2-3 months ago, and have (units unknown) (unknown) (unknown) (no date) (unknown) (unknown) Patient saw Dr. Cassandra mauricio twice in April for GI symptoms. She had not seen me (units unknown) (unknown) (unknown) (no date) (unknown) (unknown) Patient: Sue Gurrola MR#: [id number] (units unknown) (unknown) (unknown) (no date) (unknown) (unknown) Percussion: normal t o percussion (units unknown) (unknown) (unknown) (no date) (unknown) (unknown) Plan (units unknown) (unknown) (unknown) (no date) (unknown) (unknown) Position Sitting (units unknown) (unknown) (unknown) (no date) (unknown) (unknown) Prior to this her menses were regular. She has had dark hair on her abdomen and (units unknown) (unknown) (unknown) (no date) (unknown) (unknown) Prolactin Today L68. 0 - Hirsutism, N91.2 - Amenorrhea, unspecified, R10.11 (units unknown) (unknown) (unknown) (no date) (unknown) (unknown) Psych (units unknown) (unknown) (unknown) (no date) (unknown) (unknown) Pulse 110 H (units unknown) (unknown) (unknown) (no date) (unknown) (unknown) Pulse Oximetry (%) 98 (units unknown) (unknown) (unknown) (no date) (unknown) (unknown) Pulse Source Monitor (units unknown) (unknown) (unknown) (no date) (unknown) (unknown) R10.11 - Right upper quadrant pain, R10.13 - Epigastric pain, R11.2 - Nausea (units unknown) (unknown) (unknown) (no date) (unknown) (unknown) ROS (units unknown) (unknown) (unknown) (no date) (unknown) (unknown) Rate: regular rate (units unknown) (unknown) (unknown) (no date) (unknown) (unknown) Reason For Visit (units unknown) (unknown) (unknown) (no date) (unknown) (unknown) Referral General Surgery R10.11 - Right upper quadrant pain, R10.13 (units unknown) (unknown) (unknown) (no date) (unknown) (unknown) Referrals (units unknown) (unknown) (unknown) (no date) (unknown) (unknown) Relief) 2 spray intranasal DAILY PRN 03/25/22 [History Confirmed 06/16/22] (units unknown) (unknown) (unknown) (no date) (unknown) (unknown) Resp (units unknown) (unknown) (unknown) (no date) (unknown) (unknown) Rhythm: regular rhythm (units unknown) (unknown) (unknown) (no date) (unknown) (unknown) Right upper quadrant pain, R10.13 - Epigastric pain, R11.2 - Nausea with (units unknown) (unknown) (unknown) (no date) (unknown) (unknown) Signed By: (units unknown) (unknown) (unknown) (no date) (unknown) (unknown) Skin (units unknown) (unknown) (unknown) (no date) (unknown) (unknown) Smoking Status: Mario r smoker (units unknown) (unknown) (unknown) (no date) (unknown) (unknown) Social History (units unknown) (unknown) (unknown) (no date) (unknown) (unknown) Speech: speech normal (units unknown) (unknown) (unknown) (no date) (unknown) (unknown) Status post delivery (10/28/16) (units unknown) (unknown) (unknown) (no date) (unknown) (unknown) Status: Acute (units unknown) (unknown) (unknown) (no date) (unknown) (unknown) Surgical History (units unknown) (unknown) (unknown) (no date) (unknown) (unknown) TSH w/ Reflex to FT4 Today L68.0 - Hirsutism, N91.2 - Amenorrhea, unspecified, (units unknown) (unknown) (unknown) (no date) (unknown) (unknown) Testosterone Today L68.0 - Hirsutism, N91.2 - Amenorrhea, unspecified, R10.11 (units unknown) (unknown) (unknown) (no date) (unknown) (unknown) This note may have been all or partially generated using voice recognition (units unknown) (unknown) (unknown) (no date) (unknown) (unknown) Thought Content: normal (units unknown) (unknown) (unknown) (no date) (unknown) (unknown) Thought Process: normal (units unknown) (unknown) (unknown) (no date) (unknown) (unknown) Tobacco + Substance Use (units unknown) (unknown) (unknown) (no date) (unknown) (unknown) Tobacco Status (units unknown) (unknown) (unknown) (no date) (unknown) (unknown) Visit Reasons: discu ss HIDA scan results/next steps 04 (units unknown) (unknown) (unknown) (no date) (unknown) (unknown) Vitals (units unknown) (unknown) (unknown) (no date) (unknown) (unknown) Weight 138.459 kg (units unknown) (unknown) (unknown) (no date) (unknown) (unknown) albuterol sulfate 2. 5 mg/3 mL (0.083 %) solution for nebulization 2.5 mg (3 mL) (units unknown) (unknown) (unknown) (no date) (unknown) (unknown) albuterol sulfate 90 mcg/actuation aerosol inhaler (Ventolin HFA) 2 puff (units unknown) (unknown) (unknown) (no date) (unknown) (unknown) alcohol intake: current (units unknown) (unknown) (unknown) (no date) (unknown) (unknown) although initially seemed to be more concentrated in the right upper quadrant. (units unknown) (unknown) (unknown) (no date) (unknown) (unknown) and HIDA scans. (units unknown) (unknown) (unknown) (no date) (unknown) (unknown) be due to a hormone imbalance. (units unknown) (unknown) (unknown) (no date) (unknown) (unknown) cannot eat. has not been able to eat a meal in 1 week. (units unknown) (unknown) (unknown) (no date) (unknown) (unknown) consistency. Weight has dropped from 143.789 kg April 22 to 138.459 kg (units unknown) (unknown) (unknown) (no date) (unknown) (unknown) controlling with Zofran and Tums and as such has not vomited. She has had about (units unknown) (unknown) (unknown) (no date) (unknown) (unknown) diarrhea and abdomin al pain. The pain is localized to the entire upper abdomen (units unknown) (unknown) (unknown) (no date) (unknown) (unknown) difficult over to ea t to nausea and associated pain. In the past week she has (units unknown) (unknown) (unknown) (no date) (unknown) (unknown) diffuse ttp epigastric, murphys positive. referred surg, new labs, CT. (units unknown) (unknown) (unknown) (no date) (unknown) (unknown) ejection fraction wa s 95%. Patient is concerned that she may have a (units unknown) (unknown) (unknown) (no date) (unknown) (unknown) fluticasone propiona te 50 mcg/actuation nasal spray,suspension (Flonase Allergy (units unknown) (unknown) (unknown) (no date) (unknown) (unknown) gradually worsened. She states that she has had nausea and vomiting as well as (units unknown) (unknown) (unknown) (no date) (unknown) (unknown) hard to eat for weeks. (units unknown) (unknown) (unknown) (no date) (unknown) (unknown) has had yellow liqui d diarrhea yesterday, about 4 BMs in past week. (units unknown) (unknown) (unknown) (no date) (unknown) (unknown) have occurred. If there are any questions, please contact the Medical Records (units unknown) (unknown) (unknown) (no date) (unknown) (unknown) hepatic steatosis, gallbladder unremarkable. HIDA scan was performed which was (units unknown) (unknown) (unknown) (no date) (unknown) (unknown) her appointment is n ot until August or September. 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 Denies foreign (units unknown) (unknown) (unknown) (no date) (unknown) (unknown) in over year until today. (units unknown) (unknown) (unknown) (no date) (unknown) (unknown) in the epigastrum, i n the RUQ and Roy's sign positive; with no rebound (units unknown) (unknown) (unknown) (no date) (unknown) (unknown) inhalation Q4-6H PRN shortness of breath or wheezing #90 mL 05/15/21 [Rx (units unknown) (unknown) (unknown) (no date) (unknown) (unknown) inhalation Q4HP PRN shortness of breath or wheezing 03/25/22 [History Confirmed (units unknown) (unknown) (unknown) (no date) (unknown) (unknown) interpreted by radiologist as no evidence of cholecystitis include. Gallbladder (units unknown) (unknown) (unknown) (no date) (unknown) (unknown) last week or 2 looks oily. (units unknown) (unknown) (unknown) (no date) (unknown) (unknown) may occur. Occasiona l wrong-word or 'sound-alike' substitutions may have (units unknown) (unknown) (unknown) (no date) (unknown) (unknown) menses 2 weeks late x 3 cycles. dark hair abdomen and moustache. (units unknown) (unknown) (unknown) (no date) (unknown) (unknown) metronidazole 0.75 % (37.5 mg/5 gram) vaginal gel g vaginal 06/16/22 [History (units unknown) (unknown) (unknown) (no date) (unknown) (unknown) months her menses augustin ve become irregular, about 2 weeks late with every cycle. (units unknown) (unknown) (unknown) (no date) (unknown) (unknown) nebulizers #1 ea 05/15/21 [Rx Confirmed 06/16/22] (units unknown) (unknown) (unknown) (no date) (unknown) (unknown) not been able to eat full meal. She eats small amounts of bland foods such as (units unknown) (unknown) (unknown) (no date) (unknown) (unknown) occurred due to the inherent limitations of voice recognition software. Please (units unknown) (unknown) (unknown) (no date) (unknown) (unknown) ondansetron 4 mg disintegrating tablet 4 mg PO Q6-8H PRN nausea and vomiting #30 (units unknown) (unknown) (unknown) (no date) (unknown) (unknown) organs and systems (units unknown) (unknown) (unknown) (no date) (unknown) (unknown) other organs and systems (units unknown) (unknown) (unknown) (no date) (unknown) (unknown) pantoprazole 40 mg tablet,delayed release 40 mg PO DAILY #30 tabs 06/04/22 [Rx (units unknown) (unknown) (unknown) (no date) (unknown) (unknown) previously; in the past week she has had severe nausea which she has been (units unknown) (unknown) (unknown) (no date) (unknown) (unknown) read the note carefully and recognize, using context, where these substitutions (units unknown) (unknown) (unknown) (no date) (unknown) (unknown) results of function studies of other organs and systems (units unknown) (unknown) (unknown) (no date) (unknown) (unknown) yuliyatriptan 5 mg tablet See Rx Instructions PO .COMPLEX #30 tabs 02/24/22 [Rx (units unknown) (unknown) (unknown) (no date) (unknown) (unknown) sertraline PO [History Confirmed 06/16/22] (units unknown) (unknown) (unknown) (no date) (unknown) (unknown) severe nausea, zofra n and tums past week. (units unknown) (unknown) (unknown) (no date) (unknown) (unknown) she is still not feeling well and has not been able to eat for a week. (units unknown) (unknown) (unknown) (no date) (unknown) (unknown) software. Although every effort is made to edit content, dye stand loader errors (units unknown) (unknown) (unknown) (no date) (unknown) (unknown) studies of other organs and systems (units unknown) (unknown) (unknown) (no date) (unknown) (unknown) symptoms patient has had difficulty losing weight and wonders whether this could (units unknown) (unknown) (unknown) (no date) (unknown) (unknown) systems (units unknown) (unknown) (unknown) (no date) (unknown) (unknown) tabs 04/25/22 [Rx Confirmed 06/16/22] (units unknown) (unknown) (unknown) (no date) (unknown) (unknown) tender (Mild diffuse tenderness throughout, significant TTP epigastrium and RUQ) (units unknown) (unknown) (unknown) (no date) (unknown) (unknown) tenderness and Rovsing's sign negative (units unknown) (unknown) (unknown) (no date) (unknown) (unknown) then let pt know onc e approved so she may schedule it? She understands this (units unknown) (unknown) (unknown) (no date) (unknown) (unknown) to be ordering pertinent to her GI symptoms. This is because for the past 3 (units unknown) (unknown) (unknown) (no date) (unknown) (unknown) today. (units unknown) (unknown) (unknown) (no date) (unknown) (unknown) travel preceding symptoms. Patient has been referred to Gastroenterology but (units unknown) (unknown) (unknown) (no date) (unknown) (unknown) turkey and drinks fluids as tolerated. For 2 weeks her stool has appeared (units unknown) (unknown) (unknown) (no date) (unknown) (unknown) unspecified, R10.11 - Right upper quadrant pain, R10.13 - Epigastric pain, R11.2 (units unknown) (unknown) (unknown) (no date) (unknown) (unknown) unspecified, R94.8 - Abnormal results of function studies of other organs and (units unknown) (unknown) (unknown) (no date) (unknown) (unknown) upper lip, although this has not changed recently. Prior to the persistent GI (units unknown) (unknown) (unknown) (no date) (unknown) (unknown) upper quadrant pain, R10.13 - Epigastric pain, R11.2 - Nausea with vomiting, (units unknown) (unknown) (unknown) (no date) (unknown) (unknown) vomiting, unspecifie d, R94.8 - Abnormal results of function studies of other (units unknown) (unknown) (unknown) (no date) (unknown) (unknown) will likely take >24 hours. thanks! (units unknown) (unknown) (unknown) (no date) (unknown) (unknown) with vomiting, unspecified, R94.8 - Abnormal results of function studies of (units unknown) (unknown) (unknown) (no date) (unknown) (unknown) yellow and oily. She has had no fevers/chills. She has had vomiting (units unknown) (unknown) (unknown) (no date) (unknown) (unknown) yellow greasy diarrhea. (units unknown) (unknown) Result panel [id number] (unknown) (no date) (unknown) (unknown) (no value) (units unknown) (unknown) (unknown) (no date) (unknown) (unknown) (1) Epigastric pain: (units unknown) (unknown) (unknown) (no date) (unknown) (unknown) (2) RUQ pain: (units unknown) (unknown) (unknown) (no date) (unknown) (unknown) (3) Abnormal biliary HIDA scan: (units unknown) (unknown) (unknown) (no date) (unknown) (unknown) (4) Nausea + vomiting: (units unknown) (unknown) (unknown) (no date) (unknown) (unknown) (5) Hirsutism: (units unknown) (unknown) (unknown) (no date) (unknown) (unknown) (6) Hepatic steatosis: (units unknown) (unknown) (unknown) (no date) (unknown) (unknown) (7) Irregular menses: (units unknown) (unknown) (unknown) (no date) (unknown) (unknown) - Nausea with vomiting, unspecified, R94.8 - Abnormal results of function (units unknown) (unknown) (unknown) (no date) (unknown) (unknown) 06/16/22 1928 (units unknown) (unknown) (unknown) (no date) (unknown) (unknown) 06/16/22 (units unknown) (unknown) (unknown) (no date) (unknown) (unknown) 06/16/22] (units unknown) (unknown) (unknown) (no date) (unknown) (unknown) 08:04 (units unknown) (unknown) (unknown) (no date) (unknown) (unknown) 17-OH Progesterone Today L68.0 - Hirsutism, N91.2 - Amenorrhea, unspecified, (units unknown) (unknown) (unknown) (no date) (unknown) (unknown) [id number] (units unknown) (unknown) (unknown) (no date) (unknown) (unknown) 27 Y/O Female presen t today to follow up after having a HIDA scan. She states (units unknown) (unknown) (unknown) (no date) (unknown) (unknown) 27-year-old female presents for a visit to follow-up on results of ultrasound (units unknown) (unknown) (unknown) (no date) (unknown) (unknown) 4 bowel movements in the past week, each of these appearing yellow and liquid (units unknown) (unknown) (unknown) (no date) (unknown) (unknown) Affect: normal affect (units unknown) (unknown) (unknown) (no date) (unknown) (unknown) Age/Sex: 27 / F Date of Service: (units unknown) (unknown) (unknown) (no date) (unknown) (unknown) All systems reviewed + are unremarkable except as noted in HPI and below (units unknown) (unknown) (unknown) (no date) (unknown) (unknown) Allergies (units unknown) (unknown) (unknown) (no date) (unknown) (unknown) Amylase Today L68.0 - Hirsutism, N91.2 - Amenorrhea, unspecified, R10.11 - Right (units unknown) (unknown) (unknown) (no date) (unknown) (unknown) [place] [id number] (units unknown) (unknown) (unknown) (no date) (unknown) (unknown) Anxiety (units unknown) (unknown) (unknown) (no date) (unknown) (unknown) Appearance: grossly normal (units unknown) (unknown) (unknown) (no date) (unknown) (unknown) Assessment + Plan (units unknown) (unknown) (unknown) (no date) (unknown) (unknown) Attending Dr: Mani SAUCEDO (units unknown) (unknown) (unknown) (no date) (unknown) (unknown) Attitude: cooperative (units unknown) (unknown) (unknown) (no date) (unknown) (unknown) Auscultation: clear to auscultation bilaterally (units unknown) (unknown) (unknown) (no date) (unknown) (unknown) Auscultation: normal bowel sounds (units unknown) (unknown) (unknown) (no date) (unknown) (unknown) BMI 52.4 (units unknown) (unknown) (unknown) (no date) (unknown) (unknown) BP 128/90 (units unknown) (unknown) (unknown) (no date) (unknown) (unknown) Blood Pressure Location Lt brachial (units unknown) (unknown) (unknown) (no date) (unknown) (unknown) CT abdomen pelvis wo /w con 1 Day R10.11 - Right upper quadrant pain, R10.13 (units unknown) (unknown) (unknown) (no date) (unknown) (unknown) Cardio (units unknown) (unknown) (unknown) (no date) (unknown) (unknown) Cervicitis (units unknown) (unknown) (unknown) (no date) (unknown) (unknown) Chief Complaint (units unknown) (unknown) (unknown) (no date) (unknown) (unknown) Chief Complaint: Follow-up HIDA scan/abdominal pain (units unknown) (unknown) (unknown) (no date) (unknown) (unknown) Cognition: normal cognition (units unknown) (unknown) (unknown) (no date) (unknown) (unknown) Common migraine (units unknown) (unknown) (unknown) (no date) (unknown) (unknown) Complete Blood Count AUTO DIFF Today L68.0 - Hirsutism, N91.2 - Amenorrhea, (units unknown) (unknown) (unknown) (no date) (unknown) (unknown) Comprehensive Metabolic Panel Today L68.0 - Hirsutism, N91.2 - Amenorrhea, (units unknown) (unknown) (unknown) (no date) (unknown) (unknown) Confirmed 06/16/22] (units unknown) (unknown) (unknown) (no date) (unknown) (unknown) Const (units unknown) (unknown) (unknown) (no date) (unknown) (unknown) Counseling and educating the patient/family/caregiv er: 15 (units unknown) (unknown) (unknown) (no date) (unknown) (unknown) : 1995 Acct:[id number] (units unknown) (unknown) (unknown) (no date) (unknown) (unknown) Depression (2013) (units unknown) (unknown) (unknown) (no date) (unknown) (unknown) Dept at . (units unknown) (unknown) (unknown) (no date) (unknown) (unknown) Details: (units unknown) (unknown) (unknown) (no date) (unknown) (unknown) Documented By: Mani Mustafa 06/16/22 0800 (units unknown) (unknown) (unknown) (no date) (unknown) (unknown) Documenting clinical information in EHR/Medical record: 10 (units unknown) (unknown) (unknown) (no date) (unknown) (unknown) Effort + Inspection: normal respiratory effort (units unknown) (unknown) (unknown) (no date) (unknown) (unknown) Epigastric pain, R11 .2 - Nausea with vomiting, unspecified (units unknown) (unknown) (unknown) (no date) (unknown) (unknown) Epigastric pain, R11 .2 - Nausea with vomiting, unspecified, R94.8 - Abnormal (units unknown) (unknown) (unknown) (no date) (unknown) (unknown) Epigastric pain/righ t upper quadrant pain/nausea and vomiting: Updated lab work (units unknown) (unknown) (unknown) (no date) (unknown) (unknown) Exam (units unknown) (unknown) (unknown) (no date) (unknown) (unknown) Extrem (units unknown) (unknown) (unknown) (no date) (unknown) (unknown) Eyes (units unknown) (unknown) (unknown) (no date) (unknown) (unknown) Family Practice Offi ce Visit (units unknown) (unknown) (unknown) (no date) (unknown) (unknown) Ferritin Today K76.0 - Fatty (change of) liver, not elsewhere classified (units unknown) (unknown) (unknown) (no date) (unknown) (unknown) [facility] (units unknown) (unknown) (unknown) (no date) (unknown) (unknown) Follicle Stimulating Hormone Today L68.0 - Hirsutism, N91.2 - Amenorrhea, (units unknown) (unknown) (unknown) (no date) (unknown) (unknown) GI (units unknown) (unknown) (unknown) (no date) (unknown) (unknown) Gait: normal gait (units unknown) (unknown) (unknown) (no date) (unknown) (unknown) Gastroesophageal reflux disease (units unknown) (unknown) (unknown) (no date) (unknown) (unknown) General: appearance normal, both eyes and all related structures (units unknown) (unknown) (unknown) (no date) (unknown) (unknown) General: cooperative , healthy appearing and no acute distress (units unknown) (unknown) (unknown) (no date) (unknown) (unknown) General: no rashes o r lesions noted (units unknown) (unknown) (unknown) (no date) (unknown) (unknown) General: normal to inspection and no edema (units unknown) (unknown) (unknown) (no date) (unknown) (unknown) General: patient alert, patient awake and patient oriented x3 (units unknown) (unknown) (unknown) (no date) (unknown) (unknown) HCG Quantitative /Be ta subunit Today L68.0 - Hirsutism, N91.2 - Amenorrhea, (units unknown) (unknown) (unknown) (no date) (unknown) (unknown) HENMT (units unknown) (unknown) (unknown) (no date) (unknown) (unknown) HPI (units unknown) (unknown) (unknown) (no date) (unknown) (unknown) Head: normal to inspection (units unknown) (unknown) (unknown) (no date) (unknown) (unknown) Headache, chronic daily (units unknown) (unknown) (unknown) (no date) (unknown) (unknown) Heart Sounds: S1 normal, S2 normal, normal S1 and S2 and no murmurs (units unknown) (unknown) (unknown) (no date) (unknown) (unknown) Height 162.56 cm (units unknown) (unknown) (unknown) (no date) (unknown) (unknown) Hepatic steatosis (units unknown) (unknown) (unknown) (no date) (unknown) (unknown) Hepatic steatosis: Patient asked me about how concerning I thought this was (units unknown) (unknown) (unknown) (no date) (unknown) (unknown) History of appendectomy (units unknown) (unknown) (unknown) (no date) (unknown) (unknown) IBS (irritable bowel syndrome) (units unknown) (unknown) (unknown) (no date) (unknown) (unknown) Inspection: normal t o inspection (units unknown) (unknown) (unknown) (no date) (unknown) (unknown) Intake Note: (units unknown) (unknown) (unknown) (no date) (unknown) (unknown) Intake performed by: Terrie Fonseca (units unknown) (unknown) (unknown) (no date) (unknown) (unknown) Intake (units unknown) (unknown) (unknown) (no date) (unknown) (unknown) Intake- Clincial Staff (units unknown) (unknown) (unknown) (no date) (unknown) (unknown) Irregular menses/oligomenorrhea/ hirsutism: We obtained pertinent lab work which (units unknown) (unknown) (unknown) (no date) (unknown) (unknown) Judgment: judgment good (units unknown) (unknown) (unknown) (no date) (unknown) (unknown) Last Menstural Cycle + Details (units unknown) (unknown) (unknown) (no date) (unknown) (unknown) Lipase Today L68.0 - Hirsutism, N91.2 - Amenorrhea, unspecified, R10.11 - Right (units unknown) (unknown) (unknown) (no date) (unknown) (unknown) Loc: [facility] (units unknown) (unknown) (unknown) (no date) (unknown) (unknown) Medical History (units unknown) (unknown) (unknown) (no date) (unknown) (unknown) Medications (units unknown) (unknown) (unknown) (no date) (unknown) (unknown) Mental Status: menta l status grossly normal (units unknown) (unknown) (unknown) (no date) (unknown) (unknown) Mood: congruent mood (units unknown) (unknown) (unknown) (no date) (unknown) (unknown) Morbid obesity (units unknown) (unknown) (unknown) (no date) (unknown) (unknown) Neuro (units unknown) (unknown) (unknown) (no date) (unknown) (unknown) No Known Drug Allergies Allergy (Verified 06/16/22 08:24) (units unknown) (unknown) (unknown) (no date) (unknown) (unknown) Ordering medications , tests, or procedures: 1 (units unknown) (unknown) (unknown) (no date) (unknown) (unknown) Orders (units unknown) (unknown) (unknown) (no date) (unknown) (unknown) Orders: (units unknown) (unknown) (unknown) (no date) (unknown) (unknown) Other Menstrual Period: Uncertain (units unknown) (unknown) (unknown) (no date) (unknown) (unknown) Oxygen Delivery Meth od room air (units unknown) (unknown) (unknown) (no date) (unknown) (unknown) PFSH (units unknown) (unknown) (unknown) (no date) (unknown) (unknown) Pain radiates to her back. She states that over the past few weeks it has been (units unknown) (unknown) (unknown) (no date) (unknown) (unknown) Palpation: soft, no hepatosplenomegaly, no guarding, no hernias, no masses and (units unknown) (unknown) (unknown) (no date) (unknown) (unknown) Patient also request s that I include hormonal testing with the labs we are going (units unknown) (unknown) (unknown) (no date) (unknown) (unknown) Patient had right upper quadrant ultrasound which showed moderate to severe (units unknown) (unknown) (unknown) (no date) (unknown) (unknown) Patient reports that her GI symptoms began about 2-3 months ago, and have (units unknown) (unknown) (unknown) (no date) (unknown) (unknown) Patient saw Dr. Cassandra mauricio twice in April for GI symptoms. She had not seen me (units unknown) (unknown) (unknown) (no date) (unknown) (unknown) Patient: Sue Gurrola MR#: [id number] (units unknown) (unknown) (unknown) (no date) (unknown) (unknown) Percussion: normal t o percussion (units unknown) (unknown) (unknown) (no date) (unknown) (unknown) Performing a medical ly appropriate exam and/or evaluation: 13 (units unknown) (unknown) (unknown) (no date) (unknown) (unknown) Plan (units unknown) (unknown) (unknown) (no date) (unknown) (unknown) Position Sitting (units unknown) (unknown) (unknown) (no date) (unknown) (unknown) Preparing to see the patient, i.e., chart review, review of tests: 6 (units unknown) (unknown) (unknown) (no date) (unknown) (unknown) Prior to this her menses were regular. She has had dark hair on her abdomen and (units unknown) (unknown) (unknown) (no date) (unknown) (unknown) Prolactin Today L68. 0 - Hirsutism, N91.2 - Amenorrhea, unspecified, R10.11 (units unknown) (unknown) (unknown) (no date) (unknown) (unknown) Psych (units unknown) (unknown) (unknown) (no date) (unknown) (unknown) Pulse 110 H (units unknown) (unknown) (unknown) (no date) (unknown) (unknown) Pulse Oximetry (%) 98 (units unknown) (unknown) (unknown) (no date) (unknown) (unknown) Pulse Source Monitor (units unknown) (unknown) (unknown) (no date) (unknown) (unknown) Qualifiers: (units unknown) (unknown) (unknown) (no date) (unknown) (unknown) R10.11 - Right upper quadrant pain, R10.13 - Epigastric pain, R11.2 - Nausea (units unknown) (unknown) (unknown) (no date) (unknown) (unknown) ROS (units unknown) (unknown) (unknown) (no date) (unknown) (unknown) Rate: regular rate (units unknown) (unknown) (unknown) (no date) (unknown) (unknown) Reason For Visit (units unknown) (unknown) (unknown) (no date) (unknown) (unknown) Referral General Surgery R10.11 - Right upper quadrant pain, R10.13 (units unknown) (unknown) (unknown) (no date) (unknown) (unknown) Referrals (units unknown) (unknown) (unknown) (no date) (unknown) (unknown) Referring and communicating with other health professionals: 1 (units unknown) (unknown) (unknown) (no date) (unknown) (unknown) Relief) 2 spray intranasal DAILY PRN 03/25/22 [History Confirmed 06/16/22] (units unknown) (unknown) (unknown) (no date) (unknown) (unknown) Resp (units unknown) (unknown) (unknown) (no date) (unknown) (unknown) Rhythm: regular rhythm (units unknown) (unknown) (unknown) (no date) (unknown) (unknown) Right upper quadrant pain, R10.13 - Epigastric pain, R11.2 - Nausea with (units unknown) (unknown) (unknown) (no date) (unknown) (unknown) Signed By: <Electronically signed by Mani Mustafa> (units unknown) (unknown) (unknown) (no date) (unknown) (unknown) Signed (units unknown) (unknown) (unknown) (no date) (unknown) (unknown) Skin (units unknown) (unknown) (unknown) (no date) (unknown) (unknown) Smoking Status: Neve r smoker (units unknown) (unknown) (unknown) (no date) (unknown) (unknown) Social History (units unknown) (unknown) (unknown) (no date) (unknown) (unknown) Speech: speech normal (units unknown) (unknown) (unknown) (no date) (unknown) (unknown) Status post delivery (10/28/16) (units unknown) (unknown) (unknown) (no date) (unknown) (unknown) Status: Acute (units unknown) (unknown) (unknown) (no date) (unknown) (unknown) Surgical History (units unknown) (unknown) (unknown) (no date) (unknown) (unknown) TSH w/ Reflex to FT4 Today L68.0 - Hirsutism, N91.2 - Amenorrhea, unspecified, (units unknown) (unknown) (unknown) (no date) (unknown) (unknown) Testosterone Today L68.0 - Hirsutism, N91.2 - Amenorrhea, unspecified, R10.11 (units unknown) (unknown) (unknown) (no date) (unknown) (unknown) This note may have been all or partially generated using voice recognition (units unknown) (unknown) (unknown) (no date) (unknown) (unknown) Thought Content: normal (units unknown) (unknown) (unknown) (no date) (unknown) (unknown) Thought Process: normal (units unknown) (unknown) (unknown) (no date) (unknown) (unknown) Time Coding Minutes Spent: (must be on same date of service/appointment) (units unknown) (unknown) (unknown) (no date) (unknown) (unknown) Time Spent (units unknown) (unknown) (unknown) (no date) (unknown) (unknown) Time spent was medically necessary given the acuity of her GI symptoms, the need (units unknown) (unknown) (unknown) (no date) (unknown) (unknown) Tobacco + Substance Use (units unknown) (unknown) (unknown) (no date) (unknown) (unknown) Tobacco Status (units unknown) (unknown) (unknown) (no date) (unknown) (unknown) Total Time: 46 (units unknown) (unknown) (unknown) (no date) (unknown) (unknown) Visit Reasons: discu ss HIDA scan results/next steps 04 (units unknown) (unknown) (unknown) (no date) (unknown) (unknown) Vitals (units unknown) (unknown) (unknown) (no date) (unknown) (unknown) Vomiting type: unspecified Qualified Code(s): R11.2 - Nausea with (units unknown) (unknown) (unknown) (no date) (unknown) (unknown) Weight 138.459 kg (units unknown) (unknown) (unknown) (no date) (unknown) (unknown) advanced liver disease. Patient will maintain plan to see gastroenterology in a (units unknown) (unknown) (unknown) (no date) (unknown) (unknown) agreed upon approach to treatment defined in the literature. Although I did not (units unknown) (unknown) (unknown) (no date) (unknown) (unknown) albuterol sulfate 2. 5 mg/3 mL (0.083 %) solution for nebulization 2.5 mg (3 mL) (units unknown) (unknown) (unknown) (no date) (unknown) (unknown) albuterol sulfate 90 mcg/actuation aerosol inhaler (Ventolin HFA) 2 puff (units unknown) (unknown) (unknown) (no date) (unknown) (unknown) alcohol intake: current (units unknown) (unknown) (unknown) (no date) (unknown) (unknown) although initially seemed to be more concentrated in the right upper quadrant. (units unknown) (unknown) (unknown) (no date) (unknown) (unknown) and HIDA scans. (units unknown) (unknown) (unknown) (no date) (unknown) (unknown) and that this is considered to be biliary hyperkinesia, although there is no (units unknown) (unknown) (unknown) (no date) (unknown) (unknown) be due to a hormone imbalance. (units unknown) (unknown) (unknown) (no date) (unknown) (unknown) been no findings jimena s far which clearly explain her symptoms and she continues (units unknown) (unknown) (unknown) (no date) (unknown) (unknown) case studies in [facility] cholecystectomy led to resolution of biliary hyperkinesia (units unknown) (unknown) (unknown) (no date) (unknown) (unknown) chart. We will plan to contact her to clarify if needed. We will contact the (units unknown) (unknown) (unknown) (no date) (unknown) (unknown) concern at this visi t and needed to review prior diagnostic reports and provider (units unknown) (unknown) (unknown) (no date) (unknown) (unknown) consistency. Weight has dropped from 143.789 kg April 22 to 138.459 kg (units unknown) (unknown) (unknown) (no date) (unknown) (unknown) controlling with Zofran and Tums and as such has not vomited. She has had about (units unknown) (unknown) (unknown) (no date) (unknown) (unknown) couple of months as previously referred. In the meantime we discussed the (units unknown) (unknown) (unknown) (no date) (unknown) (unknown) diarrhea and abdomin al pain. The pain is localized to the entire upper abdomen (units unknown) (unknown) (unknown) (no date) (unknown) (unknown) difficult over to ea t to nausea and associated pain. In the past week she has (units unknown) (unknown) (unknown) (no date) (unknown) (unknown) ejection fraction wa s 95%. Patient is concerned that she may have a (units unknown) (unknown) (unknown) (no date) (unknown) (unknown) ferritin level in today's lab work which was normal and as such at least (units unknown) (unknown) (unknown) (no date) (unknown) (unknown) find many articles pertaining to this subject I did see that there have been (units unknown) (unknown) (unknown) (no date) (unknown) (unknown) fluticasone propiona te 50 mcg/actuation nasal spray,suspension (Flonase Allergy (units unknown) (unknown) (unknown) (no date) (unknown) (unknown) for multiple diagnostics as well as the fact that we addressed more than 1 (units unknown) (unknown) (unknown) (no date) (unknown) (unknown) gallbladder ejection fraction was indeed higher than expected in the HIDA scan (units unknown) (unknown) (unknown) (no date) (unknown) (unknown) gallbladder surgery in this instance but given her persistent and worsening (units unknown) (unknown) (unknown) (no date) (unknown) (unknown) gradually worsened. She states that she has had nausea and vomiting as well as (units unknown) (unknown) (unknown) (no date) (unknown) (unknown) have occurred. If there are any questions, please contact the Medical Records (units unknown) (unknown) (unknown) (no date) (unknown) (unknown) hepatic steatosis, gallbladder unremarkable. HIDA scan was performed which was (units unknown) (unknown) (unknown) (no date) (unknown) (unknown) her appointment is n ot until August or September. 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 Denies foreign (units unknown) (unknown) (unknown) (no date) (unknown) (unknown) importance of lifestyle measures with focus on weight loss. (units unknown) (unknown) (unknown) (no date) (unknown) (unknown) in over year until today. (units unknown) (unknown) (unknown) (no date) (unknown) (unknown) in the epigastrum, i n the RUQ and Roy's sign positive; with no rebound (units unknown) (unknown) (unknown) (no date) (unknown) (unknown) inhalation Q4-6H PRN shortness of breath or wheezing #90 mL 05/15/21 [Rx (units unknown) (unknown) (unknown) (no date) (unknown) (unknown) inhalation Q4HP PRN shortness of breath or wheezing 03/25/22 [History Confirmed (units unknown) (unknown) (unknown) (no date) (unknown) (unknown) interpreted by radiologist as no evidence of cholecystitis include. Gallbladder (units unknown) (unknown) (unknown) (no date) (unknown) (unknown) is normal thus far, with 17 OH progesterone still pending. (units unknown) (unknown) (unknown) (no date) (unknown) (unknown) may occur. Occasiona l wrong-word or 'sound-alike' substitutions may have (units unknown) (unknown) (unknown) (no date) (unknown) (unknown) metronidazole 0.75 % (37.5 mg/5 gram) vaginal gel g vaginal 06/16/22 [History (units unknown) (unknown) (unknown) (no date) (unknown) (unknown) months her menses augustin ve become irregular, about 2 weeks late with every cycle. (units unknown) (unknown) (unknown) (no date) (unknown) (unknown) nebulizers #1 ea 05/15/21 [Rx Confirmed 06/16/22] (units unknown) (unknown) (unknown) (no date) (unknown) (unknown) normal liver enzymes , essentially normal CBC. We will get CT, as there have (units unknown) (unknown) (unknown) (no date) (unknown) (unknown) not been able to eat full meal. She eats small amounts of bland foods such as (units unknown) (unknown) (unknown) (no date) (unknown) (unknown) notes. (units unknown) (unknown) (unknown) (no date) (unknown) (unknown) occurred due to the inherent limitations of voice recognition software. Please (units unknown) (unknown) (unknown) (no date) (unknown) (unknown) ondansetron 4 mg disintegrating tablet 4 mg PO Q6-8H PRN nausea and vomiting #30 (units unknown) (unknown) (unknown) (no date) (unknown) (unknown) order CT as ?urgent? , timeliness remains limited when ordered through the clinic (units unknown) (unknown) (unknown) (no date) (unknown) (unknown) ordered which was generally unremarkable, including normal lipase and amylase, (units unknown) (unknown) (unknown) (no date) (unknown) (unknown) organs and systems (units unknown) (unknown) (unknown) (no date) (unknown) (unknown) other organs and systems (units unknown) (unknown) (unknown) (no date) (unknown) (unknown) pantoprazole 40 mg tablet,delayed release 40 mg PO DAILY #30 tabs 06/04/22 [Rx (units unknown) (unknown) (unknown) (no date) (unknown) (unknown) patient with results and recommendations. She understands that while we can (units unknown) (unknown) (unknown) (no date) (unknown) (unknown) previously; in the past week she has had severe nausea which she has been (units unknown) (unknown) (unknown) (no date) (unknown) (unknown) read the note carefully and recognize, using context, where these substitutions (units unknown) (unknown) (unknown) (no date) (unknown) (unknown) recent endoscopy and colonoscopy although I do not see these reports in her (units unknown) (unknown) (unknown) (no date) (unknown) (unknown) regimen and using ondansetron as needed. Dr. Christie noted that patient had (units unknown) (unknown) (unknown) (no date) (unknown) (unknown) results of function studies of other organs and systems (units unknown) (unknown) (unknown) (no date) (unknown) (unknown) results, if no pertinent abnormality is found I will likely order additional lab (units unknown) (unknown) (unknown) (no date) (unknown) (unknown) rizatriptan 5 mg tablet See Rx Instructions PO .COMPLEX #30 tabs 02/24/22 [Rx (units unknown) (unknown) (unknown) (no date) (unknown) (unknown) sertraline PO [History Confirmed 06/16/22] (units unknown) (unknown) (unknown) (no date) (unknown) (unknown) setting and if she should develop increasingly severe abdominal pain, (units unknown) (unknown) (unknown) (no date) (unknown) (unknown) she is still not feeling well and has not been able to eat for a week. (units unknown) (unknown) (unknown) (no date) (unknown) (unknown) since radiologist characterized this as ?moderate to severe?. We included a (units unknown) (unknown) (unknown) (no date) (unknown) (unknown) slightly reassuring, as an elevated ferritin could be associated with more (units unknown) (unknown) (unknown) (no date) (unknown) (unknown) software. Although every effort is made to edit content, dye stand loader errors (units unknown) (unknown) (unknown) (no date) (unknown) (unknown) studies of other organs and systems (units unknown) (unknown) (unknown) (no date) (unknown) (unknown) symptoms patient has had difficulty losing weight and wonders whether this could (units unknown) (unknown) (unknown) (no date) (unknown) (unknown) symptoms she should go to the ED. (units unknown) (unknown) (unknown) (no date) (unknown) (unknown) symptoms we will ref er to surgery for an evaluation. Once we see her CT (units unknown) (unknown) (unknown) (no date) (unknown) (unknown) symptoms. It is unclear to me whether there could be a possible indication for (units unknown) (unknown) (unknown) (no date) (unknown) (unknown) systems (units unknown) (unknown) (unknown) (no date) (unknown) (unknown) tabs 04/25/22 [Rx Confirmed 06/16/22] (units unknown) (unknown) (unknown) (no date) (unknown) (unknown) tender (Mild diffuse tenderness throughout, significant TTP epigastrium and RUQ) (units unknown) (unknown) (unknown) (no date) (unknown) (unknown) tenderness and Rovsing's sign negative (units unknown) (unknown) (unknown) (no date) (unknown) (unknown) to be ordering pertinent to her GI symptoms. This is because for the past 3 (units unknown) (unknown) (unknown) (no date) (unknown) (unknown) to experience quite a bit of distress. I discussed with the patient that her (units unknown) (unknown) (unknown) (no date) (unknown) (unknown) today. (units unknown) (unknown) (unknown) (no date) (unknown) (unknown) travel preceding symptoms. Patient has been referred to Gastroenterology but (units unknown) (unknown) (unknown) (no date) (unknown) (unknown) turkey and drinks fluids as tolerated. For 2 weeks her stool has appeared (units unknown) (unknown) (unknown) (no date) (unknown) (unknown) unremitting vomiting , fevers, blood in stool or vomitus or other concerning (units unknown) (unknown) (unknown) (no date) (unknown) (unknown) unspecified, R10.11 - Right upper quadrant pain, R10.13 - Epigastric pain, R11.2 (units unknown) (unknown) (unknown) (no date) (unknown) (unknown) unspecified, R94.8 - Abnormal results of function studies of other organs and (units unknown) (unknown) (unknown) (no date) (unknown) (unknown) upper lip, although this has not changed recently. Prior to the persistent GI (units unknown) (unknown) (unknown) (no date) (unknown) (unknown) upper quadrant pain, R10.13 - Epigastric pain, R11.2 - Nausea with vomiting, (units unknown) (unknown) (unknown) (no date) (unknown) (unknown) vomiting, unspecified (units unknown) (unknown) (unknown) (no date) (unknown) (unknown) vomiting, unspecifie d, R94.8 - Abnormal results of function studies of other (units unknown) (unknown) (unknown) (no date) (unknown) (unknown) with vomiting, unspecified, R94.8 - Abnormal results of function studies of (units unknown) (unknown) (unknown) (no date) (unknown) (unknown) work such as H pylor i breath test, stool tests. Patient is on a pantoprazole (units unknown) (unknown) (unknown) (no date) (unknown) (unknown) yellow and oily. She has had no fevers/chills. She has had vomiting (units unknown) (unknown) Result panel 1176 (unknown) (no date) (unknown) (unknown) (no value) (units unknown) (unknown) (unknown) (no date) (unknown) (unknown) 06/20/22 (units unknown) (unknown) (unknown) (no date) (unknown) (unknown) 1. Mild thickening o f cecum and terminal ileum. Etiology may be infection or (units unknown) (unknown) (unknown) (no date) (unknown) (unknown) [address] [place] [address] (units unknown) (unknown) (unknown) (no date) (unknown) (unknown) 2. Nonvisualization of appendix. Recommend clinical correlation for (units unknown) (unknown) (unknown) (no date) (unknown) (unknown) 3. Hepatic steatosis. (units unknown) (unknown) (unknown) (no date) (unknown) (unknown) [id number] (units unknown) (unknown) (unknown) (no date) (unknown) (unknown) 10/09/2021, 18:40. (units unknown) (unknown) (unknown) (no date) (unknown) (unknown) ABDOMEN: (units unknown) (unknown) (unknown) (no date) (unknown) (unknown) Abdominal Nodes: No retroperitoneal or mesenteric adenopathy by size criteria. (units unknown) (unknown) (unknown) (no date) (unknown) (unknown) Accession Number: [id number] (units unknown) (unknown) (unknown) (no date) (unknown) (unknown) Adrenal Glands: Unremarkable. (units unknown) (unknown) (unknown) (no date) (unknown) (unknown) After the administration of oral and IV contrast, axial sections were acquired (units unknown) (unknown) (unknown) (no date) (unknown) (unknown) Age/Sex: 27 / F Date of Service: (units unknown) (unknown) (unknown) (no date) (unknown) (unknown) [place] [id number] (units unknown) (unknown) (unknown) (no date) (unknown) (unknown) Appendix is not visualized, likely surgically resected. There is mild (units unknown) (unknown) (unknown) (no date) (unknown) (unknown) Approved by: Zacarias Chappell M.D. on 06/20/2022 at 12:56 (units unknown) (unknown) (unknown) (no date) (unknown) (unknown) Biliary ducts: Unremarkable. (units unknown) (unknown) (unknown) (no date) (unknown) (unknown) Bladder: Unremarkable. (units unknown) (unknown) (unknown) (no date) (unknown) (unknown) Bones: Unremarkable. (units unknown) (unknown) (unknown) (no date) (unknown) (unknown) COMPARISON: [place], [place], [facility], 05/23/2022, 10:04. [place] (units unknown) (unknown) (unknown) (no date) (unknown) (unknown) CT Scan Report (units unknown) (unknown) (unknown) (no date) (unknown) (unknown) : 1995 Acct:[id number] (units unknown) (unknown) (unknown) (no date) (unknown) (unknown) Dictated by: Zacarias Chappell M.D. on 06/20/2022 at 12:52 (units unknown) (unknown) (unknown) (no date) (unknown) (unknown) FINDINGS: (units unknown) (unknown) (unknown) (no date) (unknown) (unknown) Gallbladder: Unremarkable. (units unknown) (unknown) (unknown) (no date) (unknown) (unknown) Heart: No significan t findings. (units unknown) (unknown) (unknown) (no date) (unknown) (unknown) Hospital, (units unknown) (unknown) (unknown) (no date) (unknown) (unknown) IMPRESSION: (units unknown) (unknown) (unknown) (no date) (unknown) (unknown) INDICATIONS: abdomin al pain (units unknown) (unknown) (unknown) (no date) (unknown) (unknown) Image quality: Excellent. (units unknown) (unknown) (unknown) (no date) (unknown) (unknown) [facility] (units unknown) (unknown) (unknown) (no date) (unknown) (unknown) Kidneys and Ureters: Unremarkable. (units unknown) (unknown) (unknown) (no date) (unknown) (unknown) Liver: Mild hepatic steatosis. Liver is normal in size. (units unknown) (unknown) (unknown) (no date) (unknown) (unknown) Loc: CT (units unknown) (unknown) (unknown) (no date) (unknown) (unknown) Lung bases: Unremarkable. (units unknown) (unknown) (unknown) (no date) (unknown) (unknown) Miscellaneous: No inguinal hernias are seen. (units unknown) (unknown) (unknown) (no date) (unknown) (unknown) Ordering Provider: Kevin Tucker MD (units unknown) (unknown) (unknown) (no date) (unknown) (unknown) PELVIS: (units unknown) (unknown) (unknown) (no date) (unknown) (unknown) PROCEDURE: CT ABDOME N PELVIS W CON (units unknown) (unknown) (unknown) (no date) (unknown) (unknown) Pancreas: Unremarkable. (units unknown) (unknown) (unknown) (no date) (unknown) (unknown) Patient: Sue Gurrola MR#: [id number] (units unknown) (unknown) (unknown) (no date) (unknown) (unknown) Pelvic Nodes: No enlarged lymph nodes. (units unknown) (unknown) (unknown) (no date) (unknown) (unknown) Pelvic Organs: Unremarkable. (units unknown) (unknown) (unknown) (no date) (unknown) (unknown) Peritoneum: No abnormal intraperitoneal fluid. No free air. (units unknown) (unknown) (unknown) (no date) (unknown) (unknown) Procedure: CT abdome n pelvis w con (units unknown) (unknown) (unknown) (no date) (unknown) (unknown) Signed (units unknown) (unknown) (unknown) (no date) (unknown) (unknown) Spleen: Unremarkable. (units unknown) (unknown) (unknown) (no date) (unknown) (unknown) Stomach and Bowel: Stomach, small bowel loops, and colon are normal in caliber. (units unknown) (unknown) (unknown) (no date) (unknown) (unknown) TECHNIQUE: (units unknown) (unknown) (unknown) (no date) (unknown) (unknown) US, US ABDOMEN LIMITED, 04/28/2022, 9:28. [facility], CT, CT ABDOMEN PELVIS (units unknown) (unknown) (unknown) (no date) (unknown) (unknown) Ventral Wall: No hernia. (units unknown) (unknown) (unknown) (no date) (unknown) (unknown) Vessels: Aorta and inferior vena cava are normal in size. (units unknown) (unknown) (unknown) (no date) (unknown) (unknown) W CON, (units unknown) (unknown) (unknown) (no date) (unknown) (unknown) adjustment (units unknown) (unknown) (unknown) (no date) (unknown) (unknown) appendectomy. (units unknown) (unknown) (unknown) (no date) (unknown) (unknown) cecum and terminal ileum (units unknown) (unknown) (unknown) (no date) (unknown) (unknown) from the (units unknown) (unknown) (unknown) (no date) (unknown) (unknown) inflammatory bowel disease. (units unknown) (unknown) (unknown) (no date) (unknown) (unknown) lung bases to the pubic symphysis. Coronal and sagittal reformats were (units unknown) (unknown) (unknown) (no date) (unknown) (unknown) of mA and/or kV according to patient size. (units unknown) (unknown) (unknown) (no date) (unknown) (unknown) performed. For (units unknown) (unknown) (unknown) (no date) (unknown) (unknown) radiation dose reduction, the following was used: automated exposure control, (units unknown) (unknown) (unknown) (no date) (unknown) (unknown) thickening of (units unknown) (unknown) Result panel 1177 (unknown) (no date) (unknown) (unknown) (no value) (units unknown) (unknown) (unknown) (no date) (unknown) (unknown) 06/23/22 (units unknown) (unknown) (unknown) (no date) (unknown) (unknown) 1. Diffuse hepatic steatosis, which is demonstrated to only be mild. (units unknown) (unknown) (unknown) (no date) (unknown) (unknown) [address] [place] [address] (units unknown) (unknown) (unknown) (no date) (unknown) (unknown) 2. No gallstones (units unknown) (unknown) (unknown) (no date) (unknown) (unknown) [id number] (units unknown) (unknown) (unknown) (no date) (unknown) (unknown) Accession Number: [id number] (units unknown) (unknown) (unknown) (no date) (unknown) (unknown) Age/Sex: 27 / F Date of Service: (units unknown) (unknown) (unknown) (no date) (unknown) (unknown) [place] [address] (units unknown) (unknown) (unknown) (no date) (unknown) (unknown) Approved by: Luigi Coe M.D. on 06/23/2022 at 10:18 (units unknown) (unknown) (unknown) (no date) (unknown) (unknown) COMPARISON: [facility], CT, CT ABDOMEN PELVIS W CON, 06/20/2022, 11:58. (units unknown) (unknown) (unknown) (no date) (unknown) (unknown) : 1995 Acct:[id number] (units unknown) (unknown) (unknown) (no date) (unknown) (unknown) Dictated by: Luigi Coe M.D. on 06/23/2022 at 10:15 (units unknown) (unknown) (unknown) (no date) (unknown) (unknown) FINDINGS: There is increased echogenicity present in the liver, which is (units unknown) (unknown) (unknown) (no date) (unknown) (unknown) Gallbladder is unremarkable without stones or wall thickening. No pain on (units unknown) (unknown) (unknown) (no date) (unknown) (unknown) [facility], , US ABDOMEN LIMITED, 04/28/2022, 9:28. (units unknown) (unknown) (unknown) (no date) (unknown) (unknown) IMPRESSION: (units unknown) (unknown) (unknown) (no date) (unknown) (unknown) INDICATIONS: RUQ PAIN (units unknown) (unknown) (unknown) (no date) (unknown) (unknown) [facility] (units unknown) (unknown) (unknown) (no date) (unknown) (unknown) [place] (units unknown) (unknown) (unknown) (no date) (unknown) (unknown) Loc: ED (units unknown) (unknown) (unknown) (no date) (unknown) (unknown) No dilated bile duct s. Common hepatic duct measures 4.5 mm. (units unknown) (unknown) (unknown) (no date) (unknown) (unknown) No focal liver mass. (units unknown) (unknown) (unknown) (no date) (unknown) (unknown) Ordering Provider: Amadou Orosco D.O. (units unknown) (unknown) (unknown) (no date) (unknown) (unknown) PROCEDURE: US ABDOME N LIMITED (units unknown) (unknown) (unknown) (no date) (unknown) (unknown) Pancreas is suboptimally visualized secondary to overlying bowel gas. (units unknown) (unknown) (unknown) (no date) (unknown) (unknown) Patient: Sue Gurrola MR#: [id number] (units unknown) (unknown) (unknown) (no date) (unknown) (unknown) Procedure: US abdome n limited (units unknown) (unknown) (unknown) (no date) (unknown) (unknown) Real-time focused scanning was performed of the abdomen, with image (units unknown) (unknown) (unknown) (no date) (unknown) (unknown) Signed (units unknown) (unknown) (unknown) (no date) (unknown) (unknown) TECHNIQUE: (units unknown) (unknown) (unknown) (no date) (unknown) (unknown) Ultrasound Report (units unknown) (unknown) (unknown) (no date) (unknown) (unknown) documentation. (units unknown) (unknown) (unknown) (no date) (unknown) (unknown) examination. (units unknown) (unknown) (unknown) (no date) (unknown) (unknown) greater than (units unknown) (unknown) (unknown) (no date) (unknown) (unknown) steatosis. (units unknown) (unknown) (unknown) (no date) (unknown) (unknown) what would be expect ed based on the CT, where there is mild diffuse hepatic (units unknown) (unknown) Result panel 1178 (unknown) (no date) (unknown) (unknown) (no value) (units unknown) (unknown) (unknown) (no date) (unknown) (unknown) #30 tabs (units unknown) (unknown) (unknown) (no date) (unknown) (unknown) #90 mL (units unknown) (unknown) (unknown) (no date) (unknown) (unknown) (0.083 %) solution f or nebulization shortness of breath or wheezing (units unknown) (unknown) (unknown) (no date) (unknown) (unknown) (DME) nebulizers Misc (units unknown) (unknown) (unknown) (no date) (unknown) (unknown) 06/23/22 09:21 (units unknown) (unknown) (unknown) (no date) (unknown) (unknown) 06/23/22 09:22 (units unknown) (unknown) (unknown) (no date) (unknown) (unknown) 0RF (units unknown) (unknown) (unknown) (no date) (unknown) (unknown) 2 puff inhalation Q4 HP PRN (Reason: shortness of breath or wheezing) (units unknown) (unknown) (unknown) (no date) (unknown) (unknown) 2 spray intranasal DAILY PRN (units unknown) (unknown) (unknown) (no date) (unknown) (unknown) 2.5 mg inhalation Q4-6H PRN (Reason: shortness of breath or wheezing) Qty: 90 (units unknown) (unknown) (unknown) (no date) (unknown) (unknown) [id number] (units unknown) (unknown) (unknown) (no date) (unknown) (unknown) 4 mg PO Q6-8H PRN (Reason: nausea and vomiting) Qty: 30 3RF (units unknown) (unknown) (unknown) (no date) (unknown) (unknown) 40 mg PO DAILY Qty: 30 0RF (units unknown) (unknown) (unknown) (no date) (unknown) (unknown) Age/Sex: 27 / F (units unknown) (unknown) (unknown) (no date) (unknown) (unknown) Allergies (units unknown) (unknown) (unknown) (no date) (unknown) (unknown) Allergy/AdvReac Type Severity Reaction Status Date / Time (units unknown) (unknown) (unknown) (no date) (unknown) (unknown) Anxiety (units unknown) (unknown) (unknown) (no date) (unknown) (unknown) Auscultation: clear to auscultation bilaterally (units unknown) (unknown) (unknown) (no date) (unknown) (unknown) Back/Spine/Pelvis (units unknown) (unknown) (unknown) (no date) (unknown) (unknown) Bedside Urine Bilirubin - Negative (units unknown) (unknown) (unknown) (no date) (unknown) (unknown) Bedside Urine Glucos e Negative (units unknown) (unknown) (unknown) (no date) (unknown) (unknown) Bedside Urine Ketone - Negative (units unknown) (unknown) (unknown) (no date) (unknown) (unknown) Bedside Urine Leukocytes - Negative (units unknown) (unknown) (unknown) (no date) (unknown) (unknown) Bedside Urine Nitrit e - Negative (units unknown) (unknown) (unknown) (no date) (unknown) (unknown) Bedside Urine Occult Blood - Negative (units unknown) (unknown) (unknown) (no date) (unknown) (unknown) Bedside Urine Protei n - Negative (units unknown) (unknown) (unknown) (no date) (unknown) (unknown) Bedside Urine Urobilinogen - Negative (units unknown) (unknown) (unknown) (no date) (unknown) (unknown) Bedside Urine pH 7.0 (units unknown) (unknown) (unknown) (no date) (unknown) (unknown) Cardio (units unknown) (unknown) (unknown) (no date) (unknown) (unknown) Cervicitis (units unknown) (unknown) (unknown) (no date) (unknown) (unknown) Common migraine (units unknown) (unknown) (unknown) (no date) (unknown) (unknown) Complete Blood Count AUTO DIFF Stat (units unknown) (unknown) (unknown) (no date) (unknown) (unknown) Comprehensive Metabolic Panel Stat (units unknown) (unknown) (unknown) (no date) (unknown) (unknown) Course (units unknown) (unknown) (unknown) (no date) (unknown) (unknown) : 1995 Acct:[id number] (units unknown) (unknown) (unknown) (no date) (unknown) (unknown) Date of Service: 06/23/22 (units unknown) (unknown) (unknown) (no date) (unknown) (unknown) Departure (units unknown) (unknown) (unknown) (no date) (unknown) (unknown) Depression (2014) (units unknown) (unknown) (unknown) (no date) (unknown) (unknown) Discharge Plan (units unknown) (unknown) (unknown) (no date) (unknown) (unknown) ED Orders (units unknown) (unknown) (unknown) (no date) (unknown) (unknown) ER Physician: Amadou Orosco D.O. (units unknown) (unknown) (unknown) (no date) (unknown) (unknown) Effort + Inspection: normal respiratory effort (units unknown) (unknown) (unknown) (no date) (unknown) (unknown) Emergency Report (units unknown) (unknown) (unknown) (no date) (unknown) (unknown) Esterase (units unknown) (unknown) (unknown) (no date) (unknown) (unknown) Exam (units unknown) (unknown) (unknown) (no date) (unknown) (unknown) Extrem (units unknown) (unknown) (unknown) (no date) (unknown) (unknown) GI (units unknown) (unknown) (unknown) (no date) (unknown) (unknown) Gastroesophageal reflux disease (units unknown) (unknown) (unknown) (no date) (unknown) (unknown) General (units unknown) (unknown) (unknown) (no date) (unknown) (unknown) General: no rashes o r lesions noted (units unknown) (unknown) (unknown) (no date) (unknown) (unknown) General: normal to inspection and capillary refill normal (units unknown) (unknown) (unknown) (no date) (unknown) (unknown) General: patient alert, patient awake and moves all extremities (units unknown) (unknown) (unknown) (no date) (unknown) (unknown) HENMT (units unknown) (unknown) (unknown) (no date) (unknown) (unknown) HPI - General Adult (units unknown) (unknown) (unknown) (no date) (unknown) (unknown) HPI narrative: (units unknown) (unknown) (unknown) (no date) (unknown) (unknown) Head: normal to inspection and normocephalic (units unknown) (unknown) (unknown) (no date) (unknown) (unknown) Headache, chronic daily (units unknown) (unknown) (unknown) (no date) (unknown) (unknown) Hepatic steatosis (units unknown) (unknown) (unknown) (no date) (unknown) (unknown) History of Present Illness (units unknown) (unknown) (unknown) (no date) (unknown) (unknown) History of appendectomy (units unknown) (unknown) (unknown) (no date) (unknown) (unknown) Home Medications (units unknown) (unknown) (unknown) (no date) (unknown) (unknown) IBS (irritable bowel syndrome) (units unknown) (unknown) (unknown) (no date) (unknown) (unknown) Inspection: normal t o inspection and non-distended (units unknown) (unknown) (unknown) (no date) (unknown) (unknown) [address] [address] (units unknown) (unknown) (unknown) (no date) (unknown) (unknown) Lab Data (units unknown) (unknown) (unknown) (no date) (unknown) (unknown) Labs: (units unknown) (unknown) (unknown) (no date) (unknown) (unknown) Limitations: no limitations (units unknown) (unknown) (unknown) (no date) (unknown) (unknown) Lipase Stat (units unknown) (unknown) (unknown) (no date) (unknown) (unknown) Medical Decision Making (units unknown) (unknown) (unknown) (no date) (unknown) (unknown) Medical History (units unknown) (unknown) (unknown) (no date) (unknown) (unknown) Medication Instructions Recorded Confirmed (units unknown) (unknown) (unknown) (no date) (unknown) (unknown) Medication Instructions Recorded (units unknown) (unknown) (unknown) (no date) (unknown) (unknown) Mild right CVA tenderness (units unknown) (unknown) (unknown) (no date) (unknown) (unknown) Mode of arrival: Ambulatory (units unknown) (unknown) (unknown) (no date) (unknown) (unknown) Morbid obesity (units unknown) (unknown) (unknown) (no date) (unknown) (unknown) Neuro (units unknown) (unknown) (unknown) (no date) (unknown) (unknown) No Action (units unknown) (unknown) (unknown) (no date) (unknown) (unknown) No Known Drug Allergies Allergy Verified 06/16/22 08:24 (units unknown) (unknown) (unknown) (no date) (unknown) (unknown) Ordered: (units unknown) (unknown) (unknown) (no date) (unknown) (unknown) Orders (units unknown) (unknown) (unknown) (no date) (unknown) (unknown) Other: (units unknown) (unknown) (unknown) (no date) (unknown) (unknown) PO (units unknown) (unknown) (unknown) (no date) (unknown) (unknown) Palpation: soft and tender (Right flank, negative Roy sign) (units unknown) (unknown) (unknown) (no date) (unknown) (unknown) Patient History (units unknown) (unknown) (unknown) (no date) (unknown) (unknown) Patient is a 27-year-old female who is here for evaluation of right upper (units unknown) (unknown) (unknown) (no date) (unknown) (unknown) Patient: Sue Gurrola MR#: [id number] (units unknown) (unknown) (unknown) (no date) (unknown) (unknown) Point of Care Testing (units unknown) (unknown) (unknown) (no date) (unknown) (unknown) Point of care testing: (units unknown) (unknown) (unknown) (no date) (unknown) (unknown) Test Resul ts Negative (units unknown) (unknown) (unknown) (no date) (unknown) (unknown) Prescriptions: (units unknown) (unknown) (unknown) (no date) (unknown) (unknown) Previous Rx's (units unknown) (unknown) (unknown) (no date) (unknown) (unknown) ROS Unobtainable: Al l systems reviewed + are unremarkable except as noted in HPI (units unknown) (unknown) (unknown) (no date) (unknown) (unknown) Rate: regular rate (units unknown) (unknown) (unknown) (no date) (unknown) (unknown) Referrals: (units unknown) (unknown) (unknown) (no date) (unknown) (unknown) Related Data (units unknown) (unknown) (unknown) (no date) (unknown) (unknown) Relief) (units unknown) (unknown) (unknown) (no date) (unknown) (unknown) Resp (units unknown) (unknown) (unknown) (no date) (unknown) (unknown) Review of Systems (units unknown) (unknown) (unknown) (no date) (unknown) (unknown) Rhythm: regular rhythm (units unknown) (unknown) (unknown) (no date) (unknown) (unknown) Mani Mustafa ARNP [Primary Care Provider] (units unknown) (unknown) (unknown) (no date) (unknown) (unknown) Rx Instructions: (units unknown) (unknown) (unknown) (no date) (unknown) (unknown) See Rx Instructions .Route Qty: 1 0RF (units unknown) (unknown) (unknown) (no date) (unknown) (unknown) See Rx Instructions PO .COMPLEX Qty: 30 5RF (units unknown) (unknown) (unknown) (no date) (unknown) (unknown) Signed By: (units unknown) (unknown) (unknown) (no date) (unknown) (unknown) Skin (units unknown) (unknown) (unknown) (no date) (unknown) (unknown) Smoking Status: Mario carey smoker (units unknown) (unknown) (unknown) (no date) (unknown) (unknown) Social History (units unknown) (unknown) (unknown) (no date) (unknown) (unknown) Source: patient (units unknown) (unknown) (unknown) (no date) (unknown) (unknown) Stated complaint: gallbladder issues severe pain U.R.Abd (units unknown) (unknown) (unknown) (no date) (unknown) (unknown) Status post delivery (10/28/16) (units unknown) (unknown) (unknown) (no date) (unknown) (unknown) Substance Use Type: marijuana (units unknown) (unknown) (unknown) (no date) (unknown) (unknown) Surgical History (units unknown) (unknown) (unknown) (no date) (unknown) (unknown) Time Seen by Von r: 06/23/22 09:21 (units unknown) (unknown) (unknown) (no date) (unknown) (unknown) USE TO ADMINISTER ALBUTEROL SOLUTION Q4-6H PRN (units unknown) (unknown) (unknown) (no date) (unknown) (unknown) Urine Dip (units unknown) (unknown) (unknown) (no date) (unknown) (unknown) Urine Specific Gravi ty 1.010 (units unknown) (unknown) (unknown) (no date) (unknown) (unknown) [Embedded Image Not Available] (units unknown) (unknown) (unknown) (no date) (unknown) (unknown) administer into each nostril (units unknown) (unknown) (unknown) (no date) (unknown) (unknown) aerosol inhaler (Ventolin HFA) shortness of breath or wheezing (units unknown) (unknown) (unknown) (no date) (unknown) (unknown) albuterol sulfate 2. 5 mg /3 mL (0.083 %) solution for nebulization (units unknown) (unknown) (unknown) (no date) (unknown) (unknown) albuterol sulfate 2. 5 mg/3 mL 2.5 mg (3 mL) inhalation Q4-6H PRN 05/15/21 (units unknown) (unknown) (unknown) (no date) (unknown) (unknown) albuterol sulfate 90 mcg/actuation 2 puff inhalation Q4HP PRN 03/25/22 06/16/22 (units unknown) (unknown) (unknown) (no date) (unknown) (unknown) albuterol sulfate [Ventolin HFA] 90 mcg/actuation HFA aerosol inhaler (units unknown) (unknown) (unknown) (no date) (unknown) (unknown) alcohol intake frequency: holidays/special occasions only (units unknown) (unknown) (unknown) (no date) (unknown) (unknown) alcohol intake: current (units unknown) (unknown) (unknown) (no date) (unknown) (unknown) and below (units unknown) (unknown) (unknown) (no date) (unknown) (unknown) at least 2 hrs PO (units unknown) (unknown) (unknown) (no date) (unknown) (unknown) cholecystitis. She i s a follow-up with General surgery later this week. She (units unknown) (unknown) (unknown) (no date) (unknown) (unknown) extensive workup of this right upper quadrant pain. Her doctor thinks that (units unknown) (unknown) (unknown) (no date) (unknown) (unknown) fluticasone propiona te 50 2 spray intranasal DAILY PRN 03/25/22 06/16/22 (units unknown) (unknown) (unknown) (no date) (unknown) (unknown) fluticasone propiona te [Flonase Allergy Relief] 50 mcg/actuation (units unknown) (unknown) (unknown) (no date) (unknown) (unknown) for the past several months. There are times when it was worse than others and (units unknown) (unknown) (unknown) (no date) (unknown) (unknown) gram) vaginal gel (units unknown) (unknown) (unknown) (no date) (unknown) (unknown) household members: children (units unknown) (unknown) (unknown) (no date) (unknown) (unknown) last evening the symptoms seemed to have gotten worse. She is had fairly (units unknown) (unknown) (unknown) (no date) (unknown) (unknown) maybe it was her gallbladder that is causing the discomfort. She is had an (units unknown) (unknown) (unknown) (no date) (unknown) (unknown) mcg/actuation nasal (units unknown) (unknown) (unknown) (no date) (unknown) (unknown) metronidazole 0.75 % (37.5 mg/5 g vaginal 06/16/22 06/16/22 (units unknown) (unknown) (unknown) (no date) (unknown) (unknown) metronidazole 0.75 % (37.5mg/5 gram) gel (units unknown) (unknown) (unknown) (no date) (unknown) (unknown) nebulizers #1 ea 05/15/21 (units unknown) (unknown) (unknown) (no date) (unknown) (unknown) ondansetron 4 mg disintegrating 4 mg PO Q6-8H PRN nausea and 04/25/22 (units unknown) (unknown) (unknown) (no date) (unknown) (unknown) ondansetron 4 mg tablet,disintegrating (units unknown) (unknown) (unknown) (no date) (unknown) (unknown) pantoprazole 40 mg tablet,delayed 40 mg PO DAILY #30 tabs 06/04/22 (units unknown) (unknown) (unknown) (no date) (unknown) (unknown) pantoprazole 40 mg tablet,delayed release (DR/EC) (units unknown) (unknown) (unknown) (no date) (unknown) (unknown) quadrant/right flank pain. She states she had been dealing with this discomfort (units unknown) (unknown) (unknown) (no date) (unknown) (unknown) release (units unknown) (unknown) (unknown) (no date) (unknown) (unknown) rizatriptan 5 mg tablet See Rx Instructions PO .COMPLEX 02/24/22 (units unknown) (unknown) (unknown) (no date) (unknown) (unknown) rizatriptan 5 mg tablet (units unknown) (unknown) (unknown) (no date) (unknown) (unknown) sertraline PO 06/16/22 (units unknown) (unknown) (unknown) (no date) (unknown) (unknown) sertraline (units unknown) (unknown) (unknown) (no date) (unknown) (unknown) spray,suspension (Flonase Allergy (units unknown) (unknown) (unknown) (no date) (unknown) (unknown) spray,suspension (units unknown) (unknown) (unknown) (no date) (unknown) (unknown) states the pain does get worse when she eats. She is having some nausea but no (units unknown) (unknown) (unknown) (no date) (unknown) (unknown) tablet vomiting #30 tabs (units unknown) (unknown) (unknown) (no date) (unknown) (unknown) take 1 tablet at ons et of headache; if no relief, may repeat 1 tablet after (units unknown) (unknown) (unknown) (no date) (unknown) (unknown) ultrasound and a HID A scan. All this have not revealed specific acute (units unknown) (unknown) (unknown) (no date) (unknown) (unknown) vaginal (units unknown) (unknown) (unknown) (no date) (unknown) (unknown) vomiting. No change in stools. No urinary symptoms. No skin changes. (units unknown) (unknown) Result panel [id number] (unknown) (no date) (unknown) (unknown) 0 /ul (unknown) (unknown) (no date) (unknown) (unknown) 0.5 % (unknown) (unknown) (no date) (unknown) (unknown) 1.2 % (unknown) (unknown) (no date) (unknown) (unknown) 100 /ul (unknown) (unknown) (no date) (unknown) (unknown) 13.2 % (unknown) (unknown) (no date) (unknown) (unknown) 13.4 g/dl (unknown) (unknown) (no date) (unknown) (unknown) 2500 /ul (unknown) (unknown) (no date) (unknown) (unknown) 277 x10 3/ul (unknown) (unknown) (no date) (unknown) (unknown) 28.4 pg (unknown) (unknown) (no date) (unknown) (unknown) 30.4 % (unknown) (unknown) (no date) (unknown) (unknown) 34.2 % (unknown) (unknown) (no date) (unknown) (unknown) 39.0 % (unknown) (unknown) (no date) (unknown) (unknown) 4.70 x10 6/ul (unknown) (unknown) (no date) (unknown) (unknown) 500 /ul (unknown) (unknown) (no date) (unknown) (unknown) 5100 /ul (unknown) (unknown) (no date) (unknown) (unknown) 6.6 % (unknown) (unknown) (no date) (unknown) (unknown) 61.3 % (unknown) (unknown) (no date) (unknown) (unknown) 8.3 x10 3/ul (unknown) (unknown) (no date) (unknown) (unknown) 83.1 fl (unknown) Result panel [id number] (unknown) (no date) (unknown) (unknown) > 60 ml/min (unknown) (unknown) (no date) (unknown) (unknown) > 60 ml/min (unknown) (unknown) (no date) (unknown) (unknown) 0.5 mg/dl (unknown) (unknown) (no date) (unknown) (unknown) 0.74 mg/dl (unknown) (unknown) (no date) (unknown) (unknown) 1.1 (units unknown) (unknown) (unknown) (no date) (unknown) (unknown) 100 mg/dl (unknown) (unknown) (no date) (unknown) (unknown) 100 mg/dl (unknown) (unknown) (no date) (unknown) (unknown) 101 mmol/l (unknown) (unknown) (no date) (unknown) (unknown) 135 mmol/l (unknown) (unknown) (no date) (unknown) (unknown) 25 iu/l (unknown) (unknown) (no date) (unknown) (unknown) 27 mmol/l (unknown) (unknown) (no date) (unknown) (unknown) 3.6 g/dl (unknown) (unknown) (no date) (unknown) (unknown) 32 iu/l (unknown) (unknown) (no date) (unknown) (unknown) 4.0 g/dl (unknown) (unknown) (no date) (unknown) (unknown) 4.1 mmol/l (unknown) (unknown) (no date) (unknown) (unknown) 6 mg/dl (unknown) (unknown) (no date) (unknown) (unknown) 7.6 g/dl (unknown) (unknown) (no date) (unknown) (unknown) 74 u/l (unknown) (unknown) (no date) (unknown) (unknown) 75 u/l (unknown) (unknown) (no date) (unknown) (unknown) 8.1 (units unknown) (unknown) (unknown) (no date) (unknown) (unknown) 9.2 mg/dl (unknown) Result panel [id number] (unknown) (no date) (unknown) (unknown) (no value) (units unknown) (unknown) (unknown) (no date) (unknown) (unknown) #30 tabs (units unknown) (unknown) (unknown) (no date) (unknown) (unknown) #90 mL (units unknown) (unknown) (unknown) (no date) (unknown) (unknown) (0.083 %) solution f or nebulization shortness of breath or wheezing (units unknown) (unknown) (unknown) (no date) (unknown) (unknown) (DME) nebulizers Misc (units unknown) (unknown) (unknown) (no date) (unknown) (unknown) 06/23/22 06/23/22 Range/Units (units unknown) (unknown) (unknown) (no date) (unknown) (unknown) 06/23/22 09:21 (units unknown) (unknown) (unknown) (no date) (unknown) (unknown) 06/23/22 09:30 (units unknown) (unknown) (unknown) (no date) (unknown) (unknown) 06/23/22 (units unknown) (unknown) (unknown) (no date) (unknown) (unknown) 08:55 (units unknown) (unknown) (unknown) (no date) (unknown) (unknown) 09:21 09:21 (units unknown) (unknown) (unknown) (no date) (unknown) (unknown) 0RF (units unknown) (unknown) (unknown) (no date) (unknown) (unknown) 1. Diffuse hepatic steatosis, which is demonstrated to only be mild. (units unknown) (unknown) (unknown) (no date) (unknown) (unknown) 2 puff inhalation Q4 HP PRN (Reason: shortness of breath or wheezing) (units unknown) (unknown) (unknown) (no date) (unknown) (unknown) 2 spray intranasal DAILY PRN (units unknown) (unknown) (unknown) (no date) (unknown) (unknown) 2. No gallstones (units unknown) (unknown) (unknown) (no date) (unknown) (unknown) 2.5 mg inhalation Q4-6H PRN (Reason: shortness of breath or wheezing) Qty: 90 (units unknown) (unknown) (unknown) (no date) (unknown) (unknown) [id number] (units unknown) (unknown) (unknown) (no date) (unknown) (unknown) 4 mg PO Q6-8H PRN (Reason: nausea and vomiting) Qty: 30 3RF (units unknown) (unknown) (unknown) (no date) (unknown) (unknown) 40 mg PO DAILY Qty: 30 0RF (units unknown) (unknown) (unknown) (no date) (unknown) (unknown) ? (units unknown) (unknown) (unknown) (no date) (unknown) (unknown) ALT 32 (<35) IU/L (units unknown) (unknown) (unknown) (no date) (unknown) (unknown) AST 25 (14-36) IU/L (units unknown) (unknown) (unknown) (no date) (unknown) (unknown) Age/Sex: 27 / F (units unknown) (unknown) (unknown) (no date) (unknown) (unknown) Albumin 4.0 (3.5-5.0 ) g/dL (units unknown) (unknown) (unknown) (no date) (unknown) (unknown) Albumin/Globulin Rat io 1.1 (1.0-2.8) (units unknown) (unknown) (unknown) (no date) (unknown) (unknown) Alkaline Phosphatase 75 (38-126) U/L (units unknown) (unknown) (unknown) (no date) (unknown) (unknown) Allergies (units unknown) (unknown) (unknown) (no date) (unknown) (unknown) Allergy/AdvReac Type Severity Reaction Status Date / Time (units unknown) (unknown) (unknown) (no date) (unknown) (unknown) Anxiety (units unknown) (unknown) (unknown) (no date) (unknown) (unknown) Auscultation: clear to auscultation bilaterally (units unknown) (unknown) (unknown) (no date) (unknown) (unknown) BUN 6 L (7-17) mg/dL (units unknown) (unknown) (unknown) (no date) (unknown) (unknown) BUN/Creatinine Ratio 8.1 (6-22) (units unknown) (unknown) (unknown) (no date) (unknown) (unknown) Back/Spine/Pelvis (units unknown) (unknown) (unknown) (no date) (unknown) (unknown) Baso # (Auto) 0 (0-100) /uL (units unknown) (unknown) (unknown) (no date) (unknown) (unknown) Baso % (Auto) 0.5 (0-2) % (units unknown) (unknown) (unknown) (no date) (unknown) (unknown) Bedside Urine Bilirubin - Negative (units unknown) (unknown) (unknown) (no date) (unknown) (unknown) Bedside Urine Glucos e Negative (units unknown) (unknown) (unknown) (no date) (unknown) (unknown) Bedside Urine Ketone - Negative (units unknown) (unknown) (unknown) (no date) (unknown) (unknown) Bedside Urine Leukocytes - Negative (units unknown) (unknown) (unknown) (no date) (unknown) (unknown) Bedside Urine Nitrit e - Negative (units unknown) (unknown) (unknown) (no date) (unknown) (unknown) Bedside Urine Occult Blood - Negative (units unknown) (unknown) (unknown) (no date) (unknown) (unknown) Bedside Urine Protei n - Negative (units unknown) (unknown) (unknown) (no date) (unknown) (unknown) Bedside Urine Urobilinogen - Negative (units unknown) (unknown) (unknown) (no date) (unknown) (unknown) Bedside Urine pH 7.0 (units unknown) (unknown) (unknown) (no date) (unknown) (unknown) Blood Pressure 168/9 1 H 06/23/22 08:55 (units unknown) (unknown) (unknown) (no date) (unknown) (unknown) Blood Pressure 168/9 1 H (units unknown) (unknown) (unknown) (no date) (unknown) (unknown) COMPARISON:Located Within [facility], CT, CT ABDOMEN PELVIS W CON, 06/20/2022, 11:58.? (units unknown) (unknown) (unknown) (no date) (unknown) (unknown) Calcium 9.2 (8.4-10. 2) mg/dL (units unknown) (unknown) (unknown) (no date) (unknown) (unknown) Carbon Dioxide 27 (22-32) mmol/L (units unknown) (unknown) (unknown) (no date) (unknown) (unknown) Cardio (units unknown) (unknown) (unknown) (no date) (unknown) (unknown) Cervicitis (units unknown) (unknown) (unknown) (no date) (unknown) (unknown) Chief complaint: Abdominal Pain (units unknown) (unknown) (unknown) (no date) (unknown) (unknown) Chloride 101 (98-107 ) mmol/L (units unknown) (unknown) (unknown) (no date) (unknown) (unknown) Common migraine (units unknown) (unknown) (unknown) (no date) (unknown) (unknown) Complete Blood Count AUTO DIFF Stat (units unknown) (unknown) (unknown) (no date) (unknown) (unknown) Comprehensive Metabolic Panel Stat (units unknown) (unknown) (unknown) (no date) (unknown) (unknown) Course (units unknown) (unknown) (unknown) (no date) (unknown) (unknown) Creatinine 0.74 (0.52-1.04) mg/dL (units unknown) (unknown) (unknown) (no date) (unknown) (unknown) : 1995 Acct:[id number] (units unknown) (unknown) (unknown) (no date) (unknown) (unknown) Date of Service: 06/23/22 (units unknown) (unknown) (unknown) (no date) (unknown) (unknown) Departure (units unknown) (unknown) (unknown) (no date) (unknown) (unknown) Depression (2013) (units unknown) (unknown) (unknown) (no date) (unknown) (unknown) Discharge Plan (units unknown) (unknown) (unknown) (no date) (unknown) (unknown) Discontinued Medications (units unknown) (unknown) (unknown) (no date) (unknown) (unknown) Documented By: AMU (units unknown) (unknown) (unknown) (no date) (unknown) (unknown) ED Orders (units unknown) (unknown) (unknown) (no date) (unknown) (unknown) ER Physician: Amadou Orosco D.O. (units unknown) (unknown) (unknown) (no date) (unknown) (unknown) Effort + Inspection: normal respiratory effort (units unknown) (unknown) (unknown) (no date) (unknown) (unknown) Emergency Report (units unknown) (unknown) (unknown) (no date) (unknown) (unknown) Eos # (Auto) 100 (0-450) /uL (units unknown) (unknown) (unknown) (no date) (unknown) (unknown) Eos % (Auto) 1.2 L (2-4) % (units unknown) (unknown) (unknown) (no date) (unknown) (unknown) Esterase (units unknown) (unknown) (unknown) (no date) (unknown) (unknown) Estimated GFR > 60 (>60) mL/min (units unknown) (unknown) (unknown) (no date) (unknown) (unknown) Exam (units unknown) (unknown) (unknown) (no date) (unknown) (unknown) Extrem (units unknown) (unknown) (unknown) (no date) (unknown) (unknown) FINDINGS:? There is increased echogenicity present in the liver, which is (units unknown) (unknown) (unknown) (no date) (unknown) (unknown) GI (units unknown) (unknown) (unknown) (no date) (unknown) (unknown) Gallbladder is unremarkable without stones or wall thickening.? No pain on (units unknown) (unknown) (unknown) (no date) (unknown) (unknown) Gastroesophageal reflux disease (units unknown) (unknown) (unknown) (no date) (unknown) (unknown) General (units unknown) (unknown) (unknown) (no date) (unknown) (unknown) General: no rashes o r lesions noted (units unknown) (unknown) (unknown) (no date) (unknown) (unknown) General: normal to inspection and capillary refill normal (units unknown) (unknown) (unknown) (no date) (unknown) (unknown) General: patient alert, patient awake and moves all extremities (units unknown) (unknown) (unknown) (no date) (unknown) (unknown) Globulin 3.6 (1.7-4. 1) g/dL (units unknown) (unknown) (unknown) (no date) (unknown) (unknown) Glucose 100 (70-100) mg/dL (units unknown) (unknown) (unknown) (no date) (unknown) (unknown) HENMT (units unknown) (unknown) (unknown) (no date) (unknown) (unknown) HPI - General Adult (units unknown) (unknown) (unknown) (no date) (unknown) (unknown) HPI narrative: (units unknown) (unknown) (unknown) (no date) (unknown) (unknown) Hct 39.0 (36-46) % (units unknown) (unknown) (unknown) (no date) (unknown) (unknown) Head: normal to inspection and normocephalic (units unknown) (unknown) (unknown) (no date) (unknown) (unknown) Headache, chronic daily (units unknown) (unknown) (unknown) (no date) (unknown) (unknown) Hepatic steatosis (units unknown) (unknown) (unknown) (no date) (unknown) (unknown) Hgb 13.4 (12.0-16.0) g/dL (units unknown) (unknown) (unknown) (no date) (unknown) (unknown) History of Present Illness (units unknown) (unknown) (unknown) (no date) (unknown) (unknown) History of appendectomy (units unknown) (unknown) (unknown) (no date) (unknown) (unknown) Home Medications (units unknown) (unknown) (unknown) (no date) (unknown) (unknown) [facility], , US ABDOMEN LIMITED, 04/28/2022, 9:28. (units unknown) (unknown) (unknown) (no date) (unknown) (unknown) IBS (irritable bowel syndrome) (units unknown) (unknown) (unknown) (no date) (unknown) (unknown) IMPRESSION:? (units unknown) (unknown) (unknown) (no date) (unknown) (unknown) INDICATIONS:? RUQ PAIN (units unknown) (unknown) (unknown) (no date) (unknown) (unknown) Imaging Data (units unknown) (unknown) (unknown) (no date) (unknown) (unknown) Initial Vital Signs (units unknown) (unknown) (unknown) (no date) (unknown) (unknown) Initial Vital Signs: (units unknown) (unknown) (unknown) (no date) (unknown) (unknown) Inspection: normal t o inspection and non-distended (units unknown) (unknown) (unknown) (no date) (unknown) (unknown) [address] [address] (units unknown) (unknown) (unknown) (no date) (unknown) (unknown) [place] (units unknown) (unknown) (unknown) (no date) (unknown) (unknown) Ketorolac T[place] ne (Ketorolac 30 Mg/Ml Vial) 30 mg IV NOW ONE (units unknown) (unknown) (unknown) (no date) (unknown) (unknown) Lab Data (units unknown) (unknown) (unknown) (no date) (unknown) (unknown) Lab Results (units unknown) (unknown) (unknown) (no date) (unknown) (unknown) Lab results reviewed : Yes I reviewed the patient's lab results. (units unknown) (unknown) (unknown) (no date) (unknown) (unknown) Labs: (units unknown) (unknown) (unknown) (no date) (unknown) (unknown) Last Admin: 06/23/22 09:36 Dose: 30 mg (units unknown) (unknown) (unknown) (no date) (unknown) (unknown) Last Admin: 06/23/22 09:36 Dose: 4 mg (units unknown) (unknown) (unknown) (no date) (unknown) (unknown) Limitations: no limitations (units unknown) (unknown) (unknown) (no date) (unknown) (unknown) Lipase 74 (23-300) U/L (units unknown) (unknown) (unknown) (no date) (unknown) (unknown) Lipase Stat (units unknown) (unknown) (unknown) (no date) (unknown) (unknown) Lymph # (Auto) 2500 (8534-6719) /uL (units unknown) (unknown) (unknown) (no date) (unknown) (unknown) Lymph % (Auto) 30.4 (25-40) % (units unknown) (unknown) (unknown) (no date) (unknown) (unknown) MCH 28.4 (26-34) PG (units unknown) (unknown) (unknown) (no date) (unknown) (unknown) MCHC 34.2 (30-36) % (units unknown) (unknown) (unknown) (no date) (unknown) (unknown) MCV 83.1 (80-100) fL (units unknown) (unknown) (unknown) (no date) (unknown) (unknown) Medical Decision Making (units unknown) (unknown) (unknown) (no date) (unknown) (unknown) Medical History (units unknown) (unknown) (unknown) (no date) (unknown) (unknown) Medical Records (units unknown) (unknown) (unknown) (no date) (unknown) (unknown) Medical records reviewed: Yes I reviewed the patient's medical records. (units unknown) (unknown) (unknown) (no date) (unknown) (unknown) Medication Instructions Recorded Confirmed (units unknown) (unknown) (unknown) (no date) (unknown) (unknown) Medication Instructions Recorded (units unknown) (unknown) (unknown) (no date) (unknown) (unknown) Mild right CVA tenderness (units unknown) (unknown) (unknown) (no date) (unknown) (unknown) Mode of arrival: Ambulatory (units unknown) (unknown) (unknown) (no date) (unknown) (unknown) [place] # (Auto) 500 (0-900) /uL (units unknown) (unknown) (unknown) (no date) (unknown) (unknown) [place] % (Auto) 6.6 (3-14) % (units unknown) (unknown) (unknown) (no date) (unknown) (unknown) Morbid obesity (units unknown) (unknown) (unknown) (no date) (unknown) (unknown) Neuro (units unknown) (unknown) (unknown) (no date) (unknown) (unknown) Neut # (Auto) 5100 (3835-4260) /uL (units unknown) (unknown) (unknown) (no date) (unknown) (unknown) Neut % (Auto) 61.3 (50-75) % (units unknown) (unknown) (unknown) (no date) (unknown) (unknown) No Action (units unknown) (unknown) (unknown) (no date) (unknown) (unknown) No Known Drug Allergies Allergy Verified 06/23/22 09:32 (units unknown) (unknown) (unknown) (no date) (unknown) (unknown) No dilated bile ducts.? Common hepatic duct measures 4.5 mm. (units unknown) (unknown) (unknown) (no date) (unknown) (unknown) No focal liver mass. (units unknown) (unknown) (unknown) (no date) (unknown) (unknown) Ondansetron HCl (Ondansetron 4 Mg/2 Ml Inj) 4 mg IV NOW ONE (units unknown) (unknown) (unknown) (no date) (unknown) (unknown) Ordered: (units unknown) (unknown) (unknown) (no date) (unknown) (unknown) Orders (units unknown) (unknown) (unknown) (no date) (unknown) (unknown) Other: (units unknown) (unknown) (unknown) (no date) (unknown) (unknown) Oxygen Delivery Meth od Room Air 06/23/22 08:55 (units unknown) (unknown) (unknown) (no date) (unknown) (unknown) Oxygen Delivery Meth od Room Air (units unknown) (unknown) (unknown) (no date) (unknown) (unknown) PO (units unknown) (unknown) (unknown) (no date) (unknown) (unknown) PROCEDURE: US ABDOME N LIMITED (units unknown) (unknown) (unknown) (no date) (unknown) (unknown) Palpation: soft and tender (Right flank, negative Roy sign) (units unknown) (unknown) (unknown) (no date) (unknown) (unknown) Pancreas is suboptimally visualized secondary to overlying bowel gas. (units unknown) (unknown) (unknown) (no date) (unknown) (unknown) Patient History (units unknown) (unknown) (unknown) (no date) (unknown) (unknown) Patient is a 27-year-old female who is here for evaluation of right upper (units unknown) (unknown) (unknown) (no date) (unknown) (unknown) Patient: Sue Gurrola MR#: [id number] (units unknown) (unknown) (unknown) (no date) (unknown) (unknown) Plt Count 277 (150-400) X103/uL (units unknown) (unknown) (unknown) (no date) (unknown) (unknown) Point of Care Testing (units unknown) (unknown) (unknown) (no date) (unknown) (unknown) Point of care testing: (units unknown) (unknown) (unknown) (no date) (unknown) (unknown) Potassium 4.1 (3.4-5.1) mmol/L (units unknown) (unknown) (unknown) (no date) (unknown) (unknown) Test Resul ts Negative (units unknown) (unknown) (unknown) (no date) (unknown) (unknown) Prescriptions: (units unknown) (unknown) (unknown) (no date) (unknown) (unknown) Previous Rx's (units unknown) (unknown) (unknown) (no date) (unknown) (unknown) Pulse Oximetry 100 06/23/22 08:55 (units unknown) (unknown) (unknown) (no date) (unknown) (unknown) Pulse Oximetry 100 (units unknown) (unknown) (unknown) (no date) (unknown) (unknown) Pulse Rate 83 08:55 (units unknown) (unknown) (unknown) (no date) (unknown) (unknown) Pulse Rate 83 (units unknown) (unknown) (unknown) (no date) (unknown) (unknown) RBC 4.70 (4.0-5.2) X106/uL (units unknown) (unknown) (unknown) (no date) (unknown) (unknown) RDW 13.2 (11.6-14.8) % (units unknown) (unknown) (unknown) (no date) (unknown) (unknown) ROS Unobtainable: Al l systems reviewed + are unremarkable except as noted in HPI (units unknown) (unknown) (unknown) (no date) (unknown) (unknown) Radiologist's Impression: (units unknown) (unknown) (unknown) (no date) (unknown) (unknown) Rate: regular rate (units unknown) (unknown) (unknown) (no date) (unknown) (unknown) Real-time focused scanning was performed of the abdomen, with image (units unknown) (unknown) (unknown) (no date) (unknown) (unknown) Referrals: (units unknown) (unknown) (unknown) (no date) (unknown) (unknown) Related Data (units unknown) (unknown) (unknown) (no date) (unknown) (unknown) Relief) (units unknown) (unknown) (unknown) (no date) (unknown) (unknown) Resp (units unknown) (unknown) (unknown) (no date) (unknown) (unknown) Respiratory Rate 18 06/23/22 08:55 (units unknown) (unknown) (unknown) (no date) (unknown) (unknown) Respiratory Rate 18 (units unknown) (unknown) (unknown) (no date) (unknown) (unknown) Review of Systems (units unknown) (unknown) (unknown) (no date) (unknown) (unknown) Rhythm: regular rhythm (units unknown) (unknown) (unknown) (no date) (unknown) (unknown) Mani Mustafa ARNP [Primary Care Provider] (units unknown) (unknown) (unknown) (no date) (unknown) (unknown) Rx Instructions: (units unknown) (unknown) (unknown) (no date) (unknown) (unknown) See Rx Instructions .Route Qty: 1 0RF (units unknown) (unknown) (unknown) (no date) (unknown) (unknown) See Rx Instructions PO .COMPLEX Qty: 30 5RF (units unknown) (unknown) (unknown) (no date) (unknown) (unknown) Signed By: (units unknown) (unknown) (unknown) (no date) (unknown) (unknown) Skin (units unknown) (unknown) (unknown) (no date) (unknown) (unknown) Smoking Status: Neve r smoker (units unknown) (unknown) (unknown) (no date) (unknown) (unknown) Social History (units unknown) (unknown) (unknown) (no date) (unknown) (unknown) Sodium 135 L (137-14 5) mmol/L (units unknown) (unknown) (unknown) (no date) (unknown) (unknown) Source: patient (units unknown) (unknown) (unknown) (no date) (unknown) (unknown) Stated complaint: gallbladder issues severe pain U.R.Abd (units unknown) (unknown) (unknown) (no date) (unknown) (unknown) Status post delivery (10/28/16) (units unknown) (unknown) (unknown) (no date) (unknown) (unknown) Stop: 06/23/22 09:31 (units unknown) (unknown) (unknown) (no date) (unknown) (unknown) Substance Use Type: marijuana (units unknown) (unknown) (unknown) (no date) (unknown) (unknown) Surgical History (units unknown) (unknown) (unknown) (no date) (unknown) (unknown) TECHNIQUE:? (units unknown) (unknown) (unknown) (no date) (unknown) (unknown) Temperature 98.5 F 06/23/22 08:55 (units unknown) (unknown) (unknown) (no date) (unknown) (unknown) Temperature 98.5 F (units unknown) (unknown) (unknown) (no date) (unknown) (unknown) Time Seen by Provide r: 06/23/22 09:21 (units unknown) (unknown) (unknown) (no date) (unknown) (unknown) Total Bilirubin 0.5 (0.2-1.3) mg/dL (units unknown) (unknown) (unknown) (no date) (unknown) (unknown) Total Protein 7.6 (6.3-8.2) g/dL (units unknown) (unknown) (unknown) (no date) (unknown) (unknown) US - abdomen: (units unknown) (unknown) (unknown) (no date) (unknown) (unknown) US abdomen limited Stat (units unknown) (unknown) (unknown) (no date) (unknown) (unknown) USE TO ADMINISTER ALBUTEROL SOLUTION Q4-6H PRN (units unknown) (unknown) (unknown) (no date) (unknown) (unknown) Urine Dip (units unknown) (unknown) (unknown) (no date) (unknown) (unknown) Urine Specific Gravi ty 1.010 (units unknown) (unknown) (unknown) (no date) (unknown) (unknown) Vital Signs - 8 hr (units unknown) (unknown) (unknown) (no date) (unknown) (unknown) Vital Signs (units unknown) (unknown) (unknown) (no date) (unknown) (unknown) Vital signs: (units unknown) (unknown) (unknown) (no date) (unknown) (unknown) WBC 8.3 (4.5-11.0) X103/uL (units unknown) (unknown) (unknown) (no date) (unknown) (unknown) [Embedded Image Not Available] (units unknown) (unknown) (unknown) (no date) (unknown) (unknown) administer into each nostril (units unknown) (unknown) (unknown) (no date) (unknown) (unknown) aerosol inhaler (Ventolin HFA) shortness of breath or wheezing (units unknown) (unknown) (unknown) (no date) (unknown) (unknown) albuterol sulfate 2. 5 mg /3 mL (0.083 %) solution for nebulization (units unknown) (unknown) (unknown) (no date) (unknown) (unknown) albuterol sulfate 2. 5 mg/3 mL 2.5 mg (3 mL) inhalation Q4-6H PRN 05/15/21 (units unknown) (unknown) (unknown) (no date) (unknown) (unknown) albuterol sulfate 90 mcg/actuation 2 puff inhalation Q4HP PRN 03/25/22 06/16/22 (units unknown) (unknown) (unknown) (no date) (unknown) (unknown) albuterol sulfate [Ventolin HFA] 90 mcg/actuation HFA aerosol inhaler (units unknown) (unknown) (unknown) (no date) (unknown) (unknown) alcohol intake frequency: holidays/special occasions only (units unknown) (unknown) (unknown) (no date) (unknown) (unknown) alcohol intake: current (units unknown) (unknown) (unknown) (no date) (unknown) (unknown) and below (units unknown) (unknown) (unknown) (no date) (unknown) (unknown) at least 2 hrs PO (units unknown) (unknown) (unknown) (no date) (unknown) (unknown) cholecystitis. She i s a follow-up with General surgery later this week. She (units unknown) (unknown) (unknown) (no date) (unknown) (unknown) documentation.? (units unknown) (unknown) (unknown) (no date) (unknown) (unknown) examination. (units unknown) (unknown) (unknown) (no date) (unknown) (unknown) extensive workup of this right upper quadrant pain. Her doctor thinks that (units unknown) (unknown) (unknown) (no date) (unknown) (unknown) fluticasone propiona te 50 2 spray intranasal DAILY PRN 03/25/22 06/16/22 (units unknown) (unknown) (unknown) (no date) (unknown) (unknown) fluticasone propiona te [Flonase Allergy Relief] 50 mcg/actuation (units unknown) (unknown) (unknown) (no date) (unknown) (unknown) for the past several months. There are times when it was worse than others and (units unknown) (unknown) (unknown) (no date) (unknown) (unknown) gram) vaginal gel (units unknown) (unknown) (unknown) (no date) (unknown) (unknown) greater than (units unknown) (unknown) (unknown) (no date) (unknown) (unknown) household members: children (units unknown) (unknown) (unknown) (no date) (unknown) (unknown) last evening the symptoms seemed to have gotten worse. She is had fairly (units unknown) (unknown) (unknown) (no date) (unknown) (unknown) maybe it was her gallbladder that is causing the discomfort. She is had an (units unknown) (unknown) (unknown) (no date) (unknown) (unknown) mcg/actuation nasal (units unknown) (unknown) (unknown) (no date) (unknown) (unknown) metronidazole 0.75 % (37.5 mg/5 g vaginal 06/16/22 06/16/22 (units unknown) (unknown) (unknown) (no date) (unknown) (unknown) metronidazole 0.75 % (37.5mg/5 gram) gel (units unknown) (unknown) (unknown) (no date) (unknown) (unknown) nebulizers #1 ea 05/15/21 (units unknown) (unknown) (unknown) (no date) (unknown) (unknown) ondansetron 4 mg disintegrating 4 mg PO Q6-8H PRN nausea and 04/25/22 (units unknown) (unknown) (unknown) (no date) (unknown) (unknown) ondansetron 4 mg tablet,disintegrating (units unknown) (unknown) (unknown) (no date) (unknown) (unknown) pantoprazole 40 mg tablet,delayed 40 mg PO DAILY #30 tabs 06/04/22 (units unknown) (unknown) (unknown) (no date) (unknown) (unknown) pantoprazole 40 mg tablet,delayed release (DR/EC) (units unknown) (unknown) (unknown) (no date) (unknown) (unknown) quadrant/right flank pain. She states she had been dealing with this discomfort (units unknown) (unknown) (unknown) (no date) (unknown) (unknown) release (units unknown) (unknown) (unknown) (no date) (unknown) (unknown) rizatriptan 5 mg tablet See Rx Instructions PO .COMPLEX 02/24/22 (units unknown) (unknown) (unknown) (no date) (unknown) (unknown) rizatriptan 5 mg tablet (units unknown) (unknown) (unknown) (no date) (unknown) (unknown) sertraline PO 06/16/22 (units unknown) (unknown) (unknown) (no date) (unknown) (unknown) sertraline (units unknown) (unknown) (unknown) (no date) (unknown) (unknown) spray,suspension (Flonase Allergy (units unknown) (unknown) (unknown) (no date) (unknown) (unknown) spray,suspension (units unknown) (unknown) (unknown) (no date) (unknown) (unknown) states the pain does get worse when she eats. She is having some nausea but no (units unknown) (unknown) (unknown) (no date) (unknown) (unknown) steatosis.? (units unknown) (unknown) (unknown) (no date) (unknown) (unknown) tablet vomiting #30 tabs (units unknown) (unknown) (unknown) (no date) (unknown) (unknown) take 1 tablet at ons et of headache; if no relief, may repeat 1 tablet after (units unknown) (unknown) (unknown) (no date) (unknown) (unknown) ultrasound and a HID A scan. All this have not revealed specific acute (units unknown) (unknown) (unknown) (no date) (unknown) (unknown) vaginal (units unknown) (unknown) (unknown) (no date) (unknown) (unknown) vomiting. No change in stools. No urinary symptoms. No skin changes. (units unknown) (unknown) (unknown) (no date) (unknown) (unknown) what would be expect ed based on the CT, where there is mild diffuse hepatic (units unknown) (unknown) Result panel [id number] (unknown) (no date) (unknown) (unknown) (no value) (units unknown) (unknown) (unknown) (no date) (unknown) (unknown) #30 tabs (units unknown) (unknown) (unknown) (no date) (unknown) (unknown) #90 mL (units unknown) (unknown) (unknown) (no date) (unknown) (unknown) <Electronically sign ed by Amadou Orosco D.O.> (units unknown) (unknown) (unknown) (no date) (unknown) (unknown) (0.083 %) solution f or nebulization shortness of breath or wheezing (units unknown) (unknown) (unknown) (no date) (unknown) (unknown) (DME) nebulizers Misc (units unknown) (unknown) (unknown) (no date) (unknown) (unknown) 06/23/22 06/23/22 Range/Units (units unknown) (unknown) (unknown) (no date) (unknown) (unknown) 06/23/22 09:21 (units unknown) (unknown) (unknown) (no date) (unknown) (unknown) 06/23/22 09:30 (units unknown) (unknown) (unknown) (no date) (unknown) (unknown) 06/23/22 1055 (units unknown) (unknown) (unknown) (no date) (unknown) (unknown) 06/23/22 (units unknown) (unknown) (unknown) (no date) (unknown) (unknown) 08:55 (units unknown) (unknown) (unknown) (no date) (unknown) (unknown) 09:21 09:21 (units unknown) (unknown) (unknown) (no date) (unknown) (unknown) 0RF (units unknown) (unknown) (unknown) (no date) (unknown) (unknown) 1. Diffuse hepatic steatosis, which is demonstrated to only be mild. (units unknown) (unknown) (unknown) (no date) (unknown) (unknown) 2 puff inhalation Q4 HP PRN (Reason: shortness of breath or wheezing) (units unknown) (unknown) (unknown) (no date) (unknown) (unknown) 2 spray intranasal DAILY PRN (units unknown) (unknown) (unknown) (no date) (unknown) (unknown) 2. No gallstones (units unknown) (unknown) (unknown) (no date) (unknown) (unknown) 2.5 mg inhalation Q4-6H PRN (Reason: shortness of breath or wheezing) Qty: 90 (units unknown) (unknown) (unknown) (no date) (unknown) (unknown) 25 mg PO QID PRN (Reason: nausea and vomiting) Qty: 14 0RF (units unknown) (unknown) (unknown) (no date) (unknown) (unknown) [address] (units unknown) (unknown) (unknown) (no date) (unknown) (unknown) 4 mg PO Q6-8H PRN (Reason: nausea and vomiting) Qty: 30 3RF (units unknown) (unknown) (unknown) (no date) (unknown) (unknown) 40 mg PO DAILY Qty: 30 0RF (units unknown) (unknown) (unknown) (no date) (unknown) (unknown) ? (units unknown) (unknown) (unknown) (no date) (unknown) (unknown) ALT 32 (<35) IU/L (units unknown) (unknown) (unknown) (no date) (unknown) (unknown) AST 25 (14-36) IU/L (units unknown) (unknown) (unknown) (no date) (unknown) (unknown) Abdominal pain (units unknown) (unknown) (unknown) (no date) (unknown) (unknown) Activity Restrictions/Additiona l Instructions: (units unknown) (unknown) (unknown) (no date) (unknown) (unknown) Age/Sex: 27 / F (units unknown) (unknown) (unknown) (no date) (unknown) (unknown) Albumin 4.0 (3.5-5.0 ) g/dL (units unknown) (unknown) (unknown) (no date) (unknown) (unknown) Albumin/Globulin Rat io 1.1 (1.0-2.8) (units unknown) (unknown) (unknown) (no date) (unknown) (unknown) Alkaline Phosphatase 75 (38-126) U/L (units unknown) (unknown) (unknown) (no date) (unknown) (unknown) Allergies (units unknown) (unknown) (unknown) (no date) (unknown) (unknown) Allergy/AdvReac Type Severity Reaction Status Date / Time (units unknown) (unknown) (unknown) (no date) (unknown) (unknown) Anxiety (units unknown) (unknown) (unknown) (no date) (unknown) (unknown) Auscultation: clear to auscultation bilaterally (units unknown) (unknown) (unknown) (no date) (unknown) (unknown) BUN 6 L (7-17) mg/dL (units unknown) (unknown) (unknown) (no date) (unknown) (unknown) BUN/Creatinine Ratio 8.1 (6-22) (units unknown) (unknown) (unknown) (no date) (unknown) (unknown) Back/Spine/Pelvis (units unknown) (unknown) (unknown) (no date) (unknown) (unknown) Baso # (Auto) 0 (0-100) /uL (units unknown) (unknown) (unknown) (no date) (unknown) (unknown) Baso % (Auto) 0.5 (0-2) % (units unknown) (unknown) (unknown) (no date) (unknown) (unknown) Bedside Urine Bilirubin - Negative (units unknown) (unknown) (unknown) (no date) (unknown) (unknown) Bedside Urine Glucos e Negative (units unknown) (unknown) (unknown) (no date) (unknown) (unknown) Bedside Urine Ketone - Negative (units unknown) (unknown) (unknown) (no date) (unknown) (unknown) Bedside Urine Leukocytes - Negative (units unknown) (unknown) (unknown) (no date) (unknown) (unknown) Bedside Urine Nitrit e - Negative (units unknown) (unknown) (unknown) (no date) (unknown) (unknown) Bedside Urine Occult Blood - Negative (units unknown) (unknown) (unknown) (no date) (unknown) (unknown) Bedside Urine Protei n - Negative (units unknown) (unknown) (unknown) (no date) (unknown) (unknown) Bedside Urine Urobilinogen - Negative (units unknown) (unknown) (unknown) (no date) (unknown) (unknown) Bedside Urine pH 7.0 (units unknown) (unknown) (unknown) (no date) (unknown) (unknown) Blood Pressure 168/9 1 H 06/23/22 08:55 (units unknown) (unknown) (unknown) (no date) (unknown) (unknown) Blood Pressure 168/9 1 H (units unknown) (unknown) (unknown) (no date) (unknown) (unknown) COMPARISON:Located Within [facility], CT, CT ABDOMEN PELVIS W CON, 06/20/2022, 11:58.? (units unknown) (unknown) (unknown) (no date) (unknown) (unknown) Calcium 9.2 (8.4-10. 2) mg/dL (units unknown) (unknown) (unknown) (no date) (unknown) (unknown) Carbon Dioxide 27 (22-32) mmol/L (units unknown) (unknown) (unknown) (no date) (unknown) (unknown) Cardio (units unknown) (unknown) (unknown) (no date) (unknown) (unknown) Cervicitis (units unknown) (unknown) (unknown) (no date) (unknown) (unknown) Chief complaint: Abdominal Pain (units unknown) (unknown) (unknown) (no date) (unknown) (unknown) Chloride 101 (98-107 ) mmol/L (units unknown) (unknown) (unknown) (no date) (unknown) (unknown) Clinical Impression: (units unknown) (unknown) (unknown) (no date) (unknown) (unknown) Common migraine (units unknown) (unknown) (unknown) (no date) (unknown) (unknown) Complete Blood Count AUTO DIFF Stat (units unknown) (unknown) (unknown) (no date) (unknown) (unknown) Comprehensive Metabolic Panel Stat (units unknown) (unknown) (unknown) (no date) (unknown) (unknown) Course (units unknown) (unknown) (unknown) (no date) (unknown) (unknown) Creatinine 0.74 (0.52-1.04) mg/dL (units unknown) (unknown) (unknown) (no date) (unknown) (unknown) : 1995 Acct:[id number] (units unknown) (unknown) (unknown) (no date) (unknown) (unknown) Date of Service: 06/23/22 (units unknown) (unknown) (unknown) (no date) (unknown) (unknown) Departure (units unknown) (unknown) (unknown) (no date) (unknown) (unknown) Depression (2013) (units unknown) (unknown) (unknown) (no date) (unknown) (unknown) Discharge Plan (units unknown) (unknown) (unknown) (no date) (unknown) (unknown) Discontinued Medications (units unknown) (unknown) (unknown) (no date) (unknown) (unknown) Documented By: AMU (units unknown) (unknown) (unknown) (no date) (unknown) (unknown) ED Orders (units unknown) (unknown) (unknown) (no date) (unknown) (unknown) ER Physician: Amadou Orosco D.O. (units unknown) (unknown) (unknown) (no date) (unknown) (unknown) Effort + Inspection: normal respiratory effort (units unknown) (unknown) (unknown) (no date) (unknown) (unknown) Emergency Report (units unknown) (unknown) (unknown) (no date) (unknown) (unknown) Eos # (Auto) 100 (0-450) /uL (units unknown) (unknown) (unknown) (no date) (unknown) (unknown) Eos % (Auto) 1.2 L (2-4) % (units unknown) (unknown) (unknown) (no date) (unknown) (unknown) Esterase (units unknown) (unknown) (unknown) (no date) (unknown) (unknown) Estimated GFR > 60 (>60) mL/min (units unknown) (unknown) (unknown) (no date) (unknown) (unknown) Exam (units unknown) (unknown) (unknown) (no date) (unknown) (unknown) Extrem (units unknown) (unknown) (unknown) (no date) (unknown) (unknown) FINDINGS:? There is increased echogenicity present in the liver, which is (units unknown) (unknown) (unknown) (no date) (unknown) (unknown) GI (units unknown) (unknown) (unknown) (no date) (unknown) (unknown) Gallbladder is unremarkable without stones or wall thickening.? No pain on (units unknown) (unknown) (unknown) (no date) (unknown) (unknown) Gastroesophageal reflux disease (units unknown) (unknown) (unknown) (no date) (unknown) (unknown) General (units unknown) (unknown) (unknown) (no date) (unknown) (unknown) General: no rashes o r lesions noted (units unknown) (unknown) (unknown) (no date) (unknown) (unknown) General: normal to inspection and capillary refill normal (units unknown) (unknown) (unknown) (no date) (unknown) (unknown) General: patient alert, patient awake and moves all extremities (units unknown) (unknown) (unknown) (no date) (unknown) (unknown) Globulin 3.6 (1.7-4. 1) g/dL (units unknown) (unknown) (unknown) (no date) (unknown) (unknown) Glucose 100 (70-100) mg/dL (units unknown) (unknown) (unknown) (no date) (unknown) (unknown) HENMT (units unknown) (unknown) (unknown) (no date) (unknown) (unknown) HPI - General Adult (units unknown) (unknown) (unknown) (no date) (unknown) (unknown) HPI narrative: (units unknown) (unknown) (unknown) (no date) (unknown) (unknown) Hct 39.0 (36-46) % (units unknown) (unknown) (unknown) (no date) (unknown) (unknown) Head: normal to inspection and normocephalic (units unknown) (unknown) (unknown) (no date) (unknown) (unknown) Headache, chronic daily (units unknown) (unknown) (unknown) (no date) (unknown) (unknown) Hepatic steatosis (units unknown) (unknown) (unknown) (no date) (unknown) (unknown) Her test i s negative and her urinalysis is negative which makes (units unknown) (unknown) (unknown) (no date) (unknown) (unknown) Hgb 13.4 (12.0-16.0) g/dL (units unknown) (unknown) (unknown) (no date) (unknown) (unknown) History of Present Illness (units unknown) (unknown) (unknown) (no date) (unknown) (unknown) History of appendectomy (units unknown) (unknown) (unknown) (no date) (unknown) (unknown) Home Medications (units unknown) (unknown) (unknown) (no date) (unknown) (unknown) [facility], ABDOMEN LIMITED, 04/28/2022, 9:28. (units unknown) (unknown) (unknown) (no date) (unknown) (unknown) I do recommend that you keep your scheduled appointment with General surgery (units unknown) (unknown) (unknown) (no date) (unknown) (unknown) IBS (irritable bowel syndrome) (units unknown) (unknown) (unknown) (no date) (unknown) (unknown) IMPRESSION:? (units unknown) (unknown) (unknown) (no date) (unknown) (unknown) INDICATIONS:? RUQ PAIN (units unknown) (unknown) (unknown) (no date) (unknown) (unknown) Imaging Data (units unknown) (unknown) (unknown) (no date) (unknown) (unknown) Initial Vital Signs (units unknown) (unknown) (unknown) (no date) (unknown) (unknown) Initial Vital Signs: (units unknown) (unknown) (unknown) (no date) (unknown) (unknown) Inspection: normal t o inspection and non-distended (units unknown) (unknown) (unknown) (no date) (unknown) (unknown) Instructions: DI for Abdominal Pain-Adult (units unknown) (unknown) (unknown) (no date) (unknown) (unknown) [address] [address] (units unknown) (unknown) (unknown) (no date) (unknown) (unknown) [place] (units unknown) (unknown) (unknown) (no date) (unknown) (unknown) Ketorolac [place] ne (Ketorolac 30 Mg/Ml Vial) 30 mg IV NOW ONE (units unknown) (unknown) (unknown) (no date) (unknown) (unknown) Lab Data (units unknown) (unknown) (unknown) (no date) (unknown) (unknown) Lab Results (units unknown) (unknown) (unknown) (no date) (unknown) (unknown) Lab results reviewed : Yes I reviewed the patient's lab results. (units unknown) (unknown) (unknown) (no date) (unknown) (unknown) Labs: (units unknown) (unknown) (unknown) (no date) (unknown) (unknown) Last Admin: 06/23/22 09:36 Dose: 30 mg (units unknown) (unknown) (unknown) (no date) (unknown) (unknown) Last Admin: 06/23/22 09:36 Dose: 4 mg (units unknown) (unknown) (unknown) (no date) (unknown) (unknown) Limitations: no limitations (units unknown) (unknown) (unknown) (no date) (unknown) (unknown) Lipase 74 (23-300) U/L (units unknown) (unknown) (unknown) (no date) (unknown) (unknown) Lipase Stat (units unknown) (unknown) (unknown) (no date) (unknown) (unknown) Lymph # (Auto) 2500 (0355-7711) /uL (units unknown) (unknown) (unknown) (no date) (unknown) (unknown) Lymph % (Auto) 30.4 (25-40) % (units unknown) (unknown) (unknown) (no date) (unknown) (unknown) MCH 28.4 (26-34) PG (units unknown) (unknown) (unknown) (no date) (unknown) (unknown) MCHC 34.2 (30-36) % (units unknown) (unknown) (unknown) (no date) (unknown) (unknown) MCV 83.1 (80-100) fL (units unknown) (unknown) (unknown) (no date) (unknown) (unknown) MDM Narrative (units unknown) (unknown) (unknown) (no date) (unknown) (unknown) Medical Decision Making (units unknown) (unknown) (unknown) (no date) (unknown) (unknown) Medical History (units unknown) (unknown) (unknown) (no date) (unknown) (unknown) Medical Records (units unknown) (unknown) (unknown) (no date) (unknown) (unknown) Medical decision making narrative: (units unknown) (unknown) (unknown) (no date) (unknown) (unknown) Medical records reviewed: Yes I reviewed the patient's medical records. (units unknown) (unknown) (unknown) (no date) (unknown) (unknown) Medication Instructions Recorded Confirmed (units unknown) (unknown) (unknown) (no date) (unknown) (unknown) Medication Instructions Recorded (units unknown) (unknown) (unknown) (no date) (unknown) (unknown) Mild right CVA tenderness (units unknown) (unknown) (unknown) (no date) (unknown) (unknown) Mode of arrival: Ambulatory (units unknown) (unknown) (unknown) (no date) (unknown) (unknown) [place] # (Auto) 500 (0-900) /uL (units unknown) (unknown) (unknown) (no date) (unknown) (unknown) [place] % (Auto) 6.6 (3-14) % (units unknown) (unknown) (unknown) (no date) (unknown) (unknown) Morbid obesity (units unknown) (unknown) (unknown) (no date) (unknown) (unknown) Neuro (units unknown) (unknown) (unknown) (no date) (unknown) (unknown) Neut # (Auto) 5100 (4253-8562) /uL (units unknown) (unknown) (unknown) (no date) (unknown) (unknown) Neut % (Auto) 61.3 (50-75) % (units unknown) (unknown) (unknown) (no date) (unknown) (unknown) New (units unknown) (unknown) (unknown) (no date) (unknown) (unknown) No Action (units unknown) (unknown) (unknown) (no date) (unknown) (unknown) No Known Drug Allergies Allergy Verified 06/23/22 09:32 (units unknown) (unknown) (unknown) (no date) (unknown) (unknown) No dilated bile ducts.? Common hepatic duct measures 4.5 mm. (units unknown) (unknown) (unknown) (no date) (unknown) (unknown) No focal liver mass. (units unknown) (unknown) (unknown) (no date) (unknown) (unknown) Ondansetron HCl (Ondansetron 4 Mg/2 Ml Inj) 4 mg IV NOW ONE (units unknown) (unknown) (unknown) (no date) (unknown) (unknown) Ordered: (units unknown) (unknown) (unknown) (no date) (unknown) (unknown) Orders (units unknown) (unknown) (unknown) (no date) (unknown) (unknown) Other: (units unknown) (unknown) (unknown) (no date) (unknown) (unknown) Oxygen Delivery Meth od Room Air 06/23/22 08:55 (units unknown) (unknown) (unknown) (no date) (unknown) (unknown) Oxygen Delivery Meth od Room Air (units unknown) (unknown) (unknown) (no date) (unknown) (unknown) PO (units unknown) (unknown) (unknown) (no date) (unknown) (unknown) PROCEDURE: US ABDOME N LIMITED (units unknown) (unknown) (unknown) (no date) (unknown) (unknown) Palpation: soft and tender (Right flank, negative Roy sign) (units unknown) (unknown) (unknown) (no date) (unknown) (unknown) Pancreas is suboptimally visualized secondary to overlying bowel gas. (units unknown) (unknown) (unknown) (no date) (unknown) (unknown) Patient Disposition: Home (units unknown) (unknown) (unknown) (no date) (unknown) (unknown) Patient History (units unknown) (unknown) (unknown) (no date) (unknown) (unknown) Patient does have a benign abdominal exam. She has a follow-up with General (units unknown) (unknown) (unknown) (no date) (unknown) (unknown) Patient is a 27-year-old female who is here for evaluation of right upper (units unknown) (unknown) (unknown) (no date) (unknown) (unknown) Patient: Sue Gurrola MR#: [id number] (units unknown) (unknown) (unknown) (no date) (unknown) (unknown) Plt Count 277 (150-400) X103/uL (units unknown) (unknown) (unknown) (no date) (unknown) (unknown) Point of Care Testing (units unknown) (unknown) (unknown) (no date) (unknown) (unknown) Point of care testing: (units unknown) (unknown) (unknown) (no date) (unknown) (unknown) Potassium 4.1 (3.4-5.1) mmol/L (units unknown) (unknown) (unknown) (no date) (unknown) (unknown) Test Resul ts Negative (units unknown) (unknown) (unknown) (no date) (unknown) (unknown) Prescriptions: (units unknown) (unknown) (unknown) (no date) (unknown) (unknown) Previous Rx's (units unknown) (unknown) (unknown) (no date) (unknown) (unknown) Pulse Oximetry 100 06/23/22 08:55 (units unknown) (unknown) (unknown) (no date) (unknown) (unknown) Pulse Oximetry 100 (units unknown) (unknown) (unknown) (no date) (unknown) (unknown) Pulse Rate 83 08:55 (units unknown) (unknown) (unknown) (no date) (unknown) (unknown) Pulse Rate 83 (units unknown) (unknown) (unknown) (no date) (unknown) (unknown) RBC 4.70 (4.0-5.2) X106/uL (units unknown) (unknown) (unknown) (no date) (unknown) (unknown) RDW 13.2 (11.6-14.8) % (units unknown) (unknown) (unknown) (no date) (unknown) (unknown) ROS Unobtainable: Al l systems reviewed + are unremarkable except as noted in HPI (units unknown) (unknown) (unknown) (no date) (unknown) (unknown) Radiologist's Impression: (units unknown) (unknown) (unknown) (no date) (unknown) (unknown) Rate: regular rate (units unknown) (unknown) (unknown) (no date) (unknown) (unknown) Real-time focused scanning was performed of the abdomen, with image (units unknown) (unknown) (unknown) (no date) (unknown) (unknown) Referrals: (units unknown) (unknown) (unknown) (no date) (unknown) (unknown) Related Data (units unknown) (unknown) (unknown) (no date) (unknown) (unknown) Relief) (units unknown) (unknown) (unknown) (no date) (unknown) (unknown) Resp (units unknown) (unknown) (unknown) (no date) (unknown) (unknown) Respiratory Rate 18 06/23/22 08:55 (units unknown) (unknown) (unknown) (no date) (unknown) (unknown) Respiratory Rate 18 (units unknown) (unknown) (unknown) (no date) (unknown) (unknown) Review of Systems (units unknown) (unknown) (unknown) (no date) (unknown) (unknown) Rhythm: regular rhythm (units unknown) (unknown) (unknown) (no date) (unknown) (unknown) Mani Mustafa ARNP [Primary Care Provider] (units unknown) (unknown) (unknown) (no date) (unknown) (unknown) Rx Instructions: (units unknown) (unknown) (unknown) (no date) (unknown) (unknown) See Rx Instructions .Route Qty: 1 0RF (units unknown) (unknown) (unknown) (no date) (unknown) (unknown) See Rx Instructions PO .COMPLEX Qty: 30 5RF (units unknown) (unknown) (unknown) (no date) (unknown) (unknown) She has had her appendix removed. I have low suspicion for bowel obstruction. (units unknown) (unknown) (unknown) (no date) (unknown) (unknown) Signed By: (units unknown) (unknown) (unknown) (no date) (unknown) (unknown) Skin (units unknown) (unknown) (unknown) (no date) (unknown) (unknown) Smoking Status: Neve r smoker (units unknown) (unknown) (unknown) (no date) (unknown) (unknown) Social History (units unknown) (unknown) (unknown) (no date) (unknown) (unknown) Sodium 135 L (137-14 5) mmol/L (units unknown) (unknown) (unknown) (no date) (unknown) (unknown) Source: patient (units unknown) (unknown) (unknown) (no date) (unknown) (unknown) Stand Alone Forms: Patient Portal/API (units unknown) (unknown) (unknown) (no date) (unknown) (unknown) Stated complaint: gallbladder issues severe pain U.R.Abd (units unknown) (unknown) (unknown) (no date) (unknown) (unknown) Status post delivery (10/28/16) (units unknown) (unknown) (unknown) (no date) (unknown) (unknown) Stop: 06/23/22 09:31 (units unknown) (unknown) (unknown) (no date) (unknown) (unknown) Substance Use Type: marijuana (units unknown) (unknown) (unknown) (no date) (unknown) (unknown) Surgical History (units unknown) (unknown) (unknown) (no date) (unknown) (unknown) TECHNIQUE:? (units unknown) (unknown) (unknown) (no date) (unknown) (unknown) Temperature 98.5 F 06/23/22 08:55 (units unknown) (unknown) (unknown) (no date) (unknown) (unknown) Temperature 98.5 F (units unknown) (unknown) (unknown) (no date) (unknown) (unknown) Time Seen by Provide r: 06/23/22 09:21 (units unknown) (unknown) (unknown) (no date) (unknown) (unknown) Total Bilirubin 0.5 (0.2-1.3) mg/dL (units unknown) (unknown) (unknown) (no date) (unknown) (unknown) Total Protein 7.6 (6.3-8.2) g/dL (units unknown) (unknown) (unknown) (no date) (unknown) (unknown) US - abdomen: (units unknown) (unknown) (unknown) (no date) (unknown) (unknown) US abdomen limited Stat (units unknown) (unknown) (unknown) (no date) (unknown) (unknown) USE TO ADMINISTER ALBUTEROL SOLUTION Q4-6H PRN (units unknown) (unknown) (unknown) (no date) (unknown) (unknown) Urine Dip (units unknown) (unknown) (unknown) (no date) (unknown) (unknown) Urine Specific Gravi ty 1.010 (units unknown) (unknown) (unknown) (no date) (unknown) (unknown) Vital Signs - 8 hr (units unknown) (unknown) (unknown) (no date) (unknown) (unknown) Vital Signs (units unknown) (unknown) (unknown) (no date) (unknown) (unknown) Vital signs: (units unknown) (unknown) (unknown) (no date) (unknown) (unknown) WBC 8.3 (4.5-11.0) X103/uL (units unknown) (unknown) (unknown) (no date) (unknown) (unknown) Will have her keep h er follow-up appointment later this week. She was given (units unknown) (unknown) (unknown) (no date) (unknown) (unknown) [Embedded Image Not Available] (units unknown) (unknown) (unknown) (no date) (unknown) (unknown) administer into each nostril (units unknown) (unknown) (unknown) (no date) (unknown) (unknown) aerosol inhaler (Ventolin HFA) shortness of breath or wheezing (units unknown) (unknown) (unknown) (no date) (unknown) (unknown) albuterol sulfate 2. 5 mg /3 mL (0.083 %) solution for nebulization (units unknown) (unknown) (unknown) (no date) (unknown) (unknown) albuterol sulfate 2. 5 mg/3 mL 2.5 mg (3 mL) inhalation Q4-6H PRN 05/15/21 (units unknown) (unknown) (unknown) (no date) (unknown) (unknown) albuterol sulfate 90 mcg/actuation 2 puff inhalation Q4HP PRN 03/25/22 06/16/22 (units unknown) (unknown) (unknown) (no date) (unknown) (unknown) albuterol sulfate [Ventolin HFA] 90 mcg/actuation HFA aerosol inhaler (units unknown) (unknown) (unknown) (no date) (unknown) (unknown) alcohol intake frequency: holidays/special occasions only (units unknown) (unknown) (unknown) (no date) (unknown) (unknown) alcohol intake: current (units unknown) (unknown) (unknown) (no date) (unknown) (unknown) and below (units unknown) (unknown) (unknown) (no date) (unknown) (unknown) at least 2 hrs PO (units unknown) (unknown) (unknown) (no date) (unknown) (unknown) cholecystitis. She i s a follow-up with General surgery later this week. She (units unknown) (unknown) (unknown) (no date) (unknown) (unknown) documentation.? (units unknown) (unknown) (unknown) (no date) (unknown) (unknown) examination. (units unknown) (unknown) (unknown) (no date) (unknown) (unknown) extensive workup of this right upper quadrant pain. Her doctor thinks that (units unknown) (unknown) (unknown) (no date) (unknown) (unknown) fluticasone propiona te 50 2 spray intranasal DAILY PRN 03/25/22 06/16/22 (units unknown) (unknown) (unknown) (no date) (unknown) (unknown) fluticasone propiona te [Flonase Allergy Relief] 50 mcg/actuation (units unknown) (unknown) (unknown) (no date) (unknown) (unknown) for the past several months. There are times when it was worse than others and (units unknown) (unknown) (unknown) (no date) (unknown) (unknown) gram) vaginal gel (units unknown) (unknown) (unknown) (no date) (unknown) (unknown) greater than (units unknown) (unknown) (unknown) (no date) (unknown) (unknown) have low suspicion that this is a kidney stone just based on her presentation. (units unknown) (unknown) (unknown) (no date) (unknown) (unknown) household members: children (units unknown) (unknown) (unknown) (no date) (unknown) (unknown) last evening the symptoms seemed to have gotten worse. She is had fairly (units unknown) (unknown) (unknown) (no date) (unknown) (unknown) later this week. Continue to take all of your medications as directed. Return (units unknown) (unknown) (unknown) (no date) (unknown) (unknown) lipase are unremarkable. Her right upper quadrant ultrasound is negative. I do (units unknown) (unknown) (unknown) (no date) (unknown) (unknown) maybe it was her gallbladder that is causing the discomfort. She is had an (units unknown) (unknown) (unknown) (no date) (unknown) (unknown) mcg/actuation nasal (units unknown) (unknown) (unknown) (no date) (unknown) (unknown) metronidazole 0.75 % (37.5 mg/5 g vaginal 06/16/22 06/16/22 (units unknown) (unknown) (unknown) (no date) (unknown) (unknown) metronidazole 0.75 % (37.5mg/5 gram) gel (units unknown) (unknown) (unknown) (no date) (unknown) (unknown) nausea medication at home. She would like to take Tylenol at home for pain. (units unknown) (unknown) (unknown) (no date) (unknown) (unknown) nebulizers #1 ea 05/15/21 (units unknown) (unknown) (unknown) (no date) (unknown) (unknown) ondansetron 4 mg disintegrating 4 mg PO Q6-8H PRN nausea and 04/25/22 (units unknown) (unknown) (unknown) (no date) (unknown) (unknown) ondansetron 4 mg tablet,disintegrating (units unknown) (unknown) (unknown) (no date) (unknown) (unknown) pantoprazole 40 mg tablet,delayed 40 mg PO DAILY #30 tabs 06/04/22 (units unknown) (unknown) (unknown) (no date) (unknown) (unknown) pantoprazole 40 mg tablet,delayed release (DR/EC) (units unknown) (unknown) (unknown) (no date) (unknown) (unknown) promethazine 25 mg tablet 25 mg PO QID PRN nausea and 06/23/22 (units unknown) (unknown) (unknown) (no date) (unknown) (unknown) promethazine 25 mg tablet (units unknown) (unknown) (unknown) (no date) (unknown) (unknown) pyelonephritis unlikely. I do feel we should hold on a CT scan today is my (units unknown) (unknown) (unknown) (no date) (unknown) (unknown) quadrant/right flank pain. She states she had been dealing with this discomfort (units unknown) (unknown) (unknown) (no date) (unknown) (unknown) release (units unknown) (unknown) (unknown) (no date) (unknown) (unknown) return precautions. She expressed understanding and agreement. (units unknown) (unknown) (unknown) (no date) (unknown) (unknown) rizatriptan 5 mg tablet See Rx Instructions PO .COMPLEX 02/24/22 (units unknown) (unknown) (unknown) (no date) (unknown) (unknown) rizatriptan 5 mg tablet (units unknown) (unknown) (unknown) (no date) (unknown) (unknown) sertraline PO 06/16/22 (units unknown) (unknown) (unknown) (no date) (unknown) (unknown) sertraline (units unknown) (unknown) (unknown) (no date) (unknown) (unknown) spray,suspension (Flonase Allergy (units unknown) (unknown) (unknown) (no date) (unknown) (unknown) spray,suspension (units unknown) (unknown) (unknown) (no date) (unknown) (unknown) states the pain does get worse when she eats. She is having some nausea but no (units unknown) (unknown) (unknown) (no date) (unknown) (unknown) steatosis.? (units unknown) (unknown) (unknown) (no date) (unknown) (unknown) surgery on this week to discuss her potential gallbladder issues. Her (units unknown) (unknown) (unknown) (no date) (unknown) (unknown) suspicion is low for an acute intra-abdominal surgical issue. She does have (units unknown) (unknown) (unknown) (no date) (unknown) (unknown) tablet vomiting #30 tabs (units unknown) (unknown) (unknown) (no date) (unknown) (unknown) take 1 tablet at ons et of headache; if no relief, may repeat 1 tablet after (units unknown) (unknown) (unknown) (no date) (unknown) (unknown) to the emergency department for new or worsening symptoms. (units unknown) (unknown) (unknown) (no date) (unknown) (unknown) ultrasound and a HID A scan. All this have not revealed specific acute (units unknown) (unknown) (unknown) (no date) (unknown) (unknown) vaginal (units unknown) (unknown) (unknown) (no date) (unknown) (unknown) vomiting #14 tabs (units unknown) (unknown) (unknown) (no date) (unknown) (unknown) vomiting. No change in stools. No urinary symptoms. No skin changes. (units unknown) (unknown) (unknown) (no date) (unknown) (unknown) what would be expect ed based on the CT, where there is mild diffuse hepatic (units unknown) (unknown) (unknown) (no date) (unknown) (unknown) workup here in the emergency department today his unremarkable. Her LFTs and (units unknown) (unknown) Result panel [id number] (unknown) (no date) (unknown) (unknown) (no value) (units unknown) (unknown) (unknown) (no date) (unknown) (unknown) 06/26/22 (units unknown) (unknown) (unknown) (no date) (unknown) (unknown) 06/26/22] (units unknown) (unknown) (unknown) (no date) (unknown) (unknown) 15:56 (units unknown) (unknown) (unknown) (no date) (unknown) (unknown) [id number] (units unknown) (unknown) (unknown) (no date) (unknown) (unknown) Age at menarche: 13 (units unknown) (unknown) (unknown) (no date) (unknown) (unknown) Age when first child born?: 21 (units unknown) (unknown) (unknown) (no date) (unknown) (unknown) Age/Sex: 27 / F Date of Service: (units unknown) (unknown) (unknown) (no date) (unknown) (unknown) Allergies (units unknown) (unknown) (unknown) (no date) (unknown) (unknown) [place] [address] (units unknown) (unknown) (unknown) (no date) (unknown) (unknown) Anxiety (units unknown) (unknown) (unknown) (no date) (unknown) (unknown) Attending Dr: Willem Allen MD (units unknown) (unknown) (unknown) (no date) (unknown) (unknown) BMI 51.5 (units unknown) (unknown) (unknown) (no date) (unknown) (unknown) BP 130/90 (units unknown) (unknown) (unknown) (no date) (unknown) (unknown) Blood Pressure Location Lt brachial (units unknown) (unknown) (unknown) (no date) (unknown) (unknown) Cervicitis (units unknown) (unknown) (unknown) (no date) (unknown) (unknown) Common migraine (units unknown) (unknown) (unknown) (no date) (unknown) (unknown) Confirmed 06/26/22] (units unknown) (unknown) (unknown) (no date) (unknown) (unknown) : 1995 Acct:[id number] (units unknown) (unknown) (unknown) (no date) (unknown) (unknown) Depression (2013) (units unknown) (unknown) (unknown) (no date) (unknown) (unknown) Dept at . (units unknown) (unknown) (unknown) (no date) (unknown) (unknown) Documented By: Willem Allen MD 06/26/22 1554 (units unknown) (unknown) (unknown) (no date) (unknown) (unknown) Draft (units unknown) (unknown) (unknown) (no date) (unknown) (unknown) Gastroesophageal reflux disease (units unknown) (unknown) (unknown) (no date) (unknown) (unknown) : 2 (units unknown) (unknown) (unknown) (no date) (unknown) (unknown) Headache, chronic daily (units unknown) (unknown) (unknown) (no date) (unknown) (unknown) Height 5 ft 4 in (units unknown) (unknown) (unknown) (no date) (unknown) (unknown) Hepatic steatosis (units unknown) (unknown) (unknown) (no date) (unknown) (unknown) History of appendectomy (units unknown) (unknown) (unknown) (no date) (unknown) (unknown) IBS (irritable bowel syndrome) (units unknown) (unknown) (unknown) (no date) (unknown) (unknown) Intake (units unknown) (unknown) (unknown) (no date) (unknown) (unknown) Is patient in pain?: Yes (units unknown) (unknown) (unknown) (no date) (unknown) (unknown) [facility] (units unknown) (unknown) (unknown) (no date) (unknown) (unknown) Loc: [facility] (units unknown) (unknown) (unknown) (no date) (unknown) (unknown) Medical History (units unknown) (unknown) (unknown) (no date) (unknown) (unknown) Medications (units unknown) (unknown) (unknown) (no date) (unknown) (unknown) Morbid obesity 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 (units unknown) (unknown) (unknown) (no date) (unknown) (unknown) Oxygen Delivery Meth od room air (units unknown) (unknown) (unknown) (no date) (unknown) (unknown) PFSH (units unknown) (unknown) (unknown) (no date) (unknown) (unknown) Pain Location (units unknown) (unknown) (unknown) (no date) (unknown) (unknown) Pain Scale (units unknown) (unknown) (unknown) (no date) (unknown) (unknown) Pain location(s):: 07/16 (units unknown) (unknown) (unknown) (no date) (unknown) (unknown) Para: 1 (units unknown) (unknown) (unknown) (no date) (unknown) (unknown) Patient: Sue Gurrola MR#: [id number] (units unknown) (unknown) (unknown) (no date) (unknown) (unknown) Position Sitting (units unknown) (unknown) (unknown) (no date) (unknown) (unknown) Pulse 93 H (units unknown) (unknown) (unknown) (no date) (unknown) (unknown) Pulse Oximetry (%) 98 (units unknown) (unknown) (unknown) (no date) (unknown) (unknown) Pulse Source Monitor (units unknown) (unknown) (unknown) (no date) (unknown) (unknown) Reason For Visit (units unknown) (unknown) (unknown) (no date) (unknown) (unknown) Relief) 2 spray intranasal DAILY PRN 03/25/22 [History Confirmed 06/26/22] (units unknown) (unknown) (unknown) (no date) (unknown) (unknown) Signed By: (units unknown) (unknown) (unknown) (no date) (unknown) (unknown) Smoking Status: Mario carey smoker (units unknown) (unknown) (unknown) (no date) (unknown) (unknown) Social History (units unknown) (unknown) (unknown) (no date) (unknown) (unknown) Status post delivery (10/28/16) (units unknown) (unknown) (unknown) (no date) (unknown) (unknown) Surgery Office Visit (units unknown) (unknown) (unknown) (no date) (unknown) (unknown) Surgical History (units unknown) (unknown) (unknown) (no date) (unknown) (unknown) Temp 97.3 F L (units unknown) (unknown) (unknown) (no date) (unknown) (unknown) Temp Source Temporal Artery Scan (units unknown) (unknown) (unknown) (no date) (unknown) (unknown) This note may have been all or partially generated using voice recognition (units unknown) (unknown) (unknown) (no date) (unknown) (unknown) Tobacco Status (units unknown) (unknown) (unknown) (no date) (unknown) (unknown) 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 5 mg/3 mL (0.083 %) solution for nebulization 2.5 mg (3 mL) (units unknown) (unknown) (unknown) (no date) (unknown) (unknown) albuterol sulfate 90 mcg/actuation aerosol inhaler (Ventolin HFA) 2 puff (units unknown) (unknown) (unknown) (no date) (unknown) (unknown) alcohol intake: former (units unknown) (unknown) (unknown) (no date) (unknown) (unknown) fluticasone propiona te 50 mcg/actuation nasal spray,suspension (Flonase Allergy (units unknown) (unknown) (unknown) (no date) (unknown) (unknown) have occurred. If there are any questions, please contact the Medical Records (units unknown) (unknown) (unknown) (no date) (unknown) (unknown) household members: children (units unknown) (unknown) (unknown) (no date) (unknown) (unknown) inhalation Q4-6H PRN shortness of breath or wheezing #90 mL 05/15/21 [Rx (units unknown) (unknown) (unknown) (no date) (unknown) (unknown) inhalation Q4HP PRN shortness of breath or wheezing 03/25/22 [History Confirmed (units unknown) (unknown) (unknown) (no date) (unknown) (unknown) lives independently: Yes (units unknown) (unknown) (unknown) (no date) (unknown) (unknown) marital status: unmarried,single (units unknown) (unknown) (unknown) (no date) (unknown) (unknown) may occur. Occasiona l wrong-word or 'sound-alike' substitutions may have (units unknown) (unknown) (unknown) (no date) (unknown) (unknown) metronidazole 0.75 % (37.5 mg/5 gram) vaginal gel g vaginal 06/16/22 [History (units unknown) (unknown) (unknown) (no date) (unknown) (unknown) nebulizers #1 ea 05/15/21 [Rx Confirmed 06/26/22] (units unknown) (unknown) (unknown) (no date) (unknown) (unknown) occupational status: employed (units unknown) (unknown) (unknown) (no date) (unknown) (unknown) occurred due to the inherent limitations of voice recognition software. Please (units unknown) (unknown) (unknown) (no date) (unknown) (unknown) ondansetron 4 mg disintegrating tablet 4 mg PO Q6-8H PRN nausea and vomiting #30 (units unknown) (unknown) (unknown) (no date) (unknown) (unknown) pantoprazole 40 mg tablet,delayed release 40 mg PO DAILY #30 tabs 06/04/22 [Rx (units unknown) (unknown) (unknown) (no date) (unknown) (unknown) promethazine 25 mg tablet 25 mg PO QID PRN nausea and vomiting #14 tabs 06/23/22 (units unknown) (unknown) (unknown) (no date) (unknown) (unknown) read the note carefully and recognize, using context, where these substitutions (units unknown) (unknown) (unknown) (no date) (unknown) (unknown) rizatriptan 5 mg tablet See Rx Instructions PO .COMPLEX #30 tabs 02/24/22 [Rx (units unknown) (unknown) (unknown) (no date) (unknown) (unknown) sertraline PO [History Confirmed 06/26/22] (units unknown) (unknown) (unknown) (no date) (unknown) (unknown) software. Although every effort is made to edit content, dye stand loader errors (units unknown) (unknown) (unknown) (no date) (unknown) (unknown) substance use type: does not use (units unknown) (unknown) (unknown) (no date) (unknown) (unknown) tabs 04/25/22 [Rx Confirmed 06/26/22] (units unknown) (unknown) Result panel [id number] (unknown) (no date) (unknown) (unknown) (no value) (units unknown) (unknown) (unknown) (no date) (unknown) (unknown) 06/26/22 (units unknown) (unknown) (unknown) (no date) (unknown) (unknown) 06/26/22] (units unknown) (unknown) (unknown) (no date) (unknown) (unknown) 15:56 (units unknown) (unknown) (unknown) (no date) (unknown) (unknown) [id number] (units unknown) (unknown) (unknown) (no date) (unknown) (unknown) Age at menarche: 13 (units unknown) (unknown) (unknown) (no date) (unknown) (unknown) Age when first child born?: 21 (units unknown) (unknown) (unknown) (no date) (unknown) (unknown) Age/Sex: 27 / F Date of Service: (units unknown) (unknown) (unknown) (no date) (unknown) (unknown) Allergies (units unknown) (unknown) (unknown) (no date) (unknown) (unknown) [place] [id number] (units unknown) (unknown) (unknown) (no date) (unknown) (unknown) Anxiety (units unknown) (unknown) (unknown) (no date) (unknown) (unknown) Attending Dr: Willem Allen MD (units unknown) (unknown) (unknown) (no date) (unknown) (unknown) BMI 51.5 (units unknown) (unknown) (unknown) (no date) (unknown) (unknown) BP 130/90 (units unknown) (unknown) (unknown) (no date) (unknown) (unknown) Blood Pressure Location Lt brachial (units unknown) (unknown) (unknown) (no date) (unknown) (unknown) CT abdomen pelvis wa s performed with contrast on June 20, 2022 demonstrates an (units unknown) (unknown) (unknown) (no date) (unknown) (unknown) Cervicitis (units unknown) (unknown) (unknown) (no date) (unknown) (unknown) Chief Complaint (units unknown) (unknown) (unknown) (no date) (unknown) (unknown) Chief Complaint: Gallbladder (units unknown) (unknown) (unknown) (no date) (unknown) (unknown) Common migraine (units unknown) (unknown) (unknown) (no date) (unknown) (unknown) Confirmed 06/26/22] (units unknown) (unknown) (unknown) (no date) (unknown) (unknown) : 1995 Acct:[id number] (units unknown) (unknown) (unknown) (no date) (unknown) (unknown) Depression (2013) (units unknown) (unknown) (unknown) (no date) (unknown) (unknown) Dept at . (units unknown) (unknown) (unknown) (no date) (unknown) (unknown) Details: (units unknown) (unknown) (unknown) (no date) (unknown) (unknown) Documented By: Willem Allen MD 06/26/22 1556 (units unknown) (unknown) (unknown) (no date) (unknown) (unknown) Draft (units unknown) (unknown) (unknown) (no date) (unknown) (unknown) Gastroesophageal reflux disease (units unknown) (unknown) (unknown) (no date) (unknown) (unknown) : 2 (units unknown) (unknown) (unknown) (no date) (unknown) (unknown) HPI (units unknown) (unknown) (unknown) (no date) (unknown) (unknown) Headache, chronic daily (units unknown) (unknown) (unknown) (no date) (unknown) (unknown) Height 5 ft 4 in (units unknown) (unknown) (unknown) (no date) (unknown) (unknown) Hepatic steatosis (units unknown) (unknown) (unknown) (no date) (unknown) (unknown) History of appendectomy (units unknown) (unknown) (unknown) (no date) (unknown) (unknown) IBS (irritable bowel syndrome) (units unknown) (unknown) (unknown) (no date) (unknown) (unknown) Intake (units unknown) (unknown) (unknown) (no date) (unknown) (unknown) Is patient in pain?: Yes (units unknown) (unknown) (unknown) (no date) (unknown) (unknown) [facility] (units unknown) (unknown) (unknown) (no date) (unknown) (unknown) Loc: [facility] (units unknown) (unknown) (unknown) (no date) (unknown) (unknown) Medical History (units unknown) (unknown) (unknown) (no date) (unknown) (unknown) Medications (units unknown) (unknown) (unknown) (no date) (unknown) (unknown) Morbid obesity (units unknown) (unknown) (unknown) (no date) (unknown) (unknown) Ms. 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 (units unknown) (unknown) (unknown) (no date) (unknown) (unknown) Oxygen Delivery Meth od room air (units unknown) (unknown) (unknown) (no date) (unknown) (unknown) PFSH (units unknown) (unknown) (unknown) (no date) (unknown) (unknown) Pain Location (units unknown) (unknown) (unknown) (no date) (unknown) (unknown) Pain Scale (units unknown) (unknown) (unknown) (no date) (unknown) (unknown) Pain location(s):: 5/10 (units unknown) (unknown) (unknown) (no date) (unknown) (unknown) Para: 1 (units unknown) (unknown) (unknown) (no date) (unknown) (unknown) Patient: Sue Gurrola MR#: [id number] (units unknown) (unknown) (unknown) (no date) (unknown) (unknown) Position Sitting (units unknown) (unknown) (unknown) (no date) (unknown) (unknown) Pulse 93 H (units unknown) (unknown) (unknown) (no date) (unknown) (unknown) Pulse Oximetry (%) 98 (units unknown) (unknown) (unknown) (no date) (unknown) (unknown) Pulse Source Monitor (units unknown) (unknown) (unknown) (no date) (unknown) (unknown) Reason For Visit (units unknown) (unknown) (unknown) (no date) (unknown) (unknown) Relief) 2 spray intranasal DAILY PRN 03/25/22 [History Confirmed 06/26/22] (units unknown) (unknown) (unknown) (no date) (unknown) (unknown) Signed By: (units unknown) (unknown) (unknown) (no date) (unknown) (unknown) Smoking Status: Mario carey smoker (units unknown) (unknown) (unknown) (no date) (unknown) (unknown) Social History (units unknown) (unknown) (unknown) (no date) (unknown) (unknown) Status post delivery (10/28/16) (units unknown) (unknown) (unknown) (no date) (unknown) (unknown) Surgery Office Visit (units unknown) (unknown) (unknown) (no date) (unknown) (unknown) Surgical History (units unknown) (unknown) (unknown) (no date) (unknown) (unknown) Temp 97.3 F L (units unknown) (unknown) (unknown) (no date) (unknown) (unknown) Temp Source Temporal Artery Scan (units unknown) (unknown) (unknown) (no date) (unknown) (unknown) This note may have been all or partially generated using voice recognition (units unknown) (unknown) (unknown) (no date) (unknown) (unknown) Tobacco Status (units unknown) (unknown) (unknown) (no date) (unknown) (unknown) 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 5 mg/3 mL (0.083 %) solution for nebulization 2.5 mg (3 mL) (units unknown) (unknown) (unknown) (no date) (unknown) (unknown) albuterol sulfate 90 mcg/actuation aerosol inhaler (Ventolin HFA) 2 puff (units unknown) (unknown) (unknown) (no date) (unknown) (unknown) alcohol intake: former (units unknown) (unknown) (unknown) (no date) (unknown) (unknown) appropriate contractile response of the gallbladder to CCK infusion. The (units unknown) (unknown) (unknown) (no date) (unknown) (unknown) calculated ejection fraction is 95%. She believes her abdominal pain is result (units unknown) (unknown) (unknown) (no date) (unknown) (unknown) consideration of gallbladder disease. She describes right upper quadrant pain (units unknown) (unknown) (unknown) (no date) (unknown) (unknown) fluticasone propiona te 50 mcg/actuation nasal spray,suspension (Flonase Allergy (units unknown) (unknown) (unknown) (no date) (unknown) (unknown) have occurred. If there are any questions, please contact the Medical Records (units unknown) (unknown) (unknown) (no date) (unknown) (unknown) household members: children (units unknown) (unknown) (unknown) (no date) (unknown) (unknown) inhalation Q4-6H PRN shortness of breath or wheezing #90 mL 05/15/21 [Rx (units unknown) (unknown) (unknown) (no date) (unknown) (unknown) inhalation Q4HP PRN shortness of breath or wheezing 03/25/22 [History Confirmed (units unknown) (unknown) (unknown) (no date) (unknown) (unknown) lives independently: Yes (units unknown) (unknown) (unknown) (no date) (unknown) (unknown) marital status: unmarried,single (units unknown) (unknown) (unknown) (no date) (unknown) (unknown) may occur. Occasiona l wrong-word or 'sound-alike' substitutions may have (units unknown) (unknown) (unknown) (no date) (unknown) (unknown) metronidazole 0.75 % (37.5 mg/5 gram) vaginal gel g vaginal 06/16/22 [History (units unknown) (unknown) (unknown) (no date) (unknown) (unknown) nebulizers #1 ea 05/15/21 [Rx Confirmed 06/26/22] (units unknown) (unknown) (unknown) (no date) (unknown) (unknown) obesity and abdomina l pain. She was seen previously in the surgical clinic for (units unknown) (unknown) (unknown) (no date) (unknown) (unknown) occupational status: employed (units unknown) (unknown) (unknown) (no date) (unknown) (unknown) occurred due to the inherent limitations of voice recognition software. Please (units unknown) (unknown) (unknown) (no date) (unknown) (unknown) of her gallbladder a nd is requesting removal. (units unknown) (unknown) (unknown) (no date) (unknown) (unknown) ondansetron 4 mg disintegrating tablet 4 mg PO Q6-8H PRN nausea and vomiting #30 (units unknown) (unknown) (unknown) (no date) (unknown) (unknown) pantoprazole 40 mg tablet,delayed release 40 mg PO DAILY #30 tabs 06/04/22 [Rx (units unknown) (unknown) (unknown) (no date) (unknown) (unknown) promethazine 25 mg tablet 25 mg PO QID PRN nausea and vomiting #14 tabs 06/23/22 (units unknown) (unknown) (unknown) (no date) (unknown) (unknown) read the note carefully and recognize, using context, where these substitutions (units unknown) (unknown) (unknown) (no date) (unknown) (unknown) rizatriptan 5 mg tablet See Rx Instructions PO .COMPLEX #30 tabs 02/24/22 [Rx (units unknown) (unknown) (unknown) (no date) (unknown) (unknown) sertraline PO [History Confirmed 06/26/22] (units unknown) (unknown) (unknown) (no date) (unknown) (unknown) software. Although every effort is made to edit content, dye stand loader errors (units unknown) (unknown) (unknown) (no date) (unknown) (unknown) substance use type: does not use (units unknown) (unknown) (unknown) (no date) (unknown) (unknown) tabs 04/25/22 [Rx Confirmed 06/26/22] (units unknown) (unknown) (unknown) (no date) (unknown) (unknown) terminal ileum. A HI DA scan was performed May 23 which demonstrates an (units unknown) (unknown) (unknown) (no date) (unknown) (unknown) unremarkable gallbladder with moderate to severe hepatic steatosis, no stones. (units unknown) (unknown) (unknown) (no date) (unknown) (unknown) unremarkable gallbladder without stones and mild thickening of the cecum and (units unknown) (unknown) (unknown) (no date) (unknown) (unknown) which is frequently associated with nausea. Radiographic workup includes (units unknown) (unknown) Result panel [id number] (unknown) (no date) (unknown) (unknown) (no value) (units unknown) (unknown) (unknown) (no date) (unknown) (unknown) (1) Abdominal pain: (units unknown) (unknown) (unknown) (no date) (unknown) (unknown) 06/26/22 (units unknown) (unknown) (unknown) (no date) (unknown) (unknown) 06/26/22] (units unknown) (unknown) (unknown) (no date) (unknown) (unknown) 15:56 (units unknown) (unknown) (unknown) (no date) (unknown) (unknown) [id number] (units unknown) (unknown) (unknown) (no date) (unknown) (unknown) 27-year-old woman wi th asthma and class 3 obesity with the new diagnosis of (units unknown) (unknown) (unknown) (no date) (unknown) (unknown) ABDOMEN: Soft, obese minimally tender (units unknown) (unknown) (unknown) (no date) (unknown) (unknown) Abdominal location: right upper quadrant Qualified Code(s): R10.11 (units unknown) (unknown) (unknown) (no date) (unknown) (unknown) Age at menarche: 13 (units unknown) (unknown) (unknown) (no date) (unknown) (unknown) Age when first child born?: 21 (units unknown) (unknown) (unknown) (no date) (unknown) (unknown) Age/Sex: 27 / F Date of Service: (units unknown) (unknown) (unknown) (no date) (unknown) (unknown) Allergies (units unknown) (unknown) (unknown) (no date) (unknown) (unknown) [place] [id number] (units unknown) (unknown) (unknown) (no date) (unknown) (unknown) Anxiety (units unknown) (unknown) (unknown) (no date) (unknown) (unknown) Assessment + Plan (units unknown) (unknown) (unknown) (no date) (unknown) (unknown) Assessment and Plan: (units unknown) (unknown) (unknown) (no date) (unknown) (unknown) Attending Dr: Willem Allen MD (units unknown) (unknown) (unknown) (no date) (unknown) (unknown) BMI 51.5 (units unknown) (unknown) (unknown) (no date) (unknown) (unknown) BP 130/90 (units unknown) (unknown) (unknown) (no date) (unknown) (unknown) Blood Pressure Location Lt brachial (units unknown) (unknown) (unknown) (no date) (unknown) (unknown) CARDIOVASCULAR: Warm and well perfused. Regular rate (units unknown) (unknown) (unknown) (no date) (unknown) (unknown) CHEST: Rising symmetrically. No audible wheezes (units unknown) (unknown) (unknown) (no date) (unknown) (unknown) Cervicitis (units unknown) (unknown) (unknown) (no date) (unknown) (unknown) Chief Complaint (units unknown) (unknown) (unknown) (no date) (unknown) (unknown) Chief Complaint: Gallbladder (units unknown) (unknown) (unknown) (no date) (unknown) (unknown) Common migraine (units unknown) (unknown) (unknown) (no date) (unknown) (unknown) Confirmed 06/26/22] (units unknown) (unknown) (unknown) (no date) (unknown) (unknown) : 1995 Acct:[id number] (units unknown) (unknown) (unknown) (no date) (unknown) (unknown) Depression (2013) (units unknown) (unknown) (unknown) (no date) (unknown) (unknown) Dept at . (units unknown) (unknown) (unknown) (no date) (unknown) (unknown) Details: (units unknown) (unknown) (unknown) (no date) (unknown) (unknown) Documented By: Willem Allen MD 06/26/22 1237 (units unknown) (unknown) (unknown) (no date) (unknown) (unknown) Draft (units unknown) (unknown) (unknown) (no date) (unknown) (unknown) EXTREMITIES: Normal tone and without edema. (units unknown) (unknown) (unknown) (no date) (unknown) (unknown) Exam Narrative (units unknown) (unknown) (unknown) (no date) (unknown) (unknown) Exam Narrative: (units unknown) (unknown) (unknown) (no date) (unknown) (unknown) Exam (units unknown) (unknown) (unknown) (no date) (unknown) (unknown) GENERAL: A well nourished, woman appearing stated age, resting comfortably, in (units unknown) (unknown) (unknown) (no date) (unknown) (unknown) Gastroesophageal reflux disease (units unknown) (unknown) (unknown) (no date) (unknown) (unknown) : 2 (units unknown) (unknown) (unknown) (no date) (unknown) (unknown) HEENT: Normocephalic , atraumatic. No scleral icterus (units unknown) (unknown) (unknown) (no date) (unknown) (unknown) HIDA scan demonstrat es and normal contractile response to CCK the calculated (units unknown) (unknown) (unknown) (no date) (unknown) (unknown) HPI (units unknown) (unknown) (unknown) (no date) (unknown) (unknown) Headache, chronic daily (units unknown) (unknown) (unknown) (no date) (unknown) (unknown) Height 5 ft 4 in (units unknown) (unknown) (unknown) (no date) (unknown) (unknown) Hepatic steatosis (units unknown) (unknown) (unknown) (no date) (unknown) (unknown) History of appendectomy (units unknown) (unknown) (unknown) (no date) (unknown) (unknown) I relayed to her luke t no stones were observed within the gallbladder and the (units unknown) (unknown) (unknown) (no date) (unknown) (unknown) IBS (irritable bowel syndrome) (units unknown) (unknown) (unknown) (no date) (unknown) (unknown) Intake (units unknown) (unknown) (unknown) (no date) (unknown) (unknown) Is patient in pain?: Yes (units unknown) (unknown) (unknown) (no date) (unknown) (unknown) [facility] (units unknown) (unknown) (unknown) (no date) (unknown) (unknown) Loc: [facility] (units unknown) (unknown) (unknown) (no date) (unknown) (unknown) Medical History (units unknown) (unknown) (unknown) (no date) (unknown) (unknown) Medications (units unknown) (unknown) (unknown) (no date) (unknown) (unknown) Morbid obesity (units unknown) (unknown) (unknown) (no date) (unknown) (unknown) Ms. Gurrola is a 27-year-old woman with history of asthma and severe class 3 (units unknown) (unknown) (unknown) (no date) (unknown) (unknown) NECK: Full range of motion. No evidence of cervical lymphadenopathy or JVD. (units unknown) (unknown) (unknown) (no date) (unknown) (unknown) NEUROLOGIC: Moving a ll extremities spontaneously. No gross motor deficits. 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 (units unknown) (unknown) (unknown) (no date) (unknown) (unknown) Oxygen Delivery Meth od room air (units unknown) (unknown) (unknown) (no date) (unknown) (unknown) PFSH (units unknown) (unknown) (unknown) (no date) (unknown) (unknown) Pain Location (units unknown) (unknown) (unknown) (no date) (unknown) (unknown) Pain Scale (units unknown) (unknown) (unknown) (no date) (unknown) (unknown) Pain location(s):: 5/10 (units unknown) (unknown) (unknown) (no date) (unknown) (unknown) Para: 1 (units unknown) (unknown) (unknown) (no date) (unknown) (unknown) Patient: Sue Gurrola MR#: [id number] (units unknown) (unknown) (unknown) (no date) (unknown) (unknown) Position Sitting (units unknown) (unknown) (unknown) (no date) (unknown) (unknown) Pulse 93 H (units unknown) (unknown) (unknown) (no date) (unknown) (unknown) Pulse Oximetry (%) 98 (units unknown) (unknown) (unknown) (no date) (unknown) (unknown) Pulse Source Monitor (units unknown) (unknown) (unknown) (no date) (unknown) (unknown) Qualifiers: (units unknown) (unknown) (unknown) (no date) (unknown) (unknown) Reason For Visit (units unknown) (unknown) (unknown) (no date) (unknown) (unknown) Relief) 2 spray intranasal DAILY PRN 03/25/22 [History Confirmed 06/26/22] (units unknown) (unknown) (unknown) (no date) (unknown) (unknown) Right upper quadrant pain (units unknown) (unknown) (unknown) (no date) (unknown) (unknown) Signed By: (units unknown) (unknown) (unknown) (no date) (unknown) (unknown) Smoking Status: Mario carey smoker (units unknown) (unknown) (unknown) (no date) (unknown) (unknown) Social History (units unknown) (unknown) (unknown) (no date) (unknown) (unknown) Status post delivery (10/28/16) (units unknown) (unknown) (unknown) (no date) (unknown) (unknown) Status: Acute (units unknown) (unknown) (unknown) (no date) (unknown) (unknown) Surgery Office Visit (units unknown) (unknown) (unknown) (no date) (unknown) (unknown) Surgical History (units unknown) (unknown) (unknown) (no date) (unknown) (unknown) Temp 97.3 F L (units unknown) (unknown) (unknown) (no date) (unknown) (unknown) Temp Source Temporal Artery Scan (units unknown) (unknown) (unknown) (no date) (unknown) (unknown) This note may have been all or partially generated using voice recognition (units unknown) (unknown) (unknown) (no date) (unknown) (unknown) Tobacco Status (units unknown) (unknown) (unknown) (no date) (unknown) (unknown) 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 5 mg/3 mL (0.083 %) solution for nebulization 2.5 mg (3 mL) (units unknown) (unknown) (unknown) (no date) (unknown) (unknown) albuterol sulfate 90 mcg/actuation aerosol inhaler (Ventolin HFA) 2 puff (units unknown) (unknown) (unknown) (no date) (unknown) (unknown) alcohol intake: former (units unknown) (unknown) (unknown) (no date) (unknown) (unknown) appropriate contractile response of the gallbladder to CCK infusion. The (units unknown) (unknown) (unknown) (no date) (unknown) (unknown) calculated ejection fraction is 95%. She believes her abdominal pain is result (units unknown) (unknown) (unknown) (no date) (unknown) (unknown) did perform a (units unknown) (unknown) (unknown) (no date) (unknown) (unknown) ejection fraction wa s 95%. The patient is adamant that her abdominal pain is (units unknown) (unknown) (unknown) (no date) (unknown) (unknown) extensive and includ e abdominal ultrasound, CT abdomen pelvis and a HIDA scan. (units unknown) (unknown) (unknown) (no date) (unknown) (unknown) fluticasone propiona te 50 mcg/actuation nasal spray,suspension (Flonase Allergy (units unknown) (unknown) (unknown) (no date) (unknown) (unknown) frequently associate d with nausea. Radiographic workup includes abdominal (units unknown) (unknown) (unknown) (no date) (unknown) (unknown) from gallbladder disease and explains to me that there are certain percentage of (units unknown) (unknown) (unknown) (no date) (unknown) (unknown) gallbladder with moderate to severe hepatic steatosis, no stones. CT abdomen (units unknown) (unknown) (unknown) (no date) (unknown) (unknown) have occurred. If there are any questions, please contact the Medical Records (units unknown) (unknown) (unknown) (no date) (unknown) (unknown) household members: children (units unknown) (unknown) (unknown) (no date) (unknown) (unknown) inhalation Q4-6H PRN shortness of breath or wheezing #90 mL 05/15/21 [Rx (units unknown) (unknown) (unknown) (no date) (unknown) (unknown) inhalation Q4HP PRN shortness of breath or wheezing 03/25/22 [History Confirmed (units unknown) (unknown) (unknown) (no date) (unknown) (unknown) lives independently: Yes (units unknown) (unknown) (unknown) (no date) (unknown) (unknown) marital status: unmarried,single (units unknown) (unknown) (unknown) (no date) (unknown) (unknown) may occur. Occasiona l wrong-word or 'sound-alike' substitutions may have (units unknown) (unknown) (unknown) (no date) (unknown) (unknown) metronidazole 0.75 % (37.5 mg/5 gram) vaginal gel g vaginal 06/16/22 [History (units unknown) (unknown) (unknown) (no date) (unknown) (unknown) nebulizers #1 ea 05/15/21 [Rx Confirmed 06/26/22] (units unknown) (unknown) (unknown) (no date) (unknown) (unknown) no acute distress. (units unknown) (unknown) (unknown) (no date) (unknown) (unknown) obesity and abdomina l pain. She describes right upper quadrant pain which is (units unknown) (unknown) (unknown) (no date) (unknown) (unknown) occupational status: employed (units unknown) (unknown) (unknown) (no date) (unknown) (unknown) occurred due to the inherent limitations of voice recognition software. Please (units unknown) (unknown) (unknown) (no date) (unknown) (unknown) of her gallbladder a nd is requesting removal. (units unknown) (unknown) (unknown) (no date) (unknown) (unknown) ondansetron 4 mg disintegrating tablet 4 mg PO Q6-8H PRN nausea and vomiting #30 (units unknown) (unknown) (unknown) (no date) (unknown) (unknown) pantoprazole 40 mg tablet,delayed release 40 mg PO DAILY #30 tabs 06/04/22 [Rx (units unknown) (unknown) (unknown) (no date) (unknown) (unknown) patients with and abnormal gallbladder as a result of hypercontractillity. I (units unknown) (unknown) (unknown) (no date) (unknown) (unknown) pelvis was performed with contrast on June 20, 2022 demonstrates an (units unknown) (unknown) (unknown) (no date) (unknown) (unknown) promethazine 25 mg tablet 25 mg PO QID PRN nausea and vomiting #14 tabs 06/23/22 (units unknown) (unknown) (unknown) (no date) (unknown) (unknown) read the note carefully and recognize, using context, where these substitutions (units unknown) (unknown) (unknown) (no date) (unknown) (unknown) right upper quadrant abdominal pain. I reviewed her imaging studies which are (units unknown) (unknown) (unknown) (no date) (unknown) (unknown) rizatriptan 5 mg tablet See Rx Instructions PO .COMPLEX #30 tabs 02/24/22 [Rx (units unknown) (unknown) (unknown) (no date) (unknown) (unknown) sertraline PO [History Confirmed 06/26/22] (units unknown) (unknown) (unknown) (no date) (unknown) (unknown) software. Although every effort is made to edit content, dye stand loader errors (units unknown) (unknown) (unknown) (no date) (unknown) (unknown) substance use type: does not use (units unknown) (unknown) (unknown) (no date) (unknown) (unknown) tabs 04/25/22 [Rx Confirmed 06/26/22] (units unknown) (unknown) (unknown) (no date) (unknown) (unknown) terminal ileum. A HI DA scan was performed May 23 which demonstrates an (units unknown) (unknown) (unknown) (no date) (unknown) (unknown) ultrasound performed April of 2022 which demonstrates a unremarkable (units unknown) (unknown) (unknown) (no date) (unknown) (unknown) unremarkable gallbladder without stones and mild thickening of the cecum and (units unknown) (unknown) Result panel 1186 (unknown) (no date) (unknown) (unknown) (no value) (units unknown) (unknown) (unknown) (no date) (unknown) (unknown) (1) Abdominal pain: (units unknown) (unknown) (unknown) (no date) (unknown) (unknown) 06/26/22 (units unknown) (unknown) (unknown) (no date) (unknown) (unknown) 06/26/22] (units unknown) (unknown) (unknown) (no date) (unknown) (unknown) 06/28/22 1726 (units unknown) (unknown) (unknown) (no date) (unknown) (unknown) 15:56 (units unknown) (unknown) (unknown) (no date) (unknown) (unknown) [id number] (units unknown) (unknown) (unknown) (no date) (unknown) (unknown) 27-year-old woman wi th asthma and class 3 obesity with the new diagnosis of (units unknown) (unknown) (unknown) (no date) (unknown) (unknown) ABDOMEN: Soft, obese minimally tender (units unknown) (unknown) (unknown) (no date) (unknown) (unknown) Abdominal location: right upper quadrant Qualified Code(s): R10.11 (units unknown) (unknown) (unknown) (no date) (unknown) (unknown) Age at menarche: 13 (units unknown) (unknown) (unknown) (no date) (unknown) (unknown) Age when first child born?: 21 (units unknown) (unknown) (unknown) (no date) (unknown) (unknown) Age/Sex: 27 / F Date of Service: (units unknown) (unknown) (unknown) (no date) (unknown) (unknown) Allergies (units unknown) (unknown) (unknown) (no date) (unknown) (unknown) HAY[facility] [place] [id number] (units unknown) (unknown) (unknown) (no date) (unknown) (unknown) Anxiety (units unknown) (unknown) (unknown) (no date) (unknown) (unknown) Assessment + Plan (units unknown) (unknown) (unknown) (no date) (unknown) (unknown) Assessment and Plan: (units unknown) (unknown) (unknown) (no date) (unknown) (unknown) Attending Dr: Willem Allen MD (units unknown) (unknown) (unknown) (no date) (unknown) (unknown) BMI 51.5 (units unknown) (unknown) (unknown) (no date) (unknown) (unknown) BP 130/90 (units unknown) (unknown) (unknown) (no date) (unknown) (unknown) Blood Pressure Location Lt brachial (units unknown) (unknown) (unknown) (no date) (unknown) (unknown) CARDIOVASCULAR: Warm and well perfused. Regular rate (units unknown) (unknown) (unknown) (no date) (unknown) (unknown) CHEST: Rising symmetrically. No audible wheezes (units unknown) (unknown) (unknown) (no date) (unknown) (unknown) Cervicitis (units unknown) (unknown) (unknown) (no date) (unknown) (unknown) Chief Complaint (units unknown) (unknown) (unknown) (no date) (unknown) (unknown) Chief Complaint: Gallbladder (units unknown) (unknown) (unknown) (no date) (unknown) (unknown) Common migraine (units unknown) (unknown) (unknown) (no date) (unknown) (unknown) Confirmed 06/26/22] (units unknown) (unknown) (unknown) (no date) (unknown) (unknown) : 1995 Acct:[id number] (units unknown) (unknown) (unknown) (no date) (unknown) (unknown) Depression (2013) (units unknown) (unknown) (unknown) (no date) (unknown) (unknown) Dept at . (units unknown) (unknown) (unknown) (no date) (unknown) (unknown) Details: (units unknown) (unknown) (unknown) (no date) (unknown) (unknown) Documented By: Willem Allen MD 06/26/22 1554 (units unknown) (unknown) (unknown) (no date) (unknown) (unknown) EXTREMITIES: Normal tone and without edema. (units unknown) (unknown) (unknown) (no date) (unknown) (unknown) Exam Narrative (units unknown) (unknown) (unknown) (no date) (unknown) (unknown) Exam Narrative: (units unknown) (unknown) (unknown) (no date) (unknown) (unknown) Exam (units unknown) (unknown) (unknown) (no date) (unknown) (unknown) GENERAL: A well nourished, woman appearing stated age, resting comfortably, in (units unknown) (unknown) (unknown) (no date) (unknown) (unknown) Gastroesophageal reflux disease (units unknown) (unknown) (unknown) (no date) (unknown) (unknown) : 2 (units unknown) (unknown) (unknown) (no date) (unknown) (unknown) HEENT: Normocephalic , atraumatic. No scleral icterus (units unknown) (unknown) (unknown) (no date) (unknown) (unknown) HIDA scan demonstrat es and normal contractile response to CCK the calculated (units unknown) (unknown) (unknown) (no date) (unknown) (unknown) HPI (units unknown) (unknown) (unknown) (no date) (unknown) (unknown) Headache, chronic daily (units unknown) (unknown) (unknown) (no date) (unknown) (unknown) Height 5 ft 4 in (units unknown) (unknown) (unknown) (no date) (unknown) (unknown) Hepatic steatosis (units unknown) (unknown) (unknown) (no date) (unknown) (unknown) History of appendectomy (units unknown) (unknown) (unknown) (no date) (unknown) (unknown) I relayed to her luke t no stones were observed within the gallbladder and the (units unknown) (unknown) (unknown) (no date) (unknown) (unknown) IBS (irritable bowel syndrome) (units unknown) (unknown) (unknown) (no date) (unknown) (unknown) Intake (units unknown) (unknown) (unknown) (no date) (unknown) (unknown) Is patient in pain?: Yes (units unknown) (unknown) (unknown) (no date) (unknown) (unknown) [facility] (units unknown) (unknown) (unknown) (no date) (unknown) (unknown) Loc: [facility] (units unknown) (unknown) (unknown) (no date) (unknown) (unknown) Medical History (units unknown) (unknown) (unknown) (no date) (unknown) (unknown) Medications (units unknown) (unknown) (unknown) (no date) (unknown) (unknown) Morbid obesity (units unknown) (unknown) (unknown) (no date) (unknown) (unknown) Ms. Gurrola is a 27-year-old woman with history of asthma and severe class 3 (units unknown) (unknown) (unknown) (no date) (unknown) (unknown) NECK: Full range of motion. No evidence of cervical lymphadenopathy or JVD. (units unknown) (unknown) (unknown) (no date) (unknown) (unknown) NEUROLOGIC: Moving a ll extremities spontaneously. No gross motor deficits. 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 (units unknown) (unknown) (unknown) (no date) (unknown) (unknown) Oxygen Delivery Meth od room air (units unknown) (unknown) (unknown) (no date) (unknown) (unknown) PFSH (units unknown) (unknown) (unknown) (no date) (unknown) (unknown) Pain Location (units unknown) (unknown) (unknown) (no date) (unknown) (unknown) Pain Scale (units unknown) (unknown) (unknown) (no date) (unknown) (unknown) Pain location(s):: 5/10 (units unknown) (unknown) (unknown) (no date) (unknown) (unknown) Para: 1 (units unknown) (unknown) (unknown) (no date) (unknown) (unknown) Patient: Sue Gurrola MR#: [id number] (units unknown) (unknown) (unknown) (no date) (unknown) (unknown) Position Sitting (units unknown) (unknown) (unknown) (no date) (unknown) (unknown) Pulse 93 H (units unknown) (unknown) (unknown) (no date) (unknown) (unknown) Pulse Oximetry (%) 98 (units unknown) (unknown) (unknown) (no date) (unknown) (unknown) Pulse Source Monitor (units unknown) (unknown) (unknown) (no date) (unknown) (unknown) Qualifiers: (units unknown) (unknown) (unknown) (no date) (unknown) (unknown) Reason For Visit (units unknown) (unknown) (unknown) (no date) (unknown) (unknown) Relief) 2 spray intranasal DAILY PRN 03/25/22 [History Confirmed 06/26/22] (units unknown) (unknown) (unknown) (no date) (unknown) (unknown) Right upper quadrant pain (units unknown) (unknown) (unknown) (no date) (unknown) (unknown) Signed By: <Electronically signed by Willem Allen MD> (units unknown) (unknown) (unknown) (no date) (unknown) (unknown) Signed (units unknown) (unknown) (unknown) (no date) (unknown) (unknown) Smoking Status: Mario r smoker (units unknown) (unknown) (unknown) (no date) (unknown) (unknown) Social History (units unknown) (unknown) (unknown) (no date) (unknown) (unknown) Status post delivery (10/28/16) (units unknown) (unknown) (unknown) (no date) (unknown) (unknown) Status: Acute (units unknown) (unknown) (unknown) (no date) (unknown) (unknown) Surgery Office Visit (units unknown) (unknown) (unknown) (no date) (unknown) (unknown) Surgical History (units unknown) (unknown) (unknown) (no date) (unknown) (unknown) Temp 97.3 F L (units unknown) (unknown) (unknown) (no date) (unknown) (unknown) Temp Source Temporal Artery Scan (units unknown) (unknown) (unknown) (no date) (unknown) (unknown) There exist a small number of case studies involving patients with a diagnosis (units unknown) (unknown) (unknown) (no date) (unknown) (unknown) This note may have been all or partially generated using voice recognition (units unknown) (unknown) (unknown) (no date) (unknown) (unknown) Time Coding Minutes Spent: (must be on same date of service/appointment) (units unknown) (unknown) (unknown) (no date) (unknown) (unknown) Time Spent (units unknown) (unknown) (unknown) (no date) (unknown) (unknown) Tobacco Status (units unknown) (unknown) (unknown) (no date) (unknown) (unknown) Total Time: 45 (units unknown) (unknown) (unknown) (no date) (unknown) (unknown) 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 She tells me that if I am not willing to remove her gallbladder (units unknown) (unknown) (unknown) (no date) (unknown) (unknown) albuterol sulfate 2. 5 mg/3 mL (0.083 %) solution for nebulization 2.5 mg (3 mL) (units unknown) (unknown) (unknown) (no date) (unknown) (unknown) albuterol sulfate 90 mcg/actuation aerosol inhaler (Ventolin HFA) 2 puff (units unknown) (unknown) (unknown) (no date) (unknown) (unknown) alcohol intake: former (units unknown) (unknown) (unknown) (no date) (unknown) (unknown) appropriate contractile response of the gallbladder to CCK infusion. The (units unknown) (unknown) (unknown) (no date) (unknown) (unknown) appropriate to electively remove her gallbladder for a questionable and poorly (units unknown) (unknown) (unknown) (no date) (unknown) (unknown) calculated ejection fraction is 95%. She believes her abdominal pain is result (units unknown) (unknown) (unknown) (no date) (unknown) (unknown) ejection fraction wa s 95%. The patient is adamant that her abdominal pain is (units unknown) (unknown) (unknown) (no date) (unknown) (unknown) extensive and includ e abdominal ultrasound, CT abdomen pelvis and a HIDA scan. (units unknown) (unknown) (unknown) (no date) (unknown) (unknown) fluticasone propiona te 50 mcg/actuation nasal spray,suspension (Flonase Allergy (units unknown) (unknown) (unknown) (no date) (unknown) (unknown) follow up as needed. (units unknown) (unknown) (unknown) (no date) (unknown) (unknown) frequently associate d with nausea. Radiographic workup includes abdominal (units unknown) (unknown) (unknown) (no date) (unknown) (unknown) from diagnostic colonoscopy which might offered an alternative diagnosis for her (units unknown) (unknown) (unknown) (no date) (unknown) (unknown) from gallbladder disease and explains to me that there are certain percentage of (units unknown) (unknown) (unknown) (no date) (unknown) (unknown) gallbladder with moderate to severe hepatic steatosis, no stones. CT abdomen (units unknown) (unknown) (unknown) (no date) (unknown) (unknown) general surgical literature. I explained to her that I do not think that is (units unknown) (unknown) (unknown) (no date) (unknown) (unknown) have occurred. If there are any questions, please contact the Medical Records (units unknown) (unknown) (unknown) (no date) (unknown) (unknown) household members: children (units unknown) (unknown) (unknown) (no date) (unknown) (unknown) inhalation Q4-6H PRN shortness of breath or wheezing #90 mL 05/15/21 [Rx (units unknown) (unknown) (unknown) (no date) (unknown) (unknown) inhalation Q4HP PRN shortness of breath or wheezing 03/25/22 [History Confirmed (units unknown) (unknown) (unknown) (no date) (unknown) (unknown) lives independently: Yes (units unknown) (unknown) (unknown) (no date) (unknown) (unknown) marital status: unmarried,single (units unknown) (unknown) (unknown) (no date) (unknown) (unknown) may occur. Occasiona l wrong-word or 'sound-alike' substitutions may have (units unknown) (unknown) (unknown) (no date) (unknown) (unknown) metronidazole 0.75 % (37.5 mg/5 gram) vaginal gel g vaginal 06/16/22 [History (units unknown) (unknown) (unknown) (no date) (unknown) (unknown) nebulizers #1 ea 05/15/21 [Rx Confirmed 06/26/22] (units unknown) (unknown) (unknown) (no date) (unknown) (unknown) no acute distress. (units unknown) (unknown) (unknown) (no date) (unknown) (unknown) obesity and abdomina l pain. She describes right upper quadrant pain which is (units unknown) (unknown) (unknown) (no date) (unknown) (unknown) occupational status: employed (units unknown) (unknown) (unknown) (no date) (unknown) (unknown) occurred due to the inherent limitations of voice recognition software. Please (units unknown) (unknown) (unknown) (no date) (unknown) (unknown) of her gallbladder a nd is requesting removal. (units unknown) (unknown) (unknown) (no date) (unknown) (unknown) of hyper biliary dyskinesia however this is not widely accepted within the (units unknown) (unknown) (unknown) (no date) (unknown) (unknown) ondansetron 4 mg disintegrating tablet 4 mg PO Q6-8H PRN nausea and vomiting #30 (units unknown) (unknown) (unknown) (no date) (unknown) (unknown) pantoprazole 40 mg tablet,delayed release 40 mg PO DAILY #30 tabs 06/04/22 [Rx (units unknown) (unknown) (unknown) (no date) (unknown) (unknown) patients with and abnormal gallbladder as a result of hypercontractillity. (units unknown) (unknown) (unknown) (no date) (unknown) (unknown) pelvis was performed with contrast on June 20, 2022 demonstrates an (units unknown) (unknown) (unknown) (no date) (unknown) (unknown) promethazine 25 mg tablet 25 mg PO QID PRN nausea and vomiting #14 tabs 06/23/22 (units unknown) (unknown) (unknown) (no date) (unknown) (unknown) read the note carefully and recognize, using context, where these substitutions (units unknown) (unknown) (unknown) (no date) (unknown) (unknown) right upper quadrant abdominal pain. I reviewed her imaging studies which are (units unknown) (unknown) (unknown) (no date) (unknown) (unknown) rizatriptan 5 mg tablet See Rx Instructions PO .COMPLEX #30 tabs 02/24/22 [Rx (units unknown) (unknown) (unknown) (no date) (unknown) (unknown) sertraline PO [History Confirmed 06/26/22] (units unknown) (unknown) (unknown) (no date) (unknown) (unknown) show inflammation of the terminal ileum and cecum and I think she would benefit (units unknown) (unknown) (unknown) (no date) (unknown) (unknown) software. Although every effort is made to edit content, dye stand loader errors (units unknown) (unknown) (unknown) (no date) (unknown) (unknown) substance use type: does not use (units unknown) (unknown) (unknown) (no date) (unknown) (unknown) tabs 04/25/22 [Rx Confirmed 06/26/22] (units unknown) (unknown) (unknown) (no date) (unknown) (unknown) terminal ileum. A HI DA scan was performed May 23 which demonstrates an (units unknown) (unknown) (unknown) (no date) (unknown) (unknown) that she will find somebody else that will. She declines referral. She july (units unknown) (unknown) (unknown) (no date) (unknown) (unknown) ultrasound performed April of 2022 which demonstrates a unremarkable (units unknown) (unknown) (unknown) (no date) (unknown) (unknown) understood diagnosis given her significant risk of morbidity. Her imaging does (units unknown) (unknown) (unknown) (no date) (unknown) (unknown) unremarkable gallbladder without stones and mild thickening of the cecum and (units unknown) (unknown) Result panel 1187 (unknown) (no date) (unknown) (unknown) 41 (units unknown) (unknown) (unknown) (no date) (unknown) (unknown) 41 (units unknown) (unknown) Result panel 1188 (unknown) (no date) (unknown) (unknown) (no value) (units unknown) (unknown) (unknown) (no date) (unknown) (unknown) 07/13/22 (units unknown) (unknown) (unknown) (no date) (unknown) (unknown) [address] (units unknown) (unknown) (unknown) (no date) (unknown) (unknown) Age/Sex: 27 / F Date of Service: (units unknown) (unknown) (unknown) (no date) (unknown) (unknown) Allergies (units unknown) (unknown) (unknown) (no date) (unknown) (unknown) [facility] ([facility] (unknown) (unknown) (no date) (unknown) (unknown) [place] [address] (units unknown) (unknown) (unknown) (no date) (unknown) (unknown) Anxiety (units unknown) (unknown) (unknown) (no date) (unknown) (unknown) Attending Dr: Diane SAUCEDO (units unknown) (unknown) (unknown) (no date) (unknown) (unknown) Cervicitis (units unknown) (unknown) (unknown) (no date) (unknown) (unknown) Common migraine (units unknown) (unknown) (unknown) (no date) (unknown) (unknown) : 1995 Acct:[id number] (units unknown) (unknown) (unknown) (no date) (unknown) (unknown) Depression (2013) (units unknown) (unknown) (unknown) (no date) (unknown) (unknown) Dept at . (units unknown) (unknown) (unknown) (no date) (unknown) (unknown) Documented By: Diane Curran 07/13/22 1505 (units unknown) (unknown) (unknown) (no date) (unknown) (unknown) Draft (units unknown) (unknown) (unknown) (no date) (unknown) (unknown) Gastroesophageal reflux disease (units unknown) (unknown) (unknown) (no date) (unknown) (unknown) Headache, chronic daily (units unknown) (unknown) (unknown) (no date) (unknown) (unknown) Hepatic steatosis (units unknown) (unknown) (unknown) (no date) (unknown) (unknown) History of appendectomy (units unknown) (unknown) (unknown) (no date) (unknown) (unknown) IBS (irritable bowel syndrome) (units unknown) (unknown) (unknown) (no date) (unknown) (unknown) Intake Note: (units unknown) (unknown) (unknown) (no date) (unknown) (unknown) Intake performed by: Caryl Grande (units unknown) (unknown) (unknown) (no date) (unknown) (unknown) Intake (units unknown) (unknown) (unknown) (no date) (unknown) (unknown) Intake- Clincial Staff (units unknown) (unknown) (unknown) (no date) (unknown) (unknown) Last Menstural Cycle + Details (units unknown) (unknown) (unknown) (no date) (unknown) (unknown) Loc: [facility] (units unknown) (unknown) (unknown) (no date) (unknown) (unknown) Medical History (units unknown) (unknown) (unknown) (no date) (unknown) (unknown) Morbid obesity (units unknown) (unknown) (unknown) (no date) (unknown) (unknown) No Known Drug Allergies Allergy (Verified 07/13/22 15:06) (units unknown) (unknown) (unknown) (no date) (unknown) (unknown) Other Menstrual Period: Uncertain (units unknown) (unknown) (unknown) (no date) (unknown) (unknown) PFSH (units unknown) (unknown) (unknown) (no date) (unknown) (unknown) Patient: Sue Gurrola MR#: [id number] (units unknown) (unknown) (unknown) (no date) (unknown) (unknown) Reason For Visit (units unknown) (unknown) (unknown) (no date) (unknown) (unknown) Signed By: (units unknown) (unknown) (unknown) (no date) (unknown) (unknown) Smoking Status: [place] r smoker (units unknown) (unknown) (unknown) (no date) (unknown) (unknown) Social History (units unknown) (unknown) (unknown) (no date) (unknown) (unknown) Status post delivery (10/28/16) (units unknown) (unknown) (unknown) (no date) (unknown) (unknown) Surgical History (units unknown) (unknown) (unknown) (no date) (unknown) (unknown) This note may have been all or partially generated using voice recognition (units unknown) (unknown) (unknown) (no date) (unknown) (unknown) Tobacco + Substance Use (units unknown) (unknown) (unknown) (no date) (unknown) (unknown) Tobacco Status (units unknown) (unknown) (unknown) (no date) (unknown) (unknown) Visit Reasons: S/T x 2D, concern for strep (units unknown) (unknown) (unknown) (no date) (unknown) (unknown) Walk In Clinic Visit (units unknown) (unknown) (unknown) (no date) (unknown) (unknown) alcohol intake: former (units unknown) (unknown) (unknown) (no date) (unknown) (unknown) have occurred. If there are any questions, please contact the Medical Records (units unknown) (unknown) (unknown) (no date) (unknown) (unknown) household members: children (units unknown) (unknown) (unknown) (no date) (unknown) (unknown) lives independently: Yes (units unknown) (unknown) (unknown) (no date) (unknown) (unknown) marital status: unmarried,single (units unknown) (unknown) (unknown) (no date) (unknown) (unknown) may occur. Occasiona l wrong-word or 'sound-alike' substitutions may have (units unknown) (unknown) (unknown) (no date) (unknown) (unknown) occupational status: employed (units unknown) (unknown) (unknown) (no date) (unknown) (unknown) occurred due to the inherent limitations of voice recognition software. Please (units unknown) (unknown) (unknown) (no date) (unknown) (unknown) pt arrives to [facility] c/ o sore throat ongoing two days and concern for Strep (units unknown) (unknown) (unknown) (no date) (unknown) (unknown) read the note carefully and recognize, using context, where these substitutions (units unknown) (unknown) (unknown) (no date) (unknown) (unknown) software. Although every effort is made to edit content, dye stand loader errors (units unknown) (unknown) (unknown) (no date) (unknown) (unknown) substance use type: does not use (units unknown) (unknown) Result panel 1189 (unknown) (no date) (unknown) (unknown) (no value) (units unknown) (unknown) (unknown) (no date) (unknown) (unknown) 07/13/22 (units unknown) (unknown) (unknown) (no date) (unknown) (unknown) 15:20 (units unknown) (unknown) (unknown) (no date) (unknown) (unknown) 13190 (units unknown) (unknown) (unknown) (no date) (unknown) (unknown) Age/Sex: 27 / F Date of Service: (units unknown) (unknown) (unknown) (no date) (unknown) (unknown) Allergies (units unknown) (unknown) (unknown) (no date) (unknown) (unknown) [facility] (units unknown) (unknown) (unknown) (no date) (unknown) (unknown) [place] [address] (units unknown) (unknown) (unknown) (no date) (unknown) (unknown) Anxiety (units unknown) (unknown) (unknown) (no date) (unknown) (unknown) Attending Dr: Diane SAUCEDO (units unknown) (unknown) (unknown) (no date) (unknown) (unknown) BP 120/70 (units unknown) (unknown) (unknown) (no date) (unknown) (unknown) Blood Pressure Location Lt brachial (units unknown) (unknown) (unknown) (no date) (unknown) (unknown) Cervicitis (units unknown) (unknown) (unknown) (no date) (unknown) (unknown) Common migraine (units unknown) (unknown) (unknown) (no date) (unknown) (unknown) : 1995 Acct:[id number] (units unknown) (unknown) (unknown) (no date) (unknown) (unknown) Depression (2013) (units unknown) (unknown) (unknown) (no date) (unknown) (unknown) Dept at . (units unknown) (unknown) (unknown) (no date) (unknown) (unknown) Documented By: Diane Curran 07/13/22 1505 (units unknown) (unknown) (unknown) (no date) (unknown) (unknown) Draft (units unknown) (unknown) (unknown) (no date) (unknown) (unknown) Gastroesophageal reflux disease (units unknown) (unknown) (unknown) (no date) (unknown) (unknown) Headache, chronic daily (units unknown) (unknown) (unknown) (no date) (unknown) (unknown) Height 5 ft 4 in (units unknown) (unknown) (unknown) (no date) (unknown) (unknown) Hepatic steatosis (units unknown) (unknown) (unknown) (no date) (unknown) (unknown) History of appendectomy (units unknown) (unknown) (unknown) (no date) (unknown) (unknown) IBS (irritable bowel syndrome) (units unknown) (unknown) (unknown) (no date) (unknown) (unknown) Intake Note: (units unknown) (unknown) (unknown) (no date) (unknown) (unknown) Intake performed by: Caryl Grande (units unknown) (unknown) (unknown) (no date) (unknown) (unknown) Intake (units unknown) (unknown) (unknown) (no date) (unknown) (unknown) Intake- Clincial Staff (units unknown) (unknown) (unknown) (no date) (unknown) (unknown) Last Menstural Cycle + Details (units unknown) (unknown) (unknown) (no date) (unknown) (unknown) Loc: [facility] (units unknown) (unknown) (unknown) (no date) (unknown) (unknown) Medical History (units unknown) (unknown) (unknown) (no date) (unknown) (unknown) Morbid obesity (units unknown) (unknown) (unknown) (no date) (unknown) (unknown) No Known Drug Allergies Allergy (Verified 07/13/22 15:06) (units unknown) (unknown) (unknown) (no date) (unknown) (unknown) Other Menstrual Period: Uncertain (units unknown) (unknown) (unknown) (no date) (unknown) (unknown) Oxygen Delivery Meth od room air (units unknown) (unknown) (unknown) (no date) (unknown) (unknown) PFSH (units unknown) (unknown) (unknown) (no date) (unknown) (unknown) Patient: Kvng Gurrolan [place] MR#: [id number] (units unknown) (unknown) (unknown) (no date) (unknown) (unknown) Position Sitting (units unknown) (unknown) (unknown) (no date) (unknown) (unknown) Pulse 95 H (units unknown) (unknown) (unknown) (no date) (unknown) (unknown) Pulse Oximetry (%) 98 (units unknown) (unknown) (unknown) (no date) (unknown) (unknown) Pulse Source Monitor (units unknown) (unknown) (unknown) (no date) (unknown) (unknown) Reason For Visit (units unknown) (unknown) (unknown) (no date) (unknown) (unknown) Respiration 16 (units unknown) (unknown) (unknown) (no date) (unknown) (unknown) Signed By: (units unknown) (unknown) (unknown) (no date) (unknown) (unknown) Smoking Status: Mario carey smoker (units unknown) (unknown) (unknown) (no date) (unknown) (unknown) Social History (units unknown) (unknown) (unknown) (no date) (unknown) (unknown) Status post delivery (10/28/16) (units unknown) (unknown) (unknown) (no date) (unknown) (unknown) Strep (units unknown) (unknown) (unknown) (no date) (unknown) (unknown) Surgical History (units unknown) (unknown) (unknown) (no date) (unknown) (unknown) Temp 97.5 F L (units unknown) (unknown) (unknown) (no date) (unknown) (unknown) Temp Source Temporal Artery Scan (units unknown) (unknown) (unknown) (no date) (unknown) (unknown) This note may have been all or partially generated using voice recognition (units unknown) (unknown) (unknown) (no date) (unknown) (unknown) Tobacco + Substance Use (units unknown) (unknown) (unknown) (no date) (unknown) (unknown) Tobacco Status (units unknown) (unknown) (unknown) (no date) (unknown) (unknown) Visit Reasons: S/T x 2D, concern for strep (units unknown) (unknown) (unknown) (no date) (unknown) (unknown) Vitals (units unknown) (unknown) (unknown) (no date) (unknown) (unknown) Walk In Clinic Visit (units unknown) (unknown) (unknown) (no date) (unknown) (unknown) alcohol intake: former (units unknown) (unknown) (unknown) (no date) (unknown) (unknown) have occurred. If there are any questions, please contact the Medical Records (units unknown) (unknown) (unknown) (no date) (unknown) (unknown) household members: children (units unknown) (unknown) (unknown) (no date) (unknown) (unknown) lives independently: Yes (units unknown) (unknown) (unknown) (no date) (unknown) (unknown) marital status: unmarried,single (units unknown) (unknown) (unknown) (no date) (unknown) (unknown) may occur. Occasiona l wrong-word or 'sound-alike' substitutions may have (units unknown) (unknown) (unknown) (no date) (unknown) (unknown) occupational status: employed (units unknown) (unknown) (unknown) (no date) (unknown) (unknown) occurred due to the inherent limitations of voice recognition software. Please (units unknown) (unknown) (unknown) (no date) (unknown) (unknown) pt arrives to [facility] wi son c/o sore throat ongoing two days and concern for (units unknown) (unknown) (unknown) (no date) (unknown) (unknown) read the note carefully and recognize, using context, where these substitutions (units unknown) (unknown) (unknown) (no date) (unknown) (unknown) software. Although every effort is made to edit content, dye stand loader errors (units unknown) (unknown) (unknown) (no date) (unknown) (unknown) substance use type: does not use (units unknown) (unknown) Result panel 1190 (unknown) (no date) (unknown) (unknown) (no value) (units unknown) (unknown) (unknown) (no date) (unknown) (unknown) (1) Sore throat: (units unknown) (unknown) (unknown) (no date) (unknown) (unknown) 07/13/22 1538 (units unknown) (unknown) (unknown) (no date) (unknown) (unknown) 07/13/22 (units unknown) (unknown) (unknown) (no date) (unknown) (unknown) 15:20 (units unknown) (unknown) (unknown) (no date) (unknown) (unknown) 10697 (units unknown) (unknown) (unknown) (no date) (unknown) (unknown) 6 (units unknown) (unknown) (unknown) (no date) (unknown) (unknown) Age/Sex: 27 / F Date of Service: (units unknown) (unknown) (unknown) (no date) (unknown) (unknown) Alignment and Position: alignment normal (units unknown) (unknown) (unknown) (no date) (unknown) (unknown) Allergies (units unknown) (unknown) (unknown) (no date) (unknown) (unknown) [facility] (units unknown) (unknown) (unknown) (no date) (unknown) (unknown) [place] [address] (units unknown) (unknown) (unknown) (no date) (unknown) (unknown) Anxiety (units unknown) (unknown) (unknown) (no date) (unknown) (unknown) Assessment + Plan (units unknown) (unknown) (unknown) (no date) (unknown) (unknown) Attending Dr: Diane SAUCEDO (units unknown) (unknown) (unknown) (no date) (unknown) (unknown) Auscultation: clear to auscultation bilaterally (units unknown) (unknown) (unknown) (no date) (unknown) (unknown) BP 120/70 (units unknown) (unknown) (unknown) (no date) (unknown) (unknown) Blood Pressure Location Lt brachial (units unknown) (unknown) (unknown) (no date) (unknown) (unknown) Cervicitis (units unknown) (unknown) (unknown) (no date) (unknown) (unknown) Chief Complaint (units unknown) (unknown) (unknown) (no date) (unknown) (unknown) Chief Complaint: Sor e throat (units unknown) (unknown) (unknown) (no date) (unknown) (unknown) Common migraine (units unknown) (unknown) (unknown) (no date) (unknown) (unknown) Const (units unknown) (unknown) (unknown) (no date) (unknown) (unknown) : 1995 Acct:[id number] (units unknown) (unknown) (unknown) (no date) (unknown) (unknown) Depression (2014) (units unknown) (unknown) (unknown) (no date) (unknown) (unknown) Dept at . (units unknown) (unknown) (unknown) (no date) (unknown) (unknown) Details: (units unknown) (unknown) (unknown) (no date) (unknown) (unknown) Documented By: Diane Curran [facility] 07/13/22 1505 (units unknown) (unknown) (unknown) (no date) (unknown) (unknown) Ears: hearing grossl y normal bilaterally, external ears normal and TM's normal (units unknown) (unknown) (unknown) (no date) (unknown) (unknown) Effort + Inspection: normal respiratory effort (units unknown) (unknown) (unknown) (no date) (unknown) (unknown) Exam Narrative (units unknown) (unknown) (unknown) (no date) (unknown) (unknown) Exam Narrative: (units unknown) (unknown) (unknown) (no date) (unknown) (unknown) Exam (units unknown) (unknown) (unknown) (no date) (unknown) (unknown) Eyes (units unknown) (unknown) (unknown) (no date) (unknown) (unknown) Face and sinus: norm al facial exam (units unknown) (unknown) (unknown) (no date) (unknown) (unknown) Gastroesophageal reflux disease (units unknown) (unknown) (unknown) (no date) (unknown) (unknown) General: appearance normal, both eyes and all related structures (units unknown) (unknown) (unknown) (no date) (unknown) (unknown) General: cooperative , healthy appearing, comfortable and no acute distress (units unknown) (unknown) (unknown) (no date) (unknown) (unknown) General: no rashes o r lesions noted (units unknown) (unknown) (unknown) (no date) (unknown) (unknown) HENMT (units unknown) (unknown) (unknown) (no date) (unknown) (unknown) HPI and exam indicat e need for point care strep testing which was negative in (units unknown) (unknown) (unknown) (no date) (unknown) (unknown) HPI (units unknown) (unknown) (unknown) (no date) (unknown) (unknown) Head: normal to inspection (units unknown) (unknown) (unknown) (no date) (unknown) (unknown) Headache, chronic daily (units unknown) (unknown) (unknown) (no date) (unknown) (unknown) Height 162.56 cm (units unknown) (unknown) (unknown) (no date) (unknown) (unknown) Hepatic steatosis (units unknown) (unknown) (unknown) (no date) (unknown) (unknown) History of appendectomy (units unknown) (unknown) (unknown) (no date) (unknown) (unknown) IBS (irritable bowel syndrome) (units unknown) (unknown) (unknown) (no date) (unknown) (unknown) Intake Note: (units unknown) (unknown) (unknown) (no date) (unknown) (unknown) Intake performed by: Caryl Grande (units unknown) (unknown) (unknown) (no date) (unknown) (unknown) Intake (units unknown) (unknown) (unknown) (no date) (unknown) (unknown) Intake- Clincial Staff (units unknown) (unknown) (unknown) (no date) (unknown) (unknown) Last Menstural Cycle + Details (units unknown) (unknown) (unknown) (no date) (unknown) (unknown) Loc: [facility] (units unknown) (unknown) (unknown) (no date) (unknown) (unknown) Medical History (units unknown) (unknown) (unknown) (no date) (unknown) (unknown) Morbid obesity (units unknown) (unknown) (unknown) (no date) (unknown) (unknown) Mouth: oral mucosae normal (units unknown) (unknown) (unknown) (no date) (unknown) (unknown) Neck (units unknown) (unknown) (unknown) (no date) (unknown) (unknown) Neck: normal visual inspection, full ROM and no lymphadenopathy (units unknown) (unknown) (unknown) (no date) (unknown) (unknown) No Known Drug Allergies Allergy (Verified 07/13/22 15:06) (units unknown) (unknown) (unknown) (no date) (unknown) (unknown) Nose: external nose normal (units unknown) (unknown) (unknown) (no date) (unknown) (unknown) Orders (units unknown) (unknown) (unknown) (no date) (unknown) (unknown) Orders: (units unknown) (unknown) (unknown) (no date) (unknown) (unknown) Other Menstrual Period: Uncertain (units unknown) (unknown) (unknown) (no date) (unknown) (unknown) Oxygen Delivery Meth od room air (units unknown) (unknown) (unknown) (no date) (unknown) (unknown) PFSH (units unknown) (unknown) (unknown) (no date) (unknown) (unknown) POC Strep A Test Negative Last Edit by Caryl Grande LPN on 07/13/22 15:2 (units unknown) (unknown) (unknown) (no date) (unknown) (unknown) POC Strep A (units unknown) (unknown) (unknown) (no date) (unknown) (unknown) POC Strep QC Last Ed it by Caryl Grande LPN on 07/13/22 15:26 (units unknown) (unknown) (unknown) (no date) (unknown) (unknown) POC Strep screen Samantha up A Today J02.9 - Acute pharyngitis, unspecified (units unknown) (unknown) (unknown) (no date) (unknown) (unknown) Patient presents to walk-in clinic with complaints of sore throat, sinus (units unknown) (unknown) (unknown) (no date) (unknown) (unknown) Patient: Sue Gurrola MR#: [id number] (units unknown) (unknown) (unknown) (no date) (unknown) (unknown) Plan (units unknown) (unknown) (unknown) (no date) (unknown) (unknown) Position Sitting (units unknown) (unknown) (unknown) (no date) (unknown) (unknown) Pulse 95 H (units unknown) (unknown) (unknown) (no date) (unknown) (unknown) Pulse Oximetry (%) 98 (units unknown) (unknown) (unknown) (no date) (unknown) (unknown) Pulse Source Monitor (units unknown) (unknown) (unknown) (no date) (unknown) (unknown) Reason For Visit (units unknown) (unknown) (unknown) (no date) (unknown) (unknown) Resp (units unknown) (unknown) (unknown) (no date) (unknown) (unknown) Respiration 16 (units unknown) (unknown) (unknown) (no date) (unknown) (unknown) Results (units unknown) (unknown) (unknown) (no date) (unknown) (unknown) Signed By: <Electronically signed by Diane Curran> (units unknown) (unknown) (unknown) (no date) (unknown) (unknown) Signed (units unknown) (unknown) (unknown) (no date) (unknown) (unknown) Skin (units unknown) (unknown) (unknown) (no date) (unknown) (unknown) Smoking Status: Mario carey smoker (units unknown) (unknown) (unknown) (no date) (unknown) (unknown) Social History (units unknown) (unknown) (unknown) (no date) (unknown) (unknown) Status post delivery (10/28/16) (units unknown) (unknown) (unknown) (no date) (unknown) (unknown) Strep Expiration 11/07/23 Last Edit by Caryl Grande LPN on 07/13/22 15:26 (units unknown) (unknown) (unknown) (no date) (unknown) (unknown) Strep Lot# [id number] Last Edit by Caryl Grande LPN on 07/13/22 15:26 (units unknown) (unknown) (unknown) (no date) (unknown) (unknown) Strep (units unknown) (unknown) (unknown) (no date) (unknown) (unknown) Sudafed, Tylenol/ibuprofen. Return to the emergency department if symptoms (units unknown) (unknown) (unknown) (no date) (unknown) (unknown) Surgical History (units unknown) (unknown) (unknown) (no date) (unknown) (unknown) Teeth and gingiva: dentition normal (units unknown) (unknown) (unknown) (no date) (unknown) (unknown) Temp 97.5 F L (units unknown) (unknown) (unknown) (no date) (unknown) (unknown) Temp Source Temporal Artery Scan (units unknown) (unknown) (unknown) (no date) (unknown) (unknown) This note may have been all or partially generated using voice recognition (units unknown) (unknown) (unknown) (no date) (unknown) (unknown) Throat Culture Today J02.9 - Acute pharyngitis, unspecified (units unknown) (unknown) (unknown) (no date) (unknown) (unknown) Throat: posterior oropharynx mild erythema without swelling or exudate (units unknown) (unknown) (unknown) (no date) (unknown) (unknown) Tobacco + Substance Use (units unknown) (unknown) (unknown) (no date) (unknown) (unknown) Tobacco Status (units unknown) (unknown) (unknown) (no date) (unknown) (unknown) Visit Reasons: S/T x 2D, concern for strep (units unknown) (unknown) (unknown) (no date) (unknown) (unknown) Visual Padilla: priyanka l visual padilla by confrontation (units unknown) (unknown) (unknown) (no date) (unknown) (unknown) Vitals (units unknown) (unknown) (unknown) (no date) (unknown) (unknown) Walk In Clinic Visit (units unknown) (unknown) (unknown) (no date) (unknown) (unknown) alcohol intake: former (units unknown) (unknown) (unknown) (no date) (unknown) (unknown) bilaterally (units unknown) (unknown) (unknown) (no date) (unknown) (unknown) clinic. We will send off throat culture and treat accordingly. Rest, increase (units unknown) (unknown) (unknown) (no date) (unknown) (unknown) congestion, runny no se for 2 days. Patient is concerned for strep throat. She (units unknown) (unknown) (unknown) (no date) (unknown) (unknown) fluids. [id number] medication for symptom relief such as antihistamine, (units unknown) (unknown) (unknown) (no date) (unknown) (unknown) have occurred. If there are any questions, please contact the Medical Records (units unknown) (unknown) (unknown) (no date) (unknown) (unknown) household members: children (units unknown) (unknown) (unknown) (no date) (unknown) (unknown) is not taken any medication [id number] for her symptoms. Denies chest (units unknown) (unknown) (unknown) (no date) (unknown) (unknown) lives independently: Yes (units unknown) (unknown) (unknown) (no date) (unknown) (unknown) marital status: unmarried,single (units unknown) (unknown) (unknown) (no date) (unknown) (unknown) may occur. Occasiona l wrong-word or 'sound-alike' substitutions may have (units unknown) (unknown) (unknown) (no date) (unknown) (unknown) occupational status: employed (units unknown) (unknown) (unknown) (no date) (unknown) (unknown) occurred due to the inherent limitations of voice recognition software. Please (units unknown) (unknown) (unknown) (no date) (unknown) (unknown) pain, shortness at breath. Patient is alert, oriented and comfortable and able (units unknown) (unknown) (unknown) (no date) (unknown) (unknown) pt arrives to [facility] son c/o sore throat ongoing two days and concern for (units unknown) (unknown) (unknown) (no date) (unknown) (unknown) read the note carefully and recognize, using context, where these substitutions (units unknown) (unknown) (unknown) (no date) (unknown) (unknown) software. Although every effort is made to edit content, dye stand loader errors (units unknown) (unknown) (unknown) (no date) (unknown) (unknown) substance use type: does not use (units unknown) (unknown) (unknown) (no date) (unknown) (unknown) to talk in full sentences a normal voice. (units unknown) (unknown) (unknown) (no date) (unknown) (unknown) worsen or new sympto ms develop. Follow-up with primary care as needed (units unknown) (unknown) Result panel 1191 (unknown) (no date) (unknown) (unknown) (no value) (units unknown) (unknown) (unknown) (no date) (unknown) (unknown) Light growth - Mixed resident buster (units unknown) (unknown) Result panel 1192 (unknown) (no date) (unknown) (unknown) (no value) (units unknown) (unknown) (unknown) (no date) (unknown) (unknown) Light growth - Mixed resident buster (units unknown) (unknown) Result panel 1193 (unknown) (no date) (unknown) (unknown) (no value) (units unknown) (unknown) (unknown) (no date) (unknown) (unknown) HAEINFHaemophilus influenzae (units unknown) (unknown) (unknown) (no date) (unknown) (unknown) HEAVY (units unknown) (unknown) (unknown) (no date) (unknown) (unknown) Light growth - Mixed resident buster (units unknown) (unknown) (unknown) (no date) (unknown) (unknown) No Further Workup (units unknown) (unknown) (unknown) (no date) (unknown) (unknown) POSITIVE (units unknown) (unknown) Social History date description facility 2022-04-22 00:00 Never smoked tobacco (finding) [facility] 2022-05-06 00:00 Never smoked tobacco (finding) [facility] 2022-06-16 00:00 Never smoked tobacco (finding) [facility] 2022-06-23 00:00 Never smoked tobacco (finding) [facility] 2022-06-26 00:00 Never smoked tobacco (finding) [facility] 2022-07-13 00:00 Never smoked tobacco (finding) [facility] Vital Signs date measurement value units 2022-04-22 00:00 BMI 54.3 kg/m2 2022-04-22 00:00 BP_diastolic 86 mmHg 2022-04-22 00:00 BP_systolic 146 mmHg 2022-04-22 00:00 heart_rate 111 /min 2022-04-22 00:00 height_metric 162.56 cm 2022-04-22 00:00 height_standard 64 in 2022-04-22 00:00 o2_saturation 99 % 2022-04-22 00:00 temperature_metric 36.44 C 2022-04-22 00:00 temperature_standard 97.6 F 2022-04-22 00:00 weight_metric 143.78 kg 2022-04-22 00:00 weight_standard 316.98 lb 2022-06-16 00:00 BMI 52.4 kg/m2 2022-06-16 00:00 BP_diastolic 90 mmHg 2022-06-16 00:00 BP_systolic 128 mmHg 2022-06-16 00:00 heart_rate 110 /min 2022-06-16 00:00 height_metric 162.56 cm 2022-06-16 00:00 height_standard 64 in 2022-06-16 00:00 o2_saturation 98 % 2022-06-16 00:00 weight_metric 138.45 kg 2022-06-16 00:00 weight_standard 305.23 lb 2022-06-23 00:00 BMI 51.5 kg/m2 2022-06-23 00:00 BP_diastolic 91 mmHg 2022-06-23 00:00 BP_systolic 168 mmHg 2022-06-23 00:00 heart_rate 65 /min 2022-06-23 00:00 height_metric 162.56 cm 2022-06-23 00:00 height_standard 64 in 2022-06-23 00:00 o2_saturation 100 % 2022-06-23 00:00 respiration_rate 18 /min 2022-06-23 00:00 temperature_metric 36.94 C 2022-06-23 00:00 temperature_standard 98.5 F 2022-06-23 00:00 weight_metric 136.07 kg 2022-06-23 00:00 weight_standard 299.98 lb 2022-06-26 00:00 BMI 51.5 kg/m2 2022-06-26 00:00 BP_diastolic 90 mmHg 2022-06-26 00:00 BP_systolic 130 mmHg 2022-06-26 00:00 heart_rate 93 /min 2022-06-26 00:00 height_metric 162.56 cm 2022-06-26 00:00 height_standard 64 in 2022-06-26 00:00 o2_saturation 98 % 2022-06-26 00:00 temperature_metric 36.28 C 2022-06-26 00:00 temperature_standard 97.3 F 2022-06-26 00:00 weight_metric 136.07 kg 2022-06-26 00:00 weight_standard 299.98 lb 2022-07-13 00:00 BP_diastolic 70 mmHg 2022-07-13 00:00 BP_systolic 120 mmHg 2022-07-13 00:00 heart_rate 95 /min 2022-07-13 00:00 height_metric 162.56 cm 2022-07-13 00:00 height_standard 64 in 2022-07-13 00:00 o2_saturation 98 % 2022-07-13 00:00 respiration_rate 16 /min 2022-07-13 00:00 temperature_metric 36.39 C 2022-07-13 00:00 temperature_standard 97.5 F
--- NOTE | 2022-07-20 17:27 | ED Physician Documentation ---
PD HPI HEENT - Stated complaint Stated Complaint: BILAT EAR PX - Chief complaint Chief Complaint: Heent - History obtained from History obtained from: Patient - Additional information Additional information: 27-year-old woman who has been sick for a week and a half with cough, sore throat, sinus pain and now increasing right ear pain radiating throughout the face. She had a throat swab done a few days ago at [facility] and tested positive for haemophilus influenza. She has been on Augmentin on day 4 without improvement in fact is slightly worse. 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 : None HEENT: None Psych: Depression, Anxiety Musculoskeletal: None Derm: None - Past Surgical History Past Surgical History: No /DIRECT CHILL CASTING OPERATOR: section HEENT: Tonsil/Adenoidectomy - Present Medications Home Medications: Ambulatory Orders Medication Instructions Recorded Confirmed Omeprazole Magnesium 20 mg PO DAILY 01/29/20 01/29/20 Ondansetron Odt [Zofran] 4 mg TL Q6H PRN #10 tablet 01/29/20 Sertraline HCl 100 mg PO DAILY 01/29/20 01/29/20 Cyclobenzaprine [Flexeril] 10 mg PO TID PRN #20 tablet 02/19/21 Oxycodone HCl/Acetaminophen 1 each PO Q6H PRN #14 tablet 02/21/21 [Percocet 5-325 mg Tablet] Benzonatate [Tessalon] 100 mg PO TID PRN #20 cap 05/02/21 Cetirizine [ZyrTEC] 10 mg PO BID #15 tablet 05/02/21 Doxycycline Hyclate 100 mg PO BID 7 Days #14 cap 05/02/21 Polymyxin B/Trimeth Ophth Drop 2 drops EACHEYE QID 5 Days #10 ml 05/02/21 [Polytrim Ophth Drops] dexAMETHasone [Decadron] 4 mg PO DAILY #5 tablet 05/02/21 Cefdinir 300 mg PO BID #20 cap 07/20/22 Guaifenesin/Pseudoephedrne HCl 1 each PO BID PRN #20 tab 07/20/22 [Mucinex D ER 600-60 mg Tablet] - Allergies Allergies/Adverse Reactions: Allergies Allergy/AdvReac Type Severity Reaction Status Date / Time No Known Drug Allergies Allergy Verified 07/20/22 17:10 - Social History Does the pt smoke?: No Smoking Status: Never smoker Does the pt drink ETOH?: No Does the pt have substance abuse?: Yes - Immunizations Immunizations are current?: Yes - POLST Patient has POLST: No PD ED PE NORMAL - Vitals Vital signs reviewed: Yes - General General: Alert and oriented X 3, No acute distress - HEENT HEENT: Ears normal, Pharynx benign (Surgically absent tonsils), Other (severe ROM) - Neck Neck: Supple, no meningeal sign, No bony TTP - Neuro Neuro: Alert and oriented X 3, gasoline finisher 2-12 intact, Normal speech Results - Vitals Vitals: Vital Signs - 24 hr 07/20/22 17:06 Temperature 36.4 C L Heart Rate 102 H Respiratory 20 Rate Blood Pressure 164/106 H O2 Saturation 99 Oxygen O2 Source Room air Departure - Departure Disposition: 01 Home, Self Care Clinical Impression: ROM (right otitis media) Condition: Good Record reviewed to determine appropriate education?: Yes Instructions: ED Otitis Media Acute Adult Prescriptions: Cefdinir 300 mg PO BID #20 cap Guaifenesin/Pseudoephedrne HCl [Mucinex D ER 600-60 mg Tablet] 1 each PO BID PRN #20 tab PRN Reason: congestion Comments: Drink plenty of fluids, follow-up with your doctor in a week for recheck. Return for new or worsening symptoms. You can stop the Amoxicillin/clav acid
== END 2022-07-20 17:39 | disposition home or self-care (01) ==
LOC: ED 17:02
DX: H66.91 Otitis media, unspecified, right ear (principal); Z79.899 Other long term (current) drug therapy
CPT/HCPCS: 99282; 99283; A9270

== ENCOUNTER 2022-08-12 21:36 | Outpatient (CLI) | payer MEDICAID | END 2022-08-12 23:59 | disposition EMS.NT | LOC: EMS 21:36 | DX: R07.9 Chest pain, unspecified (principal); R06.02 Shortness of breath ==

== ENCOUNTER 2022-08-12 23:21 | Outpatient (CLI) | payer MEDICAID | END 2022-08-12 23:59 | disposition critical access hospital (66) | LOC: EMS 23:21 | DX: R07.89 Other chest pain (principal); R11.0 Nausea | CPT/HCPCS: A0425; A0429; A0999 ==

== ENCOUNTER 2022-08-12 23:33 | Emergency (ER) | payer MEDICAID ==
--- NOTE | 2022-08-13 01:41 | ED Physician Documentation ---
PD HPI CHEST PAIN - Stated complaint Stated Complaint: CHEST PX - Chief complaint Chief Complaint: Cardiac - History obtained from History obtained from: Patient - Additional information Additional information: HPI from patient. Patient c/o episodic midline anterior chest pain, onset tonight while at home, at rest. She describes the pain as "like a cramp of my heart", severe in intensity, and lasting approximately 10 minutes before resolving spontaneously. No inciting/exacerbating/ameliorating factors. She had a second episode within 30-45 minutes, lasting 5 minutes but just as severe/intense. She has dyspnea during episode in that she feels it is difficult to catch her breath. Nausea but no vomiting. Denies leg swelling. Denies fever. Patient had lap robert 08/06/22 ([facility]Symptoms have resolved by the time of this evaluation. Review of Systems Constitutional: denies: Fever, Chills, Sweats Cardiac: reports: Chest pain / pressure. denies: Palpitations, Pedal edema, Calf pain Respiratory: reports: Dyspnea. denies: Cough, Hemoptysis, Wheezing GI: reports: Nausea. 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 : None HEENT: None Psych: Depression, Anxiety Musculoskeletal: None Derm: None - Past Surgical History Past Surgical History: Yes General: Cholecystectomy, Appendectomy /TECHNICAL SALES DIRECTOR: section HEENT: Tonsil/Adenoidectomy - Present Medications Home Medications: Ambulatory Orders Medication Instructions Recorded Confirmed Fluoxetine HCl 10 mg PO DAILY 08/12/22 08/12/22 - Allergies Allergies/Adverse Reactions: Allergies Allergy/AdvReac Type Severity Reaction Status Date / Time No Known Drug Allergies Allergy Verified 08/12/22 23:45 - Social History Does the pt smoke?: No Smoking Status: Never smoker Does the pt drink ETOH?: No Does the pt have substance abuse?: Yes - Immunizations Immunizations are current?: Yes - POLST Patient has POLST: No PD ED PE NORMAL - Vitals Vital signs reviewed: Yes - General General: Alert and oriented X 3, No acute distress, Well developed/nourished - Neck Neck: Supple, no meningeal sign - Cardiac Cardiac: RRR, No murmur, No gallop, No rub - Respiratory Respiratory: No respiratory distress, Clear bilaterally - Abdomen Abdomen: Normal bowel sounds, Soft, Non tender (nontender without rebound, guarding), Other (surgical (trochar) sites are C/D/I with medical tissue adhesive in place, no significant tenderness , no erythema) Results - Vitals Vitals: Oxygen O2 Source Room air - EKG (time done) No standard instances EKG releavant findings:: EKG personally interpreted by author of this note. Relevant findings are: Rate: Rate (enter#) (92) Rhythm: NSR [place]: LAD Intervals: Normal NV QRS: Normal Ischemia: Normal ST segments - Labs Labs: Laboratory Tests 08/13/22 08/13/22 08/13/22 02:14 02:14 02:14 WBC 10.8 RBC 4.91 Hgb 13.7 Hct 41.6 MCV 84.7 MCH 27.9 MCHC 32.9 RDW 12.5 Plt Count 332 MPV 9.8 Neut # (Auto) 7.8 H Lymph # (Auto) 2.4 [place] # (Auto) 0.5 Eos # (Auto) 0.1 Baso # (Auto) 0.0 Absolute Nucleated RBC 0.00 Nucleated RBC % 0.0 Sodium 137 Potassium 3.9 Chloride 102 Carbon Dioxide 26 Anion Gap 9.0 BUN 11 Creatinine 0.7 Estimated GFR (MDRD) 101 Glucose 101 H Calcium 8.8 Total Bilirubin 0.5 AST 17 ALT 19 Alkaline Phosphatase 58 Troponin I High Sens 2.4 Total Protein 7.7 Albumin 3.9 Globulin 3.8 Albumin/Globulin Ratio 1.0 Lipase 27 - Rads (name of study) CTA chest (PE study) Relevant Findings:: Prelim report reviewed, See rad report PD Medical Decision Making - ED course Complexity details: reviewed results, re-evaluated patient, considered differential, d/w patient ED course: Tests ordered and results reviewed by me: CBC, ER abdominal panel, hs-cTn, CT chest with angiography (PE study, this is being performed due to c/o chest pain, dyspnea, and cannot PERC-out given recent surgery). No concerning nor diagnostic findings on these tests including blood tests, EKG, and CT chest (specifically, no evidence of PE). Results d/w patient, return precautions reviewed. Cause of her symptoms is unclear at this time. PE unlikely with no PE visualized on the CT. ACS would be unlikely at her age, and more so with normal EKG and normal hs-cTn. She remains asymptomatic during ED stay. Instructed to follow up with her PMD and surgeon for reevaluation of her symptoms. Departure - Departure Disposition: 01 Home, Self Care Clinical Impression: Chest pain Qualifiers: Chest pain type: unspecified Qualified Code(s): R07.9 - Chest pain, unspecified Condition: Good Instructions: ED Chest Pain Atypical Unkn Cause Follow-Up: Mani Mustafa ARNP [Primary Care Provider] - Within 1 week Comments: There were no concerning nor diagnostic findings on tonight's test, including the blood tests, EKG, and the CT scan of your chest. It is, of course, unsettling to not have an apparent cause of such severe pain, but the likelihood of a dangerous cause is very unlikely at this point, given the unremarkable test performed tonight. Certainly, if your symptoms worsen, or if you develop new/concerning signs/symptoms (such as fever, ongoing shortness of breath, cough, abdominal pain), you can was return to the emergency department for reevaluation. Persistent and severe pain alone is an appropriate reason for return to the ER. Discharge Date/Time: 08/13/22 04:14
[2022-08-13 02:25] LABS: BASOPHILS % (AUTO) 0.4 %; EOSINOPHILS # (AUTO) 0.1 10^3/uL (0.0-0.7); EOSINOPHILS % (AUTO) 0.7 %; HCT - HEMATOCRIT 41.6 % (37.0-47.0); HGB - HEMOGLOBIN 13.7 g/dL (12.0-16.0); LYMPHOCYTES # (AUTO) 2.4 10^3/uL (1.5-3.5); LYMPHOCYTES % (AUTO) 21.9 %; MEAN CORPUSCULAR HEMOGLOBIN 27.9 pg (27.0-31.0); MEAN CORPUSCULAR HGB CONC 32.9 g/dL (32.0-36.0); MEAN CORPUSCULAR VOLUME 84.7 fL (81.0-99.0); MEAN PLATELET VOLUME 9.8 fL (7.9-10.8); MONOCYTES # (AUTO) 0.5 10^3/uL (0.0-1.0); MONOCYTES % (AUTO) 4.6 %; NEUTROPHILS # (AUTO) 7.8 10^3/uL (1.5-6.6); PLT - PLATELET COUNT 332 10^3/uL (130-450); RED BLOOD COUNT 4.91 10^6/uL (4.20-5.40); RED CELL DISTRIBUTION WIDTH 12.5 % (12.0-15.0); WHITE BLOOD COUNT 10.8 x10^3/uL (4.8-10.8)
[2022-08-13 02:38] LABS: ALBUMIN 3.9 g/dL (3.2-5.5); BILIRUBIN,TOTAL 0.5 mg/dL (0.2-1.0); CALCIUM 8.8 mg/dL (8.5-10.3); CREATININE 0.7 mg/dL (0.4-1.0); POTASSIUM 3.9 mmol/L (3.5-5.0); TOTAL PROTEIN 7.7 g/dL (6.7-8.2)
[2022-08-13 04:12] VITALS: BP 148/91
--- NOTE | 2022-08-13 13:51 | CT Report ---
PROCEDURE: ANGIO CHEST W/WO INDICATIONS: chest pain CONTRAST: 100 ML OMNI 350 TECHNIQUE: After the administration of intravenous contrast, 2 mm axial images were acquired from the pulmonary apices to the posterior costophrenic angles during the arterial phase. In addition, 1 mm lung kernel and 5 mm soft tissue kernel reconstructions were performed. 3-dimensional coronal oblique maximum int ensity projection (MIP) reformats, 8 mm axial MIP, and 5 mm coronal and sagittal MPR reformats were t hen performed through the thorax. For radiation dose reduction, the following was used: automated exp osure control, adjustment of mA and/or kV according to patient size. COMPARISON: Chest x-ray, 05/02/2021. FINDINGS: Image quality: Excellent. Large vessels: No filling defects within the opacified pulmonary arteries, accounting for motion and contrast timing. No evidence of acute aortic syndrome or aortic aneurysm. Lungs and pleura: No consolidation. No pleural effusions. No pneumothorax. No suspicious pulmonary n odules which require follow up. Mediastinum: Heart size is normal. No pericardial effusion. No large vessel abnormality. No mediastin al adenopathy by size criteria. Chest wall and lower neck: Thyroid is unremarkable. No axillary or supraclavicular adenopathy by size . Bones: No aggressive osseous abnormality. Upper Abdomen: Unremarkable. IMPRESSION: 1. No evidence for pulmonary embolism. 2. No acute cardiopulmonary process identified. No significant discrepancy with the preliminary interpretation. Reviewed by: Zacarias Chappell MD on 08/13/2022 1:49 PM PDT Approved by: Zacarias Chappell MD on 08/13/2022 1:49 PM PDT Station ID: [id number]
== END 2022-08-13 04:14 | disposition home or self-care (01) ==
LOC: EDUNIT# → ED 23:33
DX: R07.9 Chest pain, unspecified (principal)
CPT/HCPCS: 36415; 71275; 80053; 83690; 84484; 85025; 93005; 99283; 99284; Q9967